=== PATIENT | female | born 1940 | race Caucasian/White ===

== ENCOUNTER 2017-03-06 12:20 | Inpatient (IN) | payer MEDICARE, BC ==
[2017-03-06] MEDS ORDERED: Acetaminophen 325 MG Tab PO PRN (14:12)
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
[2017-03-06] MEDS ORDERED: Sodium Chloride 0.9% 1,000 ML IV SCH (14:30)
[2017-03-06] MEDS ORDERED: Acetaminophen 500 MG Tab PO PRN (14:31)
[2017-03-06] MEDS ORDERED: Allopurinol 300 MG Tab PO PRN (15:32)
[2017-03-06] MEDS ORDERED: Levofloxacin 500 MG Tab PO SCH (15:45)
[2017-03-06] MEDS: Acetaminophen/Codeine 300-30 MG Tab PO PRN ×2 (15:50→21:35)
[2017-03-06] MEDS ORDERED: Enoxaparin 30 MG/0.3 ML Syringe SUBCUT SCH (16:00)
[2017-03-06] MEDS ORDERED: cefTRIAXone 2 GM in Sodium Chloride 0.9% 100 ML IV SCH (16:00)
[2017-03-06] MEDS: Enoxaparin 40 MG/0.4 ML Syringe SUBCUT SCH (17:14)
[2017-03-06] MEDS: cefTRIAXone 2 GM Vial IV SCH (17:15)
[2017-03-06] MEDS ORDERED: Azithromycin 500 MG Tab PO ONE (18:08)
[2017-03-06] MEDS: metroNIDAZOLE 500 MG Tab PO SCH (18:57)
[2017-03-06] MEDS: Gabapentin 600 MG Tab PO SCH (21:37)
[2017-03-06] MEDS: Metoprolol Tartrate 50 MG Tab PO SCH (21:37)
[2017-03-06] MEDS: Mirtazapine 15 MG Tab PO SCH (21:38)
[2017-03-06] MEDS: tiZANidine 4 MG Tab PO SCH (23:09)
[2017-03-07] MEDS: metroNIDAZOLE 500 MG Tab PO SCH ×3 (01:57→19:35)
[2017-03-07] MEDS ORDERED: Sodium Chloride 0.9% 1,000 ML IV SCH (07:45)
[2017-03-07] MEDS: Docusate Sodium 100 MG Cap PO SCH (10:00)
[2017-03-07] MEDS: Aspirin 81 MG Tab.EC PO SCH (10:06)
--- NOTE | 2017-03-07 11:57 | PCM.PN ---
- General Info Date of Service: 03/07/17 Subjective Update: Patient is a 76-year-old female currently on hospital day #2 for possible aspiration pneumonia/febrile illness. Patient is currently on Rocephin and metronidazole. She had a difficult night with significant sweats and then rested well after that. She's feeling better this morning. No chest pain, chest does feel tight and shortness of breath with activity but comfortable at rest. Has not been hypoxic requiring supplemental oxygen. She's had no nausea, no vomiting, no diarrhea. Has not used the albuterol because she was concerned the albuterol might cause her heart to race. - Patient Data Vitals - Most Recent: Last Vital Signs Temp 36.7 C 03/07/17 08:05 Pulse 67 03/07/17 04:00 Resp 18 03/07/17 08:05 BP 131/63 03/07/17 08:05 Pulse Ox 92 L 03/07/17 08:05 Weight - Most Recent: 70.08 kg I&O - Last 24 Hours: Intake & Output 03/06/17 03/07/17 03/07/17 22:59 06:59 14:59 Intake Total 677 425 Output Total 750 0 Balance -73 425 Lab Results Last 24 Hours: Laboratory Results - last 24 hr 03/06/17 03/07/17 03/07/17 Range/Units 15:49 06:30 06:30 WBC 15.1 H (4.5-12.0) X10-3/uL RBC 3.24 (3.23-5.20) x10(6)uL Hgb 10.4 L (11.5-15.5) g/dL Hct 31.0 (30.0-51.3) % MCV 95.5 (80-96) fL MCH 32.2 (27.7-33.6) pg MCHC 33.7 (32.2-35.4) g/dL RDW 13.4 (11.5-15.5) % Plt Count 166 (125-369) X10(3)uL MPV 9.9 (7.4-10.4) fL Add Manual Diff Yes Neutrophils % (Manual) 87 H (46-82) % Lymphocytes % (Manual) 10 L (13-37) % Monocytes % (Manual) 3 L (4-12) % Sodium 141 (135-145) mmol/L Potassium 4.3 (3.5-5.3) mmol/L Chloride 105 (100-110) mmol/L Carbon Dioxide 28 (21-32) mmol/L BUN 32 H (7-18) mg/dL Creatinine 1.4 H (0.55-1.02) mg/dL Est Cr Clr Drug Dosing 31.00 mL/min Estimated GFR (MDRD) 36 L (>60) BUN/Creatinine Ratio 22.9 H (9-20) Glucose 103 (80-116) mg/dL Calcium 8.7 (8.6-10.2) mg/dL Total Bilirubin 0.6 (0.1-1.3) mg/dL AST 17 (5-25) IU/L ALT 17 (12-36) U/L Alkaline Phosphatase 84 (56-112) IU/L Total Protein 5.8 L (6.0-8.0) g/dL Albumin 2.7 L (3.2-4.6) g/dL Globulin 3.1 g/dL Albumin/Globulin Ratio 0.9 Urine Color Yellow (YELLOW) Urine Appearance Clear (CLEAR) Urine pH 6.0 (5.0-6.5) Ur Specific [place] 1.015 (1.010-1.025) Urine Protein Negative (NEGATIVE) mg/dL Urine Glucose (UA) Normal (NEGATIVE) mg/dL Urine Ketones Negative (NEGATIVE) mg/dL Urine Occult Blood Negative (NEGATIVE) Urine Nitrite Negative (NEGATIVE) Urine Bilirubin Negative (NEGATIVE) Urine Urobilinogen Normal (NEGATIVE) mg/dL Ur Leukocyte Esterase Negative (NEGATIVE) Urine RBC 0-5 (0) Urine WBC 0-5 (0) Ur Squamous Epith Cells Occasional (NS,R,O) Urine Bacteria Few H (NS) Wood Results Last 24 Hours: Microbiology 03/06/17 14:15 Influenza Type A Antigen Screen - Final Nasal, Unspecified NEGATIVE INFLUENZA A VIRUS AG Influenza Type B Antigen Screen - Final NEGATIVE INFLUENZA B VIRUS AG Med Orders - Current: Current Medications Acetaminophen (Tylenol Extra Strength) 1,000 mg PO Q6H PRN PRN Reason: Pain (Mild 1-3)/fever Acetaminophen/Codeine Phosphate (Tylenol With Codeine No.3 300mg/30mg) 1 tab PO Q4H PRN PRN Reason: Pain Last Admin: 03/06/17 21:35 Dose: 1 tab Albuterol/Ipratropium (Duoneb 3.0-0.5 Mg/3 Ml) 3 ml NEB Q4H PRN PRN Reason: Wheezing Allopurinol (Zyloprim) 150 mg PO DAILY PRN PRN Reason: Pain Aspirin (Halfprin) 81 mg PO DAILY [facility] Last Admin: 03/07/17 10:06 Dose: 81 mg Ceftriaxone Sodium (Rocephin) 2 gm IV Q24H [facility] Last Admin: 03/06/17 17:15 Dose: 2 gm Docusate Sodium (Colace) 100 mg PO DAILY [facility] Last Admin: 03/07/17 10:00 Dose: 100 mg Enoxaparin Sodium (Lovenox) 40 mg SUBCUT Q24H [facility] Last Admin: 03/06/17 17:14 Dose: 40 mg Gabapentin (Neurontin) 600 mg PO BEDTIME [facility] Last Admin: 03/06/17 21:37 Dose: 600 mg Sodium Chloride (Normal Saline) 1,000 mls @ 100 mls/hr IV ASDIRECTED [facility] Stop: 03/07/17 17:44 Last Admin: 03/07/17 10:05 Dose: 100 mls/hr Lactobacillus Rhamnosus (Culturelle) 1 cap PO DAILY@1200 [facility] Levalbuterol HCl (Xopenex) 1.25 mg NEB Q2H PRN PRN Reason: Wheezing Metoprolol Tartrate (Lopressor) 50 mg PO BEDTIME [facility] Last Admin: 03/06/17 21:37 Dose: 50 mg Metronidazole (Flagyl) 500 mg PO Q8H [facility] Last Admin: 03/07/17 10:06 Dose: 500 mg Mirtazapine (Remeron) 7.5 mg PO BEDTIME [facility] Last Admin: 03/06/17 21:38 Dose: 7.5 mg Tizanidine HCl (Zanaflex) 4 mg PO BEDTIME [facility] Last Admin: 03/06/17 23:09 Dose: 4 mg Discontinued Medications Acetaminophen (Tylenol) 1,000 mg PO Q6H PRN PRN Reason: Pain (Mild 1-3)/fever Azithromycin (Zithromax) 500 mg PO ONETIME ONE Stop: 03/06/17 18:09 Azithromycin (Zithromax) 250 mg PO DAILY [facility] Enoxaparin Sodium (Lovenox) 30 mg SUBCUT Q24H [facility] Sodium Chloride (Normal Saline) 1,000 mls @ 100 mls/hr IV ASDIRECTED [facility]OR[facility] Stop: 03/07/17 00:29 Last Admin: 03/06/17 14:45 Dose: 100 mls/hr - Exam General: Alert, Oriented, Cooperative, No Acute Distress HEENT: Pupils Equal, Pupils Reactive Neck: Supple Lungs: Crackles (diffuse crackles and popping in bilateral lower lobes) Cardiovascular: Regular Rate, Regular Rhythm, No Murmurs GI/Abdominal Exam: Normal Bowel Sounds, Soft, Non-Tender, No Organomegaly, No Distention Back Exam: Normal Inspection, Full Range of Motion Extremities: Normal Inspection, No Pedal Edema Skin: Warm, Dry, Intact Psy/Mental Status: Alert - Problem List & Annotations (1) Aspiration pneumonia SNOMED Code(s): 483072591 Code(s): J69.0 - PNEUMONITIS DUE TO INHALATION OF FOOD AND VOMIT Status: Acute Current Visit: Yes Annotation/Comment:: Improving. I decided against the Levaquin due to the patient's renal function and put her instead on IV Rocephin and by mouth metronidazole which she is tolerating well. Changed the albuterol to Xopenex for wheezing. Repeat chest x-ray today. (2) MERRITT (acute kidney injury) SNOMED Code(s): 60140342 Code(s): N17.9 - ACUTE KIDNEY FAILURE, UNSPECIFIED Status: Acute Current Visit: Yes Annotation/Comment:: Creatinine is up to 1.4 today. White count is down to 15.1. I am going to give her another liter of fluid. (3) HTN (hypertension) SNOMED Code(s): 76155966 Code(s): I10 - ESSENTIAL (PRIMARY) HYPERTENSION Status: Acute Current Visit: Yes Annotation/Comment:: Monitor. Continue home meds. (4) Gout SNOMED Code(s): 66984261 Code(s): M10.9 - GOUT, UNSPECIFIED Status: Acute Current Visit: Yes Annotation/Comment:: Continue home med. (5) Insomnia SNOMED Code(s): 079502585 Code(s): G47.00 - INSOMNIA, UNSPECIFIED Status: Acute Current Visit: Yes Annotation/Comment:: Continue home med. (6) Chronic pain syndrome SNOMED Code(s): 684228750 Code(s): G89.4 - CHRONIC PAIN SYNDROME Status: Acute Current Visit: Yes Annotation/Comment:: Continue home Tylenol 3. We'll need to monitor Tylenol dose overall closely. (7) DVT prophylaxis SNOMED Code(s): 587653690 Code(s): FXG7447 - Status: Acute Current Visit: Yes Annotation/Comment :: Lovenox. SCDs. - Problem List Review Problem List Initiated/Reviewed/Updated: Yes - My Orders Last 24 Hours: My Active Orders 03/06/17 14:12 Patient Status [ADT] Routine Oxygen Therapy [RC] PRN Up ad Tawanna [RC] ASDIRECTED Vital Signs [RC] 08,16,20,00,04,00 Resuscitation Status Routine 03/06/17 14:14 Intake and Output [RC] 06,14,22 Sequential Compression Device [OM.PC] Per Unit Routine 03/06/17 14:31 Acetaminophen [Tylenol Extra Strength] 1,000 mg PO Q6H PRN 03/06/17 14:50 CULTURE BLOOD [BC] Stat 03/06/17 14:54 IS (RT) [RT Incentive Spirometry] [RC] Q1HWA 03/06/17 15:32 Acetaminophen/Codeine [Tylenol with Codeine No.3 300MG/30MG] 1 tab PO Q4H PRN Allopurinol [Zyloprim] 150 mg PO DAILY PRN 03/06/17 15:47 RT Aerosol Therapy [RC] ASDIRECTED Albuterol/Ipratropium [DuoNeb 3.0-0.5 MG/3 ML] 3 ml NEB Q4H PRN 03/06/17 16:00 Enoxaparin [Lovenox] 40 mg SUBCUT Q24H cefTRIAXone [Rocephin] 2 gm IV Q24H 03/06/17 18:00 metroNIDAZOLE [Flagyl] 500 mg PO Q8H 03/06/17 21:00 Gabapentin [Neurontin] 600 mg PO BEDTIME Metoprolol Tartrate [Lopressor] 50 mg PO BEDTIME Mirtazapine [Remeron] 7.5 mg PO BEDTIME 03/07/17 07:45 Sodium Chloride 0.9% [Normal Saline] 1,000 ml IV ASDIRECTED 03/07/17 09:00 Aspirin [Halfprin] 81 mg PO DAILY Docusate Sodium [Colace] 100 mg PO DAILY 03/07/17 11:35 CXR [Chest 2V] [CR] Routine 03/07/17 11:39 RT Aerosol Therapy [RC] ASDIRECTED Levalbuterol HCl [Xopenex] 1.25 mg NEB Q2H PRN 03/07/17 12:00 Lactobacillus Rhamnosus GG [Culturelle] 1 cap PO DAILY@1200 - Assessment Assessment:: Overall patient improved from yesterday. - Plan Plan:: Discussed CODE STATUS with the patient. She is a DNR/DNI. She would not want CPR if she were to unexpectedly. She would not want intubation even if it would be life saving if her respiratory status deteriorated. She would not want tube feeds to keep her alive for anything but a short period of time.
[2017-03-07] MEDS: Acetaminophen/Codeine 300-30 MG Tab PO PRN ×2 (12:26→21:06)
[2017-03-07] MEDS: Lactobacillus Rhamnosus GG (Probiotic) Cap PO SCH (12:26)
[2017-03-07] MEDS ORDERED: Acetaminophen 500 MG Tab PO PRN (12:56)
--- NOTE | 2017-03-07 13:05 | CR ---
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 CHEST: PA and lateral views of the chest 03/07/2017 were compared with 2016, again revealing the elevated right hemidiaphragm leaf. Heavy markings are noted at both lung bases and in the right upper lung field, making it difficult to exclude areas of patchy bronchopneumonia. No gross consolidating pneumonia or definite effusion was identified. The heart is normal in size and shape. The aorta is tortuous and calcified in the arch and descending portion. Moderate degenerative changes are noted in the mid to lower thoracic spine with some disk disease suggested in the mid thoracic spine. IMPRESSION: 1. No definite acute process but difficult to exclude patchy bronchopneumonia in upper lung field on the right and both lower lung albert - lung bases, due to heavy markings present, most likely on the basis of pulmonary fibrosis. 2. ASD aorta. 3. Mild dextroconvex scoliosis thoracic spine with degenerative disk disease mid thoracic spine and hypertrophic degenerative changes mid thoracic spine. 4. Elevated right hemidiaphragm again noted with the hepatic flexure colon in that area, as previously. MTDD
[2017-03-07] MEDS: Enoxaparin 40 MG/0.4 ML Syringe SUBCUT SCH (16:21)
[2017-03-07] MEDS: Allopurinol 300 MG Tab PO SCH (16:26)
[2017-03-07] MEDS: cefTRIAXone 2 GM Vial IV SCH (16:26)
[2017-03-07] MEDS ORDERED: Azithromycin 250 MG Tab PO SCH (21:00)
[2017-03-07] MEDS: Sodium Chloride 0.9% 10 ML Syringe FLUSH PRN (21:00)
[2017-03-07] MEDS: Gabapentin 600 MG Tab PO SCH (21:06)
[2017-03-07] MEDS: Mirtazapine 15 MG Tab PO SCH (21:06)
[2017-03-07] MEDS: tiZANidine 4 MG Tab PO SCH (21:06)
[2017-03-07] MEDS: Metoprolol Tartrate 50 MG Tab PO SCH (21:09)
[2017-03-08] MEDS: metroNIDAZOLE 500 MG Tab PO SCH ×3 (02:11→18:28)
[2017-03-08] MEDS: Docusate Sodium 100 MG Cap PO SCH (08:20)
[2017-03-08] MEDS: Aspirin 81 MG Tab.EC PO SCH (08:20)
[2017-03-08] MEDS: Allopurinol 300 MG Tab PO SCH (08:21)
[2017-03-08] MEDS: Lactobacillus Rhamnosus GG (Probiotic) Cap PO SCH (11:38)
[2017-03-08] MEDS: Acetaminophen/Codeine 300-30 MG Tab PO PRN ×2 (13:01→21:05)
[2017-03-08] MEDS: Levalbuterol HCl 1.25 MG/3 ML Neb NEB PRN (13:25)
[2017-03-08] MEDS: predniSONE 20 MG Tab PO SCH (14:30)
--- NOTE | 2017-03-08 15:43 | CT ---
INDICATION: Short of breath, pulmonary fibrosis. CT CHEST WITHOUT CONTRAST: Spiral 2.5 mm axial sections were obtained through the chest without contrast with sagittal and coronal reconstructions 2017. No comparison CTs were available. There is a chest x-ray from 2017. Total exam DLP = 328.43 mGy-cm. Scattered areas of patchy infiltration are noted with one area of consolidating pneumonia at the left lower lobe with air bronchograms extensively in that area. Additional areas of infiltrate are seen in the lingula of both upper lobes and middle lobe. The appearance raises question of a process such as aspiration pneumonia. At least a portion of these changes could be on the basis of chronic inflammatory disease, such as bronchitis, as there appear to be abnormal air spaces, possibly bronchiectasis present. Pneumonia superimposed on chronic inflammatory disease, such as chronic bronchitis, would also be a consideration, especially in the area of the left lower lobe, where consolidation is present. In some of the areas of apparent infiltration, there is some pleural thickening , suggesting some pleural reaction; however, no significant pleural effusion could be identified. There appear to be coronary artery and mitral annular calcifications. The heart did not appear grossly enlarged, however. Calcifications are noted in the aorta and splenic artery. Bridging hyperostotic changes are noted in the mid to lower thoracic spine. Mediastinal lymphadenopathy is mild to moderate and fairly nonspecific and certainly could be on the basis of inflammatory disease. At the upper pole of the right lobe of the thyroid, there is an appearance of a nodular mass posteriorly, measuring approximately 2 cm in maximum diameter transversely. Ultrasound would be confirmatory, as felt to be clinically necessary. IMPRESSION: Scattered areas of chronic inflammatory change and/or fibrosis with bronchiectasis suggested. These areas are seen scattered about the lungs. An area of consolidating pneumonia is also apparently superimposed on these changes in the left lower lobe. MTDD
[2017-03-08] MEDS: cefTRIAXone 2 GM Vial IV SCH (15:56)
[2017-03-08] MEDS: Enoxaparin 40 MG/0.4 ML Syringe SUBCUT SCH (15:56)
[2017-03-08] MEDS: Sodium Chloride 0.9% 10 ML Syringe FLUSH PRN (16:00)
--- NOTE | 2017-03-08 17:24 | PCM.PN ---
- General Info Date of Service: 03/08/17 Subjective Update: Patient is a 76-year-old female currently on hospital day #3 for presumed pneumonia, probable aspiration. Patient is on Rocephin and Flagyl. She complains today that she feels worse than she has since she came in. Her chest is tight. She is achy all over. She feels like this at home sometimes but only when the weather is changing. She is weak, she feels her breathing is worse, she was up in the chair but hardly had the strength to walk in the coates. It hurts when she takes a deep breath. She recalls that in previous hospitalizations she's required prednisone in order to really turn the corner with her respiratory status and isn't getting prednisone here so is wondering if perhaps that should be added to her regimen. Clinically, the patient's vital signs are stable and improved. White count has come down to 12.5. We repeated a flu because she was so achy today and this was again negative. She tells me her cough has been more productive and it's been blood tinged and yellow. No nausea , no vomiting. No diarrhea. - Patient Data Vitals - Most Recent: Last Vital Signs Temp 37.0 C 03/08/17 08:00 Pulse 76 03/08/17 08:00 Resp 18 03/08/17 08:00 BP 128/62 03/08/17 08:00 Pulse Ox 97 03/08/17 08:00 Weight - Most Recent: 73.198 kg I&O - Last 24 Hours: Intake & Output 03/08/17 03/08/17 03/08/17 06:59 14:59 22:59 Intake Total 150 Output Total 200 900 200 Balance -50 -900 -200 Lab Results Last 24 Hours: Laboratory Results - last 24 hr 03/08/17 03/08/17 03/08/17 Range/Units 09:45 09:45 09:45 WBC 12.5 H (4.5-12.0) X10-3/uL RBC 3.51 (3.23-5.20) x10(6)uL Hgb 11.0 L (11.5-15.5) g/dL Hct 33.4 (30.0-51.3) % MCV 94.9 (80-96) fL MCH 31.3 (27.7-33.6) pg MCHC 32.9 (32.2-35.4) g/dL RDW 12.9 (11.5-15.5) % Plt Count 168 (125-369) X10(3)uL MPV 9.0 (7.4-10.4) fL Add Manual Diff Yes Neutrophils % (Manual) 90 H (46-82) % Lymphocytes % (Manual) 5 L (13-37) % Monocytes % (Manual) 4 (4-12) % Eosinophils % (Manual) 1 (0-5) % Sodium 140 (135-145) mmol/L Potassium 4.0 (3.5-5.3) mmol/L Chloride 104 (100-110) mmol/L Carbon Dioxide 27 (21-32) mmol/L BUN 32 H (7-18) mg/dL Creatinine 1.4 H (0.55-1.02) mg/dL Est Cr Clr Drug Dosing 31.00 mL/min Estimated GFR (MDRD) 36 L (>60) BUN/Creatinine Ratio 22.9 H (9-20) Glucose 179 H (80-116) mg/dL Calcium 8.9 (8.6-10.2) mg/dL Creatine Kinase 29 L (60-160) IU/L Wood Results Last 24 Hours: Microbiology 03/06/17 14:50 Aerobic Blood Culture - Preliminary Blood NO GROWTH AFTER 2 DAYS Anaerobic Blood Culture - Preliminary NO GROWTH AFTER 2 DAYS 03/08/17 11:14 Influenza Type A Antigen Screen - Final Nasopharyngeal Swab - Nare, Left NEGATIVE INFLUENZA A VIRUS AG Influenza Type B Antigen Screen - Final NEGATIVE INFLUENZA B VIRUS AG Med Orders - Current: Current Medications Acetaminophen (Tylenol Extra Strength) 500 mg PO Q6H PRN PRN Reason: Pain (Mild 1-3)/fever Last Admin: 03/08/17 10:46 Dose: 500 mg Acetaminophen/Codeine Phosphate (Tylenol With Codeine No.3 300mg/30mg) 1 tab PO Q4H PRN PRN Reason: Pain Last Admin: 03/08/17 13:01 Dose: 1 tab Albuterol/Ipratropium (Duoneb 3.0-0.5 Mg/3 Ml) 3 ml NEB Q4H PRN PRN Reason: Wheezing Allopurinol (Zyloprim) 150 mg PO DAILY [facility] Last Admin: 03/08/17 08:21 Dose: 150 mg Aspirin (Halfprin) 81 mg PO DAILY [facility] Last Admin: 03/08/17 08:20 Dose: 81 mg Ceftriaxone Sodium (Rocephin) 2 gm IV Q24H [facility] Last Admin: 03/08/17 15:56 Dose: 2 gm Docusate Sodium (Colace) 100 mg PO DAILY [facility] Last Admin: 03/08/17 08:20 Dose: 100 mg Enoxaparin Sodium (Lovenox) 40 mg SUBCUT Q24H [facility] Last Admin: 03/08/17 15:56 Dose: 40 mg Gabapentin (Neurontin) 600 mg PO BEDTIME [facility] Last Admin: 03/07/17 21:06 Dose: 600 mg Lactobacillus Rhamnosus (Culturelle) 1 cap PO DAILY@1200 [facility] Last Admin: 03/08/17 11:38 Dose: 1 cap Levalbuterol HCl (Xopenex) 1.25 mg NEB Q2H PRN PRN Reason: Wheezing Last Admin: 03/08/17 13:25 Dose: 1.25 mg Metoprolol Tartrate (Lopressor) 50 mg PO BEDTIME [facility] Last Admin: 03/07/17 21:09 Dose: 50 mg Metronidazole (Flagyl) 500 mg PO Q8H [facility] Last Admin: 03/08/17 10:43 Dose: 500 mg Mirtazapine (Remeron) 7.5 mg PO BEDTIME [facility] Last Admin: 03/07/17 21:06 Dose: 7.5 mg Prednisone (Prednisone) 60 mg PO WITHBREAKFAST [facility] Last Admin: 03/08/17 14:30 Dose: 60 mg Sodium Chloride (Saline Flush) 10 ml FLUSH ASDIRECTED PRN PRN Reason: flush to saline lock as needed Last Admin: 03/08/17 16:00 Dose: 10 ml Tizanidine HCl (Zanaflex) 4 mg PO BEDTIME [facility] Last Admin: 03/07/17 21:06 Dose: 4 mg Discontinued Medications Acetaminophen (Tylenol) 1,000 mg PO Q6H PRN PRN Reason: Pain (Mild 1-3)/fever Acetaminophen (Tylenol Extra Strength) 1,000 mg PO Q6H PRN PRN Reason: Pain (Mild 1-3)/fever Last Admin: 03/07/17 12:28 Dose: 1,000 mg Allopurinol (Zyloprim) 150 mg PO DAILY PRN PRN Reason: Pain Azithromycin (Zithromax) 500 mg PO ONETIME ONE Stop: 03/06/17 18:09 Azithromycin (Zithromax) 250 mg PO DAILY [facility] Enoxaparin Sodium (Lovenox) 30 mg SUBCUT Q24H [facility] Sodium Chloride (Normal Saline) 1,000 mls @ 100 mls/hr IV ASDIRECTED [facility] Stop: 03/07/17 00:29 Last Admin: 03/06/17 14:45 Dose: 100 mls/hr Sodium Chloride (Normal Saline) 1,000 mls @ 100 mls/hr IV ASDIRECTED [facility] Stop: 03/07/17 17:44 Last Admin: 03/07/17 10:05 Dose: 100 mls/hr - Exam General: Alert, Oriented, Cooperative, No Acute Distress HEENT: Pupils Equal, Pupils Reactive Neck: Supple, Trachea Midline Lungs: Normal Respiratory Effort (No wheezing and crackles are much improved today. Lungs are almost completely clear.), Crackles Cardiovascular: Regular Rate, Regular Rhythm, No Murmurs GI/Abdominal Exam: Normal Bowel Sounds, Soft, Non-Tender, No Distention Back Exam: Normal Inspection Extremities: Normal Inspection, No Pedal Edema Skin: Warm, Dry, Intact Psy/Mental Status: Alert - Problem List & Annotations (1) Aspiration pneumonia SNOMED Code(s): 310602584 Code(s): J69.0 - PNEUMONITIS DUE TO INHALATION OF FOOD AND VOMIT Status: Acute Current Visit: Yes Annotation/Comment:: CT chest showed bronchiectasis with a left lower lobe pneumonia in addition to pulmonary fibrosis. Patient was finally willing to take a Xopenex neb and this improved her shortness of breath and tightness in the chest considerably. We started prednisone and will recheck labs tomorrow. I would expect patient can be discharged home on oral Augmentin and prednisone tomorrow if she continues to improve. (2) MERRITT (acute kidney injury) SNOMED Code(s): 97850655 Code(s): N17.9 - ACUTE KIDNEY FAILURE, UNSPECIFIED Status: Acute Current Visit: Yes Annotation/Comment:: Creatinine stable at 1.4. Continue to monitor. (3) HTN (hypertension) SNOMED Code(s): 58201361 Code(s): I10 - ESSENTIAL (PRIMARY) HYPERTENSION Status: Acute Current Visit: Yes Annotation/Comment:: Monitor. Continue home meds. (4) Gout SNOMED Code(s): 14128238 Code(s): M10.9 - GOUT, UNSPECIFIED Status: Acute Current Visit: Yes Annotation/Comment:: Continue home med. (5) Insomnia SNOMED Code(s): 696149871 Code(s): G47.00 - INSOMNIA, UNSPECIFIED Status: Acute Current Visit: Yes Annotation/Comment:: Continue home med. (6) Chronic pain syndrome SNOMED Code(s): 728235883 Code(s): G89.4 - CHRONIC PAIN SYNDROME Status: Acute Current Visit: Yes Annotation/Comment:: Continue home Tylenol 3. We'll need to monitor Tylenol dose overall closely. (7) DVT prophylaxis SNOMED Code(s): 926284120 Code(s): UJY8513 - Status: Acute Current Visit: Yes Annotation/Comment :: Lovenox. SCDs. - Problem List Review Problem List Initiated/Reviewed/Updated: Yes - My Orders Last 24 Hours: My Active Orders 03/07/17 20:47 Sodium Chloride 0.9% [Saline Flush] 10 ml FLUSH ASDIRECTED PRN 03/08/17 13:30 predniSONE 60 mg PO WITHBREAKFAST 03/09/17 05:11 BASIC METABOLIC PANEL,BMP [CHEM] AM CBC WITH AUTO DIFF [HEME] AM - Assessment Assessment:: Overall patient appears improved from yesterday although she doesn't feel better. We'll continue to monitor. - Plan Plan:: Discussed CODE STATUS with the patient. She is a DNR/DNI. She would not want CPR if she were to unexpectedly. She would not want intubation even if it would be life saving if her respiratory status deteriorated. She would not want tube feeds to keep her alive for anything but a short period of time.
[2017-03-08] MEDS: Albuterol/Ipratropium 3.0-0.5 MG/3 ML Neb Soln NEB PRN (18:41)
[2017-03-08] MEDS: Metoprolol Tartrate 50 MG Tab PO SCH (21:01)
[2017-03-08] MEDS: Mirtazapine 15 MG Tab PO SCH (21:02)
[2017-03-08] MEDS: Gabapentin 600 MG Tab PO SCH (21:02)
[2017-03-08] MEDS: tiZANidine 4 MG Tab PO SCH (21:03)
[2017-03-09] MEDS: metroNIDAZOLE 500 MG Tab PO SCH ×3 (02:44→18:06)
[2017-03-09] MEDS: predniSONE 20 MG Tab PO SCH (08:37)
[2017-03-09] MEDS: Allopurinol 300 MG Tab PO SCH (08:38)
[2017-03-09] MEDS: Aspirin 81 MG Tab.EC PO SCH (08:38)
[2017-03-09] MEDS: Docusate Sodium 100 MG Cap PO SCH (08:38)
[2017-03-09] MEDS: Albuterol/Ipratropium 3.0-0.5 MG/3 ML Neb Soln NEB PRN (11:19)
[2017-03-09] MEDS: Lactobacillus Rhamnosus GG (Probiotic) Cap PO SCH (11:49)
--- NOTE | 2017-03-09 12:37 | PN ---
DATE SEEN: 03/09/2017 CHIEF COMPLAINT: Weakness. HISTORY OF PRESENT ILLNESS: This is a 76-year-old female admitted for pneumonia. She also has a history of pulmonary fibrosis, hypertension, and fibromyalgia. Overnight, she complains she still feels weak. Her respiratory system is better. Her appetite is still low. No fever has been reported for the last 24 hours. REVIEW OF SYSTEMS: No urinary symptoms, nausea or vomiting. SOCIAL HISTORY: Does not smoke. Lives alone. PHYSICAL EXAMINATION: GENERAL: Upon exam, she is pleasant, alert. VITAL SIGNS: Blood pressure is normal, pulse 84, oxygenation 93% on room air. ENT: Negative. NECK: No JVD or carotid bruits. Trachea is midline. CHEST: Occasional rhonchi. EXTREMITIES: No edema. MENTAL STATUS: Alert. LABORATORY DATA: White cell count today is 9.4, hemoglobin 10.5. Electrolytes are normal. Creatinine is 1.3. FINAL IMPRESSION: 1. Community-acquired pneumonia, possibly aspiration, related to generalized weakness. 2. Fibromyalgia syndrome. 3. Pulmonary fibrosis. 4. History of hypertension. 5. Mild acute renal insufficiency. PLAN: I will continue with clindamycin and Rocephin. I have asked Physical and Occupational Therapy to see her today and continue to work with her in terms of rehabilitation with possible discharge in the next 24-48 hours to home. I will repeat the CBC and basic profile in the morning. /[id number] ZACHARIAH/KILO
[2017-03-09] MEDS: Acetaminophen/Codeine 300-30 MG Tab PO PRN ×2 (14:49→20:58)
[2017-03-09] MEDS: Enoxaparin 40 MG/0.4 ML Syringe SUBCUT SCH (17:03)
[2017-03-09] MEDS: cefTRIAXone 2 GM Vial IV SCH (17:15)
[2017-03-09] MEDS: Sodium Chloride 0.9% 10 ML Syringe FLUSH PRN (17:16)
[2017-03-09] MEDS: Metoprolol Tartrate 50 MG Tab PO SCH (20:57)
[2017-03-09] MEDS: Mirtazapine 15 MG Tab PO SCH (20:58)
[2017-03-09] MEDS: Gabapentin 600 MG Tab PO SCH (20:58)
[2017-03-09] MEDS: tiZANidine 4 MG Tab PO SCH (20:58)
[2017-03-10] MEDS: metroNIDAZOLE 500 MG Tab PO SCH ×3 (02:38→17:27)
[2017-03-10] MEDS: Levalbuterol HCl 1.25 MG/3 ML Neb NEB PRN (07:35)
[2017-03-10] MEDS: predniSONE 20 MG Tab PO SCH (08:05)
[2017-03-10] MEDS: Allopurinol 300 MG Tab PO SCH (08:06)
[2017-03-10] MEDS: Aspirin 81 MG Tab.EC PO SCH (08:06)
[2017-03-10] MEDS: Docusate Sodium 100 MG Cap PO SCH (08:06)
--- NOTE | 2017-03-10 09:06 | PCM.PN ---
- General Info Date of Service: 03/10/17 Subjective Update: Since that well. Xopenex instability healthy breathing. She has normal fever or chills. Still feels somewhat weak and like to stay 1 more day. Functional Status: Reports: Pain Controlled, Tolerating Diet, Ambulating - Review of Systems General: Reports: Weakness HEENT: Reports: No Symptoms Pulmonary: Reports: Cough Cardiovascular: Reports: No Symptoms Gastrointestinal: Reports: No Symptoms - Patient Data Vitals - Most Recent: Last Vital Signs Temp 97.5 F 03/10/17 05:45 Pulse 66 03/10/17 07:50 Resp 20 03/10/17 05:45 BP 134/81 03/10/17 05:45 Pulse Ox 93 L 03/10/17 07:50 Weight - Most Recent: 73.198 kg I&O - Last 24 Hours: Intake & Output 03/09/17 03/10/17 03/10/17 22:59 06:59 14:59 Intake Total 200 Output Total 800 500 Balance -800 -300 Wood Results Last 24 Hours: Microbiology 03/06/17 14:50 Aerobic Blood Culture - Preliminary Blood NO GROWTH AFTER 3 DAYS Anaerobic Blood Culture - Preliminary NO GROWTH AFTER 3 DAYS Med Orders - Current: Current Medications Acetaminophen (Tylenol Extra Strength) 500 mg PO Q6H PRN PRN Reason: Pain (Mild 1-3)/fever Last Admin: 03/08/17 10:46 Dose: 500 mg Acetaminophen/Codeine Phosphate (Tylenol With Codeine No.3 300mg/30mg) 1 tab PO Q4H PRN PRN Reason: Pain Last Admin: 03/09/17 20:58 Dose: 1 tab Albuterol/Ipratropium (Duoneb 3.0-0.5 Mg/3 Ml) 3 ml NEB Q4H PRN PRN Reason: Wheezing Last Admin: 03/09/17 11:19 Dose: 3 ml Allopurinol (Zyloprim) 150 mg PO DAILY [facility] Last Admin: 03/10/17 08:06 Dose: 150 mg Aspirin (Halfprin) 81 mg PO DAILY [facility] Last Admin: 03/10/17 08:06 Dose: 81 mg Ceftriaxone Sodium (Rocephin) 2 gm IV Q24H [facility] Last Admin: 03/09/17 17:15 Dose: 2 gm Docusate Sodium (Colace) 100 mg PO DAILY [facility] Last Admin: 03/10/17 08:06 Dose: 100 mg Enoxaparin Sodium (Lovenox) 40 mg SUBCUT Q24H [facility] Last Admin: 03/09/17 17:03 Dose: 40 mg Gabapentin (Neurontin) 600 mg PO BEDTIME [facility] Last Admin: 03/09/17 20:58 Dose: 600 mg Lactobacillus Rhamnosus (Culturelle) 1 cap PO DAILY@1200 [facility] Last Admin: 03/09/17 11:49 Dose: 1 cap Levalbuterol HCl (Xopenex) 1.25 mg NEB Q2H PRN PRN Reason: Wheezing Last Admin: 03/10/17 07:35 Dose: 1.25 mg Metoprolol Tartrate (Lopressor) 50 mg PO BEDTIME [facility] Last Admin: 03/09/17 20:57 Dose: 50 mg Metronidazole (Flagyl) 500 mg PO Q8H [facility] Last Admin: 03/10/17 02:38 Dose: 500 mg Mirtazapine (Remeron) 7.5 mg PO BEDTIME [facility] Last Admin: 03/09/17 20:58 Dose: 7.5 mg Prednisone (Prednisone) 60 mg PO WITHBREAKFAST [facility] Last Admin: 03/10/17 08:05 Dose: 60 mg Sodium Chloride (Saline Flush) 10 ml FLUSH ASDIRECTED PRN PRN Reason: flush to saline lock as needed Last Admin: 03/09/17 17:16 Dose: 10 ml Tizanidine HCl (Zanaflex) 4 mg PO BEDTIME [facility] Last Admin: 03/09/17 20:58 Dose: 4 mg Discontinued Medications Acetaminophen (Tylenol) 1,000 mg PO Q6H PRN PRN Reason: Pain (Mild 1-3)/fever Acetaminophen (Tylenol Extra Strength) 1,000 mg PO Q6H PRN PRN Reason: Pain (Mild 1-3)/fever Last Admin: 03/07/17 12:28 Dose: 1,000 mg Allopurinol (Zyloprim) 150 mg PO DAILY PRN PRN Reason: Pain Azithromycin (Zithromax) 500 mg PO ONETIME ONE Stop: 03/06/17 18:09 Azithromycin (Zithromax) 250 mg PO DAILY [facility] Enoxaparin Sodium (Lovenox) 30 mg SUBCUT Q24H [facility] Sodium Chloride (Normal Saline) 1,000 mls @ 100 mls/hr IV ASDIRECTED [facility] Stop: 03/07/17 00:29 Last Admin: 03/06/17 14:45 Dose: 100 mls/hr Sodium Chloride (Normal Saline) 1,000 mls @ 100 mls/hr IV ASDIRECTED [facility] Stop: 03/07/17 17:44 Last Admin: 03/07/17 10:05 Dose: 100 mls/hr - Exam Quality Assessment: No: Supplemental Oxygen General: Alert, Oriented HEENT: Pupils Equal Lungs: Clear to Auscultation - Problem List & Annotations (1) Pulmonary fibrosis SNOMED Code(s): 31802162 Code(s): J84.10 - PULMONARY FIBROSIS, UNSPECIFIED Status: Acute Current Visit: Yes (2) Aspiration pneumonia SNOMED Code(s): 431472132 Code(s): J69.0 - PNEUMONITIS DUE TO INHALATION OF FOOD AND VOMIT Status: Acute Current Visit: Yes Annotation/Comment:: CT chest showed bronchiectasis with a left lower lobe pneumonia in addition to pulmonary fibrosis. Patient was finally willing to take a Xopenex neb and this improved her shortness of breath and tightness in the chest considerably. We started prednisone and will recheck labs tomorrow. I would expect patient can be discharged home on oral Augmentin and prednisone tomorrow if she continues to improve. (3) Chronic pain syndrome SNOMED Code(s): 484370331 Code(s): G89.4 - CHRONIC PAIN SYNDROME Status: Acute Current Visit: Yes Annotation/Comment:: Continue home Tylenol 3. We'll need to monitor Tylenol dose overall closely. (4) Weakness SNOMED Code(s): 52025119 Code(s): R53.1 - WEAKNESS Status: Acute Current Visit: No (5) GERD (gastroesophageal reflux disease) SNOMED Code(s): 985692952 Code(s): K21.9 - GASTRO-ESOPHAGEAL REFLUX DISEASE WITHOUT ESOPHAGITIS Status: Chronic Current Visit: No Qualifiers: Esophagitis presence: without esophagitis Qualified Code(s): K21.9 - Gastro -esophageal reflux disease without esophagitis - Problem List Review Problem List Initiated/Reviewed/Updated: Yes - My Orders Last 24 Hours: My Active Orders 03/09/17 09:23 OT Evaluation and Treatment [CONS] Routine PT Evaluation and Treatment [CONS] Routine - Assessment Assessment:: Overall patient appears improved from yesterday although she doesn't feel better. We'll continue to monitor. - Plan Plan:: Dr. Dr. Masters thought that she may have aspiration pneumonia, but it's also possible she could've community-acquired. She has improved on treatment of Flagyl and Rocephin we'll continue that for today and prednisone for pulmonary fibrosis with the hope of discharge tomorrow. I appreciate the input by physical and occupational therapy.
[2017-03-10] MEDS: Lactobacillus Rhamnosus GG (Probiotic) Cap PO SCH (11:37)
[2017-03-10] MEDS: Sodium Chloride 0.9% 10 ML Syringe FLUSH PRN (15:41)
[2017-03-10] MEDS: cefTRIAXone 2 GM Vial IV SCH (15:41)
[2017-03-10] MEDS: Enoxaparin 40 MG/0.4 ML Syringe SUBCUT SCH (15:41)
[2017-03-10] MEDS: Albuterol/Ipratropium 3.0-0.5 MG/3 ML Neb Soln NEB PRN (18:32)
[2017-03-10] MEDS: Metoprolol Tartrate 50 MG Tab PO SCH (21:24)
[2017-03-10] MEDS: Mirtazapine 15 MG Tab PO SCH (21:26)
[2017-03-10] MEDS: Gabapentin 600 MG Tab PO SCH (21:26)
[2017-03-10] MEDS: tiZANidine 4 MG Tab PO SCH (21:27)
[2017-03-11] MEDS: metroNIDAZOLE 500 MG Tab PO SCH ×2 (01:55→09:31)
[2017-03-11] MEDS: Acetaminophen/Codeine 300-30 MG Tab PO PRN (01:58)
--- NOTE | 2017-03-11 08:57 | PCM.PN ---
- General Info Date of Service: 03/11/17 Admission Dx/Problem (Free Text): Admission Diagnosis/Problem Admission Diagnosis/Problem Fever with chills Subjective Update: Since that well. Xopenex instability healthy breathing. She has normal fever or chills. Still feels somewhat weak and like to stay 1 more day. - Review of Systems General: Reports: No Symptoms HEENT: Reports: No Symptoms Pulmonary: Reports: Shortness of Breath - Patient Data Vitals - Most Recent: Last Vital Signs Temp 97.5 F 03/11/17 01:50 Pulse 54 L 03/11/17 01:50 Resp 18 03/11/17 04:00 BP 143/72 H 03/11/17 01:50 Pulse Ox 99 03/11/17 01:50 Weight - Most Recent: 73.198 kg I&O - Last 24 Hours: Intake & Output 03/10/17 03/11/17 03/11/17 22:59 06:59 14:59 Output Total 600 800 200 Balance -600 -800 -200 Wood Results Last 24 Hours: Microbiology 03/06/17 14:50 Aerobic Blood Culture - Preliminary Blood NO GROWTH AFTER 4 DAYS Anaerobic Blood Culture - Preliminary NO GROWTH AFTER 4 DAYS Med Orders - Current: Current Medications Acetaminophen (Tylenol Extra Strength) 500 mg PO Q6H PRN PRN Reason: Pain (Mild 1-3)/fever Last Admin: 03/08/17 10:46 Dose: 500 mg Acetaminophen/Codeine Phosphate (Tylenol With Codeine No.3 300mg/30mg) 1 tab PO Q4H PRN PRN Reason: Pain Last Admin: 03/11/17 01:58 Dose: 1 tab Albuterol/Ipratropium (Duoneb 3.0-0.5 Mg/3 Ml) 3 ml NEB Q4H PRN PRN Reason: Wheezing Last Admin: 03/10/17 18:32 Dose: 3 ml Allopurinol (Zyloprim) 150 mg PO DAILY [facility] Last Admin: 03/10/17 08:06 Dose: 150 mg Aspirin (Halfprin) 81 mg PO DAILY [facility] Last Admin: 03/10/17 08:06 Dose: 81 mg Ceftriaxone Sodium (Rocephin) 2 gm IV Q24H [facility] Last Admin: 03/10/17 15:41 Dose: 2 gm Docusate Sodium (Colace) 100 mg PO DAILY [facility] Last Admin: 03/10/17 08:06 Dose: 100 mg Enoxaparin Sodium (Lovenox) 40 mg SUBCUT Q24H [facility] Last Admin: 03/10/17 15:41 Dose: 40 mg Gabapentin (Neurontin) 600 mg PO BEDTIME [facility] Last Admin: 03/10/17 21:26 Dose: 600 mg Lactobacillus Rhamnosus (Culturelle) 1 cap PO DAILY@1200 [facility] Last Admin: 03/10/17 11:37 Dose: 1 cap Levalbuterol HCl (Xopenex) 1.25 mg NEB Q2H PRN PRN Reason: Wheezing Last Admin: 03/10/17 07:35 Dose: 1.25 mg Metoprolol Tartrate (Lopressor) 50 mg PO BEDTIME [facility] Last Admin: 03/10/17 21:24 Dose: 50 mg Metronidazole (Flagyl) 500 mg PO Q8H [facility] Last Admin: 03/11/17 01:55 Dose: 500 mg Mirtazapine (Remeron) 7.5 mg PO BEDTIME [facility] Last Admin: 03/10/17 21:26 Dose: 7.5 mg Prednisone (Prednisone) 60 mg PO WITHBREAKFAST [facility] Last Admin: 03/10/17 08:05 Dose: 60 mg Sodium Chloride (Saline Flush) 10 ml FLUSH ASDIRECTED PRN PRN Reason: flush to saline lock as needed Last Admin: 03/10/17 15:41 Dose: 10 ml Tizanidine HCl (Zanaflex) 4 mg PO BEDTIME [facility] Last Admin: 03/10/17 21:27 Dose: 4 mg Discontinued Medications Acetaminophen (Tylenol) 1,000 mg PO Q6H PRN PRN Reason: Pain (Mild 1-3)/fever Acetaminophen (Tylenol Extra Strength) 1,000 mg PO Q6H PRN PRN Reason: Pain (Mild 1-3)/fever Last Admin: 03/07/17 12:28 Dose: 1,000 mg Allopurinol (Zyloprim) 150 mg PO DAILY PRN PRN Reason: Pain Azithromycin (Zithromax) 500 mg PO ONETIME ONE Stop: 03/06/17 18:09 Azithromycin (Zithromax) 250 mg PO DAILY [facility] Enoxaparin Sodium (Lovenox) 30 mg SUBCUT Q24H [facility] Sodium Chloride (Normal Saline) 1,000 mls @ 100 mls/hr IV ASDIRECTED [facility] Stop: 03/07/17 00:29 Last Admin: 03/06/17 14:45 Dose: 100 mls/hr Sodium Chloride (Normal Saline) 1,000 mls @ 100 mls/hr IV ASDIRECTED [facility] Stop: 03/07/17 17:44 Last Admin: 03/07/17 10:05 Dose: 100 mls/hr - Exam Quality Assessment: No: Supplemental Oxygen General: Alert, Oriented HEENT: Pupils Equal, Pupils Reactive, EOMI, Mucous Membr. Moist/[place] Lungs: Decreased Breath Sounds, Crackles Cardiovascular: Regular Rate, Regular Rhythm - Problem List & Annotations (1) Pulmonary fibrosis SNOMED Code(s): 61695463 Code(s): J84.10 - PULMONARY FIBROSIS, UNSPECIFIED Status: Acute Current Visit: Yes (2) Aspiration pneumonia SNOMED Code(s): 480324073 Code(s): J69.0 - PNEUMONITIS DUE TO INHALATION OF FOOD AND VOMIT Status: Acute Current Visit: Yes Annotation/Comment:: CT chest showed bronchiectasis with a left lower lobe pneumonia in addition to pulmonary fibrosis. Patient was finally willing to take a Xopenex neb and this improved her shortness of breath and tightness in the chest considerably. We started prednisone and will recheck labs tomorrow. I would expect patient can be discharged home on oral Augmentin and prednisone tomorrow if she continues to improve. (3) Chronic pain syndrome SNOMED Code(s): 006384036 Code(s): G89.4 - CHRONIC PAIN SYNDROME Status: Acute Current Visit: Yes Annotation/Comment:: Continue home Tylenol 3. We'll need to monitor Tylenol dose overall closely. (4) Weakness SNOMED Code(s): 91621669 Code(s): R53.1 - WEAKNESS Status: Acute Current Visit: No (5) GERD (gastroesophageal reflux disease) SNOMED Code(s): 967676534 Code(s): K21.9 - GASTRO-ESOPHAGEAL REFLUX DISEASE WITHOUT ESOPHAGITIS Status: Chronic Current Visit: No Qualifiers: Esophagitis presence: without esophagitis Qualified Code(s): K21.9 - Gastro -esophageal reflux disease without esophagitis - Problem List Review Problem List Initiated/Reviewed/Updated: Yes - Assessment Assessment:: Overall patient appears improved from yesterday although she doesn't feel better. We'll continue to monitor. - Plan Plan:: DC home today
--- NOTE | 2017-03-11 09:19 | DISCH ---
DISCHARGE DATE: 03/10/2017 REASON FOR ADMISSION: 1. Pneumonia. 2. Pulmonary fibrosis exacerbation. 3. Chronic pain due to fibromyalgia. 4. Weakness. 5. Gastroesophageal reflux disease. 6. Depression. DISCHARGE DIAGNOSES: 1. Pneumonia. 2. Pulmonary fibrosis exacerbation. 3. Chronic pain due to fibromyalgia. 4. Weakness. 5. Gastroesophageal reflux disease. 6. Depression. BRIEF HISTORY AND HOSPITAL COURSE: This is a 76-year-old female who came to the clinic, saw me there, and was admitted because of shortness of breath, fever, and a positive chest x-ray. On suspicion of aspiration pneumonia, Dr. Kriss Guerin, started her on Rocephin and clindamycin and her symptoms improved significantly. She has also been taking prednisone. Her pain was stable. Xopenex worked better than albuterol. She was discharged today to home health because she needs medication review, physical and occupational therapy at home. DISCHARGE MEDICATIONS: 1. Xopenex inhaled every 4 hours. 2. Prednisone tapered dose over 10 days. 3. Gabapentin 600 mg at bedtime. 4. Metoprolol 50 mg at bedtime. 5. Mirtazapine 7.5 mg at bedtime. 6. Tizanidine 4 mg at bedtime. 7. I chose to discharge her home on Augmentin 875 mg b.i.d. for 1 week. FOLLOWUP: She will see me in the office within a week of discharge and return to the ED with worsening symptoms. Please see epic for details. I spent more than 35 minutes in this discharge. /[id number] ZACHARIAH/KILO
[2017-03-11] MEDS: predniSONE 20 MG Tab PO SCH (09:30)
[2017-03-11] MEDS: Docusate Sodium 100 MG Cap PO SCH ×2 (09:31→09:36)
[2017-03-11] MEDS: Aspirin 81 MG Tab.EC PO SCH (09:31)
[2017-03-11] MEDS: Allopurinol 300 MG Tab PO SCH (09:31)
[2017-03-11] MEDS: Levalbuterol HCl 1.25 MG/3 ML Neb NEB PRN (09:34)
[2017-03-11 10:12] VITALS: BP 153/90
[2017-03-11] MEDS: Lactobacillus Rhamnosus GG (Probiotic) Cap PO SCH (11:31)
== END 2017-03-11 13:15 | disposition home health service (06) | DRG 178 ==
LOC: FB.MS 12:30
PROVIDERS: ADMIT Family Medicine; ATTEND Family Medicine
DX: J69.0 Pneumonitis due to inhalation of food and vomit (principal); N17.9 Acute kidney failure, unspecified; I10 Essential (primary) hypertension; Z66 Do not resuscitate; G47.00 Insomnia, unspecified; R09.02 Hypoxemia; J84.10 Pulmonary fibrosis, unspecified; R13.10 Dysphagia, unspecified; M10.9 Gout, unspecified; Z86.12 Personal history of poliomyelitis; M19.90 Unspecified osteoarthritis, unspecified site; Z87.01 Personal history of pneumonia (recurrent); Z87.440 Personal history of urinary (tract) infections; M54.9 Dorsalgia, unspecified; G89.4 Chronic pain syndrome; Z85.828 Personal history of other malignant neoplasm of skin; M79.7 Fibromyalgia; K21.9 Gastro-esophageal reflux disease without esophagitis; Z96.649 Presence of unspecified artificial hip joint; Z96.659 Presence of unspecified artificial knee joint; Z79.82 Long term (current) use of aspirin; Z79.52 Long term (current) use of systemic steroids; Z88.8 Allergy status to other drugs, medicaments and biological substances; Z91.048 Other nonmedicinal substance allergy status
CPT/HCPCS: 36415; 71046; 71250; 80048; 80053; 81001; 82550; 85025; 87040; 87804; 94150; 94640; 97161-GP; 97165-GO; A9270-GY; J0696; J1650; J7040; J7050; J7612; J7620

== ENCOUNTER 2018-05-23 14:30 | Observation (INO) | payer MEDICARE, BC ==
[2018-05-23] MEDS ORDERED: Aspirin 81 MG Tab.Chew PO ONE (14:44)
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
[2018-05-23] MEDS: Metoprolol Tartrate 50 MG Tab **OWN MED PO SCH (21:04)
[2018-05-23] MEDS: DOCUSATE SODIUM 100 MG PO SCH (21:04)
[2018-05-23] MEDS: Mirtazapine 15 MG Tab **OWN MED PO SCH (21:05)
[2018-05-23] MEDS: [UNRECOGNIZED DRUG - OTHER] EYEBOTH SCH (21:05)
[2018-05-23] MEDS: TIZANIDINE 4 MG PO SCH (21:06)
[2018-05-23] MEDS: Acetaminophen/Codeine 300-30 MG Tab PO SCH (21:10)
[2018-05-24] MEDS ORDERED: Furosemide 40 MG/4 ML VIAL IVPUSH ONE (07:14)
[2018-05-24] MEDS ORDERED: Albuterol/Ipratropium 3.0-0.5 MG/3 ML Neb Soln NEB PRN (08:09)
[2018-05-24] MEDS ORDERED: Sodium Chloride 0.9% 10 ML Syringe FLUSH PRN (08:12)
[2018-05-24] MEDS ORDERED: cefTRIAXone 1 GM in Sodium Chloride 0.9% 50 ML IV SCH (08:15)
[2018-05-24] MEDS: Sodium Chloride 0.9% 10 ML Syringe FLUSH PRN ×3 (08:42→17:13)
[2018-05-24] MEDS: methylPREDNISolone Sodium Succinate 40 MG/1 ML SDV IVPUSH SCH ×2 (08:48→17:13)
[2018-05-24] MEDS: cefTRIAXone 1 GM Vial IV SCH (08:50)
[2018-05-24] MEDS: Enoxaparin 30 MG/0.3 ML Syringe SUBCUT SCH (08:51)
[2018-05-24] MEDS: ALLOPURINOL 300 MG PO SCH (08:53)
[2018-05-24] MEDS: Metoprolol Tartrate 50 MG Tab **OWN MED PO SCH ×2 (08:53→20:13)
[2018-05-24] MEDS: [UNRECOGNIZED DRUG - OTHER] EYEBOTH SCH ×3 (09:07→20:17)
[2018-05-24] MEDS: Azithromycin 500 MG in Sodium Chloride 0.9% 250 ML IV SCH (09:11)
--- NOTE | 2018-05-24 09:48 | CR ---
INDICATION: Short of breath. CHEST: PA and lateral views of the chest were obtained 05/23/18 and compared with 03/07/17 and 03/22/16. There is again noted elevated right hemidiaphragm leaf, which may be anatomic, with colonic interposition bilaterally. The colon is moderately dilated, as previously, of questionable significance. Somewhat heavy markings are again noted bilaterally, likely fibrotic in nature, but make it difficult to exclude areas of minimal patchy bronchopneumonia at the lower middle lung field on the left, left lung base, upper middle lung field to upper lung field on the right, and minimally at the right lung base. No gross consolidating pneumonia or effusion was seen. However, a perihilar infiltrate certainly cannot be excluded bilaterally with the relatively poor inspiration present. No gross consolidating pneumonia or effusion was seen. The heart did not appear grossly enlarged but is prominent and likely at the upper limits of normal in size. The aorta is calcified in the arch and descending portion. Moderate hypertrophic degenerative changes are noted anteriorly, bridging vertebral bodies at the mid to lower thoracic spine and upper lumbar spine. IMPRESSION: 1. No definite acute process but difficult to exclude areas of patchy bronchopneumonia or recurrent pneumonia bilaterally. 2. ASHD. 3. Colonic interposition bilaterally with somewhat dilated colon, as previously noted, of questionable significance. 4. Degenerative changes thoracic spine. MTDD
[2018-05-24] MEDS: Acetaminophen/Codeine 300-30 MG Tab PO SCH ×2 (11:18→20:23)
[2018-05-24] MEDS ORDERED: Multivitamin Tab PO SCH (12:00)
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
[2018-05-24] MEDS: DOCUSATE SODIUM 100 MG PO SCH (20:14)
[2018-05-24] MEDS: Mirtazapine 15 MG Tab **OWN MED PO SCH (20:16)
[2018-05-24] MEDS: TIZANIDINE 4 MG PO SCH (20:16)
[2018-05-25] MEDS: methylPREDNISolone Sodium Succinate 40 MG/1 ML SDV IVPUSH SCH ×2 (00:11→08:12)
[2018-05-25] MEDS: Sodium Chloride 0.9% 10 ML Syringe FLUSH PRN (08:13)
[2018-05-25] MEDS: Enoxaparin 30 MG/0.3 ML Syringe SUBCUT SCH (08:13)
[2018-05-25] MEDS: cefTRIAXone 1 GM Vial IV SCH (08:17)
[2018-05-25] MEDS: Metoprolol Tartrate 50 MG Tab **OWN MED PO SCH (08:23)
[2018-05-25] MEDS: ALLOPURINOL 300 MG PO SCH (08:23)
[2018-05-25 08:24] VITALS: BP 167/73
[2018-05-25] MEDS: Azithromycin 500 MG in Sodium Chloride 0.9% 250 ML IV SCH (09:08)
--- NOTE | 2018-05-25 09:29 | PCM.PN ---
- General Info Date of Service: 05/25/18 Subjective Update: Feels she is back to baseline. Ambulating independently Functional Status: Reports: Pain Controlled, Tolerating Diet, Ambulating - Review of Systems General: Reports: No Symptoms HEENT: Reports: No Symptoms Pulmonary: Reports: Cough Cardiovascular: Reports: No Symptoms Gastrointestinal: Reports: No Symptoms - Patient Data Vitals - Most Recent: Last Vital Signs Temp 97.1 F 05/25/18 08:05 Pulse 60 05/25/18 08:23 Resp 17 05/25/18 08:05 BP 167/73 H 05/25/18 08:23 Pulse Ox 90 L 05/25/18 08:08 Weight - Most Recent: 77.337 kg I&O - Last 24 Hours: Intake & Output 05/24/18 05/25/18 05/25/18 22:59 06:59 14:59 Intake Total 200 Balance 200 Med Orders - Current: Current Medications Acetaminophen/Codeine Phosphate (Tylenol With Codeine No.3 300mg/30mg) 1 tab PO 12,21 [facility] Last Admin: 05/24/18 20:23 Dose: 1 tab Albuterol/Ipratropium (Duoneb 3.0-0.5 Mg/3 Ml) 3 ml NEB Q4H PRN PRN Reason: Shortness of Breath Allopurinol (Zyloprim) 150 mg PO DAILY [facility] Last Admin: 05/25/18 08:23 Dose: 150 mg Ceftriaxone Sodium (Rocephin) 1 gm IV Q24H [facility] Last Admin: 05/25/18 08:17 Dose: 1 gm Docusate Sodium (Colace) 100 mg PO BEDTIME [facility] Last Admin: 05/24/18 20:14 Dose: 100 mg Enoxaparin Sodium (Lovenox) 30 mg SUBCUT Q24H [facility] Last Admin: 05/25/18 08:13 Dose: 30 mg Gabapentin (Neurontin) 600 mg PO BID [facility] Last Admin: 05/25/18 08:23 Dose: 600 mg Azithromycin 500 mg/ Sodium (Chloride) 250 mls @ 250 mls/hr IV Q24H [facility] Last Admin: 05/25/18 09:08 Dose: 250 mls/hr Methylprednisolone Sodium Succinate (Solu-Medrol) 40 mg IVPUSH Q8H [facility] Last Admin: 05/25/18 08:12 Dose: 40 mg Metoprolol Tartrate (Lopressor) 50 mg PO BID [facility] Last Admin: 05/25/18 08:23 Dose: 50 mg Mirtazapine (Remeron) 7.5 mg PO BEDTIME [facility] Last Admin: 05/24/18 20:16 Dose: 7.5 mg Non-Formulary Medication (Deanna Forte) 1 drop EYEBOTH 1200,2100 [facility] Last Admin: 05/24/18 20:17 Dose: 1 drop Sodium Chloride (Saline Flush) 10 ml FLUSH ASDIRECTED PRN PRN Reason: Keep Vein Open Last Admin: 05/25/18 08:13 Dose: 10 ml Sodium Chloride (Saline Flush) 10 ml FLUSH ASDIRECTED PRN PRN Reason: Keep Vein Open Tizanidine HCl (Zanaflex) 4 mg PO BEDTIME [facility] Last Admin: 05/24/18 20:16 Dose: 4 mg Discontinued Medications Aspirin (Aspirin) 324 mg PO ONETIME ONE Stop: 05/23/18 14:45 Last Admin: 05/23/18 15:18 Dose: 324 mg Furosemide (Lasix) 20 mg IVPUSH NOW ONE Stop: 05/24/18 07:15 Last Admin: 05/24/18 08:22 Dose: Not Given Ceftriaxone Sodium 1 gm/ (Sodium Chloride) 50 mls @ 200 mls/hr IV Q24H [facility] Last Admin: 05/24/18 09:00 Dose: Not Given Multivitamins/Minerals/Vitamin C (Tab-A-Abilio) 1 tab PO DAILY@1200 [facility] Non-Formulary Medication (Deanna Forte) 1 drop EYEBOTH BID [facility] Last Admin: 05/24/18 09:07 Dose: Not Given - Exam Quality Assessment: Supplemental Oxygen General: Alert, Oriented HEENT: Pupils Equal Neck: Supple Lungs: Clear to Auscultation - Problem List & Annotations (1) LRTI (lower respiratory tract infection) SNOMED Code(s): 17216081 Code(s): J22 - UNSPECIFIED ACUTE LOWER RESPIRATORY INFECTION Status: Acute Current Visit: Yes (2) Pulmonary fibrosis SNOMED Code(s): 25602812 Code(s): J84.10 - PULMONARY FIBROSIS, UNSPECIFIED Status: Acute Current Visit: Yes (3) Chronic pain syndrome SNOMED Code(s): 813209886 Code(s): G89.4 - CHRONIC PAIN SYNDROME Status: Acute Current Visit: No Annotation/Comment:: Continue home Tylenol 3. We'll need to monitor Tylenol dose overall closely. (4) Hypertension SNOMED Code(s): 34075869 Code(s): I10 - ESSENTIAL (PRIMARY) HYPERTENSION Status: Acute Current Visit: No Qualifiers: Hypertension type: essential hypertension Qualified Code(s): I10 - Essential (primary) hypertension (5) Weakness SNOMED Code(s): 69948278 Code(s): R53.1 - WEAKNESS Status: Acute Current Visit: No - Problem List Review Problem List Initiated/Reviewed/Updated: Yes - Plan Plan:: Echo today, but may discharge home on prednisone and Augmentin. Follow-up next week
[2018-05-25] MEDS: [UNRECOGNIZED DRUG - OTHER] EYEBOTH SCH (12:56)
[2018-05-25] MEDS: Acetaminophen/Codeine 300-30 MG Tab PO SCH (12:56)
== END 2018-05-25 13:15 | disposition home or self-care (01) ==
LOC: FB.ED 14:30 → FB.MS 17:42
PROVIDERS: ADMIT Emergency Medicine; ATTEND Family Medicine
DX: J18.9 Pneumonia, unspecified organism (principal); J84.10 Pulmonary fibrosis, unspecified; J22 Unspecified acute lower respiratory infection; R53.1 Weakness; I10 Essential (primary) hypertension; G89.4 Chronic pain syndrome; I25.10 Atherosclerotic heart disease of native coronary artery without angina pectoris; Z87.891 Personal history of nicotine dependence; Z79.899 Other long term (current) drug therapy; Z88.8 Allergy status to other drugs, medicaments and biological substances; Z91.048 Other nonmedicinal substance allergy status
CPT/HCPCS: 36415; 36600; 71046; 80048; 82803; 83880; 84484; 85025; 93005; 93306; 96365; 96366; 96372; 96375; 96376; 99285; A9270; G0378; J0456; J0696; J1650; J2920; J7050

== ENCOUNTER 2019-10-16 09:41 | Emergency (ER) | payer MEDICARE, BC ==
[2019-10-16] MEDS ORDERED: Acetaminophen/Codeine 300-30 MG Tab PO STA (09:48)
--- NOTE | 2019-10-16 11:08 | CR ---
INDICATION: Fall, low back pain. LUMBOSACRAL SPINE: Three views of the lumbosacral spine were obtained 10/16/19 revealing a moderate dextroconcave rotoscoliosis of the thoracolumbar spine. Evidence of degenerative disc disease and hypertrophic degenerative changes is noted at all levels. Disc disease appears especially severe at L4-5 and L5-S1. A definite acute fracture or dislocation was not identified. Sacroiliac joints appear to be intact. Bone density appears normal to slightly low. Incidental note of calcifications in the abdominal aorta. IMPRESSION: 1. Scoliosis with rotatory component thoracolumbar spine. 2. Degenerative hypertrophic changes with disc disease thoracolumbosacral spine. 3. No definite acute fracture or dislocation. [facility]
--- NOTE | 2019-10-16 11:12 | CR ---
INDICATION: Fall, right hip pain. RIGHT HIP WITH PELVIS: Frontal view of the pelvis with a frontal view of the right hip and a lateral view of the right hip obtained 10/16/19 - no comparison. Complete left hip prosthesis is noted in place which appears to be intact. Mild degenerative changes are noted at the sacroiliac joints which were otherwise unremarkable. Degenerative changes and disc disease are noted in the visualized lumbosacral spine. Mild degenerative changes are noted at the right hip joint with the joint space slightly narrowed medially and cranially. An acute fracture or dislocation was not identified. IMPRESSION: No acute fracture or dislocation. ER was called with report at 1033 hours. MTDD
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
[2019-10-16 12:13] VITALS: BP 141/89; PULSE 79
== END 2019-10-16 12:00 | disposition home or self-care (01) ==
LOC: FB.ED 09:41
DX: S70.01XA Contusion of right hip, initial encounter (principal); S30.0XXA Contusion of lower back and pelvis, initial encounter; I10 Essential (primary) hypertension; G62.9 Polyneuropathy, unspecified; M10.9 Gout, unspecified; Z90.49 Acquired absence of other specified parts of digestive tract; Z88.8 Allergy status to other drugs, medicaments and biological substances; Z79.899 Other long term (current) drug therapy; W01.0XXA Fall on same level from slipping, tripping and stumbling without subsequent striking against object, initial encounter
CPT/HCPCS: 72100; 73502-RT; 94760; 99284-25; A9270-GY

== ENCOUNTER 2019-12-12 06:02 | Emergency (ER) | payer MEDICARE, BC ==
[2019-12-12] MEDS ORDERED: Acetaminophen/Codeine 300-30 MG Tab PO ONE ×2 (06:20→09:49)
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
[2019-12-12] MEDS ORDERED: Sodium Chloride 0.9% 1,000 ML IV SCH (08:00)
[2019-12-12] MEDS ORDERED: Ketorolac 15 MG/ML SDV IVPUSH ONE (08:10)
[2019-12-12] MEDS ORDERED: cefTRIAXone 1 GM in Sodium Chloride 0.9% 50 ML IV ONE (08:27)
[2019-12-12] MEDS ORDERED: cefTRIAXone 1 GM Vial IVPUSH ONE (08:35)
[2019-12-12] MEDS ORDERED: Ketorolac 30 MG/ML SDV IVPUSH ONE (14:40)
[2019-12-12] MEDS ORDERED: Sodium Chloride 0.9% 10 ML Syringe FLUSH PRN (14:48)
[2019-12-12 15:17] VITALS: BP 132/55; PULSE 79
== END 2019-12-12 15:04 ==
LOC: FB.ED 06:02
DX: S32.019A Unspecified fracture of first lumbar vertebra, initial encounter for closed fracture (principal); M97.02XA Periprosthetic fracture around internal prosthetic left hip joint, initial encounter; J44.9 Chronic obstructive pulmonary disease, unspecified; N30.01 Acute cystitis with hematuria; G62.9 Polyneuropathy, unspecified; M19.90 Unspecified osteoarthritis, unspecified site; I10 Essential (primary) hypertension; Z91.048 Other nonmedicinal substance allergy status; Z88.8 Allergy status to other drugs, medicaments and biological substances; Z88.6 Allergy status to analgesic agent; Z88.5 Allergy status to narcotic agent; Z79.899 Other long term (current) drug therapy; W06.XXXA Fall from bed, initial encounter
CPT/HCPCS: 36415; 51702; 72072; 72192; 80048; 81001; 83880; 85027; 85610; 87086; 87088; 87186; 96374; 96375; 96376; 99285; A9270; J0696; J1885; J7030

== ENCOUNTER 2020-06-28 11:44 | Inpatient (IN) | payer MEDICARE, BC ==
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
[2020-06-28 12:31] LABS: BASE EXCESS VENOUS,POC 10 mmol/L (-2-3); HCO3 VENOUS,POC 34 mmol/L (21-29); PCO2 VENOUS,POC 49 mmHg (41-51); PH VENOUS,POC 7.45 pH Units (7.32-7.43)
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
[2020-06-28] MEDS: BUSPIRONE 15 MG PO SCH (17:59)
[2020-06-28] MEDS ORDERED: Docusate Sodium 100 MG Cap PO PRN (18:33)
[2020-06-28] MEDS ORDERED: ClonazePAM 0.5 MG Tab ONE (18:49)
[2020-06-28] MEDS: ClonazePAM 0.5 MG Tab PO SCH ×2 (18:50→21:41)
[2020-06-28] MEDS: Acetaminophen 500 MG Tab PO PRN (19:46)
[2020-06-28] MEDS ORDERED: Docusate Sodium 100 MG Cap PO SCH (21:00)
[2020-06-28] MEDS ORDERED: traZODone 100 MG Tab PO SCH (21:00)
[2020-06-28] MEDS: Gabapentin 600 MG Tab PO SCH (21:39)
[2020-06-28] MEDS: Melatonin 3 MG Tab PO SCH (21:40)
[2020-06-29] MEDS: Furosemide 20 MG Tab PO SCH (08:10)
[2020-06-29] MEDS: BUSPIRONE 15 MG PO SCH (08:10)
[2020-06-29] MEDS: Gabapentin 600 MG Tab PO SCH ×2 (08:11→21:10)
[2020-06-29] MEDS: Allopurinol 300 MG Tab PO SCH (08:13)
[2020-06-29] MEDS ORDERED: PREDNISONE 10 MG PO SCH (09:00)
[2020-06-29] MEDS: ClonazePAM 0.5 MG Tab PO SCH ×3 (09:01→21:00)
[2020-06-29] MEDS: Acetaminophen 500 MG Tab PO PRN ×3 (10:49→21:07)
--- NOTE | 2020-06-29 11:59 | PCM.PN ---
- General Info Date of Service: 06/29/20 Admission Dx/Problem (Free Text): Admission Diagnosis/Problem Admission Diagnosis/Problem Head injury without concussion or intracranial hemorrhage Subjective Update: Patient was sitting in a chair next to the window. She states that she feels much worse today. She has some head pain, neck pain, back pain and just feels more weak today. She continues to have reduced appetite but feels like she is drinking more fluids. Functional Status: Reports: Pain Controlled, Tolerating Diet, Ambulating, Urinating - Review of Systems General: Reports: Weakness, Fatigue, Malaise HEENT: Reports: Eye Pain, Headaches. Denies: Visual Changes Pulmonary: Reports: No Symptoms Cardiovascular: Reports: No Symptoms Gastrointestinal: Reports: No Symptoms Genitourinary: Reports: No Symptoms Musculoskeletal: Reports: Neck Pain, Shoulder Pain, Arm Pain, Back Pain Skin: Reports: No Symptoms Neurological: Reports: Headache, Difficulty Walking, Weakness Psychiatric: Reports: No Symptoms - Patient Data Vitals - Most Recent: Last Vital Signs Temp 36.4 C 06/28/20 19:30 Pulse 92 06/29/20 04:20 Resp 20 06/29/20 04:20 BP 140/87 06/29/20 04:20 Pulse Ox 96 06/29/20 04:20 Weight - Most Recent: 64.41 kg I&O - Last 24 Hours: Intake & Output 06/28/20 06/29/20 06/29/20 22:59 06:59 14:59 Intake Total 290 50 Output Total 0 0 Balance 290 50 Lab Results Last 24 Hours: Laboratory Results - last 24 hr 06/28/20 06/28/20 06/28/20 Range/Units 12:17 12:17 12:17 WBC 8.2 (3.0-10.3) x10-3/uL RBC 4.10 (3.60-5.20) x10(6)uL Hgb 13.5 (11.4-15.5) g/dL Hct 41.3 (34.2-48.2) % MCV 100.9 H (76.7-100.5) fL MCH 32.9 (23.9-33.9) pg MCHC 32.6 (31.9-34.8) g/dL RDW 14.7 (12.3-16.5) % Plt Count 170 (151-488) x10(3)uL MPV 9.4 (7.1-12.4) fL Neut % (Auto) 79.1 H (30.8-76.2) % Lymph % (Auto) 12.1 L (18.4-52.1) % [place] % (Auto) 6.5 (4.4-15.7) % Eos % (Auto) 2.0 (0.6-8.1) % Baso % (Auto) 0.3 (0.2-1.5) % Neut # (Auto) 6.5 H (1.5-6.3) x10-3/uL Lymph # (Auto) 1.0 (1.0-4.4) x10-3/uL [place] # (Auto) 0.5 (0.3-1.0) x10-3/uL Eos # (Auto) 0.2 (0.0-0.8) x10-3/uL Baso # (Auto) 0.0 (0.0-0.1) x10-3/uL POC VBG pH (7.32-7.43) pH Units POC VBG pCO2 (41-51) mmHg POC VBG HCO3 (21-29) mmol/L VBG Base Excess (-2-3) mmol/L O2 Delivery Device Sodium 134 L (135-145) mmol/L Potassium 3.8 (3.5-5.3) mmol/L Chloride 92 L D (100-110) mmol/L Carbon Dioxide 38 H (21-32) mmol/L BUN 26 H D (7-18) mg/dL Creatinine 1.2 H (0.55-1.02) mg/dL Est Cr Clr Drug Dosing TNP Estimated GFR (MDRD) 43 L (>60) BUN/Creatinine Ratio 21.7 H (9-20) Glucose 153 H (80-116) mg/dL Calcium 9.0 (8.6-10.2) mg/dL Total Bilirubin 0.6 (0.1-1.3) mg/dL AST 22 D (5-25) IU/L ALT 24 D (12-36) U/L Alkaline Phosphatase 51 L (56-112) IU/L Troponin I (4.0-60.3) pg/mL C-Reactive Protein 0.4 L (0.5-0.9) mg/dL NT-Pro-B Natriuret Pep (<=450) pg/mL Total Protein 6.2 (6.0-8.0) g/dL Albumin 3.4 (3.2-4.6) g/dL Globulin 2.8 g/dL Albumin/Globulin Ratio 1.2 Urine Color (YELLOW) Urine Appearance (CLEAR) Urine pH (5.0-6.5) Ur Specific [place] (1.010-1.025) Urine Protein (NEGATIVE) mg/dL Urine Glucose (UA) (NORMAL) mg/dL Urine Ketones (NEGATIVE) mg/dL Urine Occult Blood (NEGATIVE) Urine Nitrite (NEGATIVE) Urine Bilirubin (NEGATIVE) Urine Urobilinogen (NEGATIVE) mg/dL Ur Leukocyte Esterase (NEGATIVE) Urine RBC (0-5) Urine WBC (0-5) Ur Epithelial Cells Ur Renal Epithelial Cell (NS) Urine Bacteria (NS) SARS-CoV-2 RNA (JOSE R) (NEGATIVE) 06/28/20 06/28/20 06/28/20 Range/Units 12:17 12:17 12:40 WBC (3.0-10.3) x10-3/uL RBC (3.60-5.20) x10(6)uL Hgb (11.4-15.5) g/dL Hct (34.2-48.2) % MCV (76.7-100.5) fL MCH (23.9-33.9) pg MCHC (31.9-34.8) g/dL RDW (12.3-16.5) % Plt Count (151-488) x10(3)uL MPV (7.1-12.4) fL Neut % (Auto) (30.8-76.2) % Lymph % (Auto) (18.4-52.1) % Kane % (Auto) (4.4-15.7) % Eos % (Auto) (0.6-8.1) % Baso % (Auto) (0.2-1.5) % Neut # (Auto) (1.5-6.3) x10-3/uL Lymph # (Auto) (1.0-4.4) x10-3/uL [place] # (Auto) (0.3-1.0) x10-3/uL Eos # (Auto) (0.0-0.8) x10-3/uL Baso # (Auto) (0.0-0.1) x10-3/uL POC VBG pH 7.45 H (7.32-7.43) pH Units POC VBG pCO2 49 (41-51) mmHg POC VBG HCO3 34 H (21-29) mmol/L VBG Base Excess 10 H (-2-3) mmol/L O2 Delivery Device Nasal cannula Sodium (135-145) mmol/L Potassium (3.5-5.3) mmol/L Chloride (100-110) mmol/L Carbon Dioxide (21-32) mmol/L BUN (7-18) mg/dL Creatinine (0.55-1.02) mg/dL Est Cr Clr Drug Dosing Estimated GFR (MDRD) (>60) BUN/Creatinine Ratio (9-20) Glucose (80-116) mg/dL Calcium (8.6-10.2) mg/dL Total Bilirubin (0.1-1.3) mg/dL AST (5-25) IU/L ALT (12-36) U/L Alkaline Phosphatase (56-112) IU/L Troponin I 27.4 (4.0-60.3) pg/mL C-Reactive Protein (0.5-0.9) mg/dL NT-Pro-B Natriuret Pep 73335 H* (<=450) pg/mL Total Protein (6.0-8.0) g/dL Albumin (3.2-4.6) g/dL Globulin g/dL Albumin/Globulin Ratio Urine Color Yellow (YELLOW) Urine Appearance Clear (CLEAR) Urine pH 7.0 H (5.0-6.5) Ur Specific [place] 1.005 L (1.010-1.025) Urine Protein 500 H (NEGATIVE) mg/dL Urine Glucose (UA) Normal (NORMAL) mg/dL Urine Ketones Negative (NEGATIVE) mg/dL Urine Occult Blood Negative (NEGATIVE) Urine Nitrite Negative (NEGATIVE) Urine Bilirubin Negative (NEGATIVE) Urine Urobilinogen Normal (NEGATIVE) mg/dL Ur Leukocyte Esterase Negative (NEGATIVE) Urine RBC 0-5 (0-5) Urine WBC 10-20 H (0-5) Ur Epithelial Cells Occasional Ur Renal Epithelial Cell Few H (NS) Urine Bacteria Occasional H (NS) SARS-CoV-2 RNA (JOSE R) (NEGATIVE) 06/29/20 Range/Units 04:15 WBC (3.0-10.3) x10-3/uL RBC (3.60-5.20) x10(6)uL Hgb (11.4-15.5) g/dL Hct (34.2-48.2) % MCV (76.7-100.5) fL MCH (23.9-33.9) pg MCHC (31.9-34.8) g/dL RDW (12.3-16.5) % Plt Count (151-488) x10(3)uL MPV (7.1-12.4) fL Neut % (Auto) (30.8-76.2) % Lymph % (Auto) (18.4-52.1) % Kane % (Auto) (4.4-15.7) % Eos % (Auto) (0.6-8.1) % Baso % (Auto) (0.2-1.5) % Neut # (Auto) (1.5-6.3) x10-3/uL Lymph # (Auto) (1.0-4.4) x10-3/uL [place] # (Auto) (0.3-1.0) x10-3/uL Eos # (Auto) (0.0-0.8) x10-3/uL Baso # (Auto) (0.0-0.1) x10-3/uL POC VBG pH (7.32-7.43) pH Units POC VBG pCO2 (41-51) mmHg POC VBG HCO3 (21-29) mmol/L VBG Base Excess (-2-3) mmol/L O2 Delivery Device Sodium (135-145) mmol/L Potassium (3.5-5.3) mmol/L Chloride (100-110) mmol/L Carbon Dioxide (21-32) mmol/L BUN (7-18) mg/dL Creatinine (0.55-1.02) mg/dL Est Cr Clr Drug Dosing Estimated GFR (MDRD) (>60) BUN/Creatinine Ratio (9-20) Glucose (80-116) mg/dL Calcium (8.6-10.2) mg/dL Total Bilirubin (0.1-1.3) mg/dL AST (5-25) IU/L ALT (12-36) U/L Alkaline Phosphatase (56-112) IU/L Troponin I (4.0-60.3) pg/mL C-Reactive Protein (0.5-0.9) mg/dL NT-Pro-B Natriuret Pep (<=450) pg/mL Total Protein (6.0-8.0) g/dL Albumin (3.2-4.6) g/dL Globulin g/dL Albumin/Globulin Ratio Urine Color (YELLOW) Urine Appearance (CLEAR) Urine pH (5.0-6.5) Ur Specific [place] (1.010-1.025) Urine Protein (NEGATIVE) mg/dL Urine Glucose (UA) (NORMAL) mg/dL Urine Ketones (NEGATIVE) mg/dL Urine Occult Blood (NEGATIVE) Urine Nitrite (NEGATIVE) Urine Bilirubin (NEGATIVE) Urine Urobilinogen (NEGATIVE) mg/dL Ur Leukocyte Esterase (NEGATIVE) Urine RBC (0-5) Urine WBC (0-5) Ur Epithelial Cells Ur Renal Epithelial Cell (NS) Urine Bacteria (NS) SARS-CoV-2 RNA (JOSE R) Negative (NEGATIVE) Med Orders - Current: Current Medications Acetaminophen (Acetaminophen 500 Mg Tab) 500 mg PO Q4H PRN PRN Reason: Pain Last Admin: 06/29/20 10:49 Dose: 500 mg Documented by: Allopurinol (Allopurinol 300 Mg Tab *Ptom*) 150 mg PO DAILY [facility] Last Admin: 06/29/20 08:13 Dose: 150 mg Documented by: Clonazepam (Clonazepam 0.5 Mg Tab) 0.5 mg PO TID [facility] Last Admin: 06/29/20 09:01 Dose: 0.5 mg Documented by: Docusate Sodium (Docusate Sodium 100 Mg Cap *Ptom*) 100 mg PO BEDTIME PRN PRN Reason: Constipation Furosemide (Furosemide 20 Mg Tab *Ptom*) 20 mg PO DAILY [facility] Last Admin: 06/29/20 08:10 Dose: 20 mg Documented by: Gabapentin (Gabapentin 600 Mg Tab Own Med) 600 mg PO BID [facility] Last Admin: 06/29/20 08:11 Dose: 600 mg Documented by: Melatonin (Melatonin 3 Mg Tab) 9 mg PO BEDTIME [facility] Last Admin: 06/28/20 21:40 Dose: 9 mg Documented by: [Symbicort 160-4.5 Mcg Inh Own Med* 2 puff INH 08,16 [facility] Last Admin: 06/29/20 08:08 Dose: 2 puff Documented by: Buspirone 15 Mg Tab (*Pt Own Med*) 0 each PO BIDMEALS [facility] Last Admin: 06/29/20 08:10 Dose: 1 each Documented by: Prednisone (Prednisone 10 Mg Tab *Ptom*) 5 mg PO DAILY [facility] Last Admin: 06/29/20 08:12 Dose: 5 mg Documented by: Tiotropium [place] (Tiotropium Inhaler 18 Mcg *Ptom*) 18 mcg INH 12 [facility] Discontinued Medications Clonazepam (Clonazepam 0.5 Mg Tab) Confirm Administered Dose 0.5 mg .ROUTE .STK- MED ONE Stop: 06/28/20 18:50 Last Admin: 06/28/20 18:53 Dose: Not Given Documented by: Docusate Sodium (Docusate Sodium 100 Mg Cap) 100 mg PO BEDTIME TORRI Trazodone HCl (Trazodone 100 Mg Tab) 100 mg PO BEDTIME [facility] Comments:: Patient was sitting in a chair next to the window. She has a large contusion with swelling, edema, ecchymosis around the left eye particularly the lateral and inferior aspects. She is alert, active, pleasant but appears to be very weak - Exam Quality Assessment: Supplemental Oxygen, Skin Breakdown. No: DVT Prophylaxis General: Alert, Oriented, Cooperative, Mild Distress HEENT: EOMI Neck: Supple, Other (Restricted range of motion secondary to pain secondary to fall with head contusion) Lungs: Crackles Cardiovascular: Regular Rhythm, No Murmurs, Tachycardia, Gallops Extremities: Arm Pain, Other (Trace edema left lower extremity, note that patient states this is chronic) Peripheral Pulses: 2+: Radial (L), Radial (R) Skin: Warm, Dry, Intact Neurological: No New Focal Deficit Psy/Mental Status: Alert, Normal Affect, Normal Mood, Anxious - Patient Data Lab Results Last 24 hrs: Laboratory Results - last 24 hr 06/28/20 06/28/20 06/28/20 Range/Units 12:17 12:17 12:17 WBC 8.2 (3.0-10.3) x10-3/uL RBC 4.10 (3.60-5.20) x10(6)uL Hgb 13.5 (11.4-15.5) g/dL Hct 41.3 (34.2-48.2) % MCV 100.9 H (76.7-100.5) fL MCH 32.9 (23.9-33.9) pg MCHC 32.6 (31.9-34.8) g/dL RDW 14.7 (12.3-16.5) % Plt Count 170 (151-488) x10(3)uL MPV 9.4 (7.1-12.4) fL Neut % (Auto) 79.1 H (30.8-76.2) % Lymph % (Auto) 12.1 L (18.4-52.1) % [place] % (Auto) 6.5 (4.4-15.7) % Eos % (Auto) 2.0 (0.6-8.1) % Baso % (Auto) 0.3 (0.2-1.5) % Neut # (Auto) 6.5 H (1.5-6.3) x10-3/uL Lymph # (Auto) 1.0 (1.0-4.4) x10-3/uL [place] # (Auto) 0.5 (0.3-1.0) x10-3/uL Eos # (Auto) 0.2 (0.0-0.8) x10-3/uL Baso # (Auto) 0.0 (0.0-0.1) x10-3/uL POC VBG pH (7.32-7.43) pH Units POC VBG pCO2 (41-51) mmHg POC VBG HCO3 (21-29) mmol/L VBG Base Excess (-2-3) mmol/L O2 Delivery Device Sodium 134 L (135-145) mmol/L Potassium 3.8 (3.5-5.3) mmol/L Chloride 92 L D (100-110) mmol/L Carbon Dioxide 38 H (21-32) mmol/L BUN 26 H D (7-18) mg/dL Creatinine 1.2 H (0.55-1.02) mg/dL Est Cr Clr Drug Dosing TNP Estimated GFR (MDRD) 43 L (>60) BUN/Creatinine Ratio 21.7 H (9-20) Glucose 153 H (80-116) mg/dL Calcium 9.0 (8.6-10.2) mg/dL Total Bilirubin 0.6 (0.1-1.3) mg/dL AST 22 D (5-25) IU/L ALT 24 D (12-36) U/L Alkaline Phosphatase 51 L (56-112) IU/L Troponin I (4.0-60.3) pg/mL C-Reactive Protein 0.4 L (0.5-0.9) mg/dL NT-Pro-B Natriuret Pep (<=450) pg/mL Total Protein 6.2 (6.0-8.0) g/dL Albumin 3.4 (3.2-4.6) g/dL Globulin 2.8 g/dL Albumin/Globulin Ratio 1.2 Urine Color (YELLOW) Urine Appearance (CLEAR) Urine pH (5.0-6.5) Ur Specific [place] (1.010-1.025) Urine Protein (NEGATIVE) mg/dL Urine Glucose (UA) (NORMAL) mg/dL Urine Ketones (NEGATIVE) mg/dL Urine Occult Blood (NEGATIVE) Urine Nitrite (NEGATIVE) Urine Bilirubin (NEGATIVE) Urine Urobilinogen (NEGATIVE) mg/dL Ur Leukocyte Esterase (NEGATIVE) Urine RBC (0-5) Urine WBC (0-5) Ur Epithelial Cells Ur Renal Epithelial Cell (NS) Urine Bacteria (NS) SARS-CoV-2 RNA (JOSE R) (NEGATIVE) 06/28/20 06/28/20 06/28/20 Range/Units 12:17 12:17 12:40 WBC (3.0-10.3) x10-3/uL RBC (3.60-5.20) x10(6)uL Hgb (11.4-15.5) g/dL Hct (34.2-48.2) % MCV (76.7-100.5) fL MCH (23.9-33.9) pg MCHC (31.9-34.8) g/dL RDW (12.3-16.5) % Plt Count (151-488) x10(3)uL MPV (7.1-12.4) fL Neut % (Auto) (30.8-76.2) % Lymph % (Auto) (18.4-52.1) % [place] % (Auto) (4.4-15.7) % Eos % (Auto) (0.6-8.1) % Baso % (Auto) (0.2-1.5) % Neut # (Auto) (1.5-6.3) x10-3/uL Lymph # (Auto) (1.0-4.4) x10-3/uL [place] # (Auto) (0.3-1.0) x10-3/uL Eos # (Auto) (0.0-0.8) x10-3/uL Baso # (Auto) (0.0-0.1) x10-3/uL POC VBG pH 7.45 H (7.32-7.43) pH Units POC VBG pCO2 49 (41-51) mmHg POC VBG HCO3 34 H (21-29) mmol/L VBG Base Excess 10 H (-2-3) mmol/L O2 Delivery Device Nasal cannula Sodium (135-145) mmol/L Potassium (3.5-5.3) mmol/L Chloride (100-110) mmol/L Carbon Dioxide (21-32) mmol/L BUN (7-18) mg/dL Creatinine (0.55-1.02) mg/dL Est Cr Clr Drug Dosing Estimated GFR (MDRD) (>60) BUN/Creatinine Ratio (9-20) Glucose (80-116) mg/dL Calcium (8.6-10.2) mg/dL Total Bilirubin (0.1-1.3) mg/dL AST (5-25) IU/L ALT (12-36) U/L Alkaline Phosphatase (56-112) IU/L Troponin I 27.4 (4.0-60.3) pg/mL C-Reactive Protein (0.5-0.9) mg/dL NT-Pro-B Natriuret Pep 64211 H* (<=450) pg/mL Total Protein (6.0-8.0) g/dL Albumin (3.2-4.6) g/dL Globulin g/dL Albumin/Globulin Ratio Urine Color Yellow (YELLOW) Urine Appearance Clear (CLEAR) Urine pH 7.0 H (5.0-6.5) Ur Specific [place] 1.005 L (1.010-1.025) Urine Protein 500 H (NEGATIVE) mg/dL Urine Glucose (UA) Normal (NORMAL) mg/dL Urine Ketones Negative (NEGATIVE) mg/dL Urine Occult Blood Negative (NEGATIVE) Urine Nitrite Negative (NEGATIVE) Urine Bilirubin Negative (NEGATIVE) Urine Urobilinogen Normal (NEGATIVE) mg/dL Ur Leukocyte Esterase Negative (NEGATIVE) Urine RBC 0-5 (0-5) Urine WBC 10-20 H (0-5) Ur Epithelial Cells Occasional Ur Renal Epithelial Cell Few H (NS) Urine Bacteria Occasional H (NS) SARS-CoV-2 RNA (JOSE R) (NEGATIVE) 06/29/20 Range/Units 04:15 WBC (3.0-10.3) x10-3/uL RBC (3.60-5.20) x10(6)uL Hgb (11.4-15.5) g/dL Hct (34.2-48.2) % MCV (76.7-100.5) fL MCH (23.9-33.9) pg MCHC (31.9-34.8) g/dL RDW (12.3-16.5) % Plt Count (151-488) x10(3)uL MPV (7.1-12.4) fL Neut % (Auto) (30.8-76.2) % Lymph % (Auto) (18.4-52.1) % [place] % (Auto) (4.4-15.7) % Eos % (Auto) (0.6-8.1) % Baso % (Auto) (0.2-1.5) % Neut # (Auto) (1.5-6.3) x10-3/uL Lymph # (Auto) (1.0-4.4) x10-3/uL [place] # (Auto) (0.3-1.0) x10-3/uL Eos # (Auto) (0.0-0.8) x10-3/uL Baso # (Auto) (0.0-0.1) x10-3/uL POC VBG pH (7.32-7.43) pH Units POC VBG pCO2 (41-51) mmHg POC VBG HCO3 (21-29) mmol/L VBG Base Excess (-2-3) mmol/L O2 Delivery Device Sodium (135-145) mmol/L Potassium (3.5-5.3) mmol/L Chloride (100-110) mmol/L Carbon Dioxide (21-32) mmol/L BUN (7-18) mg/dL Creatinine (0.55-1.02) mg/dL Est Cr Clr Drug Dosing Estimated GFR (MDRD) (>60) BUN/Creatinine Ratio (9-20) Glucose (80-116) mg/dL Calcium (8.6-10.2) mg/dL Total Bilirubin (0.1-1.3) mg/dL AST (5-25) IU/L ALT (12-36) U/L Alkaline Phosphatase (56-112) IU/L Troponin I (4.0-60.3) pg/mL C-Reactive Protein (0.5-0.9) mg/dL NT-Pro-B Natriuret Pep (<=450) pg/mL Total Protein (6.0-8.0) g/dL Albumin (3.2-4.6) g/dL Globulin g/dL Albumin/Globulin Ratio Urine Color (YELLOW) Urine Appearance (CLEAR) Urine pH (5.0-6.5) Ur Specific [place] (1.010-1.025) Urine Protein (NEGATIVE) mg/dL Urine Glucose (UA) (NORMAL) mg/dL Urine Ketones (NEGATIVE) mg/dL Urine Occult Blood (NEGATIVE) Urine Nitrite (NEGATIVE) Urine Bilirubin (NEGATIVE) Urine Urobilinogen (NEGATIVE) mg/dL Ur Leukocyte Esterase (NEGATIVE) Urine RBC (0-5) Urine WBC (0-5) Ur Epithelial Cells Ur Renal Epithelial Cell (NS) Urine Bacteria (NS) SARS-CoV-2 RNA (JOSE R) Negative (NEGATIVE) Result Diagrams: 06/28/20 12:17 06/28/20 12:17 Sepsis Event Note - Evaluation Sepsis Screening Result: No Definite Risk - Focused Exam Vital Signs: Vital Signs Pulse Resp BP Pulse Ox 06/29/20 04:20 92 20 140/87 96 - Problem List & Annotations (1) Head, face & neck injury SNOMED Code(s): 307929444 Code(s): S19.9XXA - UNSPECIFIED INJURY OF NECK, INITIAL ENCOUNTER; S09.90XA - UNSPECIFIED INJURY OF HEAD, INITIAL ENCOUNTER; S09.93XA - UNSPECIFIED INJURY OF FACE, INITIAL ENCOUNTER Status: Acute Current Visit: Yes (2) Fall from chair, initial encounter SNOMED Code(s): 65784198 Code(s): W07.XXXA - FALL FROM CHAIR, INITIAL ENCOUNTER Status: Acute Current Visit: Yes (3) COPD with hypoxia SNOMED Code(s): 97930725 Code(s): J44.9 - CHRONIC OBSTRUCTIVE PULMONARY DISEASE, UNSPECIFIED; R09.02 - HYPOXEMIA Status: Chronic Current Visit: No (4) Gout SNOMED Code(s): 02162311 Code(s): M10.9 - GOUT, UNSPECIFIED Status: Chronic Current Visit: No Annotation/Comment:: Continue home med. (5) Hematoma SNOMED Code(s): 270925485 Code(s): T14.8XXA - OTHER INJURY OF UNSPECIFIED BODY REGION, INITIAL ENCOUNTER Status: Acute Current Visit: No (6) Insomnia SNOMED Code(s): 694399904 Code(s): G47.00 - INSOMNIA, UNSPECIFIED Status: Chronic Current Visit: No Annotation/Comment:: Continue home med. (7) Weakness SNOMED Code(s): 67604216 Code(s): R53.1 - WEAKNESS Status: Acute Current Visit: Yes (8) Chronic fibrosis of lung SNOMED Code(s): 24452318 Code(s): J84.10 - PULMONARY FIBROSIS, UNSPECIFIED Status: Chronic Current Visit: No (9) Palliative care encounter SNOMED Code(s): 595876360, 042603173 Code(s): Z51.5 - ENCOUNTER FOR PALLIATIVE CARE Status: Acute Current Visit: Yes (10) Chronic kidney disease SNOMED Code(s): 329239388 Code(s): N18.9 - CHRONIC KIDNEY DISEASE, UNSPECIFIED Status: Acute Current Visit: Yes (11) Hypoxemia SNOMED Code(s): 871805925 Code(s): R09.02 - HYPOXEMIA Status: Chronic Current Visit: No (12) Traumatic hematoma of parietal region SNOMED Code(s): 817175222 Code(s): S00.83XA - CONTUSION OF OTHER PART OF HEAD, INITIAL ENCOUNTER Status: Acute Current Visit: Yes - Problem List Review Problem List Initiated/Reviewed/Updated: Yes - My Orders Last 24 Hours: My Active Orders 06/28/20 14:14 Code Status [Resuscitation Status] Routine 06/28/20 14:19 RT Post Treatment Assessment [RC] .PRN 06/28/20 14:23 OT Evaluation and Treatment [CONS] Routine 06/28/20 14:24 PT Evaluation and Treatment [CONS] Routine Precautions [COMM] Routine 06/28/20 14:25 Supplement (Dietary) [Dietary Supplements] [RC] BIDMEALS Oral Nutrition Supplement [COMM] Routine 06/28/20 14:28 Vital Signs [RC] 00,08,16 SCD [Sequential Compression Device] [OM.PC] Routine 06/28/20 14:48 Supplemental Oxygen Nasal Cannula 3 lpm 06/28/20 15:27 Acetaminophen [Tylenol Extra Strength] 500 mg PO Q4H PRN 06/28/20 16:00 Budesonide/Formoterol Fumarate [Symbicort 160-4.5 Mcg Inhaler] 2 puff INH 08,16 06/28/20 Dinner Regular Diet [DIET] 06/28/20 18:00 Patient's Own Medication [Ptom] 0 each PO BIDMEALS 06/28/20 21:00 ClonazePAM [KlonoPIN] 0.5 mg PO TID Gabapentin [Neurontin] 600 mg PO BID Melatonin 9 mg PO BEDTIME 06/29/20 09:00 Furosemide [Lasix] 20 mg PO DAILY allopurinoL [Zyloprim] 150 mg PO DAILY predniSONE 5 mg PO DAILY 06/29/20 11:50 Neurovascular Check [RC] BID 06/29/20 12:00 Tiotropium [Spiriva HandiHaler] 18 mcg INH 12 - Plan Plan:: Patient is receptive to extended physical therapy/rehabilitation. Patient will be admitted to inpatient for continued evaluation. Note that radiology has concern for a countercoup hematoma of the right parietal region. Start neuro checks twice a day, continue fall precautions, no antiplatelet or anticoagulation at this time secondary to possible parietal region hematoma Physical therapy reports that the patient is 1 or 2 person assist and is unstable on her feet at this time and recommend continue OT/PT Continue home medications including anxiety medications and inhalers. Hold aspirin at this time due to recent fall Titrate supplementary oxygen, note that the patient uses 3 L at home Patient will be given melatonin tonight as well as her home medications to include BuSpar, gabapentin, and Klonopin to help with her sleep difficulty -note that the patient states that she slept well last night we will continue current therapy Regular diet with supplementary nutrition No enoxaparin at this time due to recent fall with head injury, SCDs for DVT prophylaxis Disposition: Patient will likely need prolonged rehabilitation
[2020-06-29] MEDS: TIOTROPIUM 18 MCG INH SCH (13:04)
[2020-06-29] MEDS ORDERED: [UNRECOGNIZED DRUG - OTHER] EYEBOTH PRN (14:34)
[2020-06-29] MEDS: Formoterol/Mometasone 200-5 MCG 8.8 GM Inhaler IH SCH (16:56)
[2020-06-29] MEDS: busPIRone 15 MG Tab PO SCH (18:56)
[2020-06-29] MEDS: Melatonin 3 MG Tab PO SCH (21:00)
[2020-06-29] MEDS ORDERED: Gabapentin 600 MG Tab ONE (21:09)
[2020-06-30] MEDS: Acetaminophen 500 MG Tab PO PRN (01:57)
--- NOTE | 2020-06-30 07:59 | PCM.PN ---
- General Info Date of Service: 06/30/20 Admission Dx/Problem (Free Text): Admission Diagnosis/Problem Admission Diagnosis/Problem Head injury without concussion or intracranial hemorrhage Subjective Update: Patient states that she is having significantly more pain specifically in her left eye and in her neck after her fall. This is approximately day 3 after the fall. She was able to get up and walk around a little bit but still feels very unsteady and very weak. She has no other specific concerns or complaints at this time other than difficulty sleeping which is chronic Functional Status: Reports: Pain Controlled, Tolerating Diet, Ambulating, Urinating - Review of Systems General: Reports: Weakness, Fatigue, Malaise HEENT: Reports: Eye Pain Pulmonary: Reports: No Symptoms Cardiovascular: Reports: No Symptoms Gastrointestinal: Reports: No Symptoms Genitourinary: Reports: No Symptoms Musculoskeletal: Reports: Arm Pain, Back Pain, Leg Pain Skin: Reports: Bruising Neurological: Reports: Difficulty Walking, Weakness Psychiatric: Reports: No Symptoms - Patient Data Vitals - Most Recent: Last Vital Signs Temp 35.9 C L 06/30/20 05:30 Pulse 66 06/30/20 05:30 Resp 22 H 06/30/20 05:30 BP 139/72 06/30/20 05:30 Pulse Ox 100 06/30/20 05:30 Weight - Most Recent: 65 kg I&O - Last 24 Hours: Intake & Output 06/29/20 06/30/20 06/30/20 22:59 06:59 14:59 Output Total 0 Balance 0 Wood Results Last 24 Hours: Microbiology 06/28/20 12:40 Urine Culture - Preliminary Urine, Clean Catch MIXED POSITIVE DELIA DAY 1 Med Orders - Current: Current Medications Acetaminophen (Acetaminophen 500 Mg Tab) 500 mg PO Q4H [facility] Allopurinol (Allopurinol 300 Mg Tab) 150 mg PO DAILY [facility] Last Admin: 06/29/20 08:13 Dose: 150 mg Documented by: Buspirone HCl (Buspirone 15 Mg Tab) 15 mg PO BIDMEALS [facility] Last Admin: 06/29/20 18:56 Dose: 15 mg Documented by: Clonazepam (Clonazepam 0.5 Mg Tab) 0.5 mg PO TID [facility] Last Admin: 06/29/20 21:00 Dose: 0.5 mg Documented by: Docusate Sodium (Docusate Sodium 100 Mg Cap) 100 mg PO BEDTIME PRN PRN Reason: Constipation Furosemide (Furosemide 20 Mg Tab) 20 mg PO DAILY [facility] Last Admin: 06/29/20 08:10 Dose: 20 mg Documented by: Gabapentin (Gabapentin 600 Mg Tab) 600 mg PO BID [facility] Last Admin: 06/29/20 21:10 Dose: 600 mg Documented by: Gabapentin (Gabapentin 100 Mg Cap) 100 mg PO BEDTIME PRN PRN Reason: SLEEP Melatonin (Melatonin 3 Mg Tab) 9 mg PO BEDTIME [facility] Last Admin: 06/29/20 21:00 Dose: 9 mg Documented by: Mometasone Furoate/Formoterol Fumar (Formoterol/Mometasone 200-5 Mcg 8.8 Gm Inhaler) 2 puff IH BID@0800,1600 [facility] Last Admin: 06/29/20 16:56 Dose: 2 inhaler Documented by: Claudia Optive Ravinder- (3 Eye Drops *Ptom) 0 each EYEBOTH ASDIRECTED PRN PRN Reason: DRY EYES Prednisone (Prednisone 5 Mg Tab) 5 mg PO DAILY [facility] Tiotropium [place] (Tiotropium Inhaler 18 Mcg) 18 mcg INH 12 [facility] Last Admin: 06/29/20 13:04 Dose: 1 puff Documented by: Discontinued Medications Acetaminophen (Acetaminophen 500 Mg Tab) 500 mg PO Q4H PRN PRN Reason: Pain Last Admin: 06/30/20 01:57 Dose: 500 mg Documented by: Clonazepam (Clonazepam 0.5 Mg Tab) Confirm Administered Dose 0.5 mg .ROUTE .STK- MED ONE Stop: 06/28/20 18:50 Last Admin: 06/28/20 18:53 Dose: Not Given Documented by: Docusate Sodium (Docusate Sodium 100 Mg Cap) 100 mg PO BEDTIME [facility] Gabapentin (Gabapentin 600 Mg Tab) Confirm Administered Dose 600 mg .ROUTE .STK- MED ONE Stop: 06/29/20 21:10 Last Admin: 06/29/20 21:12 Dose: Not Given Documented by: [Symbicort 160-4.5 Mcg Inh Own Med* 2 puff INH 08,16 [facility] Last Admin: 06/29/20 08:08 Dose: 2 puff Documented by: Buspirone 15 Mg Tab (*Pt Own Med*) 0 each PO BIDMEALS [facility] Last Admin: 06/29/20 08:10 Dose: 1 each Documented by: Prednisone (Prednisone 10 Mg Tab *Ptom*) 5 mg PO DAILY [facility] Last Admin: 06/29/20 08:12 Dose: 5 mg Documented by: Trazodone HCl (Trazodone 100 Mg Tab) 100 mg PO BEDTIME [facility] Comments:: Patient was lying in bed, awake, alert, pleasant - Exam Quality Assessment: Supplemental Oxygen, DVT Prophylaxis, Skin Breakdown General: Alert, Oriented, Cooperative, No Acute Distress HEENT: Pupils Equal, Pupils Reactive, EOMI Lungs: Crackles Cardiovascular: Regular Rate, Regular Rhythm GI/Abdominal Exam: Normal Bowel Sounds, Non-Tender Extremities: Pedal Edema, Leg Pain Peripheral Pulses: 2+: Radial (L), Radial (R), Dorsalis Pedis (L), Dorsalis Pedis (R) Skin: Warm, Dry, Intact Wound/Incisions: Healing Well Neurological: No New Focal Deficit Psy/Mental Status: Alert, Normal Affect, Normal Mood - Patient Data Result Diagrams: 06/28/20 12:17 06/28/20 12:17 Wood Results Last 24 hrs: Microbiology 06/28/20 12:40 Urine Culture - Preliminary Urine, Clean Catch MIXED POSITIVE DELIA DAY 1 Sepsis Event Note - Evaluation Sepsis Screening Result: No Definite Risk - Focused Exam Vital Signs: Vital Signs Temp Pulse Pulse Resp BP Pulse Ox 06/30/20 05:30 35.9 C L 66 22 H 139/72 100 06/30/20 00:00 36.4 C 93 20 146/90 H 99 06/29/20 21:00 36.4 C 84 20 103/64 100 - Problem List & Annotations (1) Head, face & neck injury SNOMED Code(s): 138249253 Code(s): S19.9XXA - UNSPECIFIED INJURY OF NECK, INITIAL ENCOUNTER; S09.90XA - UNSPECIFIED INJURY OF HEAD, INITIAL ENCOUNTER; S09.93XA - UNSPECIFIED INJURY OF FACE, INITIAL ENCOUNTER Status: Acute Current Visit: Yes (2) Fall from chair, initial encounter SNOMED Code(s): 23198221 Code(s): W07.XXXA - FALL FROM CHAIR, INITIAL ENCOUNTER Status: Acute Cu rrent Visit: Yes (3) COPD with hypoxia SNOMED Code(s): 78873299 Code(s): J44.9 - CHRONIC OBSTRUCTIVE PULMONARY DISEASE, UNSPECIFIED; R09.02 - HYPOXEMIA Status: Chronic Current Visit: No (4) Gout SNOMED Code(s): 56778980 Code(s): M10.9 - GOUT, UNSPECIFIED Status: Chronic Current Visit: No Annotation/Comment:: Continue home med. (5) Hematoma SNOMED Code(s): 359941701 Code(s): T14.8XXA - OTHER INJURY OF UNSPECIFIED BODY REGION, INITIAL ENCOUN TER Status: Acute Current Visit: No (6) Insomnia SNOMED Code(s): 206470306 Code(s): G47.00 - INSOMNIA, UNSPECIFIED Status: Chronic Current Visit: No Annotation/Comment:: Continue home med. (7) Weakness SNOMED Code(s): 28329637 Code(s): R53.1 - WEAKNESS Status: Acute Current Visit: Yes (8) Chronic fibrosis of lung SNOMED Code(s): 23328501 Code(s): J84.10 - PULMONARY FIBROSIS, UNSPECIFIED Status: Chronic Current Visit: No (9) Palliative care encounter SNOMED Code(s): 581712502, 176753255 Code(s): Z51.5 - ENCOUNTER FOR PALLIATIVE CARE Status: Acute Current Visit: Yes (10) Chronic kidney disease SNOMED Code(s): 009527984 Code(s): N18.9 - CHRONIC KIDNEY DISEASE, UNSPECIFIED Status: Acute Current Visit: Yes (11) Hypoxemia SNOMED Code(s): 576802461 Code(s): R09.02 - HYPOXEMIA Status: Chronic Current Visit: No (12) Traumatic hematoma of parietal region SNOMED Code(s): 714858451 Code(s): S00.83XA - CONTUSION OF OTHER PART OF HEAD, INITIAL ENCOUNTER Status: Acute Current Visit: Yes - Problem List Review Problem List Initiated/Reviewed/Updated: Yes - My Orders Last 24 Hours: My Active Orders 06/29/20 09:00 Furosemide [Lasix] 20 mg PO DAILY allopurinoL [Zyloprim] 150 mg PO DAILY 06/29/20 12:00 Tiotropium [Spiriva HandiHaler] 18 mcg INH 12 06/29/20 12:15 Admission Status [Patient Status] [ADT] Routine 06/29/20 14:34 Non-Formulary Medication [NF Drug] 0 each EYEBOTH ASDIRECTED PRN 06/29/20 16:00 Mometasone/Formoterol [Dulera 200-5 MCG] 2 puff IH BID@0800,1600 06/29/20 18:00 busPIRone [Buspar] 15 mg PO BIDMEALS 06/30/20 07:29 Neuro Check [RC] BID 06/30/20 08:00 Acetaminophen [Tylenol Extra Strength] 500 mg PO Q4H 06/30/20 09:00 predniSONE 5 mg PO DAILY 06/30/20 21:00 Gabapentin [Neurontin] 100 mg PO BEDTIME - Plan Plan:: Patient is receptive to extended physical therapy/rehabilitation. Note that radiology has concern for a countercoup hematoma of the right parietal region. Neuro checks twice a day, continue fall precautions, no antiplatelet or anticoagulation at this time secondary to possible parietal region hematoma Physical therapy reports that the patient is 1 or 2 person assist and is unstable on her feet at this time and recommend continue OT/PT Continue home medications including anxiety medications and inhalers. Hold aspirin at this time due to recent fall Add additional dose of gabapentin, 100 mg, if the patient wakes up after 2 or 3 hours of sleep to help her go back to sleep. I explained to her that her goal should be 4 to 6 hours of sleep nightly. Titrate supplementary oxygen, note that the patient uses 3 L at home Patient will be given melatonin tonight as well as her home medications to include BuSpar, gabapentin, and Klonopin to help with her sleep difficulty Regular diet with supplementary nutrition No enoxaparin at this time due to recent fall with head injury, SCDs for DVT prophylaxis Disposition: Patient will likely need prolonged rehabilitation
[2020-06-30] MEDS: busPIRone 15 MG Tab PO SCH ×2 (08:04→18:22)
[2020-06-30] MEDS: Formoterol/Mometasone 200-5 MCG 8.8 GM Inhaler IH SCH ×2 (08:55→16:22)
[2020-06-30] MEDS: Gabapentin 600 MG Tab PO SCH ×2 (08:56→20:10)
[2020-06-30] MEDS: ClonazePAM 0.5 MG Tab PO SCH ×3 (08:56→20:10)
[2020-06-30] MEDS: Allopurinol 300 MG Tab PO SCH (08:56)
[2020-06-30] MEDS: Furosemide 20 MG Tab PO SCH (08:56)
[2020-06-30] MEDS: Acetaminophen 500 MG Tab PO SCH ×4 (08:56→20:07)
[2020-06-30] MEDS: predniSONE 5 MG Tab PO SCH (08:56)
[2020-06-30] MEDS: TIOTROPIUM 18 MCG INH SCH (12:30)
[2020-06-30] MEDS: Melatonin 3 MG Tab PO SCH (20:07)
[2020-07-01] MEDS: Acetaminophen 500 MG Tab PO SCH ×6 (01:00→20:18)
[2020-07-01] MEDS: Gabapentin 100 MG Cap PO PRN (01:16)
[2020-07-01] MEDS: busPIRone 15 MG Tab PO SCH ×2 (07:57→17:04)
[2020-07-01] MEDS: Formoterol/Mometasone 200-5 MCG 8.8 GM Inhaler IH SCH ×2 (07:57→15:52)
[2020-07-01] MEDS: Allopurinol 300 MG Tab PO SCH (08:08)
[2020-07-01] MEDS: Furosemide 20 MG Tab PO SCH (08:08)
[2020-07-01] MEDS: predniSONE 5 MG Tab PO SCH (08:08)
--- NOTE | 2020-07-01 08:39 | PCM.PN ---
- General Info Date of Service: 07/01/20 Admission Dx/Problem (Free Text): Admission Diagnosis/Problem Admission Diagnosis/Problem Head injury without concussion or intracranial hemorrhage Subjective Update: Patient states that she feels better overall but after physical therapy she feels very fatigued. She slept better last night but had a cough. Overall she feels like she has difficulty breathing with exertion Functional Status: Reports: Pain Controlled, Tolerating Diet, Ambulating, Urinating - Review of Systems General: Reports: Weakness, Fatigue HEENT: Reports: Eye Pain Pulmonary: Reports: Shortness of Breath, Cough Cardiovascular: Reports: No Symptoms Gastrointestinal: Reports: No Symptoms Genitourinary: Reports: No Symptoms Musculoskeletal: Reports: Neck Pain Skin: Reports: No Symptoms Neurological: Reports: No Symptoms Psychiatric: Reports: No Symptoms - Patient Data Vitals - Most Recent: Last Vital Signs Temp 36.6 C 07/01/20 00:00 Pulse 94 07/01/20 00:00 Resp 18 07/01/20 00:00 BP 102/64 07/01/20 00:00 Pulse Ox 100 07/01/20 00:00 Weight - Most Recent: 65.499 kg Wood Results Last 24 Hours: Microbiology 06/28/20 12:40 Urine Culture - Final Urine, Clean Catch MIXED POSITIVE DELIA DAY 2 Med Orders - Current: Current Medications Acetaminophen (Acetaminophen 500 Mg Tab) 500 mg PO Q4H [facility] Last Admin: 07/01/20 07:58 Dose: 500 mg Documented by: Allopurinol (Allopurinol 300 Mg Tab) 150 mg PO DAILY [facility] Last Admin: 07/01/20 08:08 Dose: 150 mg Documented by: Buspirone HCl (Buspirone 15 Mg Tab) 15 mg PO BIDMEALS [facility] Last Admin: 07/01/20 07:57 Dose: 15 mg Documented by: Clonazepam (Clonazepam 0.5 Mg Tab) 0.5 mg PO TID [facility] Last Admin: 06/30/20 20:10 Dose: 0.5 mg Documented by: Docusate Sodium (Docusate Sodium 100 Mg Cap) 100 mg PO BEDTIME PRN PRN Reason: Constipation Furosemide (Furosemide 20 Mg Tab) 20 mg PO DAILY [facility] Last Admin: 07/01/20 08:08 Dose: 20 mg Documented by: Gabapentin (Gabapentin 100 Mg Cap) 100 mg PO BEDTIME PRN PRN Reason: SLEEP Last Admin: 07/01/20 01:16 Dose: 100 mg Documented by: Gabapentin (Gabapentin 600 Mg Tab) 600 mg PO BID [facility] Last Admin: 06/30/20 20:10 Dose: 600 mg Documented by: Melatonin (Melatonin 3 Mg Tab) 9 mg PO BEDTIME [facility] Last Admin: 06/30/20 20:07 Dose: 9 mg Documented by: Mometasone Furoate/Formoterol Fumar (Formoterol/Mometasone 200-5 Mcg 8.8 Gm Inhaler) 2 puff IH BID@0800,1600 [facility] Last Admin: 07/01/20 07:57 Dose: 2 puff Documented by: Refresh Optive Ravinder- (3 Eye Drops *Ptom) 0 each EYEBOTH ASDIRECTED PRN PRN Reason: DRY EYES Prednisone (Prednisone 5 Mg Tab) 5 mg PO DAILY [facility] Last Admin: 07/01/20 08:08 Dose: 5 mg Documented by: Tiotropium [place] (Tiotropium Inhaler 18 Mcg) 18 mcg INH 12 [facility] Last Admin: 06/30/20 12:30 Dose: 1 puff Documented by: Discontinued Medications Acetaminophen (Acetaminophen 500 Mg Tab) 500 mg PO Q4H PRN PRN Reason: Pain Last Admin: 06/30/20 01:57 Dose: 500 mg Documented by: Clonazepam (Clonazepam 0.5 Mg Tab) Confirm Administered Dose 0.5 mg .ROUTE .STK- MED ONE Stop: 06/28/20 18:50 Last Admin: 06/28/20 18:53 Dose: Not Given Documented by: Docusate Sodium (Docusate Sodium 100 Mg Cap) 100 mg PO BEDTIME [facility] Gabapentin (Gabapentin 600 Mg Tab) 600 mg PO BID [facility] Last Admin: 06/29/20 21:10 Dose: 600 mg Documented by: Gabapentin (Gabapentin 600 Mg Tab) Confirm Administered Dose 600 mg .ROUTE .STK- MED ONE Stop: 06/29/20 21:10 Last Admin: 06/29/20 21:12 Dose: Not Given Documented by: [Symbicort 160-4.5 Mcg Inh Own Med* 2 puff INH 08,16 [facility] Last Admin: 06/29/20 08:08 Dose: 2 puff Documented by: Buspirone 15 Mg Tab (*Pt Own Med*) 0 each PO BIDMEALS [facility] Last Admin: 06/29/20 08:10 Dose: 1 each Documented by: Prednisone (Prednisone 10 Mg Tab *Ptom*) 5 mg PO DAILY [facility] Last Admin: 06/29/20 08:12 Dose: 5 mg Documented by: Trazodone HCl (Trazodone 100 Mg Tab) 100 mg PO BEDTIME [facility] Comments:: Patient looks better today, the swelling and ecchymosis around her left eye has improved, her left eye is totally open today - Exam Quality Assessment: Supplemental Oxygen, DVT Prophylaxis, Skin Breakdown General: Alert, Oriented, Cooperative HEENT: EOMI Lungs: Decreased Breath Sounds, Crackles Cardiovascular: Regular Rhythm, Tachycardia GI/Abdominal Exam: Normal Bowel Sounds, Soft, Non-Tender Extremities: Pedal Edema Peripheral Pulses: 2+: Radial (L), Radial (R) Skin: Warm, Dry, Intact Wound/Incisions: Healing Well Neurological: No New Focal Deficit Psy/Mental Status: Alert, Normal Affect, Normal Mood - Patient Data Result Diagrams: 06/28/20 12:17 06/28/20 12:17 Wood Results Last 24 hrs: Microbiology 06/28/20 12:40 Urine Culture - Final Urine, Clean Catch MIXED POSITIVE DELIA DAY 2 Sepsis Event Note - Evaluation Sepsis Screening Result: No Definite Risk - Focused Exam Vital Signs: Vital Signs Temp Pulse Resp BP Pulse Ox Pulse Ox 07/01/20 00:00 36.6 C 94 18 102/64 100 06/30/20 23:53 100 - Problem List & Annotations (1) Head, face & neck injury SNOMED Code(s): 877575266 Code(s): S19.9XXA - UNSPECIFIED INJURY OF NECK, INITIAL ENCOUNTER; S09.90XA - UNSPECIFIED INJURY OF HEAD, INITIAL ENCOUNTER; S09.93XA - UNSPECIFIED INJURY OF FACE, INITIAL ENCOUNTER Status: Acute Current Visit: Yes (2) Fall from chair, initial encounter SNOMED Code(s): 56406925 Code(s): W07.XXXA - FALL FROM CHAIR, INITIAL ENCOUNTER Status: Acute Current Visit: Yes (3) COPD with hypoxia SNOMED Code(s): 23831501 Code(s): J44.9 - CHRONIC OBSTRUCTIVE PULMONARY DISEASE, UNSPECIFIED; R09.02 - HYPOXEMIA Status: Chronic Current Visit: No (4) Gout SNOMED Code(s): 79545926 Code(s): M10.9 - GOUT, UNSPECIFIED Status: Chronic Current Visit: No Annotation/Comment:: Continue home med. (5) Hematoma SNOMED Code(s): 251229739 Code(s): T14.8XXA - OTHER INJURY OF UNSPECIFIED BODY REGION, INITIAL ENCOUNTER Status: Acute Current Visit: No (6) Insomnia SNOMED Code(s): 630627939 Code(s): G47.00 - INSOMNIA, UNSPECIFIED Status: Chronic Current Visit: No Annotation/Comment:: Continue home med. (7) Weakness SNOMED Code(s): 13752849 Code(s): R53.1 - WEAKNESS Status: Acute Current Visit: Yes (8) Chronic fibrosis of lung SNOMED Code(s): 57739878 Code(s): J84.10 - PULMONARY FIBROSIS, UNSPECIFIED Status: Chronic Current Visit: No (9) Palliative care encounter SNOMED Code(s): 311758131, 306476827 Code(s): Z51.5 - ENCOUNTER FOR PALLIATIVE CARE Status: Acute Current Visit: Yes (10) Chronic kidney disease SNOMED Code(s): 696173318 Code(s): N18.9 - CHRONIC KIDNEY DISEASE, UNSPECIFIED Status: Acute Current Visit: Yes (11) Hypoxemia SNOMED Code(s): 649873290 Code(s): R09.02 - HYPOXEMIA Status: Chronic Current Visit: No (12) Traumatic hematoma of parietal region SNOMED Code(s): 758361010 Code(s): S00.83XA - CONTUSION OF OTHER PART OF HEAD, INITIAL ENCOUNTER Status: Acute Current Visit: Yes (13) MORENO (dyspnea on exertion) SNOMED Code(s): 96930021 Code(s): R06.00 - DYSPNEA, UNSPECIFIED Status: Acute Current Visit: Yes (14) Cough SNOMED Code(s): 78863797 Code(s): R05 - COUGH Status: Acute Current Visit: Yes - Problem List Review Problem List Initiated/Reviewed/Updated: Yes - My Orders Last 24 Hours: My Active Orders 06/30/20 08:00 Acetaminophen [Tylenol Extra Strength] 500 mg PO Q4H 06/30/20 09:00 Gabapentin [Neurontin] 600 mg PO BID predniSONE 5 mg PO DAILY 06/30/20 21:00 Gabapentin [Neurontin] 100 mg PO BEDTIME PRN - Plan Plan:: Patient is receptive to extended physical therapy/rehabilitation. Note that radiology has concern for a countercoup hematoma of the right parietal region. Neuro checks twice a day, continue fall precautions, no antiplatelet or anticoagulation at this time secondary to possible parietal region hematoma Continue home medications including anxiety medications and inhalers. Hold aspirin at this time due to recent fall Add additional dose of gabapentin, 100 mg, if the patient wakes up after 2 or 3 hours of sleep to help her go back to sleep. I explained to her that her goal should be 4 to 6 hours of sleep nightly. Note that the patient stated that with the extra 100 mg of gabapentin after waking up she slept better Titrate supplementary oxygen, note that the patient uses 3 L at home Patient will be given melatonin tonight as well as her home medications to include BuSpar, gabapentin, and Klonopin to help with her sleep difficulty Regular diet with supplementary nutrition No enoxaparin at this time due to recent fall with head injury, SCDs for DVT prophylaxis Disposition: Patient will likely need prolonged rehabilitation Follow-up results of chest x-ray to evaluate for dyspnea on exertion and cough
[2020-07-01] MEDS: ClonazePAM 0.5 MG Tab PO SCH ×3 (09:59→21:10)
[2020-07-01] MEDS: Gabapentin 600 MG Tab PO SCH ×2 (09:59→21:10)
--- NOTE | 2020-07-01 11:59 | CR ---
INDICATION: MORENO. CHEST, TWO VIEWS: Two PA views and a lateral view of the chest were obtained 07/01/20 and compared with 06/28/20 and 05/23/18. Colonic interposition is again noted on the right with elevation of the right hemidiaphragm also noted. The heart size is difficult to evaluate due to rotation, but appears to be somewhat enlarged with tortuous aorta calcified in the arch and descending portion. Degenerative changes are noted in the mid to lower thoracic spine. Pulmonary markings are similar to the previous examinations, likely fibrotic in nature, but making it difficult to exclude patchy bronchopneumonia, especially in the lower lung field on the left. MTDD
[2020-07-01] MEDS: TIOTROPIUM 18 MCG INH SCH (12:46)
[2020-07-01] MEDS: Melatonin 3 MG Tab PO SCH (20:19)
[2020-07-02] MEDS: Gabapentin 100 MG Cap PO PRN (00:33)
[2020-07-02] MEDS: Acetaminophen 500 MG Tab PO SCH ×2 (00:33→04:58)
[2020-07-02 01:21] VITALS: BP 117/71; PULSE 90
--- NOTE | 2020-07-02 11:42 | PCM.DCSUM1 ---
Discharge Summary - Hospital Course Free Text/Narrative:: Patient was admitted and treated with occupational and physical therapy evaluation and treatment. Patient's functional status is improved slightly. The ecchymosis, bruising, pain to the patient's left orbit and neck have improved significantly but she remains weak and will be discharged to swing bed status for continued physical rehabilitation. Note that aspirin and other anticoagulants/antiplatelet medications are being held secondary to recent head trauma. HPI Initial Comments: 79-year-old lady with past medical history significant for difficulty sleeping, anxiety, lung disease came to the emergency department for evaluation of a head injury after falling. She states that she started a new sleeping aid prescription medication but that she was having residual lethargy. She tried to stand and was just weak and fell and hit her head and her back. Diagnosis: Stroke: No - Discharge Data Discharge Date: 07/02/20 Discharge Disposition: DC/Tfer W/I Hosp To Swing Condition: Good - Referral to Home Health Primary Care Physician: Swapnil Gaspar MD - Discharge Diagnosis/Problem(s) (1) Head, face & neck injury SNOMED Code(s): 034948726 ICD Code: S19.9XXA - UNSPECIFIED INJURY OF NECK, INITIAL ENCOUNTER; S09.90XA - UNSPECIFIED INJURY OF HEAD, INITIAL ENCOUNTER; S09.93XA - UNSPECIFIED INJURY OF FACE, INITIAL ENCOUNTER Status: Acute (2) Fall from chair, initial encounter SNOMED Code(s): 06998228 ICD Code: W07.XXXA - FALL FROM CHAIR, INITIAL ENCOUNTER Status: Acute (3) COPD with hypoxia SNOMED Code(s): 44073805 ICD Code: J44.9 - CHRONIC OBSTRUCTIVE PULMONARY DISEASE, UNSPECIFIED; R09.02 - HYPOXEMIA Status: Chronic (4) Gout SNOMED Code(s): 31876599 ICD Code: M10.9 - GOUT, UNSPECIFIED Status: Chronic Problem Details: Continue home med. (5) Hematoma SNOMED Code(s): 089116416 ICD Code: T14.8XXA - OTHER INJURY OF UNSPECIFIED BODY REGION, INITIAL ENCOUNTER Status: Acute (6) Insomnia SNOMED Code(s): 629856006 ICD Code: G47.00 - INSOMNIA, UNSPECIFIED Status: Chronic Problem Details: Continue home med. (7) Weakness SNOMED Code(s): 70176135 ICD Code: R53.1 - WEAKNESS Status: Acute (8) Chronic fibrosis of lung SNOMED Code(s): 33154767 ICD Code: J84.10 - PULMONARY FIBROSIS, UNSPECIFIED Status: Chronic (9) Palliative care encounter SNOMED Code(s): 851584853, 708063234 ICD Code: Z51.5 - ENCOUNTER FOR PALLIATIVE CARE Status: Acute (10) Chronic kidney disease SNOMED Code(s): 865021429 ICD Code: N18.9 - CHRONIC KIDNEY DISEASE, UNSPECIFIED Status: Chronic (11) Hypoxemia SNOMED Code(s): 939609828 ICD Code: R09.02 - HYPOXEMIA Status: Chronic (12) Traumatic hematoma of parietal region SNOMED Code(s): 583199502 ICD Code: S00.83XA - CONTUSION OF OTHER PART OF HEAD, INITIAL ENCOUNTER Status: Acute (13) MORENO (dyspnea on exertion) SNOMED Code(s): 88202862 ICD Code: R06.00 - DYSPNEA, UNSPECIFIED Status: Acute (14) Cough SNOMED Code(s): 29468891 ICD Code: R05 - COUGH Status: Acute - Patient Summary/Data Consults: Consultations 06/28/20 14:23 OT Evaluation and Treatment [CONS] Routine Please Evaluate and Treat. OT Reason for Consult: Weakness, mechanical fall This query below is only for informational purposes and is not editable. Admission Diagnosis/Problem: Head injury without concussion or intracranial hemorrhage 06/28/20 14:24 PT Evaluation and Treatment [CONS] Routine Please Evaluate and Treat. PT Reason for Consult: Weakness, mechanical fall This query below is only for informational purposes and is not editable. Admission Diagnosis/Problem: Head injury without concussion or intracranial hemorrhage - Discharge Plan *PRESCRIPTION DRUG MONITORING PROGRAM REVIEWED*: Not Applicable *COPY OF PRESCRIPTION DRUG MONITORING REPORT IN PATIENT JAYNA: Not Applicable Prescriptions/Med Rec: Acetaminophen [Non-Aspirin Extra Strength] 500 mg PO Q4H 30 Days #120 tablet Home Medications: Home Meds Gabapentin [Neurontin] 600 mg PO BID 03/02/16 [History] Multivitamin [Multi-Vitamin Daily] 1 tab PO DAILY@1200 03/02/16 [History] allopurinoL [Zyloprim] 150 mg PO DAILY 03/02/16 [History] Docusate Sodium [Colace] 100 mg PO BEDTIME PRN 03/06/17 [History] Budesonide/Formoterol Fumarate [Symbicort 160-4.5 Mcg Inhaler] 2 puff INH 08,16 06/28/20 [History] ClonazePAM [KlonoPIN] 0.5 mg PO TID PRN 06/28/20 [History] Furosemide 20 mg PO DAILY 06/28/20 [History] L Gasseri/B Bifidum/B Longum [[employer] Capsule] 1 cap PO DAILY 06/28/20 [History] Tiotropium [Spiriva HandiHaler] 2 puff INH 12 06/28/20 [History] busPIRone [Buspar] 15 mg PO BID 06/28/20 [History] predniSONE [Prednisone] 5 mg PO DAILY 06/28/20 [History] Calcium Citrate/Vitamin D3 [Calcium Citrate - Vit D3 Tab] 1 tab PO BID 06/29/20 [History] Dextran 70/Hypromellose [Artificial Tears] 1 drop EYEBOTH BID PRN 06/29/20 [History] Acetaminophen [Non-Aspirin Extra Strength] 500 mg PO Q4H 30 Days #120 tablet 07/02/20 [Rx] Gabapentin [Neurontin] 100 mg PO BEDTIME PRN cap 07/02/20 [Rx] Melatonin 9 mg PO BEDTIME tablet 07/02/20 [Rx] Non-Formulary Medication [NF Drug] 0 each EYEBOTH ASDIRECTED PRN each 07/02/20 [Rx] Other Amb Orders: OT Evaluation and Treatment [CONS] Location: None Selected Forms: ED Department Discharge Referrals: Swapnil Gaspar MD [Primary Care Provider] - - Discharge Summary/Plan Comment DC Time >30 min.: No - General Info Date of Service: 07/02/20 Admission Dx/Problem (Free Text: Admission Diagnosis/Problem Admission Diagnosis/Problem Head injury without concussion or intracranial hemorrhage Subjective Update: Patient states that she continues to have weakness but feels that she has had some improvement Functional Status: Reports: Pain Controlled, Tolerating Diet, Ambulating, Urinating - Review of Systems General: Reports: Weakness, Fatigue HEENT: Reports: No Symptoms Pulmonary: Reports: No Symptoms Cardiovascular: Reports: No Symptoms Gastrointestinal: Reports: No Symptoms Genitourinary: Reports: No Symptoms Musculoskeletal: Reports: No Symptoms Skin: Reports: Bruising Neurological: Reports: Difficulty Walking, Weakness Psychiatric: Reports: Anxiety, Other (Difficulty sleeping) - Patient Data Vitals - Most Recent: Last Vital Signs Temp 36.7 C 07/02/20 00:00 Pulse 90 07/02/20 00:00 Resp 14 07/02/20 00:00 BP 117/71 07/02/20 00:00 Pulse Ox 94 L 07/02/20 00:00 Weight - Most Recent: 65.091 kg Lab Results - Last 24 hrs: Laboratory Results - last 24 hr 07/02/20 Range/Units 06:20 POC Glucose 101 (80-116) mg/dL Med Orders - Current: Current Medications Discontinued Medications Acetaminophen (Acetaminophen 500 Mg Tab) 500 mg PO Q4H PRN PRN Reason: Pain Last Admin: 06/30/20 01:57 Dose: 500 mg Documented by: Acetaminophen (Acetaminophen 500 Mg Tab) 500 mg PO Q4H [facility] Last Admin: 07/02/20 04:58 Dose: 500 mg Documented by: Allopurinol (Allopurinol 300 Mg Tab) 150 mg PO DAILY [facility] Last Admin: 07/01/20 08:08 Dose: 150 mg Documented by: Buspirone HCl (Buspirone 15 Mg Tab) 15 mg PO BIDMEALS [facility] Last Admin: 07/01/20 17:04 Dose: 15 mg Documented by: Clonazepam (Clonazepam 0.5 Mg Tab) 0.5 mg PO TID [facility] Last Admin: 07/01/20 21:10 Dose: 0.5 mg Documented by: Clonazepam (Clonazepam 0.5 Mg Tab) Confirm Administered Dose 0.5 mg .ROUTE .STK- MED ONE Stop: 06/28/20 18:50 Last Admin: 06/28/20 18:53 Dose: Not Given Documented by: Docusate Sodium (Docusate Sodium 100 Mg Cap) 100 mg PO BEDTIME [facility] Docusate Sodium (Docusate Sodium 100 Mg Cap) 100 mg PO BEDTIME PRN PRN Reason: Constipation Furosemide (Furosemide 20 Mg Tab) 20 mg PO DAILY [facility] Last Admin: 07/01/20 08:08 Dose: 20 mg Documented by: Gabapentin (Gabapentin 600 Mg Tab) 600 mg PO BID [facility] Last Admin: 06/29/20 21:10 Dose: 600 mg Documented by: Gabapentin (Gabapentin 600 Mg Tab) Confirm Administered Dose 600 mg .ROUTE .STK- MED ONE Stop: 06/29/20 21:10 Last Admin: 06/29/20 21:12 Dose: Not Given Documented by: Gabapentin (Gabapentin 100 Mg Cap) 100 mg PO BEDTIME PRN PRN Reason: SLEEP Last Admin: 07/02/20 00:33 Dose: 100 mg Documented by: Gabapentin (Gabapentin 600 Mg Tab) 600 mg PO BID [facility] Last Admin: 07/01/20 21:10 Dose: 600 mg Documented by: Melatonin (Melatonin 3 Mg Tab) 9 mg PO BEDTIME [facility] Last Admin: 07/01/20 20:19 Dose: 9 mg Documented by: Mometasone Furoate/Formoterol Fumar (Formoterol/Mometasone 200-5 Mcg 8.8 Gm Inhaler) 2 puff IH BID@0800,1600 [facility] Last Admin: 07/01/20 15:52 Dose: 2 puff Documented by: [Symbicort 160-4.5 Mcg Inh Own Med* 2 puff INH 08,16 [facility] Last Admin: 06/29/20 08:08 Dose: 2 puff Documented by: Refresh Optive Ravinder- (3 Eye Drops *Ptom) 0 each EYEBOTH ASDIRECTED PRN PRN Reason: DRY EYES Last Admin: 07/01/20 15:55 Dose: 1 each Documented by: Buspirone 15 Mg Tab (*Pt Own Med*) 0 each PO BIDMEALS [facility] Last Admin: 06/29/20 08:10 Dose: 1 each Documented by: Prednisone (Prednisone 10 Mg Tab *Ptom*) 5 mg PO DAILY [facility] Last Admin: 06/29/20 08:12 Dose: 5 mg Documented by: Prednisone (Prednisone 5 Mg Tab) 5 mg PO DAILY [facility] Last Admin: 07/01/20 08:08 Dose: 5 mg Documented by: Tiotropium [place] (Tiotropium Inhaler 18 Mcg) 18 mcg INH 12 [facility] Last Admin: 07/01/20 12:46 Dose: 1 puff Documented by: Trazodone HCl (Trazodone 100 Mg Tab) 100 mg PO BEDTIME [facility] Comments:: Patient looks as if she feels better today he is awake, alert, interactive, pleasant - Exam Quality Assessment: Reports: Supplemental Oxygen, Skin Breakdown General: Reports: Alert, Oriented, Cooperative, No Acute Distress HEENT: Reports: EOMI Lungs: Reports: Decreased Breath Sounds, Crackles Cardiovascular: Reports: Regular Rate, Regular Rhythm GI/Abdominal Exam: Normal Bowel Sounds, Soft, Non-Tender Extremities: Pedal Edema Skin: Reports: Warm, Dry, Intact, Ecchymosis Neurological: Reports: No New Focal Deficit Psy/Mental Status: Reports: Alert, Normal Affect, Normal Mood
== END 2020-07-02 07:59 | disposition swing bed (61) | DRG 914 ==
LOC: FB.ED 11:44 → FB.MS 13:57 → OBSVTOIN 06-29 12:15
PROVIDERS: ADMIT Student in an Organized Health Care Education/Training Program; ATTEND Student in an Organized Health Care Education/Training Program
DX: S09.90XA Unspecified injury of head, initial encounter (principal); R53.1 Weakness; S19.9XXA Unspecified injury of neck, initial encounter; S09.93XA Unspecified injury of face, initial encounter; J44.9 Chronic obstructive pulmonary disease, unspecified; R09.02 Hypoxemia; M10.9 Gout, unspecified; G47.00 Insomnia, unspecified; T14.8XXA Other injury of unspecified body region, initial encounter; J84.10 Pulmonary fibrosis, unspecified; Z51.5 Encounter for palliative care; Z20.822 Contact with and (suspected) exposure to COVID-19; N18.9 Chronic kidney disease, unspecified; S00.83XA Contusion of other part of head, initial encounter; R05 Cough; R06.00 Dyspnea, unspecified; F41.9 Anxiety disorder, unspecified; H54.7 Unspecified visual loss; K21.9 Gastro-esophageal reflux disease without esophagitis; M19.90 Unspecified osteoarthritis, unspecified site; M54.9 Dorsalgia, unspecified; G89.29 Other chronic pain; M54.2 Cervicalgia; G62.9 Polyneuropathy, unspecified; R73.03 Prediabetes; Z96.649 Presence of unspecified artificial hip joint; Z96.659 Presence of unspecified artificial knee joint; E53.1 Pyridoxine deficiency; Z91.09 Other allergy status, other than to drugs and biological substances; Z88.5 Allergy status to narcotic agent; Z79.82 Long term (current) use of aspirin; Z79.52 Long term (current) use of systemic steroids; Z79.899 Other long term (current) drug therapy; Z87.01 Personal history of pneumonia (recurrent); Z85.828 Personal history of other malignant neoplasm of skin; Z99.81 Dependence on supplemental oxygen; Z98.49 Cataract extraction status, unspecified eye; W07.XXXA Fall from chair, initial encounter
CPT/HCPCS: 36415; 70450; 71045; 72125; 80053; 81001; 83880; 84484; 85025; 86140; 87086; 93005; 99285; A9270 ×12; J7512; U0002; 71046; 82947; 97161-GP; 97166-GO; 97530-GO; 97530-GP; 97535-GO; G0378

== ENCOUNTER 2020-07-02 08:00 | Inpatient (IN) | payer MEDICARE, BC ==
[~2020-07-02 08:00] MED LIST: Non-Formulary Medication 1 Each (Tiotropium [Spiriva Handihaler] 2 PUFF) INH SCH
[2020-07-02] MEDS: Acetaminophen 500 MG Tab PO SCH ×5 (08:30→23:22)
[2020-07-02] MEDS: Allopurinol 300 MG Tab PO SCH (08:30)
[2020-07-02] MEDS: busPIRone 15 MG Tab PO SCH ×2 (08:30→18:00)
[2020-07-02] MEDS: predniSONE 5 MG Tab PO SCH (08:30)
[2020-07-02] MEDS: Formoterol/Mometasone 200-5 MCG 8.8 GM Inhaler IH SCH ×2 (08:30→16:31)
[2020-07-02] MEDS: Furosemide 20 MG Tab PO SCH (08:30)
[2020-07-02] MEDS: Gabapentin 600 MG Tab PO SCH ×2 (10:00→20:26)
[2020-07-02] MEDS: ClonazePAM 0.5 MG Tab PO SCH ×3 (10:00→20:26)
[2020-07-02] MEDS ORDERED: Formoterol/Mometasone 200-5 MCG 8.8 GM Inhaler IH SCH (11:00)
[2020-07-02] MEDS ORDERED: Docusate Sodium 100 MG Cap PO PRN (11:10)
[2020-07-02] MEDS ORDERED: ClonazePAM 0.5 MG Tab PO PRN (11:10)
[2020-07-02] MEDS ORDERED: Non-Formulary Medication 1 Each EYEBOTH PRN (11:10)
[2020-07-02] MEDS ORDERED: Non-Formulary Medication 1 Each (Dextran 70/Hypromellose [Artificial Tears] 1 EACH Dropere EYEBOTH PRN (11:10)
[2020-07-02] MEDS ORDERED: Acetaminophen 500 MG Tab PO SCH (11:15)
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
[2020-07-02] MEDS ORDERED: Non-Formulary Medication 1 Each (Tiotropium [Spiriva Handihaler] 18 MCG Cap) INH SCH (12:00)
[2020-07-02] MEDS: Multivitamin Tab PO SCH (13:19)
[2020-07-02] MEDS: [UNRECOGNIZED DRUG - OTHER] EYEBOTH PRN (20:26)
[2020-07-02] MEDS: Melatonin 3 MG Tab PO SCH (20:26)
[2020-07-02] MEDS: Calcium Carbonate 500 MG Tablet PO SCH (20:27)
[2020-07-02] MEDS ORDERED: Gabapentin 600 MG Tab PO SCH (21:00)
[2020-07-03] MEDS: Gabapentin 100 MG Cap PO PRN ×2 (00:35→23:05)
[2020-07-03] MEDS: Acetaminophen 500 MG Tab PO SCH ×6 (03:10→23:05)
[2020-07-03] MEDS: Formoterol/Mometasone 200-5 MCG 8.8 GM Inhaler IH SCH ×2 (08:42→15:58)
[2020-07-03] MEDS: busPIRone 15 MG Tab PO SCH ×2 (08:42→18:19)
[2020-07-03] MEDS: Furosemide 20 MG Tab PO SCH (08:42)
[2020-07-03] MEDS: predniSONE 5 MG Tab PO SCH (08:43)
[2020-07-03] MEDS: Calcium Carbonate 500 MG Tablet PO SCH ×2 (09:13→20:13)
[2020-07-03] MEDS: ClonazePAM 0.5 MG Tab PO SCH ×3 (09:13→20:12)
[2020-07-03] MEDS: Lactobacillus Rhamnosus GG (Probiotic) Cap PO SCH (09:13)
[2020-07-03] MEDS: Gabapentin 600 MG Tab PO SCH ×2 (09:13→20:12)
[2020-07-03] MEDS: Allopurinol 300 MG Tab PO SCH (09:13)
[2020-07-03] MEDS: Tiotropium Bromide 4 GM Inhalation Spray (2.5mcg/1 dose; 10 doses) INH SCH (12:47)
[2020-07-03] MEDS: Multivitamin Tab PO SCH (12:49)
[2020-07-03] MEDS: Melatonin 3 MG Tab PO SCH (20:12)
[2020-07-04] MEDS: Acetaminophen 500 MG Tab PO SCH ×6 (03:57→23:06)
[2020-07-04] MEDS: busPIRone 15 MG Tab PO SCH ×2 (07:56→18:34)
[2020-07-04] MEDS: predniSONE 5 MG Tab PO SCH ×2 (07:56→09:01)
[2020-07-04] MEDS: Furosemide 20 MG Tab PO SCH ×2 (07:56→09:00)
[2020-07-04] MEDS: Formoterol/Mometasone 200-5 MCG 8.8 GM Inhaler IH SCH ×2 (09:00→16:08)
[2020-07-04] MEDS: Gabapentin 600 MG Tab PO SCH ×2 (09:00→20:09)
[2020-07-04] MEDS: ClonazePAM 0.5 MG Tab PO SCH ×3 (09:00→20:08)
[2020-07-04] MEDS: Lactobacillus Rhamnosus GG (Probiotic) Cap PO SCH (09:00)
[2020-07-04] MEDS: Calcium Carbonate 500 MG Tablet PO SCH ×2 (09:01→20:09)
[2020-07-04] MEDS: Allopurinol 300 MG Tab PO SCH (09:01)
[2020-07-04] MEDS: Multivitamin Tab PO SCH (12:45)
[2020-07-04] MEDS: Tiotropium Bromide 4 GM Inhalation Spray (2.5mcg/1 dose; 10 doses) INH SCH (12:45)
[2020-07-04] MEDS: Melatonin 3 MG Tab PO SCH (20:09)
[2020-07-04] MEDS: Gabapentin 100 MG Cap PO PRN (23:46)
[2020-07-05] MEDS: Acetaminophen 500 MG Tab PO SCH ×5 (03:13→20:06)
[2020-07-05] MEDS: predniSONE 5 MG Tab PO SCH (08:02)
[2020-07-05] MEDS: busPIRone 15 MG Tab PO SCH ×2 (08:02→18:13)
[2020-07-05] MEDS: Furosemide 20 MG Tab PO SCH (08:02)
[2020-07-05] MEDS: Formoterol/Mometasone 200-5 MCG 8.8 GM Inhaler IH SCH ×2 (08:03→16:34)
--- NOTE | 2020-07-05 08:19 | PCM.PN ---
- General Info Date of Service: 07/05/20 Admission Dx/Problem (Free Text): Patient states she's worried about her insomnia. Dr. Archibald started 100 mg of Neurontin before bedtime. She says that is working. She denies fevers, chills, cough. Has occasional headache. - Patient Data Vitals - Most Recent: Last Vital Signs Temp 97.7 F 07/04/20 04:13 Pulse 79 07/04/20 04:13 Resp 18 07/04/20 04:13 BP 130/78 07/04/20 04:13 Pulse Ox 99 07/04/20 04:13 Weight - Most Recent: 143 lb 8 oz Med Orders - Current: Current Medications Acetaminophen (Acetaminophen 500 Mg Tab) 500 mg PO Q4H [facility] Last Admin: 07/05/20 08:02 Dose: 500 mg Documented by: Allopurinol (Allopurinol 300 Mg Tab) 150 mg PO DAILY [facility] Last Admin: 07/04/20 09:01 Dose: 150 mg Documented by: Buspirone HCl (Buspirone 15 Mg Tab) 15 mg PO BIDMEALS [facility] Last Admin: 07/05/20 08:02 Dose: 15 mg Documented by: Calcium Carbonate/Glycine (Calcium Carbonate 500 Mg Tablet) 500 mg PO BID [facility] Last Admin: 07/04/20 20:09 Dose: 500 mg Documented by: Clonazepam (Clonazepam 0.5 Mg Tab) 0.5 mg PO TID [facility] Last Admin: 07/04/20 20:08 Dose: 0.5 mg Documented by: Docusate Sodium (Docusate Sodium 100 Mg Cap) 100 mg PO BEDTIME PRN PRN Reason: Constipation Furosemide (Furosemide 20 Mg Tab) 20 mg PO DAILY [facility] Last Admin: 07/05/20 08:02 Dose: 20 mg Documented by: Gabapentin (Gabapentin 600 Mg Tab) 600 mg PO BID [facility] Last Admin: 07/04/20 20:09 Dose: 600 mg Documented by: Gabapentin (Gabapentin 100 Mg Cap) 100 mg PO BEDTIME PRN PRN Reason: SLEEP Last Admin: 07/04/20 23:46 Dose: 100 mg Documented by: Lactobacillus Rhamnosus (Lactobacillus Rhamnosus Gg (Probiotic) Cap) 1 cap PO DAILY [facility] Last Admin: 07/04/20 09:00 Dose: 1 cap Documented by: Melatonin (Melatonin 3 Mg Tab) 9 mg PO BEDTIME [facility] Last Admin: 07/04/20 20:09 Dose: 9 mg Documented by: Mometasone Furoate/Formoterol Fumar (Formoterol/Mometasone 200-5 Mcg 8.8 Gm Inhaler) 2 puff IH BID@0800,1600 [facility] Last Admin: 07/05/20 08:03 Dose: 2 each Documented by: Multivitamins/Minerals/Vitamin C (Multivitamin Tab) 1 tab PO DAILY@1200 [facility] Last Admin: 07/04/20 12:45 Dose: 1 tab Documented by: Claudia Strong Ravinder- (3 Eye Drops *Ptom) 0 each EYEBOTH ASDIRECTED PRN PRN Reason: DRY EYES Last Admin: 07/02/20 20:26 Dose: 1 each Documented by: Prednisone (Prednisone 5 Mg Tab) 5 mg PO DAILY [facility] Last Admin: 07/05/20 08:02 Dose: 5 mg Documented by: Tiotropium [place] (Tiotropium [place] 4 Gm Inhalation [place] (2.5mcg/1 Dose; 10 Doses)) 0 gm INH DAILY@1200 [facility] Last Admin: 07/04/20 12:45 Dose: 4 gm Documented by: Discontinued Medications Acetaminophen (Acetaminophen 500 Mg Tab) 500 mg PO Q4H [facility] Last Admin: 07/02/20 20:39 Dose: Not Given Documented by: Mometasone Furoate/Formoterol Fumar (Formoterol/Mometasone 200-5 Mcg 8.8 Gm Inhaler) 2 puff IH BID@0800,1600 [facility] Last Admin: 07/02/20 20:39 Dose: Not Given Documented by: Non-Formulary Medication (Tiotropium [Spiriva Handihaler]) 2 puff INH DAILY@1200 [facility] Last Admin: 07/02/20 12:25 Dose: 2 puff Documented by: - Exam General: Alert, Oriented, Cooperative Lungs: Clear to Auscultation, Normal Respiratory Effort Cardiovascular: Regular Rate, Regular Rhythm, No Murmurs Skin: Ecchymosis (Left face) Sepsis Event Note - Evaluation Sepsis Screening Result: No Definite Risk - Problem List & Annotations (1) Frail elderly SNOMED Code(s): 221308593 Code(s): R54 - AGE-RELATED PHYSICAL DEBILITY Status: Acute Current Visit: No (2) HTN (hypertension) SNOMED Code(s): 38685149 Code(s): I10 - ESSENTIAL (PRIMARY) HYPERTENSION Status: Acute Current Visit: No Annotation/Comment:: Monitor. Continue home meds. (3) Head contusion SNOMED Code(s): 795981176 Code(s): S00.93XA - CONTUSION OF UNSPECIFIED PART OF HEAD, INITIAL ENCOUNTER Status: Acute Current Visit: No (4) Traumatic hematoma of parietal region SNOMED Code(s): 341990516 Code(s): S00.83XA - CONTUSION OF OTHER PART OF HEAD, INITIAL ENCOUNTER Status: Acute Current Visit: No (5) Type 2 diabetes mellitus SNOMED Code(s): 77227719 Code(s): E11.9 - TYPE 2 DIABETES MELLITUS WITHOUT COMPLICATIONS Status: Acute Priority: High Current Visit: No Qualifiers: Diabetes mellitus care home insulin use: without care home use Diabetes mellitus complication status: with neurologic complications Diabetes mellitus complication detail: with autonomic neuropathy Qualified Code(s): E11.43 - Type 2 diabetes mellitus with diabetic autonomic (poly)neuropathy (6) Weakness SNOMED Code(s): 19658318 Code(s): R53.1 - WEAKNESS Status: Acute Current Visit: No (7) COPD with hypoxia SNOMED Code(s): 72041650 Code(s): J44.9 - CHRONIC OBSTRUCTIVE PULMONARY DISEASE, UNSPECIFIED; R09.02 - HYPOXEMIA Status: Chronic Current Visit: No (8) Gout SNOMED Code(s): 26409805 Code(s): M10.9 - GOUT, UNSPECIFIED Status: Chronic Current Visit: No Annotation/Comment:: Continue home med. (9) Insomnia SNOMED Code(s): 256226539 Code(s): G47.00 - INSOMNIA, UNSPECIFIED Status: Chronic Current Visit: No Annotation/Comment:: Continue home med. - Problem List Review Problem List Initiated/Reviewed/Updated: Yes - Plan Plan:: 1. Continue Neurontin 100 mg at bedtime. 2. Continue current care with PT/OT and swing bed orders.
[2020-07-05] MEDS: Lactobacillus Rhamnosus GG (Probiotic) Cap PO SCH (09:17)
[2020-07-05] MEDS: ClonazePAM 0.5 MG Tab PO SCH ×3 (09:17→20:06)
[2020-07-05] MEDS: Calcium Carbonate 500 MG Tablet PO SCH ×2 (09:17→20:07)
[2020-07-05] MEDS: Gabapentin 600 MG Tab PO SCH ×2 (09:17→20:07)
[2020-07-05] MEDS: Allopurinol 300 MG Tab PO SCH (09:17)
[2020-07-05] MEDS: Tiotropium Bromide 4 GM Inhalation Spray (2.5mcg/1 dose; 10 doses) INH SCH (12:15)
[2020-07-05] MEDS: Multivitamin Tab PO SCH (12:15)
[2020-07-05] MEDS: Melatonin 3 MG Tab PO SCH (20:07)
[2020-07-05] MEDS ORDERED: Mirtazapine 15 MG Tab PO SCH (21:00)
[2020-07-06] MEDS: Acetaminophen 500 MG Tab PO SCH ×7 (03:46→23:38)
[2020-07-06] MEDS: busPIRone 15 MG Tab PO SCH ×2 (08:16→19:08)
[2020-07-06] MEDS: Calcium Carbonate 500 MG Tablet PO SCH ×2 (08:17→21:11)
[2020-07-06] MEDS: Lactobacillus Rhamnosus GG (Probiotic) Cap PO SCH (08:18)
[2020-07-06] MEDS: Allopurinol 300 MG Tab PO SCH (08:18)
[2020-07-06] MEDS: Formoterol/Mometasone 200-5 MCG 8.8 GM Inhaler IH SCH ×2 (08:22→16:51)
[2020-07-06] MEDS: Gabapentin 600 MG Tab PO SCH ×2 (08:23→21:06)
[2020-07-06] MEDS: ClonazePAM 0.5 MG Tab PO SCH ×3 (08:23→21:10)
[2020-07-06] MEDS: predniSONE 5 MG Tab PO SCH (08:23)
[2020-07-06] MEDS: Furosemide 20 MG Tab PO SCH (08:24)
--- NOTE | 2020-07-06 08:39 | PCM.PN ---
- General Info Date of Service: 07/06/20 Admission Dx/Problem (Free Text): Patient states that Remeron made her feel drunk last night. She states she cannot take if she might fall at home. She said she didn't sleep well. She says she has lots of anxiety and obsesses about worried about not sleeping. She denies depression, sadness, suicidal ideation, concentration or memory problems. - Patient Data Vitals - Most Recent: Last Vital Signs Temp 98.2 F 07/06/20 00:00 Pulse 99 07/06/20 00:00 Resp 18 07/06/20 00:00 BP 168/92 H 07/06/20 00:00 Pulse Ox 97 07/06/20 00:00 Weight - Most Recent: 144 lb 2 oz Med Orders - Current: Current Medications Acetaminophen (Acetaminophen 500 Mg Tab) 500 mg PO Q4H [facility] Last Admin: 07/06/20 08:17 Dose: 500 mg Documented by: Allopurinol (Allopurinol 300 Mg Tab) 150 mg PO DAILY [facility] Last Admin: 07/06/20 08:18 Dose: 150 mg Documented by: Buspirone HCl (Buspirone 15 Mg Tab) 15 mg PO BIDMEALS [facility] Last Admin: 07/06/20 08:16 Dose: 15 mg Documented by: Calcium Carbonate/Glycine (Calcium Carbonate 500 Mg Tablet) 500 mg PO BID [facility] Last Admin: 07/06/20 08:17 Dose: 500 mg Documented by: Clonazepam (Clonazepam 0.5 Mg Tab) 0.5 mg PO TID [facility] Last Admin: 07/06/20 08:23 Dose: 0.5 mg Documented by: Docusate Sodium (Docusate Sodium 100 Mg Cap) 100 mg PO BEDTIME PRN PRN Reason: Constipation Furosemide (Furosemide 20 Mg Tab) 20 mg PO DAILY [facility] Last Admin: 07/06/20 08:24 Dose: 20 mg Documented by: Gabapentin (Gabapentin 600 Mg Tab) 600 mg PO BID [facility] Last Admin: 07/06/20 08:23 Dose: 600 mg Documented by: Gabapentin (Gabapentin 100 Mg Cap) 100 mg PO BEDTIME PRN PRN Reason: SLEEP Last Admin: 07/04/20 23:46 Dose: 100 mg Documented by: Lactobacillus Rhamnosus (Lactobacillus Rhamnosus Gg (Probiotic) Cap) 1 cap PO DAILY [facility] Last Admin: 07/06/20 08:18 Dose: 1 cap Documented by: Melatonin (Melatonin 3 Mg Tab) 9 mg PO BEDTIME [facility] Last Admin: 07/05/20 20:07 Dose: 9 mg Documented by: Mirtazapine (Mirtazapine 15 Mg Tab) 7.5 mg PO BEDTIME [facility] Last Admin: 07/05/20 20:08 Dose: 7.5 mg Documented by: Mometasone Furoate/Formoterol Fumar (Formoterol/Mometasone 200-5 Mcg 8.8 Gm Inhaler) 2 puff IH BID@0800,1600 [facility] Last Admin: 07/06/20 08:22 Dose: 2 each Documented by: Multivitamins/Minerals/Vitamin C (Multivitamin Tab) 1 tab PO DAILY@1200 [facility] Last Admin: 07/05/20 12:15 Dose: 1 tab Documented by: Claudia Strong Ravinder- (3 Eye Drops *Ptom) 0 each EYEBOTH ASDIRECTED PRN PRN Reason: DRY EYES Last Admin: 07/02/20 20:26 Dose: 1 each Documented by: Prednisone (Prednisone 5 Mg Tab) 5 mg PO DAILY [facility] Last Admin: 07/06/20 08:23 Dose: 5 mg Documented by: Tiotropium [place] (Tiotropium [place] 4 Gm Inhalation [place] (2.5mcg/1 Dose; 10 Doses)) 0 gm INH DAILY@1200 [facility] Last Admin: 07/05/20 12:15 Dose: 4 gm Documented by: Discontinued Medications Acetaminophen (Acetaminophen 500 Mg Tab) 500 mg PO Q4H [facility] Last Admin: 07/02/20 20:39 Dose: Not Given Documented by: Mometasone Furoate/Formoterol Fumar (Formoterol/Mometasone 200-5 Mcg 8.8 Gm Inhaler) 2 puff IH BID@0800,1600 [facility] Last Admin: 07/02/20 20:39 Dose: Not Given Documented by: Non-Formulary Medication (Tiotropium [Spiriva Handihaler]) 2 puff INH DAILY@1200 [facility] Last Admin: 07/02/20 12:25 Dose: 2 puff Documented by: - Exam Psy/Mental Status: Alert, Anxious Sepsis Event Note - Evaluation Sepsis Screening Result: No Definite Risk - Focused Exam Vital Signs: Vital Signs Temp Pulse Resp BP Pulse Ox 07/06/20 00:00 98.2 F 99 18 168/92 H 97 - Problem List & Annotations (1) Frail elderly SNOMED Code(s): 663762698 Code(s): R54 - AGE-RELATED PHYSICAL DEBILITY Status: Acute Current Visit: No (2) HTN (hypertension) SNOMED Code(s): 80703162 Code(s): I10 - ESSENTIAL (PRIMARY) HYPERTENSION Status: Acute Current Visit: No Annotation/Comment:: Monitor. Continue home meds. (3) Head contusion SNOMED Code(s): 168686180 Code(s): S00.93XA - CONTUSION OF UNSPECIFIED PART OF HEAD, INITIAL ENCOUNTER Status: Acute Current Visit: No (4) Traumatic hematoma of parietal region SNOMED Code(s): 008633767 Code(s): S00.83XA - CONTUSION OF OTHER PART OF HEAD, INITIAL ENCOUNTER Status: Acute Current Visit: No (5) Type 2 diabetes mellitus SNOMED Code(s): 34381314 Code(s): E11.9 - TYPE 2 DIABETES MELLITUS WITHOUT COMPLICATIONS Status: Acute Priority: High Current Visit: No Qualifiers: Diabetes mellitus snf insulin use: without intermediate frame tender use Diabetes mellitus complication status: with neurologic complications Diabetes mellitus complication detail: with autonomic neuropathy Qualified Code(s): E11.43 - Type 2 diabetes mellitus with diabetic autonomic (poly)neuropathy (6) Weakness SNOMED Code(s): 78489117 Code(s): R53.1 - WEAKNESS Status: Acute Current Visit: No (7) COPD with hypoxia SNOMED Code(s): 43787378 Code(s): J44.9 - CHRONIC OBSTRUCTIVE PULMONARY DISEASE, UNSPECIFIED; R09.02 - HYPOXEMIA Status: Chronic Current Visit: No (8) Gout SNOMED Code(s): 11867720 Code(s): M10.9 - GOUT, UNSPECIFIED Status: Chronic Current Visit: No Annotation/Comment:: Continue home med. (9) Insomnia SNOMED Code(s): 423088194 Code(s): G47.00 - INSOMNIA, UNSPECIFIED Status: Chronic Current Visit: No Annotation/Comment:: Continue home med. (10) Anxiety SNOMED Code(s): 55186810 Code(s): F41.9 - ANXIETY DISORDER, UNSPECIFIED Status: Acute Current Visit: Yes - Problem List Review Problem List Initiated/Reviewed/Updated: Yes - My Orders Last 24 Hours: My Active Orders 07/06/20 21:00 PARoxetine [Paxil] 10 mg PO BEDTIME - Plan Plan:: 1. johnie Gómez 2. Reviewed her [place] chart to see if she's been on SSRI. It's been 2013 it was Celexa. I talk to the patient I will start some Paxil 10 mg at at bedtime. Side effects discussed and told her to take a while for it to work. 3. Because she obsesses over her sleeping. I went over the plan many times. The plan is that she'll take 3 melatonin and her 600 mg of gabapentin before sleep. If she's not able to sleep in an hour or wakes up she can take the other 100 mg gabapentin.
[2020-07-06] MEDS: Multivitamin Tab PO SCH (11:31)
[2020-07-06] MEDS: Tiotropium Bromide 4 GM Inhalation Spray (2.5mcg/1 dose; 10 doses) INH SCH (11:31)
[2020-07-06] MEDS: Melatonin 3 MG Tab PO SCH (21:10)
[2020-07-06] MEDS: [UNRECOGNIZED DRUG - OTHER] EYEBOTH PRN (21:11)
[2020-07-06] MEDS: Gabapentin 100 MG Cap PO PRN (23:37)
[2020-07-07] MEDS: Acetaminophen 500 MG Tab PO SCH ×6 (04:00→23:27)
[2020-07-07] MEDS: busPIRone 15 MG Tab PO SCH ×2 (08:30→18:01)
[2020-07-07] MEDS: Formoterol/Mometasone 200-5 MCG 8.8 GM Inhaler IH SCH ×2 (08:30→16:14)
[2020-07-07] MEDS: Lactobacillus Rhamnosus GG (Probiotic) Cap PO SCH (08:31)
[2020-07-07] MEDS: Furosemide 20 MG Tab PO SCH (08:31)
[2020-07-07] MEDS: Calcium Carbonate 500 MG Tablet PO SCH ×2 (08:31→21:15)
[2020-07-07] MEDS: predniSONE 5 MG Tab PO SCH (08:32)
[2020-07-07] MEDS: Allopurinol 300 MG Tab PO SCH (08:32)
[2020-07-07] MEDS: Gabapentin 600 MG Tab PO SCH ×2 (08:36→21:15)
[2020-07-07] MEDS: ClonazePAM 0.5 MG Tab PO SCH ×3 (08:36→21:15)
[2020-07-07] MEDS: Multivitamin Tab PO SCH (12:44)
[2020-07-07] MEDS: Tiotropium Bromide 4 GM Inhalation Spray (2.5mcg/1 dose; 10 doses) INH SCH (12:44)
[2020-07-07] MEDS: Melatonin 3 MG Tab PO SCH (21:15)
[2020-07-07] MEDS: Gabapentin 100 MG Cap PO PRN (23:29)
[2020-07-08] MEDS: Acetaminophen 500 MG Tab PO SCH ×5 (03:48→21:07)
[2020-07-08] MEDS: busPIRone 15 MG Tab PO SCH ×2 (08:15→17:07)
[2020-07-08] MEDS: Formoterol/Mometasone 200-5 MCG 8.8 GM Inhaler IH SCH ×2 (08:15→15:37)
[2020-07-08] MEDS: Calcium Carbonate 500 MG Tablet PO SCH ×2 (09:27→21:07)
[2020-07-08] MEDS: Allopurinol 300 MG Tab PO SCH (09:27)
[2020-07-08] MEDS: Lactobacillus Rhamnosus GG (Probiotic) Cap PO SCH (09:27)
[2020-07-08] MEDS: Furosemide 20 MG Tab PO SCH (09:27)
[2020-07-08] MEDS: predniSONE 5 MG Tab PO SCH (09:27)
[2020-07-08] MEDS: ClonazePAM 0.5 MG Tab PO SCH ×3 (09:36→21:07)
[2020-07-08] MEDS: Gabapentin 600 MG Tab PO SCH ×2 (09:37→21:07)
[2020-07-08] MEDS: Multivitamin Tab PO SCH (12:40)
[2020-07-08] MEDS: Tiotropium Bromide 4 GM Inhalation Spray (2.5mcg/1 dose; 10 doses) INH SCH (12:40)
[2020-07-08] MEDS: Melatonin 3 MG Tab PO SCH (21:07)
[2020-07-09] MEDS: Acetaminophen 500 MG Tab PO SCH ×4 (00:53→11:50)
[2020-07-09] MEDS: Gabapentin 100 MG Cap PO PRN (03:28)
[2020-07-09 07:42] VITALS: BP 139/82; PULSE 85
--- NOTE | 2020-07-09 07:50 | PCM.PN ---
- General Info Date of Service: 07/09/20 Admission Dx/Problem (Free Text): Patient still says she has trouble sleeping. She is nervous to go home but she is willing to try it. She has no other concerns. - Patient Data Vitals - Most Recent: Last Vital Signs Temp 97.3 F 07/09/20 07:41 Pulse 85 07/09/20 07:41 Resp 18 07/09/20 07:41 BP 139/82 07/09/20 07:41 Pulse Ox 99 07/09/20 07:41 Weight - Most Recent: 144 lb 3 oz Med Orders - Current: Current Medications Acetaminophen (Acetaminophen 500 Mg Tab) 500 mg PO Q4H [facility] Last Admin: 07/09/20 03:28 Dose: 500 mg Documented by: Allopurinol (Allopurinol 300 Mg Tab) 150 mg PO DAILY [facility] Last Admin: 07/08/20 09:27 Dose: 150 mg Documented by: Buspirone HCl (Buspirone 15 Mg Tab) 15 mg PO BIDMEALS [facility] Last Admin: 07/08/20 17:07 Dose: 15 mg Documented by: Calcium Carbonate/Glycine (Calcium Carbonate 500 Mg Tablet) 500 mg PO BID [facility] Last Admin: 07/08/20 21:07 Dose: 500 mg Documented by: Clonazepam (Clonazepam 0.5 Mg Tab) 0.5 mg PO TID [facility] Last Admin: 07/08/20 21:07 Dose: 0.5 mg Documented by: Docusate Sodium (Docusate Sodium 100 Mg Cap) 100 mg PO BEDTIME PRN PRN Reason: Constipation Furosemide (Furosemide 20 Mg Tab) 20 mg PO DAILY [facility] Last Admin: 07/08/20 09:27 Dose: 20 mg Documented by: Gabapentin (Gabapentin 600 Mg Tab) 600 mg PO BID [facility] Last Admin: 07/08/20 21:07 Dose: 600 mg Documented by: Gabapentin (Gabapentin 100 Mg Cap) 100 mg PO BEDTIME PRN PRN Reason: SLEEP Last Admin: 07/09/20 03:28 Dose: 100 mg Documented by: Lactobacillus Rhamnosus (Lactobacillus Rhamnosus Gg (Probiotic) Cap) 1 cap PO D AILY [facility] Last Admin: 07/08/20 09:27 Dose: 1 cap Documented by: Melatonin (Melatonin 3 Mg Tab) 9 mg PO BEDTIME [facility] Last Admin: 07/08/20 21:07 Dose: 9 mg Documented by: Mometasone Furoate/Formoterol Fumar (Formoterol/Mometasone 200-5 Mcg 8.8 Gm Inhaler) 2 puff IH BID@0800,1600 [facility] Last Admin: 07/08/20 15:37 Dose: 2 each Documented by: Multivitamins/Minerals/Vitamin C (Multivitamin Tab) 1 tab PO DAILY@1200 [facility] Last Admin: 07/08/20 12:40 Dose: 1 tab Documented by: Claudia Brittonve Ravinder- (3 Eye Drops *Ptom) 0 each EYEBOTH ASDIRECTED PRN PRN Reason: DRY EYES Last Admin: 07/06/20 21:11 Dose: 1 each Documented by: Paroxetine HCl (Paroxetine 10 Mg Tab) 10 mg PO BEDTIME [facility] Last Admin: 07/08/20 21:07 Dose: 10 mg Documented by: Prednisone (Prednisone 5 Mg Tab) 5 mg PO DAILY [facility] Last Admin: 07/08/20 09:27 Dose: 5 mg Documented by: Tiotropium [place] (Tiotropium [place] 4 Gm Inhalation [place] (2.5mcg/1 Dose; 10 Doses)) 0 gm INH DAILY@1200 [facility] Last Admin: 07/08/20 12:40 Dose: 4 gm Documented by: Discontinued Medications Acetaminophen (Acetaminophen 500 Mg Tab) 500 mg PO Q4H [facility] Last Admin: 07/02/20 20:39 Dose: Not Given Documented by: Mirtazapine (Mirtazapine 15 Mg Tab) 7.5 mg PO BEDTIME [facility] Last Admin: 07/05/20 20:08 Dose: 7.5 mg Documented by: Mometasone Furoate/Formoterol Fumar (Formoterol/Mometasone 200-5 Mcg 8.8 Gm Inhaler) 2 puff IH BID@0800,1600 [facility] Last Admin: 07/02/20 20:39 Dose: Not Given Documented by: Non-Formulary Medication (Tiotropium [Spiriva Handihaler]) 2 puff INH DAILY@1200 [facility] Last Admin: 07/02/20 12:25 Dose: 2 puff Documented by: - Exam General: Alert, Oriented Skin: Ecchymosis (Left face) Psy/Mental Status: Alert, Anxious Sepsis Event Note - Evaluation Sepsis Screening Result: No Definite Risk - Focused Exam Vital Signs: Vital Signs Temp Pulse Resp BP Pulse Ox 07/09/20 07:41 97.3 F 85 18 139/82 99 07/08/20 21:00 97.4 F 90 17 105/66 96 - Problem List & Annotations (1) Frail elderly SNOMED Code(s): 574010276 Code(s): R54 - AGE-RELATED PHYSICAL DEBILITY Status: Acute Current Visit: No (2) HTN (hypertension) SNOMED Code(s): 62174913 Code(s): I10 - ESSENTIAL (PRIMARY) HYPERTENSION Status: Acute Current Visit: No Annotation/Comment:: Monitor. Continue home meds. (3) Head contusion SNOMED Code(s): 374584268 Code(s): S00.93XA - CONTUSION OF UNSPECIFIED PART OF HEAD, INITIAL ENCOUNTER Status: Acute Current Visit: No (4) Traumatic hematoma of parietal region SNOMED Code(s): 752193722 Code(s): S00.83XA - CONTUSION OF OTHER PART OF HEAD, INITIAL ENCOUNTER Status: Acute Current Visit: No (5) Weakness SNOMED Code(s): 65988344 Code(s): R53.1 - WEAKNESS Status: Acute Current Visit: No (6) COPD with hypoxia SNOMED Code(s): 44164487 Code(s): J44.9 - CHRONIC OBSTRUCTIVE PULMONARY DISEASE, UNSPECIFIED; R09.02 - HYPOXEMIA Status: Chronic Current Visit: No (7) Gout SNOMED Code(s): 60202936 Code(s): M10.9 - GOUT, UNSPECIFIED Status: Chronic Current Visit: No Annotation/Comment:: Continue home med. (8) Insomnia SNOMED Code(s): 487805976 Code(s): G47.00 - INSOMNIA, UNSPECIFIED Status: Chronic Current Visit: No Annotation/Comment:: Continue home med. (9) Anxiety SNOMED Code(s): 88412194 Code(s): F41.9 - ANXIETY DISORDER, UNSPECIFIED Status: Acute Current Visit: Yes - Problem List Review Problem List Initiated/Reviewed/Updated: Yes - My Orders Last 24 Hours: My Active Orders 07/09/20 07:28 CORONAVIRUS COVID-19, JOSE R Routine 07/09/20 07:48 Ready for Discharge [RC] PER UNIT ROUTINE - Plan Plan:: 1. Discharge to home on home health/PT/OT.
--- NOTE | 2020-07-09 07:52 | PCM.DCSUM1 ---
Discharge Summary - Hospital Course Free Text/Narrative:: Swing bed course-patient did well with PT/OT. Her only real issue was anxiety and not sleeping at night. She takes Neurontin 600 mg twice a day. And when she went to sleep if she didn't sleep take another 100 mg and that seemed to work well. After assessing her for anxiety and reviewing her Epic chart. She had not been on SSRI since 2012 so I added Paxil 10 mg at at bedtime. Patient did well had really no issues with anxiety and progressive PT/OT. She'll be discharged to home. She was at a assisted living. She'll get PT/OT and home health. Recheck with her primary provider in one week. Brief History: Patient presented to the emergency department due to a fall caused only by weakness. Patient states that she had not been feeling well for several days and when she tried to stand she fell and hit a table in the floor hard. She was evaluated in the emergency department with CT of the head and found to have no acute injuries. Patient was admitted on 06/28/2020 for continued observation due to findings on CT suggesting countercoup hematoma in the right parietal region and occupational physical therapy. Patient improved slightly and will now be admitted to swing bed for continued occupational physical therapy. Patient's prognosis to return to her previous living environment is good at this time. Diagnosis: Stroke: No - Discharge Data Discharge Date: 07/09/20 Discharge Disposition: Home, W Home Health Agency 06 Condition: Good - Referral to Home Health Date of Face to Face Encounter: 07/09/20 Reason for Homebound Status: 1. Status post fall with brain bleed. 2. Weakness Primary Care Physician: Swapnil Gaspar MD Skilled Need: 1. PT/OT for ADLs, strengthening and ambulation. 2. Home health for home safety, medication management, patient well be - Discharge Diagnosis/Problem(s) (1) Frail elderly SNOMED Code(s): 368005962 ICD Code: R54 - AGE-RELATED PHYSICAL DEBILITY Status: Acute Current Visit: No (2) HTN (hypertension) SNOMED Code(s): 91366027 ICD Code: I10 - ESSENTIAL (PRIMARY) HYPERTENSION Status: Acute Current Visit: No Problem Details: Monitor. Continue home meds. (3) Head contusion SNOMED Code(s): 773695024 ICD Code: S00.93XA - CONTUSION OF UNSPECIFIED PART OF HEAD, INITIAL ENCOUNTER Status: Acute Current Visit: No (4) Traumatic hematoma of parietal region SNOMED Code(s): 064625479 ICD Code: S00.83XA - CONTUSION OF OTHER PART OF HEAD, INITIAL ENCOUNTER Status: Acute Current Visit: No (5) Weakness SNOMED Code(s): 96484548 ICD Code: R53.1 - WEAKNESS Status: Acute Current Visit: No (6) COPD with hypoxia SNOMED Code(s): 76994341 ICD Code: J44.9 - CHRONIC OBSTRUCTIVE PULMONARY DISEASE, UNSPECIFIED; R09.02 - HYPOXEMIA Status: Chronic Current Visit: No (7) Gout SNOMED Code(s): 66417597 ICD Code: M10.9 - GOUT, UNSPECIFIED Status: Chronic Current Visit: No Problem Details: Continue home med. (8) Insomnia SNOMED Code(s): 271553886 ICD Code: G47.00 - INSOMNIA, UNSPECIFIED Status: Chronic Current Visit: No Problem Details: Continue home med. (9) Anxiety SNOMED Code(s): 62121173 ICD Code: F41.9 - ANXIETY DISORDER, UNSPECIFIED Status: Acute Current Visit: Yes - Patient Summary/Data Consults: Consultations 07/02/20 11:15 PT Evaluation and Treatment [CONS] Routine Please Evaluate and Treat. PT Reason for Consult: Weakness This query below is only for informational purposes and is not editable. Admission Diagnosis/Problem: Weakness 07/02/20 11:16 OT Evaluation and Treatment [CONS] Routine Please Evaluate and Treat. OT Reason for Consult: Weakness This query below is only for informational purposes and is not editable. Admission Diagnosis/Problem: Weakness - Patient Instructions Diet: Regular Diet as Tolerated Activity: As Tolerated Driving: Do Not Drive Showering/Bathing: May Shower Notify Provider of: Fever, Increased Pain Other/Special Instructions: 1. Recheck with Dr. Gaspar in 1 week. 2. Home Health/PT/OT. - Discharge Plan Prescriptions/Med Rec: Gabapentin [Neurontin] 100 mg PO BEDTIME PRN #30 cap PRN Reason: SLEEP PARoxetine [Paxil] 10 mg PO BEDTIME #30 tablet Home Medications: Home Meds Gabapentin [Neurontin] 600 mg PO BID 03/02/16 [History] Multivitamin [Multi-Vitamin Daily] 1 tab PO DAILY@1200 03/02/16 [History] allopurinoL [Zyloprim] 150 mg PO DAILY 03/02/16 [History] Docusate Sodium [Colace] 100 mg PO BEDTIME PRN 03/06/17 [History] Budesonide/Formoterol Fumarate [Symbicort 160-4.5 Mcg Inhaler] 2 puff INH 08,16 06/28/20 [History] ClonazePAM [KlonoPIN] 0.5 mg PO TID PRN 06/28/20 [History] Furosemide 20 mg PO DAILY 06/28/20 [History] L Gasseri/B Bifidum/B Longum [[employer] Capsule] 1 cap PO DAILY 06/28/20 [History] Tiotropium [Spiriva HandiHaler] 2 puff INH 12 06/28/20 [History] busPIRone [Buspar] 15 mg PO BID 06/28/20 [History] predniSONE [Prednisone] 5 mg PO DAILY 06/28/20 [History] Calcium Citrate/Vitamin D3 [Calcium Citrate - Vit D3 Tab] 1 tab PO BID 06/29/20 [History] Dextran 70/Hypromellose [Artificial Tears] 1 drop EYEBOTH BID PRN 06/29/20 [History] Acetaminophen [Non-Aspirin Extra Strength] 500 mg PO Q4H 30 Days #120 tablet 07/02/20 [Rx] Melatonin 9 mg PO BEDTIME tablet 07/02/20 [Rx] Non-Formulary Medication [NF Drug] 0 each EYEBOTH ASDIRECTED PRN each 07/02/20 [Rx] Gabapentin [Neurontin] 100 mg PO BEDTIME PRN #30 cap 07/09/20 [Rx] PARoxetine [Paxil] 10 mg PO BEDTIME #30 tablet 07/09/20 [Rx] - Discharge Summary/Plan Comment DC Time >30 min.: No - Patient Data Vitals - Most Recent: Last Vital Signs Temp 97.3 F 07/09/20 07:41 Pulse 85 07/09/20 07:41 Resp 18 07/09/20 07:41 BP 139/82 07/09/20 07:41 Pulse Ox 99 07/09/20 07:41 Weight - Most Recent: 144 lb 3 oz Med Orders - Current: Current Medications Acetaminophen (Acetaminophen 500 Mg Tab) 500 mg PO Q4H TORRI Last Admin: 07/09/20 03:28 Dose: 500 mg Documented by: Allopurinol (Allopurinol 300 Mg Tab) 150 mg PO DAILY [facility] Last Admin: 07/08/20 09:27 Dose: 150 mg Documented by: Buspirone HCl (Buspirone 15 Mg Tab) 15 mg PO BIDMEALS [facility] Last Admin: 07/08/20 17:07 Dose: 15 mg Documented by: Calcium Carbonate/Glycine (Calcium Carbonate 500 Mg Tablet) 500 mg PO BID [facility] Last Admin: 07/08/20 21:07 Dose: 500 mg Documented by: Clonazepam (Clonazepam 0.5 Mg Tab) 0.5 mg PO TID [facility] Last Admin: 07/08/20 21:07 Dose: 0.5 mg Documented by: Docusate Sodium (Docusate Sodium 100 Mg Cap) 100 mg PO BEDTIME PRN PRN Reason: Constipation Furosemide (Furosemide 20 Mg Tab) 20 mg PO DAILY [facility] Last Admin: 07/08/20 09:27 Dose: 20 mg Documented by: Gabapentin (Gabapentin 600 Mg Tab) 600 mg PO BID [facility] Last Admin: 07/08/20 21:07 Dose: 600 mg Documented by: Gabapentin (Gabapentin 100 Mg Cap) 100 mg PO BEDTIME PRN PRN Reason: SLEEP Last Admin: 07/09/20 03:28 Dose: 100 mg Documented by: Lactobacillus Rhamnosus (Lactobacillus Rhamnosus Gg (Probiotic) Cap) 1 cap PO DAILY [facility] Last Admin: 07/08/20 09:27 Dose: 1 cap Documented by: Melatonin (Melatonin 3 Mg Tab) 9 mg PO BEDTIME [facility] Last Admin: 07/08/20 21:07 Dose: 9 mg Documented by: Mometasone Furoate/Formoterol Fumar (Formoterol/Mometasone 200-5 Mcg 8.8 Gm Inhaler) 2 puff IH BID@0800,1600 [facility] Last Admin: 07/08/20 15:37 Dose: 2 each Documented by: Multivitamins/Minerals/Vitamin C (Multivitamin Tab) 1 tab PO DAILY@1200 [facility] Last Admin: 07/08/20 12:40 Dose: 1 tab Documented by: Refresh Optive Ravinder- (3 Eye Drops *Ptom) 0 each EYEBOTH ASDIRECTED PRN PRN Reason: DRY EYES Last Admin: 07/06/20 21:11 Dose: 1 each Documented by: Paroxetine HCl (Paroxetine 10 Mg Tab) 10 mg PO BEDTIME [facility] Last Admin: 07/08/20 21:07 Dose: 10 mg Documented by: Prednisone (Prednisone 5 Mg Tab) 5 mg PO DAILY [facility] Last Admin: 07/08/20 09:27 Dose: 5 mg Documented by: Tiotropium Morton (Tiotropium Morton 4 Gm Inhalation Ramsey (2.5mcg/1 Dose; 10 Doses)) 0 gm INH DAILY@1200 [facility] Last Admin: 07/08/20 12:40 Dose: 4 gm Documented by: Discontinued Medications Acetaminophen (Acetaminophen 500 Mg Tab) 500 mg PO Q4H [facility] Last Admin: 07/02/20 20:39 Dose: Not Given Documented by: Mirtazapine (Mirtazapine 15 Mg Tab) 7.5 mg PO BEDTIME [facility] Last Admin: 07/05/20 20:08 Dose: 7.5 mg Documented by: Mometasone Furoate/Formoterol Fumar (Formoterol/Mometasone 200-5 Mcg 8.8 Gm Inhaler) 2 puff IH BID@0800,1600 [facility] Last Admin: 07/02/20 20:39 Dose: Not Given Documented by: Non-Formulary Medication (Tiotropium [Spiriva Handihaler]) 2 puff INH DAILY@1200 [facility] Last Admin: 07/02/20 12:25 Dose: 2 puff Documented by:
[2020-07-09] MEDS: busPIRone 15 MG Tab PO SCH (08:13)
[2020-07-09] MEDS: Formoterol/Mometasone 200-5 MCG 8.8 GM Inhaler IH SCH (08:13)
[2020-07-09] MEDS: Lactobacillus Rhamnosus GG (Probiotic) Cap PO SCH (09:16)
[2020-07-09] MEDS: Furosemide 20 MG Tab PO SCH (09:17)
[2020-07-09] MEDS: predniSONE 5 MG Tab PO SCH (09:17)
[2020-07-09] MEDS: Calcium Carbonate 500 MG Tablet PO SCH (09:17)
[2020-07-09] MEDS: Allopurinol 300 MG Tab PO SCH (09:17)
[2020-07-09] MEDS: Gabapentin 600 MG Tab PO SCH (09:20)
[2020-07-09] MEDS: ClonazePAM 0.5 MG Tab PO SCH (09:20)
[2020-07-09] MEDS: Tiotropium Bromide 4 GM Inhalation Spray (2.5mcg/1 dose; 10 doses) INH SCH (11:49)
[2020-07-09] MEDS: Multivitamin Tab PO SCH (11:51)
== END 2020-07-09 13:40 | disposition home health service (06) | DRG 948 ==
LOC: FB.MS 08:00
PROVIDERS: ADMIT Student in an Organized Health Care Education/Training Program; ATTEND Family Medicine
DX: R53.1 Weakness (principal); S00.83XD Contusion of other part of head, subsequent encounter; J44.9 Chronic obstructive pulmonary disease, unspecified; M10.9 Gout, unspecified; G47.00 Insomnia, unspecified; F41.9 Anxiety disorder, unspecified; H54.7 Unspecified visual loss; Z51.5 Encounter for palliative care; Z20.822 Contact with and (suspected) exposure to COVID-19; K21.9 Gastro-esophageal reflux disease without esophagitis; M19.90 Unspecified osteoarthritis, unspecified site; M54.9 Dorsalgia, unspecified; G89.29 Other chronic pain; M54.2 Cervicalgia; Z96.653 Presence of artificial knee joint, bilateral; Z96.652 Presence of left artificial knee joint; I12.9 Hypertensive chronic kidney disease with stage 1 through stage 4 chronic kidney disease, or unspecified chronic kidney disease; E11.22 Type 2 diabetes mellitus with diabetic chronic kidney disease; N18.9 Chronic kidney disease, unspecified; E11.43 Type 2 diabetes mellitus with diabetic autonomic (poly)neuropathy; Z91.09 Other allergy status, other than to drugs and biological substances; Z88.6 Allergy status to analgesic agent; Z88.8 Allergy status to other drugs, medicaments and biological substances; Z88.5 Allergy status to narcotic agent; Z79.899 Other long term (current) drug therapy; Z87.01 Personal history of pneumonia (recurrent); Z90.49 Acquired absence of other specified parts of digestive tract; Z85.828 Personal history of other malignant neoplasm of skin
CPT/HCPCS: 81001; 94760; 97110-GO; 97112-GP; 97116-GP; 97530-GO; 97530-GP; 97535-GO; 97542-GO; A9270-GY; J7512; U0002

== ENCOUNTER 2020-07-24 10:38 | Inpatient (IN) | payer MEDICARE, BC ==
[2020-07-24 12:32] LABS: BASE EXCESS VENOUS,POC 13 mmol/L (-2-3); HCO3 VENOUS,POC 38 mmol/L (21-29); PCO2 VENOUS,POC 64 mmHg (41-51); PH VENOUS,POC 7.38 pH Units (7.32-7.43)
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
[2020-07-24] MEDS ORDERED: Acetaminophen 325 MG Tab PO ONE (13:38)
[2020-07-24] MEDS ORDERED: Ondansetron 4 MG/2 ML SDV IV PRN (13:54)
[2020-07-24] MEDS ORDERED: Magnesium Hydroxide 400 MG/5 ML Susp 30 ML Cup PO PRN (13:54)
[2020-07-24] MEDS ORDERED: Sodium Chloride 0.9% 10 ML Syringe FLUSH PRN (13:54)
[2020-07-24] MEDS ORDERED: Ciprofloxacin in D5W 400 MG in Premix Bag 1 BAG IV SCH ×2 (14:00)
[2020-07-24] MEDS ORDERED: Potassium Chloride 20 MEQ Tab.ER PO ONE (14:05)
--- NOTE | 2020-07-24 14:22 | CR ---
CHEST ONE VIEW [id number] INDICATION: Short of breath. AP portable upright view of the chest 07/24/2020 was compared with 07/01/2020 and 06/28/2020 again revealing moderately extensive heavy markings scattered about the lungs, particularly in the lung bases and right upper lung field. There is an appearance suggesting prominence of pulmonary vasculature in the right upper lung field. Etiology indeterminate but could be on the basis of pulmonary vascular congestion. No gross consolidating pneumonia or significant effusion could be identified. The heart did not appear grossly enlarged. The aorta is tortuous with calcification in the arch. Overlying EKG leads are noted. 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 This should be correlated clinically. 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 Report was give by phone to Dr. Lazcano at approximately 1211 hours 07/24/2020. LORIE
[2020-07-24] MEDS ORDERED: Carboxymethylcellulose Sodium 0.5% Ophth Soln 0.4 ML UD Box of 30 EYEBOTH PRN (14:53)
[2020-07-24] MEDS: Formoterol/Mometasone 200-5 MCG 8.8 GM Inhaler IH SCH (15:29)
[2020-07-24] MEDS: methylPREDNISolone Sodium Succinate 125 MG/2 ML SDV IVPUSH SCH ×2 (15:37→21:44)
[2020-07-24] MEDS: ClonazePAM 0.5 MG Tab PO SCH ×2 (15:39→21:14)
[2020-07-24] MEDS: Enoxaparin 30 MG/0.3 ML Syringe SUBCUT SCH (15:41)
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
[2020-07-24] MEDS ORDERED: Sodium Chloride 0.9% 10 ML Syringe IV SCH (18:00)
[2020-07-24] MEDS ORDERED: Levofloxacin/Dextrose 5%-Water 500 MG in Premix Bag 1 BAG IV SCH (18:00)
[2020-07-24] MEDS: busPIRone 15 MG Tab PO SCH (18:30)
[2020-07-24] MEDS ORDERED: Sodium Chloride 0.9% 1,000 ML IV SCH (19:45)
[2020-07-24] MEDS ORDERED: Gabapentin 600 MG Tab PO SCH (21:00)
[2020-07-24] MEDS: Calcium Carbonate 500 MG Tablet PO SCH (21:14)
[2020-07-24] MEDS: QUEtiapine 25 MG Tab PO SCH (21:15)
[2020-07-24] MEDS: Acetaminophen 325 MG Tab PO PRN (21:16)
[2020-07-25] MEDS: methylPREDNISolone Sodium Succinate 125 MG/2 ML SDV IVPUSH SCH (05:50)
[2020-07-25] MEDS ORDERED: Furosemide 40 MG/4 ML VIAL IVPUSH ONE (07:34)
--- NOTE | 2020-07-25 08:06 | PCM.PN ---
- General Info Date of Service: 07/25/20 Admission Dx/Problem (Free Text): Patient states she slept last night and feels much better today. She denies fevers, chills, chest pain, shortness of breath, cough or leg swelling. - Patient Data Vitals - Most Recent: Last Vital Signs Temp 97 F 07/25/20 04:15 Pulse 84 07/25/20 04:15 Resp 20 07/25/20 04:15 BP 154/74 H 07/25/20 04:15 Pulse Ox 100 07/25/20 04:15 Weight - Most Recent: 142 lb 14.4 oz I&O - Last 24 Hours: Intake & Output 07/24/20 07/25/20 07/25/20 22:59 06:59 14:59 Intake Total 477 Output Total 450 Balance 27 Lab Results Last 24 Hours: Laboratory Results - last 24 hr 07/24/20 07/24/20 07/24/20 Range/Units 11:40 11:40 11:40 WBC 10.4 H (3.0-10.3) x10-3/uL RBC 3.84 (3.60-5.20) x10(6)uL Hgb 12.8 (11.4-15.5) g/dL Hct 38.7 (34.2-48.2) % MCV 100.9 H (76.7-100.5) fL MCH 33.4 (23.9-33.9) pg MCHC 33.1 (31.9-34.8) g/dL RDW 14.2 (12.3-16.5) % Plt Count 166 (151-488) x10(3)uL MPV 9.2 (7.1-12.4) fL Add Manual Diff Yes Neutrophils % (Manual) 87 H (46-82) % Band Neutrophils % (0-6) % Lymphocytes % (Manual) 6 L (13-37) % Monocytes % (Manual) 7 (4-12) % POC VBG pH (7.32-7.43) pH Units POC VBG pCO2 (41-51) mmHg POC VBG HCO3 (21-29) mmol/L VBG Base Excess (-2-3) mmol/L O2 Delivery Device Sodium 125 L (135-145) mmol/L Potassium 3.4 L (3.5-5.3) mmol/L Chloride 86 L* D (100-110) mmol/L Carbon Dioxide 36 H (21-32) mmol/L BUN 25 H (7-18) mg/dL Creatinine 1.0 (0.55-1.02) mg/dL Est Cr Clr Drug Dosing TNP Estimated GFR (MDRD) 53 L (>60) BUN/Creatinine Ratio 25.0 H (9-20) Glucose 137 H (80-116) mg/dL Lactic Acid 1.3 (0.4-2.0) mmol/L Calcium 8.5 L (8.6-10.2) mg/dL Total Bilirubin 0.8 (0.1-1.3) mg/dL AST 20 (5-25) IU/L ALT 24 (12-36) U/L Alkaline Phosphatase 48 L (56-112) IU/L Troponin I (4.0-60.3) pg/mL C-Reactive Protein (0.5-0.9) mg/dL NT-Pro-B Natriuret Pep (<=450) pg/mL Total Protein 5.9 L (6.0-8.0) g/dL Albumin 3.3 (3.2-4.6) g/dL Globulin 2.6 g/dL Albumin/Globulin Ratio 1.3 Urine Color (YELLOW) Urine Appearance (CLEAR) Urine pH (5.0-6.5) Ur Specific [place] (1.010-1.025) Urine Protein (NEGATIVE) mg/dL Urine Glucose (UA) (NORMAL) mg/dL Urine Ketones (NEGATIVE) mg/dL Urine Occult Blood (NEGATIVE) Urine Nitrite (NEGATIVE) Urine Bilirubin (NEGATIVE) Urine Urobilinogen (NEGATIVE) mg/dL Ur Leukocyte Esterase (NEGATIVE) Urine RBC (0-5) Urine WBC (0-5) Ur Squamous Epith Cells (NS,R,O) Urine Bacteria (NS) 07/24/20 07/24/20 07/24/20 Range/Units 11:40 12:08 12:20 WBC (3.0-10.3) x10-3/uL RBC (3.60-5.20) x10(6)uL Hgb (11.4-15.5) g/dL Hct (34.2-48.2) % MCV (76.7-100.5) fL MCH (23.9-33.9) pg MCHC (31.9-34.8) g/dL RDW (12.3-16.5) % Plt Count (151-488) x10(3)uL MPV (7.1-12.4) fL Add Manual Diff Neutrophils % (Manual) (46-82) % Band Neutrophils % (0-6) % Lymphocytes % (Manual) (13-37) % Monocytes % (Manual) (4-12) % POC VBG pH 7.38 (7.32-7.43) pH Units POC VBG pCO2 64 H (41-51) mmHg POC VBG HCO3 38 H (21-29) mmol/L VBG Base Excess 13 H (-2-3) mmol/L O2 Delivery Device Nasal cannula Sodium (135-145) mmol/L Potassium (3.5-5.3) mmol/L Chloride (100-110) mmol/L Carbon Dioxide (21-32) mmol/L BUN (7-18) mg/dL Creatinine (0.55-1.02) mg/dL Est Cr Clr Drug Dosing Estimated GFR (MDRD) (>60) BUN/Creatinine Ratio (9-20) Glucose (80-116) mg/dL Lactic Acid (0.4-2.0) mmol/L Calcium (8.6-10.2) mg/dL Total Bilirubin (0.1-1.3) mg/dL AST (5-25) IU/L ALT (12-36) U/L Alkaline Phosphatase (56-112) IU/L Troponin I 32.5 (4.0-60.3) pg/mL C-Reactive Protein 4.5 H* (0.5-0.9) mg/dL NT-Pro-B Natriuret Pep 37024 H* (<=450) pg/mL Total Protein (6.0-8.0) g/dL Albumin (3.2-4.6) g/dL Globulin g/dL Albumin/Globulin Ratio Urine Color Yellow (YELLOW) Urine Appearance Slightly cloudy (CLEAR) Urine pH 6.0 (5.0-6.5) Ur Specific [place] 1.010 (1.010-1.025) Urine Protein 500 H (NEGATIVE) mg/dL Urine Glucose (UA) Normal (NORMAL) mg/dL Urine Ketones Negative (NEGATIVE) mg/dL Urine Occult Blood Moderate H (NEGATIVE) Urine Nitrite Negative (NEGATIVE) Urine Bilirubin Negative (NEGATIVE) Urine Urobilinogen Normal (NEGATIVE) mg/dL Ur Leukocyte Esterase Large H (NEGATIVE) Urine RBC 0-5 (0-5) Urine WBC >100 H (0-5) Ur Squamous Epith Cells Few H (NS,R,O) Urine Bacteria Many H (NS) 07/25/20 07/25/20 Range/Units 06:05 06:05 WBC 3.5 (3.0-10.3) x10-3/uL RBC 3.83 (3.60-5.20) x10(6)uL Hgb 12.8 (11.4-15.5) g/dL Hct 38.5 (34.2-48.2) % MCV 100.7 H (76.7-100.5) fL MCH 33.5 (23.9-33.9) pg MCHC 33.3 (31.9-34.8) g/dL RDW 14.4 (12.3-16.5) % Plt Count 153 (151-488) x10(3)uL MPV 9.4 (7.1-12.4) fL Add Manual Diff Yes Neutrophils % (Manual) 76 (46-82) % Band Neutrophils % 5 (0-6) % Lymphocytes % (Manual) 14 (13-37) % Monocytes % (Manual) 5 (4-12) % POC VBG pH (7.32-7.43) pH Units POC VBG pCO2 (41-51) mmHg POC VBG HCO3 (21-29) mmol/L VBG Base Excess (-2-3) mmol/L O2 Delivery Device Sodium 128 L (135-145) mmol/L Potassium 4.5 D (3.5-5.3) mmol/L Chloride 89 L* (100-110) mmol/L Carbon Dioxide 37 H (21-32) mmol/L BUN 26 H (7-18) mg/dL Creatinine 1.2 H (0.55-1.02) mg/dL Est Cr Clr Drug Dosing 33.08 Estimated GFR (MDRD) 43 L (>60) BUN/Creatinine Ratio 21.7 H (9-20) Glucose 176 H (80-116) mg/dL Lactic Acid (0.4-2.0) mmol/L Calcium 8.2 L (8.6-10.2) mg/dL Total Bilirubin 0.5 (0.1-1.3) mg/dL AST 18 (5-25) IU/L ALT 23 (12-36) U/L Alkaline Phosphatase 46 L (56-112) IU/L Troponin I (4.0-60.3) pg/mL C-Reactive Protein (0.5-0.9) mg/dL NT-Pro-B Natriuret Pep (<=450) pg/mL Total Protein 5.6 L (6.0-8.0) g/dL Albumin 3.1 L (3.2-4.6) g/dL Globulin 2.5 g/dL Albumin/Globulin Ratio 1.2 Urine Color (YELLOW) Urine Appearance (CLEAR) Urine pH (5.0-6.5) Ur Specific [place] (1.010-1.025) Urine Protein (NEGATIVE) mg/dL Urine Glucose (UA) (NORMAL) mg/dL Urine Ketones (NEGATIVE) mg/dL Urine Occult Blood (NEGATIVE) Urine Nitrite (NEGATIVE) Urine Bilirubin (NEGATIVE) Urine Urobilinogen (NEGATIVE) mg/dL Ur Leukocyte Esterase (NEGATIVE) Urine RBC (0-5) Urine WBC (0-5) Ur Squamous Epith Cells (NS,R,O) Urine Bacteria (NS) Med Orders - Current: Current Medications Acetaminophen (Acetaminophen 325 Mg Tab) 650 mg PO Q4H PRN PRN Reason: Pain (Mild 1-3)/fever Last Admin: 07/24/20 21:16 Dose: 650 mg Documented by: Allopurinol (Allopurinol 300 Mg Tab) 150 mg PO DAILY [facility] Artificial Tears (Carboxymethylcellulose Sodium 0.5% Ophth Soln 0.4 Ml Ud Box Of 30) 0 each EYEBOTH BID PRN PRN Reason: Dry Eyes Buspirone HCl (Buspirone 15 Mg Tab) 15 mg PO BIDMEALS [facility] Last Admin: 07/24/20 18:30 Dose: 15 mg Documented by: Calcium Carbonate/Glycine (Calcium Carbonate 500 Mg Tablet) 500 mg PO BID [facility] Last Admin: 07/24/20 21:14 Dose: 500 mg Documented by: Clonazepam (Clonazepam 0.5 Mg Tab) 0.5 mg PO TID@,15, [facility] Last Admin: 07/24/20 21:14 Dose: 0.5 mg Documented by: Enoxaparin Sodium (Enoxaparin 30 Mg/0.3 Ml Syringe) 30 mg SUBCUT Q24H [facility] Last Admin: 07/24/20 15:41 Dose: 30 mg Documented by: Levofloxacin/Dextrose 500 mg/ (Premix) 100 mls @ 100 mls/hr IV ONETIME ONE Stop: 07/25/20 09:59 Levofloxacin/Dextrose 250 mg/ (Premix) 50 mls @ 50 mls/hr IV Q24H [facility] Stop: 07/31/20 09:59 Magnesium Hydroxide (Magnesium Hydroxide 400 Mg/5 Ml Susp 30 Ml Cup) 30 ml PO Q12H PRN PRN Reason: Constipation Mometasone Furoate/Formoterol Fumar (Formoterol/Mometasone 200-5 Mcg 8.8 Gm Inhaler) 0 puff IH 08,16 [facility] Last Admin: 07/24/20 15:29 Dose: 2 puff Documented by: Multivitamins/Minerals/Vitamin C (Multivitamin Tab) 1 tab PO DAILY@1200 [facility] Prednisone (Prednisone 20 Mg Tab) 40 mg PO WITHBREAKFAST [facility] Quetiapine Fumarate (Quetiapine 25 Mg Tab) 12.5 mg PO BEDTIME [facility] Last Admin: 07/24/20 21:15 Dose: 12.5 mg Documented by: Sodium Chloride (Sodium Chloride 0.9% 10 Ml Syringe) 10 ml FLUSH ASDIRECTED PRN PRN Reason: Keep Vein Open Last Admin: 07/24/20 15:08 Dose: 10 ml Documented by: Sodium Chloride (Sodium Chloride 1 Gm Tab) 1 gm PO BID [facility] Tiotropium [place] (Tiotropium [place] 4 Gm Inhalation [place] (2.5mcg/1 Dose; 10 Doses)) 0 gm INH 12 [facility] Discontinued Medications Acetaminophen (Acetaminophen 325 Mg Tab) 650 mg PO NOW ONE Stop: 07/24/20 13:39 Last Admin: 07/24/20 15:38 Dose: 650 mg Documented by: Furosemide (Furosemide 20 Mg Tab) 20 mg PO DAILY [facility] Furosemide (Furosemide 40 Mg/4 Ml Vial) 40 mg IVPUSH NOW ONE Stop: 07/25/20 07:35 Gabapentin (Gabapentin 600 Mg Tab) 600 mg PO BEDTIME [facility] Last Admin: 07/24/20 21:14 Dose: 600 mg Documented by: Ciprofloxacin/Dextrose 400 mg/ (Premix) 200 mls @ 200 mls/hr IV Q12H [facility] Last Admin: 07/24/20 15:20 Dose: 200 mls/hr Documented by: Levofloxacin/Dextrose 500 mg/ (Premix) 100 mls @ 100 mls/hr IV Q24H [facility] Stop: 07/28/20 18:59 Last Admin: 07/24/20 22:51 Dose: Not Given Documented by: Sodium Chloride (Normal Saline) 1,000 mls @ 70 mls/hr IV ASDIRECTED [facility] Last Admin: 07/24/20 20:03 Dose: 70 mls/hr Documented by: Methylprednisolone Sodium Succinate (Methylprednisolone Sodium Succinate 125 Mg/2 Ml Sdv) 80 mg IVPUSH Q8H [facility] Last Admin: 07/25/20 05:50 Dose: 80 mg Documented by: Ondansetron HCl (Ondansetron 4 Mg/2 Ml Sdv) 4 mg IV Q4H PRN PRN Reason: Nausea/Vomiting Paroxetine HCl (Paroxetine 10 Mg Tab) 10 mg PO BEDTIME [facility] Last Admin: 07/24/20 21:14 Dose: 10 mg Documented by: Potassium Chloride (Potassium Chloride 20 Meq Tab.Er) 40 meq PO ONETIME ONE Stop: 07/24/20 14:06 Last Admin: 07/24/20 15:27 Dose: 40 meq Documented by: Prednisone (Prednisone 5 Mg Tab) 5 mg PO DAILY [facility] Sodium Chloride (Sodium Chloride 0.9% 10 Ml Syringe) 70 ml IV DAILY [facility] Last Admin: 07/24/20 22:51 Dose: Not Given Documented by: - Exam General: Alert, Oriented, Severe Distress Neck: Supple Lungs: Normal Respiratory Effort, Crackles (Bases bilateral) Cardiovascular: Regular Rate, Regular Rhythm, No Murmurs GI/Abdominal Exam: No Distention Extremities: No Pedal Edema - Patient Data Lab Results Last 24 hrs: Laboratory Results - last 24 hr 07/24/20 07/24/20 07/24/20 Range/Units 11:40 11:40 11:40 WBC 10.4 H (3.0-10.3) x10-3/uL RBC 3.84 (3.60-5.20) x10(6)uL Hgb 12.8 (11.4-15.5) g/dL Hct 38.7 (34.2-48.2) % MCV 100.9 H (76.7-100.5) fL MCH 33.4 (23.9-33.9) pg MCHC 33.1 (31.9-34.8) g/dL RDW 14.2 (12.3-16.5) % Plt Count 166 (151-488) x10(3)uL MPV 9.2 (7.1-12.4) fL Add Manual Diff Yes Neutrophils % (Manual) 87 H (46-82) % Band Neutrophils % (0-6) % Lymphocytes % (Manual) 6 L (13-37) % Monocytes % (Manual) 7 (4-12) % POC VBG pH (7.32-7.43) pH Units POC VBG pCO2 (41-51) mmHg POC VBG HCO3 (21-29) mmol/L VBG Base Excess (-2-3) mmol/L O2 Delivery Device Sodium 125 L (135-145) mmol/L Potassium 3.4 L (3.5-5.3) mmol/L Chloride 86 L* D (100-110) mmol/L Carbon Dioxide 36 H (21-32) mmol/L BUN 25 H (7-18) mg/dL Creatinine 1.0 (0.55-1.02) mg/dL Est Cr Clr Drug Dosing TNP Estimated GFR (MDRD) 53 L (>60) BUN/Creatinine Ratio 25.0 H (9-20) Glucose 137 H (80-116) mg/dL Lactic Acid 1.3 (0.4-2.0) mmol/L Calcium 8.5 L (8.6-10.2) mg/dL Total Bilirubin 0.8 (0.1-1.3) mg/dL AST 20 (5-25) IU/L ALT 24 (12-36) U/L Alkaline Phosphatase 48 L (56-112) IU/L Troponin I (4.0-60.3) pg/mL C-Reactive Protein (0.5-0.9) mg/dL NT-Pro-B Natriuret Pep (<=450) pg/mL Total Protein 5.9 L (6.0-8.0) g/dL Albumin 3.3 (3.2-4.6) g/dL Globulin 2.6 g/dL Albumin/Globulin Ratio 1.3 Urine Color (YELLOW) Urine Appearance (CLEAR) Urine pH (5.0-6.5) Ur Specific [place] (1.010-1.025) Urine Protein (NEGATIVE) mg/dL Urine Glucose (UA) (NORMAL) mg/dL Urine Ketones (NEGATIVE) mg/dL Urine Occult Blood (NEGATIVE) Urine Nitrite (NEGATIVE) Urine Bilirubin (NEGATIVE) Urine Urobilinogen (NEGATIVE) mg/dL Ur Leukocyte Esterase (NEGATIVE) Urine RBC (0-5) Urine WBC (0-5) Ur Squamous Epith Cells (NS,R,O) Urine Bacteria (NS) 07/24/20 07/24/20 07/24/20 Range/Units 11:40 12:08 12:20 WBC (3.0-10.3) x10-3/uL RBC (3.60-5.20) x10(6)uL Hgb (11.4-15.5) g/dL Hct (34.2-48.2) % MCV (76.7-100.5) fL MCH (23.9-33.9) pg MCHC (31.9-34.8) g/dL RDW (12.3-16.5) % Plt Count (151-488) x10(3)uL MPV (7.1-12.4) fL Add Manual Diff Neutrophils % (Manual) (46-82) % Band Neutrophils % (0-6) % Lymphocytes % (Manual) (13-37) % Monocytes % (Manual) (4-12) % POC VBG pH 7.38 (7.32-7.43) pH Units POC VBG pCO2 64 H (41-51) mmHg POC VBG HCO3 38 H (21-29) mmol/L VBG Base Excess 13 H (-2-3) mmol/L O2 Delivery Device Nasal cannula Sodium (135-145) mmol/L Potassium (3.5-5.3) mmol/L Chloride (100-110) mmol/L Carbon Dioxide (21-32) mmol/L BUN (7-18) mg/dL Creatinine (0.55-1.02) mg/dL Est Cr Clr Drug Dosing Estimated GFR (MDRD) (>60) BUN/Creatinine Ratio (9-20) Glucose (80-116) mg/dL Lactic Acid (0.4-2.0) mmol/L Calcium (8.6-10.2) mg/dL Total Bilirubin (0.1-1.3) mg/dL AST (5-25) IU/L ALT (12-36) U/L Alkaline Phosphatase (56-112) IU/L Troponin I 32.5 (4.0-60.3) pg/mL C-Reactive Protein 4.5 H* (0.5-0.9) mg/dL NT-Pro-B Natriuret Pep 39805 H* (<=450) pg/mL Total Protein (6.0-8.0) g/dL Albumin (3.2-4.6) g/dL Globulin g/dL Albumin/Globulin Ratio Urine Color Yellow (YELLOW) Urine Appearance Slightly cloudy (CLEAR) Urine pH 6.0 (5.0-6.5) Ur Specific [place] 1.010 (1.010-1.025) Urine Protein 500 H (NEGATIVE) mg/dL Urine Glucose (UA) Normal (NORMAL) mg/dL Urine Ketones Negative (NEGATIVE) mg/dL Urine Occult Blood Moderate H (NEGATIVE) Urine Nitrite Negative (NEGATIVE) Urine Bilirubin Negative (NEGATIVE) Urine Urobilinogen Normal (NEGATIVE) mg/dL Ur Leukocyte Esterase Large H (NEGATIVE) Urine RBC 0-5 (0-5) Urine WBC >100 H (0-5) Ur Squamous Epith Cells Few H (NS,R,O) Urine Bacteria Many H (NS) 07/25/20 07/25/20 Range/Units 06:05 06:05 WBC 3.5 (3.0-10.3) x10-3/uL RBC 3.83 (3.60-5.20) x10(6)uL Hgb 12.8 (11.4-15.5) g/dL Hct 38.5 (34.2-48.2) % MCV 100.7 H (76.7-100.5) fL MCH 33.5 (23.9-33.9) pg MCHC 33.3 (31.9-34.8) g/dL RDW 14.4 (12.3-16.5) % Plt Count 153 (151-488) x10(3)uL MPV 9.4 (7.1-12.4) fL Add Manual Diff Yes Neutrophils % (Manual) 76 (46-82) % Band Neutrophils % 5 (0-6) % Lymphocytes % (Manual) 14 (13-37) % Monocytes % (Manual) 5 (4-12) % POC VBG pH (7.32-7.43) pH Units POC VBG pCO2 (41-51) mmHg POC VBG HCO3 (21-29) mmol/L VBG Base Excess (-2-3) mmol/L O2 Delivery Device Sodium 128 L (135-145) mmol/L Potassium 4.5 D (3.5-5.3) mmol/L Chloride 89 L* (100-110) mmol/L Carbon Dioxide 37 H (21-32) mmol/L BUN 26 H (7-18) mg/dL Creatinine 1.2 H (0.55-1.02) mg/dL Est Cr Clr Drug Dosing 33.08 Estimated GFR (MDRD) 43 L (>60) BUN/Creatinine Ratio 21.7 H (9-20) Glucose 176 H (80-116) mg/dL Lactic Acid (0.4-2.0) mmol/L Calcium 8.2 L (8.6-10.2) mg/dL Total Bilirubin 0.5 (0.1-1.3) mg/dL AST 18 (5-25) IU/L ALT 23 (12-36) U/L Alkaline Phosphatase 46 L (56-112) IU/L Troponin I (4.0-60.3) pg/mL C-Reactive Protein (0.5-0.9) mg/dL NT-Pro-B Natriuret Pep (<=450) pg/mL Total Protein 5.6 L (6.0-8.0) g/dL Albumin 3.1 L (3.2-4.6) g/dL Globulin 2.5 g/dL Albumin/Globulin Ratio 1.2 Urine Color (YELLOW) Urine Appearance (CLEAR) Urine pH (5.0-6.5) Ur Specific [place] (1.010-1.025) Urine Protein (NEGATIVE) mg/dL Urine Glucose (UA) (NORMAL) mg/dL Urine Ketones (NEGATIVE) mg/dL Urine Occult Blood (NEGATIVE) Urine Nitrite (NEGATIVE) Urine Bilirubin (NEGATIVE) Urine Urobilinogen (NEGATIVE) mg/dL Ur Leukocyte Esterase (NEGATIVE) Urine RBC (0-5) Urine WBC (0-5) Ur Squamous Epith Cells (NS,R,O) Urine Bacteria (NS) Result Diagrams: 07/25/20 06:05 07/25/20 06:05 Sepsis Event Note - Evaluation Sepsis Screening Result: No Definite Risk - Focused Exam Vital Signs: Vital Signs Temp Pulse Resp BP Pulse Ox 07/25/20 04:15 97 F 84 20 154/74 H 100 07/25/20 01:00 76 18 100 07/24/20 20:40 97.5 F 92 18 139/84 96 - Problem List & Annotations (1) UTI (urinary tract infection) SNOMED Code(s): 74333205 Code(s): N39.0 - URINARY TRACT INFECTION, SITE NOT SPECIFIED Status: Acute Current Visit: Yes (2) Acute exacerbation of CHF (congestive heart failure) SNOMED Code(s): 260435988, 02446783895167 Code(s): I50.9 - HEART FAILURE, UNSPECIFIED Status: Acute Current Visit: Yes (3) COPD exacerbation SNOMED Code(s): 461401593 Code(s): J44.1 - CHRONIC OBSTRUCTIVE PULMONARY DISEASE W (ACUTE) EXACERBATION Status: Acute Current Visit: Yes (4) DNI (do not intubate) SNOMED Code(s): 470526467 Code(s): Z78.9 - OTHER SPECIFIED HEALTH STATUS Status: Acute Current Visit: Yes (5) DNR (do not resuscitate) Status: Acute Current Visit: Yes (6) Elevated brain natriuretic peptide (BNP) level SNOMED Code(s): 854018911, 851461153 Code(s): R79.89 - OTHER SPECIFIED ABNORMAL FINDINGS OF BLOOD CHEMISTRY Status: Acute Current Visit: Yes (7) Hyponatremia SNOMED Code(s): 07488002 Code(s): E87.1 - HYPO-OSMOLALITY AND HYPONATREMIA Status: Acute Current Visit: Yes (8) Palliative care encounter SNOMED Code(s): 279587530, 683290896 Code(s): Z51.5 - ENCOUNTER FOR PALLIATIVE CARE Status: Acute Current Visit: No (9) Insomnia SNOMED Code(s): 878446877 Code(s): G47.00 - INSOMNIA, UNSPECIFIED Status: Chronic Current Visit: No Annotation/Comment:: Continue home med. - Problem List Review Problem List Initiated/Reviewed/Updated: Yes - My Orders Last 24 Hours: My Active Orders 07/24/20 21:00 QUEtiapine [SEROqueL] 12.5 mg PO BEDTIME 07/25/20 07:57 Convert IV to Saline Lock [OM.PC] Routine 07/25/20 07:59 Antiembolic Devices [RC] .Routine SCD [Sequential Compression Device] [OM.PC] Routine 07/25/20 08:00 predniSONE 40 mg PO WITHBREAKFAST 07/25/20 09:00 Sodium Chloride 1 gm PO BID 07/25/20 Lunch Regular Diet [DIET] 07/26/20 06:00 BASIC METABOLIC PANEL,BMP [CHEM] AM - Plan Plan:: 1. Change low-sodium diet to regular diet 2. 1 g sodium chloride twice a day 3. DC IV fluids and saline lock IV. 4. DC her by mouth prednisone and IV prednisone. Start 40 mg prednisone a day by mouth. 5. SCD. No Lovenox due to recent brain bleed. 6. DC Paxil colectomy implicated hyponatremia. 7. DC telemetry 8. Vitals every shift 9. BMP in the morning 10. I encouraged the patient to be up in the chair and ambulate frequently. 11. The patient states she was using the Neurontin to sleep. The Seroquel work last night so I'm going to stop the Neurontin today. She sleeps 12. 40 mg IV Lasix 1 this morning. 13. I stopped her by mouth Lasix for now.
[2020-07-25] MEDS: Allopurinol 300 MG Tab PO SCH (08:28)
[2020-07-25] MEDS: Calcium Carbonate 500 MG Tablet PO SCH ×2 (08:29→20:48)
[2020-07-25] MEDS: busPIRone 15 MG Tab PO SCH ×2 (08:30→17:36)
[2020-07-25] MEDS: Formoterol/Mometasone 200-5 MCG 8.8 GM Inhaler IH SCH ×2 (08:32→15:26)
[2020-07-25] MEDS: predniSONE 20 MG Tab PO SCH (08:44)
[2020-07-25] MEDS: Acetaminophen 325 MG Tab PO PRN ×3 (08:44→20:50)
[2020-07-25] MEDS: ClonazePAM 0.5 MG Tab PO SCH ×3 (09:00→20:48)
[2020-07-25] MEDS ORDERED: predniSONE 5 MG Tab PO SCH (09:00)
[2020-07-25] MEDS ORDERED: Furosemide 20 MG Tab PO SCH (09:00)
[2020-07-25] MEDS ORDERED: Levofloxacin/Dextrose 5%-Water 500 MG in Premix Bag 1 BAG IV ONE (09:00)
[2020-07-25] MEDS: Sodium Chloride 1 GM Tab PO SCH ×2 (09:36→20:48)
[2020-07-25] MEDS: Tiotropium Bromide 4 GM Inhalation Spray (2.5mcg/1 dose; 10 doses) INH SCH (12:43)
[2020-07-25] MEDS: Multivitamin Tab PO SCH (12:44)
[2020-07-25] MEDS: Enoxaparin 30 MG/0.3 ML Syringe SUBCUT SCH (15:25)
[2020-07-25] MEDS: QUEtiapine 25 MG Tab PO SCH (20:48)
[2020-07-26] MEDS: Sodium Chloride 1 GM Tab PO SCH (08:15)
[2020-07-26] MEDS: busPIRone 15 MG Tab PO SCH ×2 (08:16→17:28)
[2020-07-26] MEDS: Calcium Carbonate 500 MG Tablet PO SCH ×2 (08:16→20:06)
[2020-07-26] MEDS: Formoterol/Mometasone 200-5 MCG 8.8 GM Inhaler IH SCH ×2 (08:17→16:20)
[2020-07-26] MEDS: Allopurinol 300 MG Tab PO SCH (08:19)
[2020-07-26] MEDS: predniSONE 20 MG Tab PO SCH (08:24)
[2020-07-26] MEDS ORDERED: Levofloxacin/Dextrose 5%-Water 250 MG in Premix Bag 1 BAG IV SCH (09:00)
--- NOTE | 2020-07-26 09:22 | PCM.PN ---
- General Info Date of Service: 07/26/20 Admission Dx/Problem (Free Text): She states she went to sleep last night and then there was screaming down the coates and woke her up. And after that she says she'll urinate every hour so she didn't sleep well last night and feels very weak today. She denies dysuria, pyuria, hematuria, chest pain, shortness of breath, cough. - Patient Data Vitals - Most Recent: Last Vital Signs Temp 96.9 F 07/26/20 00:00 Pulse 79 07/26/20 00:00 Resp 18 07/26/20 00:00 BP 147/90 H 07/26/20 00:00 Pulse Ox 100 07/26/20 00:00 Weight - Most Recent: 142 lb 14.4 oz Lab Results Last 24 Hours: Laboratory Results - last 24 hr 07/26/20 Range/Units 06:05 Sodium 125 L (135-145) mmol/L Potassium 4.3 (3.5-5.3) mmol/L Chloride 86 L* (100-110) mmol/L Carbon Dioxide 35 H (21-32) mmol/L BUN 30 H (7-18) mg/dL Creatinine 1.1 H (0.55-1.02) mg/dL Est Cr Clr Drug Dosing 36.09 mL/min Estimated GFR (MDRD) 48 L (>60) BUN/Creatinine Ratio 27.3 H (9-20) Glucose 115 (80-116) mg/dL Calcium 8.4 L (8.6-10.2) mg/dL Wood Results Last 24 Hours: Microbiology 07/24/20 12:08 Urine Culture - Final Urine, Clean Catch MIXED POSITIVE DELIA DAY 2 07/24/20 11:40 Aerobic Blood Culture - Preliminary Blood - Venous NO GROWTH AFTER 1 DAY Anaerobic Blood Culture - Preliminary NO GROWTH AFTER 1 DAY 07/24/20 11:45 Aerobic Blood Culture - Preliminary Blood - Venous - Lab Draw NO GROWTH AFTER 1 DAY Anaerobic Blood Culture - Preliminary NO GROWTH AFTER 1 DAY Med Orders - Current: Current Medications Acetaminophen (Acetaminophen 325 Mg Tab) 650 mg PO Q4H PRN PRN Reason: Pain (Mild 1-3)/fever Last Admin: 07/25/20 20:50 Dose: 650 mg Documented by: Allopurinol (Allopurinol 300 Mg Tab) 150 mg PO DAILY [facility] Last Admin: 07/26/20 08:19 Dose: 150 mg Documented by: Artificial Tears (Carboxymethylcellulose Sodium 0.5% Ophth Soln 0.4 Ml Ud Box Of 30) 0 each EYEBOTH BID PRN PRN Reason: Dry Eyes Buspirone HCl (Buspirone 15 Mg Tab) 15 mg PO BIDMEALS [facility] Last Admin: 07/26/20 08:16 Dose: 15 mg Documented by: Calcium Carbonate/Glycine (Calcium Carbonate 500 Mg Tablet) 500 mg PO BID [facility] Last Admin: 07/26/20 08:16 Dose: 500 mg Documented by: Clonazepam (Clonazepam 0.5 Mg Tab) 0.5 mg PO TID@,, [facility] Last Admin: 07/25/20 20:48 Dose: 0.5 mg Documented by: Enoxaparin Sodium (Enoxaparin 30 Mg/0.3 Ml Syringe) 30 mg SUBCUT Q24H [facility] Last Admin: 07/25/20 15:25 Dose: 30 mg Documented by: Furosemide (Furosemide 20 Mg Tab) 20 mg PO DAILY [facility] Levofloxacin/Dextrose 250 mg/ (Premix) 50 mls @ 50 mls/hr IV Q24H [facility] Stop: 07/31/20 09:59 Last Admin: 07/26/20 08:27 Dose: 50 mls/hr Documented by: Magnesium Hydroxide (Magnesium Hydroxide 400 Mg/5 Ml Susp 30 Ml Cup) 30 ml PO Q12H PRN PRN Reason: Constipation Mometasone Furoate/Formoterol Fumar (Formoterol/Mometasone 200-5 Mcg 8.8 Gm Inhaler) 0 puff IH 08,16 [facility] Last Admin: 07/26/20 08:17 Dose: 2 puff Documented by: Multivitamins/Minerals/Vitamin C (Multivitamin Tab) 1 tab PO DAILY@1200 [facility] Last Admin: 07/25/20 12:44 Dose: 1 tab Documented by: Prednisone (Prednisone 20 Mg Tab) 40 mg PO WITHBREAKFAST [facility] Last Admin: 07/26/20 08:24 Dose: 40 mg Documented by: Quetiapine Fumarate (Quetiapine 25 Mg Tab) 12.5 mg PO BEDTIME [facility] Last Admin: 07/25/20 20:48 Dose: 12.5 mg Documented by: Sodium Chloride (Sodium Chloride 0.9% 10 Ml Syringe) 10 ml FLUSH ASDIRECTED PRN PRN Reason: Keep Vein Open Last Admin: 07/24/20 15:08 Dose: 10 ml Documented by: Sodium Chloride (Sodium Chloride 1 Gm Tab) 1 gm PO DAILY [facility] Tiotropium [place] (Tiotropium [place] 4 Gm Inhalation [place] (2.5mcg/1 Dose; 10 Doses)) 0 gm INH 12 [facility] Last Admin: 07/25/20 12:43 Dose: 2 puff Documented by: Discontinued Medications Acetaminophen (Acetaminophen 325 Mg Tab) 650 mg PO NOW ONE Stop: 07/24/20 13:39 Last Admin: 07/24/20 15:38 Dose: 650 mg Documented by: Furosemide (Furosemide 20 Mg Tab) 20 mg PO DAILY [facility] Furosemide (Furosemide 40 Mg/4 Ml Vial) 40 mg IVPUSH NOW ONE Stop: 07/25/20 07:35 Last Admin: 07/25/20 08:45 Dose: 40 mg Documented by: Gabapentin (Gabapentin 600 Mg Tab) 600 mg PO BEDTIME [facility] Last Admin: 07/24/20 21:14 Dose: 600 mg Documented by: Ciprofloxacin/Dextrose 400 mg/ (Premix) 200 mls @ 200 mls/hr IV Q12H [facility] Last Admin: 07/24/20 15:20 Dose: 200 mls/hr Documented by: Levofloxacin/Dextrose 500 mg/ (Premix) 100 mls @ 100 mls/hr IV Q24H [facility] Stop: 07/28/20 18:59 Last Admin: 07/24/20 22:51 Dose: Not Given Documented by: Levofloxacin/Dextrose 500 mg/ (Premix) 100 mls @ 100 mls/hr IV ONETIME ONE Stop: 07/25/20 09:59 Last Admin: 07/25/20 08:52 Dose: 100 mls/hr Documented by: Sodium Chloride (Normal Saline) 1,000 mls @ 70 mls/hr IV ASDIRECTED [facility] Last Admin: 07/24/20 20:03 Dose: 70 mls/hr Documented by: Methylprednisolone Sodium Succinate (Methylprednisolone Sodium Succinate 125 Mg/2 Ml Sdv) 80 mg IVPUSH Q8H [facility] Last Admin: 07/25/20 05:50 Dose: 80 mg Documented by: Ondansetron HCl (Ondansetron 4 Mg/2 Ml Sdv) 4 mg IV Q4H PRN PRN Reason: Nausea/Vomiting Paroxetine HCl (Paroxetine 10 Mg Tab) 10 mg PO BEDTIME [facility] Last Admin: 07/24/20 21:14 Dose: 10 mg Documented by: Potassium Chloride (Potassium Chloride 20 Meq Tab.Er) 40 meq PO ONETIME ONE Stop: 07/24/20 14:06 Last Admin: 07/24/20 15:27 Dose: 40 meq Documented by: Prednisone (Prednisone 5 Mg Tab) 5 mg PO DAILY [facility] Sodium Chloride (Sodium Chloride 0.9% 10 Ml Syringe) 70 ml IV DAILY [facility] Last Admin: 07/24/20 22:51 Dose: Not Given Documented by: Sodium Chloride (Sodium Chloride 1 Gm Tab) 1 gm PO BID [facility] Last Admin: 07/26/20 08:15 Dose: 1 gm Documented by: - Exam General: Alert, Oriented, Cooperative Lungs: Normal Respiratory Effort, Crackles Cardiovascular: Regular Rate, Regular Rhythm, No Murmurs Extremities: No Pedal Edema - Patient Data Lab Results Last 24 hrs: Laboratory Results - last 24 hr 07/26/20 Range/Units 06:05 Sodium 125 L (135-145) mmol/L Potassium 4.3 (3.5-5.3) mmol/L Chloride 86 L* (100-110) mmol/L Carbon Dioxide 35 H (21-32) mmol/L BUN 30 H (7-18) mg/dL Creatinine 1.1 H (0.55-1.02) mg/dL Est Cr Clr Drug Dosing 36.09 mL/min Estimated GFR (MDRD) 48 L (>60) BUN/Creatinine Ratio 27.3 H (9-20) Glucose 115 (80-116) mg/dL Calcium 8.4 L (8.6-10.2) mg/dL Result Diagrams: 07/25/20 06:05 07/26/20 06:05 Wood Results Last 24 hrs: Microbiology 07/24/20 12:08 Urine Culture - Final Urine, Clean Catch MIXED POSITIVE DELIA DAY 2 07/24/20 11:40 Aerobic Blood Culture - Preliminary Blood - Venous NO GROWTH AFTER 1 DAY Anaerobic Blood Culture - Preliminary NO GROWTH AFTER 1 DAY 07/24/20 11:45 Aerobic Blood Culture - Preliminary Blood - Venous - Lab Draw NO GROWTH AFTER 1 DAY Anaerobic Blood Culture - Preliminary NO GROWTH AFTER 1 DAY Sepsis Event Note - Evaluation Sepsis Screening Result: No Definite Risk - Focused Exam Vital Signs: Vital Signs Temp Pulse Resp BP Pulse Ox Pulse Ox 07/26/20 00:00 96.9 F 79 18 147/90 H 100 100 - Problem List & Annotations (1) UTI (urinary tract infection) SNOMED Code(s): 52126653 Code(s): N39.0 - URINARY TRACT INFECTION, SITE NOT SPECIFIED Status: Acute Current Visit: Yes (2) Acute exacerbation of CHF (congestive heart failure) SNOMED Code(s): 851194792, 70609815078897 Code(s): I50.9 - HEART FAILURE, UNSPECIFIED Status: Acute Current Visit: Yes (3) COPD exacerbation SNOMED Code(s): 099123322 Code(s): J44.1 - CHRONIC OBSTRUCTIVE PULMONARY DISEASE W (ACUTE) EXACERBATION Status: Acute Current Visit: Yes (4) DNI (do not intubate) SNOMED Code(s): 561806675 Code(s): Z78.9 - OTHER SPECIFIED HEALTH STATUS Status: Acute Current Visit: Yes (5) DNR (do not resuscitate) Status: Acute Current Visit: Yes (6) Elevated brain natriuretic peptide (BNP) level SNOMED Code(s): 292391950, 407993989 Code(s): R79.89 - OTHER SPECIFIED ABNORMAL FINDINGS OF BLOOD CHEMISTRY Status: Acute Current Visit: Yes (7) Hyponatremia SNOMED Code(s): 76036397 Code(s): E87.1 - HYPO-OSMOLALITY AND HYPONATREMIA Status: Acute Current Visit: Yes (8) Palliative care encounter SNOMED Code(s): 807951739, 513011121 Code(s): Z51.5 - ENCOUNTER FOR PALLIATIVE CARE Status: Acute Current Visit: No (9) Insomnia SNOMED Code(s): 004704021 Code(s): G47.00 - INSOMNIA, UNSPECIFIED Status: Chronic Current Visit: No Annotation/Comment:: Continue home med. - Problem List Review Problem List Initiated/Reviewed/Updated: Yes - My Orders Last 24 Hours: My Active Orders 07/25/20 Lunch Regular Diet [DIET] 07/26/20 09:19 Consult to Occupational Therapy [OT Evaluation and Treatment] [CONS] Routine Consult to Physical Therapy [PT Evaluation and Treatment] [CONS] Routine 07/26/20 09:30 Furosemide [Lasix] 20 mg PO DAILY 07/26/20 Lunch Fluid Restriction [DIET] 07/27/20 09:00 Sodium Chloride 1 gm PO DAILY - Plan Plan:: 1. Stop continuous pulse ox 2. Start Lasix 20 mg a day. 3. Decrease sodium chloride tablets to once a day 1 g. 4. Fluid restriction to 1500 mL a day. 5. PT/OT evaluation in the a.m. 6. Ambulate as frequently as she tolerates. 7. Continue the same medications for insomnia 8. BMP in the a.m.
[2020-07-26] MEDS: Acetaminophen 325 MG Tab PO PRN ×2 (09:41→20:06)
[2020-07-26] MEDS: Furosemide 20 MG Tab PO SCH (11:37)
[2020-07-26] MEDS: ClonazePAM 0.5 MG Tab PO SCH ×3 (11:37→20:06)
[2020-07-26] MEDS: Multivitamin Tab PO SCH (11:38)
[2020-07-26] MEDS: Tiotropium Bromide 4 GM Inhalation Spray (2.5mcg/1 dose; 10 doses) INH SCH (11:38)
[2020-07-26] MEDS: Enoxaparin 30 MG/0.3 ML Syringe SUBCUT SCH (16:20)
[2020-07-26] MEDS: QUEtiapine 25 MG Tab PO SCH (20:06)
[2020-07-26] MEDS: Melatonin 3 MG Tab PO PRN (23:05)
--- NOTE | 2020-07-27 08:07 | PCM.PN ---
- General Info Date of Service: 07/27/20 Admission Dx/Problem (Free Text): Patient states she urinated every hour last night and didn't sleep again very well. She denies fevers, chills, shortness of breath, chest pain periods patient states her cough that she's been having for long time is this way better. She feels that she is so weak that she can't go home at this time. - Patient Data Vitals - Most Recent: Last Vital Signs Temp 96.9 F 07/27/20 00:45 Pulse 89 07/27/20 00:45 Resp 18 07/27/20 00:45 BP 142/85 H 07/27/20 00:45 Pulse Ox 99 07/27/20 00:45 Weight - Most Recent: 142 lb 9 oz Lab Results Last 24 Hours: Laboratory Results - last 24 hr 07/27/20 Range/Units 06:20 Sodium 133 L (135-145) mmol/L Potassium 4.0 (3.5-5.3) mmol/L Chloride 93 L D (100-110) mmol/L Carbon Dioxide 38 H (21-32) mmol/L BUN 32 H (7-18) mg/dL Creatinine 1.2 H (0.55-1.02) mg/dL Est Cr Clr Drug Dosing 33.08 mL/min Estimated GFR (MDRD) 43 L (>60) BUN/Creatinine Ratio 26.7 H (9-20) Glucose 99 (80-116) mg/dL Calcium 8.8 (8.6-10.2) mg/dL [place] Results Last 24 Hours: Microbiology 07/24/20 11:40 Aerobic Blood Culture - Preliminary Blood - Venous NO GROWTH AFTER 2 DAYS Anaerobic Blood Culture - Preliminary NO GROWTH AFTER 2 DAYS 07/24/20 11:45 Aerobic Blood Culture - Preliminary Blood - Venous - Lab Draw NO GROWTH AFTER 2 DAYS Anaerobic Blood Culture - Preliminary NO GROWTH AFTER 2 DAYS 07/24/20 12:08 Urine Culture - Final Urine, Clean Catch MIXED POSITIVE DELIA DAY 2 Med Orders - Current: Current Medications Acetaminophen (Acetaminophen 325 Mg Tab) 650 mg PO Q4H PRN PRN Reason: Pain (Mild 1-3)/fever Last Admin: 07/26/20 20:06 Dose: 650 mg Documented by: Allopurinol (Allopurinol 300 Mg Tab) 150 mg PO DAILY [facility] Last Admin: 07/26/20 08:19 Dose: 150 mg Documented by: Artificial Tears (Carboxymethylcellulose Sodium 0.5% Ophth Soln 0.4 Ml Ud Box Of 30) 0 each EYEBOTH BID PRN PRN Reason: Dry Eyes Buspirone HCl (Buspirone 15 Mg Tab) 15 mg PO BIDMEALS [facility] Last Admin: 07/26/20 17:28 Dose: 15 mg Documented by: Calcium Carbonate/Glycine (Calcium Carbonate 500 Mg Tablet) 500 mg PO BID [facility] Last Admin: 07/26/20 20:06 Dose: 500 mg Documented by: Clonazepam (Clonazepam 0.5 Mg Tab) 0.5 mg PO TID@10,, [facility] Last Admin: 07/26/20 20:06 Dose: 0.5 mg Documented by: Furosemide (Furosemide 20 Mg Tab) 20 mg PO DAILY [facility] Last Admin: 07/26/20 11:37 Dose: 20 mg Documented by: Levofloxacin (Levofloxacin 250 Mg Tab) 250 mg PO Q24H [facility] Magnesium Hydroxide (Magnesium Hydroxide 400 Mg/5 Ml Susp 30 Ml Cup) 30 ml PO Q12H PRN PRN Reason: Constipation Melatonin (Melatonin 3 Mg Tab) 3 mg PO BEDTIME PRN PRN Reason: Insomnia Last Admin: 07/26/20 23:05 Dose: 3 mg Documented by: Mometasone Furoate/Formoterol Fumar (Formoterol/Mometasone 200-5 Mcg 8.8 Gm Inhaler) 0 puff IH 08,16 [facility] Last Admin: 07/26/20 16:20 Dose: 2 puff Documented by: Multivitamins/Minerals/Vitamin C (Multivitamin Tab) 1 tab PO DAILY@1200 [facility] Last Admin: 07/26/20 11:38 Dose: 1 tab Documented by: Prednisone (Prednisone 20 Mg Tab) 20 mg PO WITHBREAKFAST [facility] Quetiapine Fumarate (Quetiapine 25 Mg Tab) 12.5 mg PO BEDTIME [facility] Last Admin: 07/26/20 20:06 Dose: 12.5 mg Documented by: Sodium Chloride (Sodium Chloride 0.9% 10 Ml Syringe) 10 ml FLUSH ASDIRECTED PRN PRN Reason: Keep Vein Open Last Admin: 07/24/20 15:08 Dose: 10 ml Documented by: Tiotropium [place] (Tiotropium [place] 4 Gm Inhalation [place] (2.5mcg/1 Dose; 10 Doses)) 0 gm INH 12 [facility] Last Admin: 07/26/20 11:38 Dose: 2 puff Documented by: Discontinued Medications Acetaminophen (Acetaminophen 325 Mg Tab) 650 mg PO NOW ONE Stop: 07/24/20 13:39 Last Admin: 07/24/20 15:38 Dose: 650 mg Documented by: Enoxaparin Sodium (Enoxaparin 30 Mg/0.3 Ml Syringe) 30 mg SUBCUT Q24H [facility] Last Admin: 07/26/20 16:20 Dose: 30 mg Documented by: Furosemide (Furosemide 20 Mg Tab) 20 mg PO DAILY [facility] Furosemide (Furosemide 40 Mg/4 Ml Vial) 40 mg IVPUSH NOW ONE Stop: 07/25/20 07:35 Last Admin: 07/25/20 08:45 Dose: 40 mg Documented by: Gabapentin (Gabapentin 600 Mg Tab) 600 mg PO BEDTIME [facility] Last Admin: 07/24/20 21:14 Dose: 600 mg Documented by: Ciprofloxacin/Dextrose 400 mg/ (Premix) 200 mls @ 200 mls/hr IV Q12H [facility] Last Admin: 07/24/20 15:20 Dose: 200 mls/hr Documented by: Levofloxacin/Dextrose 500 mg/ (Premix) 100 mls @ 100 mls/hr IV Q24H [facility] Stop: 07/28/20 18:59 Last Admin: 07/24/20 22:51 Dose: Not Given Documented by: Levofloxacin/Dextrose 500 mg/ (Premix) 100 mls @ 100 mls/hr IV ONETIME ONE Stop: 07/25/20 09:59 Last Admin: 07/25/20 08:52 Dose: 100 mls/hr Documented by: Levofloxacin/Dextrose 250 mg/ (Premix) 50 mls @ 50 mls/hr IV Q24H [facility] Stop: 07/31/20 09:59 Last Admin: 07/26/20 08:27 Dose: 50 mls/hr Documented by: Sodium Chloride (Normal Saline) 1,000 mls @ 70 mls/hr IV ASDIRECTED [facility] Last Admin: 07/24/20 20:03 Dose: 70 mls/hr Documented by: Methylprednisolone Sodium Succinate (Methylprednisolone Sodium Succinate 125 Mg/2 Ml Sdv) 80 mg IVPUSH Q8H [facility] Last Admin: 07/25/20 05:50 Dose: 80 mg Documented by: Ondansetron HCl (Ondansetron 4 Mg/2 Ml Sdv) 4 mg IV Q4H PRN PRN Reason: Nausea/Vomiting Paroxetine HCl (Paroxetine 10 Mg Tab) 10 mg PO BEDTIME [facility] Last Admin: 07/24/20 21:14 Dose: 10 mg Documented by: Potassium Chloride (Potassium Chloride 20 Meq Tab.Er) 40 meq PO ONETIME ONE Stop: 07/24/20 14:06 Last Admin: 07/24/20 15:27 Dose: 40 meq Documented by: Prednisone (Prednisone 5 Mg Tab) 5 mg PO DAILY [facility] Prednisone (Prednisone 20 Mg Tab) 40 mg PO WITHBREAKFAST [facility] Last Admin: 07/26/20 08:24 Dose: 40 mg Documented by: Sodium Chloride (Sodium Chloride 0.9% 10 Ml Syringe) 70 ml IV DAILY [facility] Last Admin: 07/24/20 22:51 Dose: Not Given Documented by: Sodium Chloride (Sodium Chloride 1 Gm Tab) 1 gm PO BID [facility] Last Admin: 07/26/20 08:15 Dose: 1 gm Documented by: Sodium Chloride (Sodium Chloride 1 Gm Tab) 1 gm PO DAILY [facility] - Exam General: Alert, Oriented, Cooperative Lungs: Clear to Auscultation, Normal Respiratory Effort Cardiovascular: Regular Rate, Regular Rhythm, No Murmurs Extremities: No Pedal Edema Psy/Mental Status: Alert, Anxious - Patient Data Lab Results Last 24 hrs: Laboratory Results - last 24 hr 07/27/20 Range/Units 06:20 Sodium 133 L (135-145) mmol/L Potassium 4.0 (3.5-5.3) mmol/L Chloride 93 L D (100-110) mmol/L Carbon Dioxide 38 H (21-32) mmol/L BUN 32 H (7-18) mg/dL Creatinine 1.2 H (0.55-1.02) mg/dL Est Cr Clr Drug Dosing 33.08 mL/min Estimated GFR (MDRD) 43 L (>60) BUN/Creatinine Ratio 26.7 H (9-20) Glucose 99 (80-116) mg/dL Calcium 8.8 (8.6-10.2) mg/dL Result Diagrams: 07/25/20 06:05 07/27/20 06:20 Wood Results Last 24 hrs: Microbiology 07/24/20 11:40 Aerobic Blood Culture - Preliminary Blood - Venous NO GROWTH AFTER 2 DAYS Anaerobic Blood Culture - Preliminary NO GROWTH AFTER 2 DAYS 07/24/20 11:45 Aerobic Blood Culture - Preliminary Blood - Venous - Lab Draw NO GROWTH AFTER 2 DAYS Anaerobic Blood Culture - Preliminary NO GROWTH AFTER 2 DAYS 07/24/20 12:08 Urine Culture - Final Urine, Clean Catch MIXED POSITIVE DELIA DAY 2 Sepsis Event Note - Evaluation Sepsis Screening Result: No Definite Risk - Focused Exam Vital Signs: Vital Signs Temp Pulse Resp BP Pulse Ox Pulse Ox 07/27/20 00:45 96.9 F 89 18 142/85 H 99 07/27/20 00:00 99 - Problem List & Annotations (1) UTI (urinary tract infection) SNOMED Code(s): 51334181 Code(s): N39.0 - URINARY TRACT INFECTION, SITE NOT SPECIFIED Status: Acute Current Visit: Yes (2) Acute exacerbation of CHF (congestive heart failure) SNOMED Code(s): 361990049, 09538033296561 Code(s): I50.9 - HEART FAILURE, UNSPECIFIED Status: Acute Current Visit: Yes (3) COPD exacerbation SNOMED Code(s): 863704273 Code(s): J44.1 - CHRONIC OBSTRUCTIVE PULMONARY DISEASE W (ACUTE) EXACERBATION Status: Acute Current Visit: Yes (4) DNI (do not intubate) SNOMED Code(s): 307427955 Code(s): Z78.9 - OTHER SPECIFIED HEALTH STATUS Status: Acute Current Visit: Yes (5) DNR (do not resuscitate) Status: Acute Current Visit: Yes (6) Elevated brain natriuretic peptide (BNP) level SNOMED Code(s): 856334541, 347717256 Code(s): R79.89 - OTHER SPECIFIED ABNORMAL FINDINGS OF BLOOD CHEMISTRY Status: Acute Current Visit: Yes (7) Hyponatremia SNOMED Code(s): 26415991 Code(s): E87.1 - HYPO-OSMOLALITY AND HYPONATREMIA Status: Acute Current Visit: Yes (8) Palliative care encounter SNOMED Code(s): 641370726, 145708667 Code(s): Z51.5 - ENCOUNTER FOR PALLIATIVE CARE Status: Acute Current Visit: No (9) Insomnia SNOMED Code(s): 490877732 Code(s): G47.00 - INSOMNIA, UNSPECIFIED Status: Chronic Current Visit: No Annotation/Comment:: Continue home med. (10) Bronchitis SNOMED Code(s): 36938957 Code(s): J40 - BRONCHITIS, NOT SPECIFIED ACUTE OR CHRONIC Status: Acute Current Visit: Yes (11) Weakness SNOMED Code(s): 45204605 Code(s): R53.1 - WEAKNESS Status: Acute Current Visit: Yes - Problem List Review Problem List Initiated/Reviewed/Updated: Yes - My Orders Last 24 Hours: My Active Orders 07/26/20 09:19 Consult to Occupational Therapy [OT Evaluation and Treatment] [CONS] Routine Consult to Physical Therapy [PT Evaluation and Treatment] [CONS] Routine 07/26/20 09:30 Furosemide [Lasix] 20 mg PO DAILY 07/26/20 Lunch Fluid Restriction [DIET] 07/26/20 22:57 Melatonin 3 mg PO BEDTIME PRN 07/27/20 08:15 levoFLOXacin [Levaquin] 250 mg PO Q24H 07/27/20 21:00 QUEtiapine [SEROqueL] 25 mg PO BEDTIME 07/28/20 08:00 predniSONE 20 mg PO WITHBREAKFAST - Plan Plan:: 1. Change Levaquin from IV to by mouth 2050 mg a day. 2. PT/OT for strengthening and ambulation. 3. Increase Seroquel to 25 mg at at bedtime. 4. Stop sodium tablets.
[2020-07-27] MEDS: busPIRone 15 MG Tab PO SCH ×2 (08:19→17:17)
[2020-07-27] MEDS: Formoterol/Mometasone 200-5 MCG 8.8 GM Inhaler IH SCH ×2 (08:19→15:01)
[2020-07-27] MEDS: Allopurinol 300 MG Tab PO SCH (08:52)
[2020-07-27] MEDS: Furosemide 20 MG Tab PO SCH (08:53)
[2020-07-27] MEDS: predniSONE 20 MG Tab PO SCH ×2 (08:53→08:55)
[2020-07-27] MEDS: Levofloxacin 250 MG Tab PO SCH (08:53)
[2020-07-27] MEDS ORDERED: Sodium Chloride 1 GM Tab PO SCH (09:00)
[2020-07-27] MEDS ORDERED: [UNRECOGNIZED DRUG - OTHER] EYEBOTH PRN (09:15)
[2020-07-27] MEDS: ClonazePAM 0.5 MG Tab PO SCH ×3 (09:59→20:59)
[2020-07-27] MEDS: Tiotropium Bromide 4 GM Inhalation Spray (2.5mcg/1 dose; 10 doses) INH SCH (12:34)
[2020-07-27] MEDS: Multivitamin Tab PO SCH (12:34)
[2020-07-27] MEDS: Calcium Carbonate 500 MG Tablet PO SCH ×2 (12:34→20:59)
[2020-07-27] MEDS: Acetaminophen 325 MG Tab PO PRN ×2 (13:19→20:59)
[2020-07-27 17:21] VITALS: PULSE 99
[2020-07-27] MEDS ORDERED: QUEtiapine 25 MG Tab PO SCH (21:00)
[2020-07-28] MEDS: Melatonin 3 MG Tab PO PRN (00:14)
[2020-07-28] MEDS: busPIRone 15 MG Tab PO SCH (07:42)
[2020-07-28] MEDS: Levofloxacin 250 MG Tab PO SCH (07:42)
[2020-07-28] MEDS: predniSONE 20 MG Tab PO SCH (07:42)
[2020-07-28] MEDS: Formoterol/Mometasone 200-5 MCG 8.8 GM Inhaler IH SCH (07:42)
--- NOTE | 2020-07-28 08:08 | PCM.PN ---
- General Info Date of Service: 07/28/20 Admission Dx/Problem (Free Text): Patient states she didn't sleep last night because of the thundering. Still feels very weak. Denies fevers, chills, cough, dysuria, pyuria, hematuria. - Patient Data Vitals - Most Recent: Last Vital Signs Temp 97.5 F 07/27/20 16:00 Pulse 99 07/27/20 16:00 Resp 18 07/27/20 16:00 BP 138/88 07/27/20 16:00 Pulse Ox 98 07/27/20 16:00 Weight - Most Recent: 137 lb 6.4 oz Wood Results Last 24 Hours: Microbiology 07/24/20 11:40 Aerobic Blood Culture - Preliminary Blood - Venous NO GROWTH AFTER 3 DAYS Anaerobic Blood Culture - Preliminary NO GROWTH AFTER 3 DAYS 07/24/20 11:45 Aerobic Blood Culture - Preliminary Blood - Venous - Lab Draw NO GROWTH AFTER 3 DAYS Anaerobic Blood Culture - Preliminary NO GROWTH AFTER 3 DAYS Med Orders - Current: Current Medications Acetaminophen (Acetaminophen 325 Mg Tab) 650 mg PO Q4H PRN PRN Reason: Pain (Mild 1-3)/fever Last Admin: 07/27/20 20:59 Dose: 650 mg Documented by: Allopurinol (Allopurinol 300 Mg Tab) 150 mg PO DAILY [facility] Last Admin: 07/27/20 08:52 Dose: 150 mg Documented by: Buspirone HCl (Buspirone 15 Mg Tab) 15 mg PO BIDMEALS [facility] Last Admin: 07/28/20 07:42 Dose: 15 mg Documented by: Calcium Carbonate/Glycine (Calcium Carbonate 500 Mg Tablet) 500 mg PO BID@1200,2100 [facility] Last Admin: 07/27/20 20:59 Dose: 500 mg Documented by: Clonazepam (Clonazepam 0.5 Mg Tab) 0.5 mg PO TID@10,15,21 [facility] Last Admin: 07/27/20 20:59 Dose: 0.5 mg Documented by: Furosemide (Furosemide 20 Mg Tab) 20 mg PO DAILY [facility] Last Admin: 07/27/20 08:53 Dose: 20 mg Documented by: Levofloxacin (Levofloxacin 250 Mg Tab) 250 mg PO Q24H [facility] Last Admin: 07/28/20 07:42 Dose: 250 mg Documented by: Magnesium Hydroxide (Magnesium Hydroxide 400 Mg/5 Ml Susp 30 Ml Cup) 30 ml PO Q12H PRN PRN Reason: Constipation Melatonin (Melatonin 3 Mg Tab) 3 mg PO BEDTIME PRN PRN Reason: Insomnia Last Admin: 07/28/20 00:14 Dose: 3 mg Documented by: Mometasone Furoate/Formoterol Fumar (Formoterol/Mometasone 200-5 Mcg 8.8 Gm Inhaler) 0 puff IH 08,16 [facility] Last Admin: 07/28/20 07:42 Dose: 2 puff Documented by: Multivitamins/Minerals/Vitamin C (Multivitamin Tab) 1 tab PO DAILY@1200 [facility] Last Admin: 07/27/20 12:34 Dose: 1 tab Documented by: Refresh Optive Ravinder- (3 Eye Drop) 1 each EYEBOTH BID PRN PRN Reason: Dry Eyes Prednisone (Prednisone 20 Mg Tab) 20 mg PO WITHBREAKFAST [facility] Last Admin: 07/28/20 07:42 Dose: 20 mg Documented by: Quetiapine Fumarate (Quetiapine 25 Mg Tab) 25 mg PO BEDTIME [facility] Last Admin: 07/27/20 20:59 Dose: 25 mg Documented by: Sodium Chloride (Sodium Chloride 0.9% 10 Ml Syringe) 10 ml FLUSH ASDIRECTED PRN PRN Reason: Keep Vein Open Last Admin: 07/24/20 15:08 Dose: 10 ml Documented by: Tiotropium [place] (Tiotropium [place] 4 Gm Inhalation Deshler (2.5mcg/1 Dose; 10 Doses)) 0 gm INH 12 [facility] Last Admin: 07/27/20 12:34 Dose: 2 puff Documented by: Discontinued Medications Acetaminophen (Acetaminophen 325 Mg Tab) 650 mg PO NOW ONE Stop: 07/24/20 13:39 Last Admin: 07/24/20 15:38 Dose: 650 mg Documented by: Artificial Tears (Carboxymethylcellulose Sodium 0.5% Ophth Soln 0.4 Ml Ud Box Of 30) 0 each EYEBOTH BID PRN PRN Reason: Dry Eyes Calcium Carbonate/Glycine (Calcium Carbonate 500 Mg Tablet) 500 mg PO BID [facility] Last Admin: 07/26/20 20:06 Dose: 500 mg Documented by: Enoxaparin Sodium (Enoxaparin 30 Mg/0.3 Ml Syringe) 30 mg SUBCUT Q24H [facility] Last Admin: 07/26/20 16:20 Dose: 30 mg Documented by: Furosemide (Furosemide 20 Mg Tab) 20 mg PO DAILY [facility] Furosemide (Furosemide 40 Mg/4 Ml Vial) 40 mg IVPUSH NOW ONE Stop: 07/25/20 07:35 Last Admin: 07/25/20 08:45 Dose: 40 mg Documented by: Gabapentin (Gabapentin 600 Mg Tab) 600 mg PO BEDTIME [facility] Last Admin: 07/24/20 21:14 Dose: 600 mg Documented by: Ciprofloxacin/Dextrose 400 mg/ (Premix) 200 mls @ 200 mls/hr IV Q12H [facility] Last Admin: 07/24/20 15:20 Dose: 200 mls/hr Documented by: Levofloxacin/Dextrose 500 mg/ (Premix) 100 mls @ 100 mls/hr IV Q24H [facility] Stop: 07/28/20 18:59 Last Admin: 07/24/20 22:51 Dose: Not Given Documented by: Levofloxacin/Dextrose 500 mg/ (Premix) 100 mls @ 100 mls/hr IV ONETIME ONE Stop: 07/25/20 09:59 Last Admin: 07/25/20 08:52 Dose: 100 mls/hr Documented by: Levofloxacin/Dextrose 250 mg/ (Premix) 50 mls @ 50 mls/hr IV Q24H [facility] Stop: 07/31/20 09:59 Last Admin: 07/26/20 08:27 Dose: 50 mls/hr Documented by: Sodium Chloride (Normal Saline) 1,000 mls @ 70 mls/hr IV ASDIRECTED [facility] Last Admin: 07/24/20 20:03 Dose: 70 mls/hr Documented by: Methylprednisolone Sodium Succinate (Methylprednisolone Sodium Succinate 125 Mg/2 Ml Sdv) 80 mg IVPUSH Q8H [facility] Last Admin: 07/25/20 05:50 Dose: 80 mg Documented by: Ondansetron HCl (Ondansetron 4 Mg/2 Ml Sdv) 4 mg IV Q4H PRN PRN Reason: Nausea/Vomiting Paroxetine HCl (Paroxetine 10 Mg Tab) 10 mg PO BEDTIME [facility] Last Admin: 07/24/20 21:14 Dose: 10 mg Documented by: Potassium Chloride (Potassium Chloride 20 Meq Tab.Er) 40 meq PO ONETIME ONE Stop: 07/24/20 14:06 Last Admin: 07/24/20 15:27 Dose: 40 meq Documented by: Prednisone (Prednisone 5 Mg Tab) 5 mg PO DAILY [facility] Prednisone (Prednisone 20 Mg Tab) 40 mg PO WITHBREAKFAST [facility] Last Admin: 07/27/20 08:55 Dose: Not Given Documented by: Quetiapine Fumarate (Quetiapine 25 Mg Tab) 12.5 mg PO BEDTIME [facility] Last Admin: 07/26/20 20:06 Dose: 12.5 mg Documented by: Sodium Chloride (Sodium Chloride 0.9% 10 Ml Syringe) 70 ml IV DAILY [facility] Last Admin: 07/24/20 22:51 Dose: Not Given Documented by: Sodium Chloride (Sodium Chloride 1 Gm Tab) 1 gm PO BID [facility] Last Admin: 07/26/20 08:15 Dose: 1 gm Documented by: Sodium Chloride (Sodium Chloride 1 Gm Tab) 1 gm PO DAILY [facility] - Patient Data Result Diagrams: 07/25/20 06:05 07/27/20 06:20 Wood Results Last 24 hrs: Microbiology 07/24/20 11:40 Aerobic Blood Culture - Preliminary Blood - Venous NO GROWTH AFTER 3 DAYS Anaerobic Blood Culture - Preliminary NO GROWTH AFTER 3 DAYS 07/24/20 11:45 Aerobic Blood Culture - Preliminary Blood - Venous - Lab Draw NO GROWTH AFTER 3 DAYS Anaerobic Blood Culture - Preliminary NO GROWTH AFTER 3 DAYS Sepsis Event Note - Evaluation Sepsis Screening Result: No Definite Risk - Problem List & Annotations (1) Acute exacerbation of CHF (congestive heart failure) SNOMED Code(s): 067787155, 49658073444870 Code(s): I50.9 - HEART FAILURE, UNSPECIFIED Status: Acute Current Visit: Yes (2) COPD exacerbation SNOMED Code(s): 671073200 Code(s): J44.1 - CHRONIC OBSTRUCTIVE PULMONARY DISEASE W (ACUTE) EXACERBATION Status: Acute Current Visit: Yes (3) DNI (do not intubate) SNOMED Code(s): 932141188 Code(s): Z78.9 - OTHER SPECIFIED HEALTH STATUS Status: Acute Current Visit: Yes (4) DNR (do not resuscitate) Status: Acute Current Visit: Yes (5) Elevated brain natriuretic peptide (BNP) level SNOMED Code(s): 031001341, 247136159 Code(s): R79.89 - OTHER SPECIFIED ABNORMAL FINDINGS OF BLOOD CHEMISTRY Status: Acute Current Visit: Yes (6) Hyponatremia SNOMED Code(s): 50345297 Code(s): E87.1 - HYPO-OSMOLALITY AND HYPONATREMIA Status: Acute Current Visit: Yes (7) Palliative care encounter SNOMED Code(s): 680401808, 018035792 Code(s): Z51.5 - ENCOUNTER FOR PALLIATIVE CARE Status: Acute Current Visit: No (8) Insomnia SNOMED Code(s): 148346100 Code(s): G47.00 - INSOMNIA, UNSPECIFIED Status: Chronic Current Visit: No Annotation/Comment:: Continue home med. (9) Bronchitis SNOMED Code(s): 93831944 Code(s): J40 - BRONCHITIS, NOT SPECIFIED ACUTE OR CHRONIC Status: Acute Current Visit: Yes (10) Weakness SNOMED Code(s): 09703430 Code(s): R53.1 - WEAKNESS Status: Acute Current Visit: Yes - Problem List Review Problem List Initiated/Reviewed/Updated: Yes - My Orders Last 24 Hours: My Active Orders 07/27/20 08:00 predniSONE 20 mg PO WITHBREAKFAST 07/27/20 08:15 levoFLOXacin [Levaquin] 250 mg PO Q24H 07/27/20 21:00 QUEtiapine [SEROqueL] 25 mg PO BEDTIME 07/28/20 08:06 Ready for Discharge [RC] PER UNIT ROUTINE - Plan Plan:: Urine was negative so no UTI that was taken off the problem list. Continue the Levaquin because is decreased her cough that the prednisone. Send her [facility] today for rehabilitation and probably back to see in accord after she rehabs.
--- NOTE | 2020-07-28 08:11 | PCM.DCSUM1 ---
Discharge Summary - Hospital Course Free Text/Narrative:: Hospital course-patient was placed on some IV fluids and Lasix. Sodium went up a little bit the next day. The next day start some sodium tablets and her sodium went down again. Zyprexa fluid injection to 1500 mL and her sodium came up nicely. She is on Paxil and that can cause hyponatremia so I stopped it. I stopped her Neurontin and started on Seroquel 12.5 mg at at bedtime. The first night she slept reallygood. The next couple nights there were disturbances including outpatient screaming and under that kept her up and also urinating at night. Her fluid status was real good even though her BNP was high so it went back to her normal Lasix. Prednisone was started by the ER doc and we slowly tapered it down. She had a lot of white cells in her urine better culture grew mixed mireya. She is on Levaquin for that and her cough and her cough is better so we continued the Levaquin. I stopped the Neurontin as assay before because I started the Seroquel hopefully that will help. We'll discharge her to [facility] for rehabilitation with PT/OT for weakness. [id number] was done the patient. She needs rehabilitation with PT/OT for strengthening before she can go home. Also medication management . Brief History: This is an 79-year-old female patient she says the last 3 days she's been feeling weak. She's been having urinary frequency. She states she went to the toilet and could not get up. So the assisted living staff helped her up and took her to the clinic. The doctor the clinic Center the ER. She is found to have hyponatremia, UTI, CHF, COPD exacerbation. Patient's biggest focus which she couldn't sleep and she was in the hospital here swing bed a couple weeks ago and she was complaining that she couldn't sleep a night. She says she doesn't sleep at all. She has little cough when she lays down. She says she is a little leg swelling at times. She denies chest pain, fevers, chills, nasal congestion, dysuria, pyuria, hematuria. Patient is a little shortness breath or she has COPD and is on oxygen. Diagnosis: Stroke: No - Discharge Data Discharge Date: 07/28/20 Discharge Disposition: DC/Tfer to [facility] Condition: Stable - Referral to Home Health Primary Care Physician: PCP None - Discharge Diagnosis/Problem(s) (1) Acute exacerbation of CHF (congestive heart failure) SNOMED Code(s): 473891077, 79578198015506 ICD Code: I50.9 - HEART FAILURE, UNSPECIFIED Status: Acute Current Visit: Yes (2) COPD exacerbation SNOMED Code(s): 443066355 ICD Code: J44.1 - CHRONIC OBSTRUCTIVE PULMONARY DISEASE W (ACUTE) EXACERBATION Status: Acute Current Visit: Yes (3) DNI (do not intubate) SNOMED Code(s): 762090371 ICD Code: Z78.9 - OTHER SPECIFIED HEALTH STATUS Status: Acute Current Visit: Yes (4) DNR (do not resuscitate) Status: Acute Current Visit: Yes (5) Elevated brain natriuretic peptide (BNP) level SNOMED Code(s): 720894780, 725556492 ICD Code: R79.89 - OTHER SPECIFIED ABNORMAL FINDINGS OF BLOOD CHEMISTRY Status: Acute Current Visit: Yes (6) Hyponatremia SNOMED Code(s): 91192641 ICD Code: E87.1 - HYPO-OSMOLALITY AND HYPONATREMIA Status: Acute Current Visit: Yes (7) Palliative care encounter SNOMED Code(s): 956589336, 021817779 ICD Code: Z51.5 - ENCOUNTER FOR PALLIATIVE CARE Status: Acute Current Visit: No (8) Insomnia SNOMED Code(s): 515428295 ICD Code: G47.00 - INSOMNIA, UNSPECIFIED Status: Chronic Current Visit: No Problem Details: Continue home med. (9) Bronchitis SNOMED Code(s): 25389642 ICD Code: J40 - BRONCHITIS, NOT SPECIFIED ACUTE OR CHRONIC Status: Acute Current Visit: Yes (10) Weakness SNOMED Code(s): 13821675 ICD Code: R53.1 - WEAKNESS Status: Acute Current Visit: Yes - Patient Summary/Data Consults: Consultations 07/26/20 09:19 Consult to Occupational Therapy [OT Evaluation and Treatment] [CONS] Routine Please Evaluate and Treat. OT Reason for Consult: Strengthening This query below is only for informational purposes and is not editable. Admission Diagnosis/Problem: COPD, Moderate chronic obstructive pulmonary disease Consult to Physical Therapy [PT Evaluation and Treatment] [CONS] Routine Please Evaluate and Treat. PT Reason for Consult: Strengthening This query below is only for informational purposes and is not editable. Admission Diagnosis/Problem: COPD, Moderate chronic obstructive pulmonary disease - Patient Instructions Diet: Regular Diet as Tolerated Fluid Restriction: 1500 mL (For 2 weeks then discontinue) Activity: As Tolerated Driving: Do Not Drive Showering/Bathing: May Shower Other/Special Instructions: 1. PT/OT. Regarding her weakness, ambulation and ADLs. 2. Transfer to [facility] for rehabilitation. 3. Patient has an appointment upcoming with Dr. Sierra psychiatry on video please ensure that happens. 4. Recheck with Dr. Gaspar in 1 week. - Discharge Plan *PRESCRIPTION DRUG MONITORING PROGRAM REVIEWED*: Not Applicable *COPY OF PRESCRIPTION DRUG MONITORING REPORT IN PATIENT JAYNA: Not Applicable Prescriptions/Med Rec: levoFLOXacin [Levaquin] 250 mg PO Q24H #4 tablet QUEtiapine [SEROquel] 25 mg PO BEDTIME #30 tablet Home Medications: Home Meds Multivitamin [Multi-Vitamin Daily] 1 tab PO DAILY@1200 03/02/16 [History] allopurinoL [Zyloprim] 150 mg PO DAILY 03/02/16 [History] Docusate Sodium [Colace] 100 mg PO DAILY@1500 03/06/17 [History] Budesonide/Formoterol Fumarate [Symbicort 160-4.5 Mcg Inhaler] 2 puff INH 08,16 06/28/20 [History] ClonazePAM [KlonoPIN] 0.5 mg PO TID@,,06/28/20 [History] Furosemide 20 mg PO DAILY 06/28/20 [History] L Gasseri/B Bifidum/B Longum [Small' Colon Health Capsule] 1 cap PO DAILY 06/28/20 [History] Tiotropium [Spiriva HandiHaler] 2 puff INH 12 06/28/20 [History] busPIRone [Buspar] 15 mg PO BIDMEALS 06/28/20 [History] predniSONE [Prednisone] 5 mg PO DAILY 06/28/20 [History] Calcium Citrate/Vitamin D3 [Calcium Citrate - Vit D3 Tab] 1 tab PO BID 06/29/20 [History] Dextran 70/Hypromellose [Artificial Tears] 1 drop EYEBOTH BID PRN 06/29/20 [History] Acetaminophen [Non-Aspirin Extra Strength] 500 mg PO Q4H PRN 07/24/20 [History] Furosemide [Lasix] 20 mg PO DAILY tablet 07/28/20 [Rx] QUEtiapine [SEROquel] 25 mg PO BEDTIME #30 tablet 07/28/20 [Rx] levoFLOXacin [Levaquin] 250 mg PO Q24H #4 tablet 07/28/20 [Rx] Patient Handouts: Fall Prevention in Hospitals, Adult, Venous Thromboembolism Prevention Forms: ED Department Discharge Referrals: PCP,None [Primary Care Provider] - - Discharge Summary/Plan Comment DC Time >30 min.: No - Patient Data Vitals - Most Recent: Last Vital Signs Temp 97.5 F 07/27/20 16:00 Pulse 99 07/27/20 16:00 Resp 18 07/27/20 16:00 BP 138/88 07/27/20 16:00 Pulse Ox 98 07/27/20 16:00 Weight - Most Recent: 137 lb 6.4 oz EDGARDO Results - Last 24 hrs: Microbiology 07/24/20 11:40 Aerobic Blood Culture - Preliminary Blood - Venous NO GROWTH AFTER 3 DAYS Anaerobic Blood Culture - Preliminary NO GROWTH AFTER 3 DAYS 07/24/20 11:45 Aerobic Blood Culture - Preliminary Blood - Venous - Lab Draw NO GROWTH AFTER 3 DAYS Anaerobic Blood Culture - Preliminary NO GROWTH AFTER 3 DAYS Med Orders - Current: Current Medications Acetaminophen (Acetaminophen 325 Mg Tab) 650 mg PO Q4H PRN PRN Reason: Pain (Mild 1-3)/fever Last Admin: 07/27/20 20:59 Dose: 650 mg Documented by: Allopurinol (Allopurinol 300 Mg Tab) 150 mg PO DAILY [facility] Last Admin: 07/27/20 08:52 Dose: 150 mg Documented by: Buspirone HCl (Buspirone 15 Mg Tab) 15 mg PO BIDMEALS [facility] Last Admin: 07/28/20 07:42 Dose: 15 mg Documented by: Calcium Carbonate/Glycine (Calcium Carbonate 500 Mg Tablet) 500 mg PO BID@1200,2100 [facility] Last Admin: 07/27/20 20:59 Dose: 500 mg Documented by: Clonazepam (Clonazepam 0.5 Mg Tab) 0.5 mg PO TID@10,15,21 [facility] Last Admin: 07/27/20 20:59 Dose: 0.5 mg Documented by: Furosemide (Furosemide 20 Mg Tab) 20 mg PO DAILY [facility] Last Admin: 07/27/20 08:53 Dose: 20 mg Documented by: Levofloxacin (Levofloxacin 250 Mg Tab) 250 mg PO Q24H [facility] Last Admin: 07/28/20 07:42 Dose: 250 mg Documented by: Magnesium Hydroxide (Magnesium Hydroxide 400 Mg/5 Ml Susp 30 Ml Cup) 30 ml PO Q12H PRN PRN Reason: Constipation Melatonin (Melatonin 3 Mg Tab) 3 mg PO BEDTIME PRN PRN Reason: Insomnia Last Admin: 07/28/20 00:14 Dose: 3 mg Documented by: Mometasone Furoate/Formoterol Fumar (Formoterol/Mometasone 200-5 Mcg 8.8 Gm Inhaler) 0 puff IH 08,16 [facility] Last Admin: 07/28/20 07:42 Dose: 2 puff Documented by: Multivitamins/Minerals/Vitamin C (Multivitamin Tab) 1 tab PO DAILY@1200 [facility] Last Admin: 07/27/20 12:34 Dose: 1 tab Documented by: Refresh Optive Ravinder- (3 Eye Drop) 1 each EYEBOTH BID PRN PRN Reason: Dry Eyes Prednisone (Prednisone 20 Mg Tab) 20 mg PO WITHBREAKFAST [facility] Last Admin: 07/28/20 07:42 Dose: 20 mg Documented by: Quetiapine Fumarate (Quetiapine 25 Mg Tab) 25 mg PO BEDTIME [facility] Last Admin: 07/27/20 20:59 Dose: 25 mg Documented by: Sodium Chloride (Sodium Chloride 0.9% 10 Ml Syringe) 10 ml FLUSH ASDIRECTED PRN PRN Reason: Keep Vein Open Last Admin: 07/24/20 15:08 Dose: 10 ml Documented by: Tiotropium [place] (Tiotropium [place] 4 Gm Inhalation Wallace (2.5mcg/1 Dose; 10 Doses)) 0 gm INH 12 [facility] Last Admin: 07/27/20 12:34 Dose: 2 puff Documented by: Discontinued Medications Acetaminophen (Acetaminophen 325 Mg Tab) 650 mg PO NOW ONE Stop: 07/24/20 13:39 Last Admin: 07/24/20 15:38 Dose: 650 mg Documented by: Artificial Tears (Carboxymethylcellulose Sodium 0.5% Ophth Soln 0.4 Ml Ud Box Of 30) 0 each EYEBOTH BID PRN PRN Reason: Dry Eyes Calcium Carbonate/Glycine (Calcium Carbonate 500 Mg Tablet) 500 mg PO BID [facility] Last Admin: 07/26/20 20:06 Dose: 500 mg Documented by: Enoxaparin Sodium (Enoxaparin 30 Mg/0.3 Ml Syringe) 30 mg SUBCUT Q24H [facility] Last Admin: 07/26/20 16:20 Dose: 30 mg Documented by: Furosemide (Furosemide 20 Mg Tab) 20 mg PO DAILY [facility] Furosemide (Furosemide 40 Mg/4 Ml Vial) 40 mg IVPUSH NOW ONE Stop: 07/25/20 07:35 Last Admin: 07/25/20 08:45 Dose: 40 mg Documented by: Gabapentin (Gabapentin 600 Mg Tab) 600 mg PO BEDTIME [facility] Last Admin: 07/24/20 21:14 Dose: 600 mg Documented by: Ciprofloxacin/Dextrose 400 mg/ (Premix) 200 mls @ 200 mls/hr IV Q12H [facility] Last Admin: 07/24/20 15:20 Dose: 200 mls/hr Documented by: Levofloxacin/Dextrose 500 mg/ (Premix) 100 mls @ 100 mls/hr IV Q24H [facility] Stop: 07/28/20 18:59 Last Admin: 07/24/20 22:51 Dose: Not Given Documented by: Levofloxacin/Dextrose 500 mg/ (Premix) 100 mls @ 100 mls/hr IV ONETIME ONE Stop: 07/25/20 09:59 Last Admin: 07/25/20 08:52 Dose: 100 mls/hr Documented by: Levofloxacin/Dextrose 250 mg/ (Premix) 50 mls @ 50 mls/hr IV Q24H [facility] Stop: 07/31/20 09:59 Last Admin: 07/26/20 08:27 Dose: 50 mls/hr Documented by: Sodium Chloride (Normal Saline) 1,000 mls @ 70 mls/hr IV ASDIRECTED [facility] Last Admin: 07/24/20 20:03 Dose: 70 mls/hr Documented by: Methylprednisolone Sodium Succinate (Methylprednisolone Sodium Succinate 125 Mg/2 Ml Sdv) 80 mg IVPUSH Q8H [facility] Last Admin: 07/25/20 05:50 Dose: 80 mg Documented by: Ondansetron HCl (Ondansetron 4 Mg/2 Ml Sdv) 4 mg IV Q4H PRN PRN Reason: Nausea/Vomiting Paroxetine HCl (Paroxetine 10 Mg Tab) 10 mg PO BEDTIME [facility] Last Admin: 07/24/20 21:14 Dose: 10 mg Documented by: Potassium Chloride (Potassium Chloride 20 Meq Tab.Er) 40 meq PO ONETIME ONE Stop: 07/24/20 14:06 Last Admin: 07/24/20 15:27 Dose: 40 meq Documented by: Prednisone (Prednisone 5 Mg Tab) 5 mg PO DAILY [facility] Prednisone (Prednisone 20 Mg Tab) 40 mg PO WITHBREAKFAST [facility] Last Admin: 07/27/20 08:55 Dose: Not Given Documented by: Quetiapine Fumarate (Quetiapine 25 Mg Tab) 12.5 mg PO BEDTIME [facility] Last Admin: 07/26/20 20:06 Dose: 12.5 mg Documented by: Sodium Chloride (Sodium Chloride 0.9% 10 Ml Syringe) 70 ml IV DAILY [facility] Last Admin: 07/24/20 22:51 Dose: Not Given Documented by: Sodium Chloride (Sodium Chloride 1 Gm Tab) 1 gm PO BID [facility] Last Admin: 07/26/20 08:15 Dose: 1 gm Documented by: Sodium Chloride (Sodium Chloride 1 Gm Tab) 1 gm PO DAILY [facility]
[2020-07-28] MEDS: Furosemide 20 MG Tab PO SCH (08:32)
[2020-07-28] MEDS: Allopurinol 300 MG Tab PO SCH (08:33)
[2020-07-28 08:35] VITALS: BP 116/74
[2020-07-28] MEDS: ClonazePAM 0.5 MG Tab PO SCH (09:14)
[2020-07-28] MEDS: Acetaminophen 325 MG Tab PO PRN (09:29)
== END 2020-07-28 09:55 | DRG 292 ==
LOC: FB.ED 10:38 → FB.MS 13:10
PROVIDERS: ADMIT Emergency Medicine; ATTEND Family Medicine
DX: I11.0 Hypertensive heart disease with heart failure (principal); E87.1 Hypo-osmolality and hyponatremia; R79.82 Elevated C-reactive protein (CRP); N30.01 Acute cystitis with hematuria; E87.2 Acidosis; J44.1 Chronic obstructive pulmonary disease with (acute) exacerbation; J44.0 Chronic obstructive pulmonary disease with (acute) lower respiratory infection; I50.9 Heart failure, unspecified; Z66 Do not resuscitate; Z51.5 Encounter for palliative care; J20.9 Acute bronchitis, unspecified; H54.7 Unspecified visual loss; K21.9 Gastro-esophageal reflux disease without esophagitis; M19.90 Unspecified osteoarthritis, unspecified site; G89.29 Other chronic pain; Z88.6 Allergy status to analgesic agent; M54.9 Dorsalgia, unspecified; G62.9 Polyneuropathy, unspecified; Z79.51 Long term (current) use of inhaled steroids; M54.2 Cervicalgia; G43.909 Migraine, unspecified, not intractable, without status migrainosus; G47.00 Insomnia, unspecified; Z96.653 Presence of artificial knee joint, bilateral; Z96.642 Presence of left artificial hip joint; Z85.828 Personal history of other malignant neoplasm of skin; Z98.49 Cataract extraction status, unspecified eye; Z87.01 Personal history of pneumonia (recurrent); Z87.440 Personal history of urinary (tract) infections; Z90.89 Acquired absence of other organs; Z91.048 Other nonmedicinal substance allergy status; Z79.899 Other long term (current) drug therapy; Z88.8 Allergy status to other drugs, medicaments and biological substances; Z88.5 Allergy status to narcotic agent; Z79.52 Long term (current) use of systemic steroids; Z90.49 Acquired absence of other specified parts of digestive tract
CPT/HCPCS: 36415; 71045; 80048; 80053; 81001; 83605; 83880; 84484; 85025; 86140; 87040; 87086; 93005; 97166-GO; A9270-GY; J0744; J1650; J1940; J1956; J2930; J7030; J7512

== ENCOUNTER 2020-10-20 16:14 | Inpatient (IN) | payer MEDICARE, BC ==
[2020-10-20] MEDS ORDERED: Non-Formulary Medication 1 Each (Dextran 70/Hypromellose [Artificial Tears] 1 EACH Dropere EYEBOTH PRN (17:18)
[2020-10-20] MEDS ORDERED: Polyethylene Glycol 3350 Powder 17 GM Packet PO PRN (17:18)
[2020-10-20] MEDS ORDERED: Furosemide 40 MG/4 ML VIAL IVPUSH ONE (17:20)
[2020-10-20] MEDS: Sodium Chloride 0.9% 10 ML Syringe FLUSH PRN ×2 (17:20→17:39)
[2020-10-20] MEDS ORDERED: guaiFENesin 100 MG/5 ML Soln 5 ML UD Cup PO PRN (17:34)
[2020-10-20] MEDS ORDERED: Formoterol/Mometasone 200-5 MCG 8.8 GM Inhaler IH SCH (17:35)
[2020-10-20] MEDS ORDERED: Tiotropium Bromide 4 GM Inhalation Spray (2.5mcg/1 dose; 10 doses) INH ONE (17:57)
[2020-10-20] MEDS ORDERED: Sodium Chloride 3% 500 ML IV SCH (18:00)
[2020-10-20] MEDS: Acetaminophen 650 MG Tab.ER PO SCH (18:18)
[2020-10-20] MEDS ORDERED: Non-Formulary Medication 1 Each (Melatonin [Melatonin] 10 MG Tablet) PO SCH (20:00)
[2020-10-20] MEDS ORDERED: Acetaminophen 650 MG Tab.ER PO SCH (20:00)
[2020-10-20] MEDS: Melatonin 3 MG Tab PO SCH (20:17)
[2020-10-20] MEDS: Gabapentin 600 MG Tab PO SCH (20:18)
[2020-10-20] MEDS: Enoxaparin 40 MG/0.4 ML Syringe SUBCUT SCH (20:19)
[2020-10-20] MEDS: ClonazePAM 0.5 MG Tab PO SCH (20:19)
[2020-10-20] MEDS: Docusate Sodium 100 MG Cap PO SCH (20:19)
[2020-10-21] MEDS: Acetaminophen/Codeine 300-30 MG Tab PO SCH ×2 (02:14→20:57)
[2020-10-21] MEDS: Acetaminophen 650 MG Tab.ER PO SCH ×3 (03:19→18:01)
--- NOTE | 2020-10-21 06:16 | HP ---
ADMISSION DATE: 10/20/2020 CHIEF COMPLAINT: Shortness of breath with congestive heart failure. HISTORY OF PRESENT ILLNESS: Ms. Fernandez is an 80-year-old resident of [facility] with a history of chronic control compensated congestive heart failure, COPD, anxiety, and hyperuricemia. The patient had been in her normal state of health until last couple of days when she began to get more short of breath. She found that she had an episode yesterday where she was walking and felt like her knees were suddenly going to give out and fall. She did not actually fall or hurt herself, but has had significant shortness of breath since that time. She is not having fever, chills, sweats. She has a cough productive mainly of a small amount of clear phlegm. No chest pain, palpitations, abdominal pain, nausea, diarrhea. She reports, however, she is having severe swelling that extends up to her mid thighs. PAST MEDICAL HISTORY: Chronic pulmonary fibrosis with COPD - on oxygen, chronic congestive heart failure, chronic essential hypertension, history of gout, low back pain, history of hip fracture with prosthesis and pubic fracture, history of lumbar compression fracture, CKD stage 3, type 2 diabetes. She is status post cataract surgery. 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 She has a history of fibromyalgia, glaucoma. She is status post appendectomy, back surgery, carpal tunnel surgery, bilateral cataract surgeries, cholecystectomy, colonoscopy, bilateral knee arthroplasties, neck surgery, left total hip arthroplasty, T and A, and skin biopsies. ADDENDUM (JOB [id number]): MEDICATIONS: 1. Spiriva 1 inhalation daily. 2. Prednisone 5 mg daily. 3. MiraLAX 17 g daily. 4. Melatonin 10 mg at bedtime. 5. Guaifenesin 10 mL q.4 hours p.r.n. cough. 6. Gabapentin 600 mg daily. 7. Docusate 100 mg b.i.d. 8. Artificial Tears, both eyes, b.i.d. 9. Clonazepam 0.5 mg t.i.d. 10.Refresh Optive Ravinder-3 drops 1 drop, both eyes, b.i.d. 11.BuSpar 15 mg b.i.d. 12.Symbicort 160 two puffs b.i.d. 13.Allopurinol 150 mg daily. 14.Tylenol No. 3 p.r.n. 15.Tylenol p.r.n. 16.Multivitamin 1 daily. 17.[employer] 1 daily. 18.Furosemide 20 mg daily. 19.Calcium 1 daily. ALLERGIES: Diclofenac causes pain; Savella, reaction unknown; morphine caused confusion; albuterol caused tachycardia; and adhesive tape caused a rash. HABITS: Nonsmoker and nondrinker. FAMILY AND SOCIAL HISTORY: The patient lives at [facility] in [place]. She is and next of kin listed as Melyssa Fernandez, daughter, in [place], [place]. REVIEW OF SYSTEMS: No seizures. No syncope. She does not know her normal weight, but obviously has gained weight with the amount of fluid she has. No headaches. She does have a slight cough. She has dyspnea with activity. No chest pain or palpitations. No abdominal pain, nausea, or diarrhea. No hematochezia or melena. No hematuria. She has a decreased urinary output. No joint inflammation. She does have swelling and has a chronic back pain. PHYSICAL EXAMINATION: GENERAL: She is alert and a good historian. VITAL SIGNS: Blood pressure 138/88, pulse 92, respirations normal, O2 saturation 92% on 4 L of nasal cannula oxygen, temperature 97.8. SKIN: Anicteric, warm, dry, without rash. HEENT: Shows pupils to be equal and reactive with evidence of previous cataract surgery. Mouth is clear. LUNGS: Have rales from upper to lower lung albert bilaterally. HEART: Regular without murmur or gallop. ABDOMEN: Obese, soft, nontender. EXTREMITIES: Show 3+ pitting edema to the mid thighs bilaterally. LABORATORY DATA: White count 9500, hemoglobin 12.6, MCV 100.7. Sodium 127, potassium 4.4, BUN 30, creatinine 1.2. Urinalysis shows proteinuria. ASSESSMENT: 1. An 80-year-old woman with massive edema consistent with acute congestive heart failure superimposed on chronic congestive heart failure. 2. Chronic obstructive pulmonary disease with pulmonary fibrosis. 3. History of hip fracture with open reduction and internal fixation, pelvis fracture, lumbar spine fracture. 4. Fibromyalgia. 5. History of gout. 6. Anxiety. PLAN: We will diurese her. Plan to replace her sodium and follow electrolytes closely. I anticipate a 72-hour plus hospitalization followed by return to [facility] when able. /[id number] RADHA/KILO
[2020-10-21] MEDS ORDERED: GLY EYEBOTH SCH (08:00)
[2020-10-21] MEDS ORDERED: [UNRECOGNIZED DRUG - OTHER] EYEBOTH SCH (08:00)
[2020-10-21] MEDS ORDERED: CARBOXYMETHYL EYEBOTH SCH (08:00)
[2020-10-21] MEDS ORDERED: Polyvinyl Alcohol 1.4%/Povidone 0.6% Ophth Soln 0.4 ML Box of 30 EYEBOTH SCH (08:00)
[2020-10-21] MEDS ORDERED: Non-Formulary Medication 1 Each (Budesonide/Formoterol Fumarate [Symbicort 160-4.5 Mcg Inh INH SCH (08:00)
[2020-10-21] MEDS ORDERED: POLY80 EYEBOTH SCH (08:00)
[2020-10-21] MEDS: Tiotropium Bromide 4 GM Inhalation Spray (2.5mcg/1 dose; 10 doses) INH SCH (08:40)
[2020-10-21] MEDS: busPIRone 15 MG Tab PO SCH ×2 (08:40→15:44)
[2020-10-21] MEDS: Docusate Sodium 100 MG Cap PO SCH ×2 (08:40→20:47)
[2020-10-21] MEDS: Allopurinol 300 MG Tab PO SCH (08:43)
[2020-10-21] MEDS: predniSONE 5 MG Tab PO SCH (08:43)
[2020-10-21] MEDS: Furosemide 80 MG Tab PO SCH ×2 (08:43→13:26)
[2020-10-21] MEDS ORDERED: Metolazone 5 MG Tab PO ONE (09:14)
[2020-10-21] MEDS: Formoterol/Mometasone 200-5 MCG 8.8 GM Inhaler IH SCH ×2 (09:37→15:44)
[2020-10-21] MEDS: ClonazePAM 0.5 MG Tab PO SCH ×3 (09:37→20:48)
--- NOTE | 2020-10-21 10:17 | CR ---
INDICATION: CHF. CHEST, TWO VIEWS: AP sitting view of the chest was obtained 10/21/20 and compared with 07/24/20 and 07/01/20. Elevated right hemidiaphragm is again noted likely on the basis of anatomic variant. Colonic interposition is again noted at the right hemidiaphragm. The heart did not appear grossly enlarged. However, pulmonary vasculature appears somewhat congested raising question of mild or early CHF. The aorta is tortuous with calcification in the arch and descending portion. No gross consolidating pneumonia or significant effusion was identified. IMPRESSION: Findings suggest pulmonary vascular congestion and possibly CHF due to acute myocardial event, but should be correlated clinically as other cause of pulmonary vascular congestion could be present. Additionally, the possibility of interstitial disease of infectious nature versus edema should be considered. MTDD
[2020-10-21] MEDS: Diltiazem 120 MG Cap.CD PO SCH (10:46)
--- NOTE | 2020-10-21 11:06 | PN ---
DATE SEEN: 10/21/2020 HISTORY: Ladan is an 80-year-old woman with a history of severe pulmonary artery hypertension with right and left-sided heart failure. She was admitted through the clinic because of increasing shortness of breath. She was found to have massive lower body edema. The patient denies chest pain, palpitations, but reports her shortness of breath has increased over the past several days. She was admitted and started on IV Lasix because of hyponatremia. Her sodium was replaced with 3% saline yesterday. She is examined in her bed this morning. She is comfortable, but states her breathing is not much better. PHYSICAL EXAMINATION: VITAL SIGNS: Blood pressure 141/82, pulse 110 and regular, respirations 18, O2 saturation 100% on 3 L nasal cannula, temperature 97.8. Weight 159 pounds, this is unchanged from admission. SKIN: Shows no rash. MOUTH: Dry. LUNGS: Have clear air movement in the upper lung albert bilaterally, but she has rales starting at mid lung bilaterally and absent breath sounds at the left base. HEART: Regular without murmur or gallop. ABDOMEN: Soft and nontender. No specific ascites is noted and no masses are felt. EXTREMITIES: Lower extremity shows 4+ edema to the mid thighs bilaterally. ASSESSMENT: 1. Acute right and left heart failure. 2. Pulmonary artery hypertension. 3. Long-term elevated right hemidiaphragm creating restrictive airways disease. 4. Chronic fibromyalgia. 5. History of gout. PLAN: We will increase her diuresis. Continue to monitor her sodium. We will also check an echocardiogram and because of her significant lower extremity preponderance of edema, plan CT of the abdomen and pelvis. I will place a De La Cruz catheter because of her expected large diuresis. We will continue to provide palliative care measures, and plans are for discharge to return to her home at [facility] when she is strong enough. She may need swing bed rehabilitation additionally before discharge. /[id number] RADHA/KILO
[2020-10-21] MEDS ORDERED: Non-Formulary Medication 1 Each (Tiotropium [Spiriva Handihaler] 18 MCG Cap) INH SCH (12:00)
[2020-10-21] MEDS ORDERED: Iopamidol 755 Mg/ML 75 ML Bottle IV ONE (12:05)
[2020-10-21] MEDS ORDERED: Diatrizoate Meglumine/Diatrizoate Sodium 37% 30 ML Bottle PO ONE (12:05)
--- NOTE | 2020-10-21 18:10 | CT ---
INDICATION: Lower extremity edema. Question obstructive process. CT ABDOMEN AND PELVIS WITH CONTRAST: Spiral 3.75 mm axial sections were obtained through the abdomen and pelvis with 75 mL Isovue-370 at 2 cc/second with sagittal and coronal reconstructions 10/21/20, and compared with 05/03/12. TOTAL EXAM DLP: 992.84 mGy/cm. Progressive lower lung field pulmonary markings are noted, which likely are on the basis of chronic bronchitis with bronchiectasis - chronic inflammatory disease and fibrosis. No gross consolidating pneumonia or definite acute effusion was seen. Calcifications are noted in aortic and mitral valve areas and coronary arteries. The heart appears enlarged. No pericardial effusion was seen. Colonic interposition is noted on the right. The stomach is again somewhat distended, raising question of gastroparesis, etc. No definite mechanically obstructive process was identified. There was noted oral contrast utilized in this examination. The oral contrast extended into the small bowel fairly distally. No free air was noted. There is a small periumbilical hernia, including only fat, present previously. No inguinal hernia was noted. There is increased density in the subcutaneous fat with a decrease in subcutaneous fat overall, compared with the previous study. The possibility of a process, such as anasarca, would be a consideration with this appearance - correlate clinically. Calcifications are noted in the abdominal aorta, splenic artery, origin of the left renal artery, iliac and femoral arteries. Calcifications are noted without aneurysmic dilatation. The liver appears somewhat prominent in size and decreased in density, suggesting a significant degree of fatty liver. The gallbladder is absent, compatible with a history of its removal, with the common bile duct felt to be normal in caliber, allowing for post cholecystectomy status. The adrenal glands and spleen appeared normal. The pancreas appears to be decreased in size with increased prominence of the pancreatic duct. It has increased from barely visible on the previous study to approximately 5 mm in the proximal body of the pancreas and approximately 5 mm near the head of the pancreas. The common bile duct was felt to be normal in caliber for postcholecystectomy status, as mentioned before, measuring 13 mm. No retroperitoneal mass was identified. The presence of multiple cystic changes in both kidneys is again noted, with the largest cyst at the upper pole of the right kidney, measuring approximately 37 mm, which actually is slightly smaller than on the previous examination. There is a moderate increase in size in right lower pole cystic structures with one new cyst in the right lower pole. No definite obstructive uropathy was seen. The gallbladder is absent, compatible with history of its removal. The appendix is absent, compatible with history of its removal. No other mass lesions, organomegaly or significant-appearing free fluid collections were identified in the abdomen or pelvis. There may be a trace amount of fluid in the lower left pelvis adjacent to the uterus. Arcuate artery calcifications are noted in the uterus. The urinary bladder showed evidence of a De La Cruz catheter in place with some gas in the bladder, likely on that basis. Detail is limited in that area due to hard beam artifact from a total left hip prosthesis. Hypertrophic degenerative changes and disc disease are noted throughout the thoracolumbosacral spine visualized. IMPRESSION: 1. Somewhat distended-appearing stomach, which raises question of a process, such as gastroparesis of mild degree. 2. Relatively attenuated pancreas with increased size of the pancreatic duct - no definite mass was seen. Findings should be correlated clinically. Additional work up, such as MRCP may be necessary for further examination. 3. Multicystic changes in the kidneys with slight changes. 4. Prominent liver with decreased density, compatible with fatty liver. 5. Postcholecystectomy and postappendectomy. 6. Small periumbilical hernia, including only fat. 7. ASD/ASHD. 8. Hypertrophic degenerative changes and disc disease thoracolumbosacral spine. 9. Parenchymal changes in the lung bases, which may be on the basis of interval fibrosis and chronic inflammatory disease with bronchiectasis, definitely progressive compared with the previous examination. A degree of pulmonary edema would also be a consideration, but should be correlated clinically. There is suggestion of increased density in the subcutaneous tissues throughout the abdomen raising question of anasarca. The heart did not appear grossly enlarged, however. It did appear to be at the upper limits of normal or slightly enlarged in size. 10. A De La Cruz catheter is noted in place in the urinary bladder with probable air bubbles secondary to its placement. This should be correlated clinically, as gas-forming organism infection would also be a consideration. 11. Total hip prosthesis on the left, producing hard beam artifact, which limits detail in the pelvis. MTDD
[2020-10-21] MEDS: Gabapentin 600 MG Tab PO SCH (20:49)
[2020-10-21] MEDS: Melatonin 3 MG Tab PO SCH (20:49)
[2020-10-21] MEDS: Enoxaparin 40 MG/0.4 ML Syringe SUBCUT SCH (21:02)
[2020-10-22] MEDS: Acetaminophen 650 MG Tab.ER PO SCH (01:35)
[2020-10-22] MEDS ORDERED: Acetaminophen/Codeine 300-30 MG Tab PO PRN (08:27)
[2020-10-22] MEDS: busPIRone 15 MG Tab PO SCH ×2 (09:33→15:51)
[2020-10-22] MEDS: Allopurinol 300 MG Tab PO SCH (09:33)
[2020-10-22] MEDS: Docusate Sodium 100 MG Cap PO SCH ×2 (09:34→21:34)
[2020-10-22] MEDS: Diltiazem 120 MG Cap.CD PO SCH (09:34)
[2020-10-22] MEDS: predniSONE 5 MG Tab PO SCH (09:34)
[2020-10-22] MEDS: Formoterol/Mometasone 200-5 MCG 8.8 GM Inhaler IH SCH ×2 (09:34→15:57)
[2020-10-22] MEDS: Tiotropium Bromide 4 GM Inhalation Spray (2.5mcg/1 dose; 10 doses) INH SCH (09:35)
[2020-10-22] MEDS: ClonazePAM 0.5 MG Tab PO SCH ×3 (09:37→21:35)
[2020-10-22] MEDS: Metolazone 5 MG Tab PO SCH (09:37)
[2020-10-22] MEDS: Acetaminophen 650 MG Tab.ER PO PRN (10:42)
[2020-10-22] MEDS: Furosemide 80 MG Tab PO SCH ×2 (10:42→13:32)
--- NOTE | 2020-10-22 11:02 | PN ---
DATE SEEN: 10/22/2020 HISTORY: Ms. Fernandez is an 80-year-old woman with severe pulmonary fibrosis with pulmonary hypertension and pulmonary artery hypertension. She was admitted from the clinic because of increasing shortness of breath and swelling. On admission, her weight was 159 pounds 9 ounces, and she had marked edema of the lower extremities up to the mid thighs. The patient was started on IV Lasix. A De La Cruz catheter was placed for the anticipated diuresis and she began losing fluid and a small amount of weight. She is examined this morning, sitting in a chair after eating her breakfast. PHYSICAL EXAMINATION: VITAL SIGNS: Blood pressure 142/87, pulse 86, respirations normal, O2 sat 98% on 4 L nasal cannula. Weight 158 pounds 12 ounces. SKIN: Shows no rash. HEENT: Mouth is dry. LUNGS: Have rales from group home down on each side to the base. HEART: Slightly irregular. No murmurs heard. ABDOMEN: Soft. EXTREMITIES: Have Walker wraps in place, but tops of her feet have 3+ edema with still some edema visible above the wraps as well. LABORATORY: Hemoglobin 11.5, sodium 131, potassium 3.8, BUN 33, creatinine 1.3. BNP 20,500, down from 27,000. ASSESSMENT: 1. Right heart failure with cor pulmonale and massive edema. 2. Left heart failure secondary to right heart failure with mild pulmonary edema. 3. Severe pulmonary fibrosis with pulmonary and pulmonary artery hypertension. 4. Chronic obstructive pulmonary disease. 5. Anxiety. PLAN: I will increase her diuresis by adding additional metolazone and Lasix twice a day. I started her on diltiazem yesterday for the pulmonary artery hypertension. CT of the abdomen and pelvis was done showing no sign of obstructive process, but worsening of her basilar pulmonary fibrosis. We will continue diuresis. She may need additional IV Lasix. We will plan to slowly increase her diltiazem dose as tolerated for her pulmonary artery hypertension. We will continue her DNR/DNI status and provide palliative care measures. Anticipate discharge back to [facility] when able. /[id number] RO/MODL
[2020-10-22] MEDS: Melatonin 3 MG Tab PO SCH (21:35)
[2020-10-22] MEDS: Gabapentin 600 MG Tab PO SCH (21:35)
[2020-10-22] MEDS: Enoxaparin 40 MG/0.4 ML Syringe SUBCUT SCH (21:36)
[2020-10-23] MEDS: Acetaminophen 650 MG Tab.ER PO PRN (02:57)
[2020-10-23] MEDS: Metolazone 5 MG Tab PO SCH (06:42)
[2020-10-23] MEDS: ClonazePAM 0.5 MG Tab PO SCH (08:17)
[2020-10-23] MEDS: Docusate Sodium 100 MG Cap PO SCH (08:17)
[2020-10-23] MEDS: Furosemide 80 MG Tab PO SCH (08:17)
[2020-10-23] MEDS: Allopurinol 300 MG Tab PO SCH (08:17)
[2020-10-23] MEDS: busPIRone 15 MG Tab PO SCH (08:17)
[2020-10-23] MEDS: Formoterol/Mometasone 200-5 MCG 8.8 GM Inhaler IH SCH (08:18)
[2020-10-23] MEDS: predniSONE 5 MG Tab PO SCH (08:18)
[2020-10-23] MEDS: Tiotropium Bromide 4 GM Inhalation Spray (2.5mcg/1 dose; 10 doses) INH SCH (08:18)
[2020-10-23] MEDS: Diltiazem 120 MG Cap.CD PO SCH (08:19)
[2020-10-23 08:20] VITALS: BP 123/69
[2020-10-23 15:35] VITALS: PULSE 87
--- NOTE | 2020-10-23 16:12 | CR ---
INDICATION: CHF. CHEST, TWO VIEWS: AP and lateral views of the chest 10/23/20 were compared with 10/21/20 and 07/24/20. Poor inspiration is noted emphasizing markings. Heart size is difficult to evaluate due to the poor inspiration and AP positioning, however, it appears to be somewhat enlarged. Mitral annular calcification is prominent. The aorta is tortuous to a mild degree with calcifications in the arch and descending portion. Pulmonary vascular congestion is suggested similar to the previous examination raising question of CHF and interstitial lung edema. The possibility of superimposed pneumonia and/or fibrosis should also be considered. MTDD
[2020-10-23] MEDS ORDERED: Enoxaparin 30 MG/0.3 ML Syringe SUBCUT SCH (21:00)
--- NOTE | 2020-10-27 10:52 | DISCH ---
DISCHARGE DATE: 10/23/2020 Congestive heart failure with complicated shortness of breath. Ladan Fernandez is an 80-year-old female, resident of [facility], was admitted with acute exacerbation for congestive heart failure, underlying COPD. Had been feeling well until a couple of days prior to admission. She presented with shortness of breath, dyspnea, increasing weakness, and a sense of reduced well-being. On admission, she was found to be in acute congestive heart failure. Please see Dr. Garza's note. Initial radiograph, 10/23/2020, revealed vascular congestion, CHF, and cardiomegaly. During her hospital stay, she was diuresed accordingly. Weight reduced, symptoms improved, oxygenation was improved, and good clinical response was present. De La Cruz catheter was in place. She had an appropriate weight loss during her hospital stay. LABORATORY STUDIES: CBC unremarkable, electrolytes remained satisfactory. Sodium was a little bit low at 130, chloride . BNP 2700, 27,170, 20,539, 12,584. Urinalysis was unremarkable. Due to weakness, general inability to care and admission to swing bed appropriate. Med recon list, see attached. PT/OT will be involved. At the time of discharge, stable, but unable to return to home. /[id number] JUAN/KILO
== END 2020-10-23 11:07 | disposition swing bed (61) | DRG 292 ==
LOC: FB.MS 16:34
PROVIDERS: ADMIT Family Medicine; ATTEND Family Medicine
DX: I13.0 Hypertensive heart and chronic kidney disease with heart failure and stage 1 through stage 4 chronic kidney disease, or unspecified chronic kidney disease (principal); I50.1 Left ventricular failure, unspecified; I50.813 Acute on chronic right heart failure; J44.9 Chronic obstructive pulmonary disease, unspecified; F41.9 Anxiety disorder, unspecified; E79.0 Hyperuricemia without signs of inflammatory arthritis and tophaceous disease; J84.10 Pulmonary fibrosis, unspecified; M10.9 Gout, unspecified; M54.5 Low back pain; N18.30 Chronic kidney disease, stage 3 unspecified; E11.22 Type 2 diabetes mellitus with diabetic chronic kidney disease; Z20.822 Contact with and (suspected) exposure to COVID-19; M79.7 Fibromyalgia; H40.9 Unspecified glaucoma; Z96.642 Presence of left artificial hip joint; Z96.653 Presence of artificial knee joint, bilateral; Z90.49 Acquired absence of other specified parts of digestive tract; Z98.890 Other specified postprocedural states; Z98.41 Cataract extraction status, right eye; Z99.81 Dependence on supplemental oxygen; Z98.49 Cataract extraction status, unspecified eye; Z98.42 Cataract extraction status, left eye; Z88.8 Allergy status to other drugs, medicaments and biological substances; Z79.899 Other long term (current) drug therapy; I27.20 Pulmonary hypertension, unspecified; I27.81 Cor pulmonale (chronic)
CPT/HCPCS: 36415; 71046; 74177; 80048; 80053; 80069; 81001; 83735; 83880; 84443; 84484; 85018; 85025; 93306; 97110-GO; 97161-GP; 97165-GO; 97530-GP; A9270-GY; J1650; J1940; J7131; J7512; Q9963; Q9967; U0002

== ENCOUNTER 2020-10-23 11:07 | Inpatient (IN) | payer MEDICARE, BC ==
[2020-10-23] MEDS ORDERED: Polyethylene Glycol 3350 Powder 17 GM Packet PO PRN (11:29)
[2020-10-23] MEDS ORDERED: Polyvinyl Alcohol 1.4% Ophth Soln 15 ML Bottle EYEBOTH PRN (12:12)
[2020-10-23] MEDS: Furosemide 80 MG Tab PO SCH (14:12)
[2020-10-23] MEDS: busPIRone 15 MG Tab PO SCH (15:35)
[2020-10-23] MEDS: ClonazePAM 0.5 MG Tab PO SCH ×2 (15:35→20:05)
[2020-10-23] MEDS: Calcium Carbonate 500 MG Tablet PO SCH (15:35)
[2020-10-23] MEDS: [UNRECOGNIZED DRUG - OTHER] EYEBOTH SCH (15:36)
[2020-10-23] MEDS: Formoterol/Mometasone 200-5 MCG 8.8 GM Inhaler IH SCH (15:36)
[2020-10-23] MEDS: Docusate Sodium 100 MG Cap PO SCH (20:04)
[2020-10-23] MEDS: Gabapentin 600 MG Tab PO SCH (20:05)
[2020-10-23] MEDS: Melatonin 3 MG Tab PO SCH (20:05)
[2020-10-23] MEDS: Acetaminophen/Codeine 300-30 MG Tab PO PRN (20:45)
[2020-10-23] MEDS: Enoxaparin 30 MG/0.3 ML Syringe SUBCUT SCH (20:46)
[2020-10-23] MEDS: Acetaminophen 650 MG Tab.ER PO SCH (21:00)
[2020-10-24] MEDS: Metolazone 5 MG Tab PO SCH (07:46)
[2020-10-24] MEDS: [UNRECOGNIZED DRUG - OTHER] EYEBOTH SCH ×2 (09:10→15:43)
[2020-10-24] MEDS: Tiotropium Bromide 4 GM Inhalation Spray (2.5mcg/1 dose; 10 doses) INH SCH (09:11)
[2020-10-24] MEDS: Allopurinol 300 MG Tab PO SCH (09:11)
[2020-10-24] MEDS: Formoterol/Mometasone 200-5 MCG 8.8 GM Inhaler IH SCH ×2 (09:11→15:43)
[2020-10-24] MEDS: Docusate Sodium 100 MG Cap PO SCH ×2 (09:11→21:01)
[2020-10-24] MEDS: busPIRone 15 MG Tab PO SCH ×2 (09:11→15:43)
[2020-10-24] MEDS: Acetaminophen 650 MG Tab.ER PO SCH ×2 (09:12→21:01)
[2020-10-24] MEDS: predniSONE 5 MG Tab PO SCH (09:12)
[2020-10-24] MEDS: Diltiazem 120 MG Cap.CD PO SCH (09:12)
[2020-10-24] MEDS: Calcium Carbonate 500 MG Tablet PO SCH ×2 (09:12→15:43)
[2020-10-24] MEDS: Furosemide 80 MG Tab PO SCH ×2 (09:13→13:06)
[2020-10-24] MEDS: ClonazePAM 0.5 MG Tab PO SCH ×3 (09:14→21:01)
[2020-10-24] MEDS: Melatonin 3 MG Tab PO SCH (21:01)
[2020-10-24] MEDS: Enoxaparin 30 MG/0.3 ML Syringe SUBCUT SCH (21:02)
[2020-10-24] MEDS: Gabapentin 600 MG Tab PO SCH (21:05)
[2020-10-25] MEDS: Metolazone 5 MG Tab PO SCH (07:58)
[2020-10-25] MEDS: ClonazePAM 0.5 MG Tab PO SCH ×3 (08:01→19:47)
[2020-10-25] MEDS: Calcium Carbonate 500 MG Tablet PO SCH ×2 (08:01→17:31)
[2020-10-25] MEDS: busPIRone 15 MG Tab PO SCH ×2 (08:01→15:30)
[2020-10-25] MEDS: Docusate Sodium 100 MG Cap PO SCH ×2 (08:01→19:47)
[2020-10-25] MEDS: Allopurinol 300 MG Tab PO SCH (08:01)
[2020-10-25] MEDS: Diltiazem 120 MG Cap.CD PO SCH (08:01)
[2020-10-25] MEDS: Acetaminophen 650 MG Tab.ER PO SCH ×2 (08:01→20:22)
[2020-10-25] MEDS: [UNRECOGNIZED DRUG - OTHER] EYEBOTH SCH ×2 (08:02→15:30)
[2020-10-25] MEDS: Formoterol/Mometasone 200-5 MCG 8.8 GM Inhaler IH SCH ×2 (08:02→15:30)
[2020-10-25] MEDS: Tiotropium Bromide 4 GM Inhalation Spray (2.5mcg/1 dose; 10 doses) INH SCH (08:02)
[2020-10-25] MEDS: predniSONE 5 MG Tab PO SCH (08:02)
[2020-10-25] MEDS: Furosemide 80 MG Tab PO SCH ×2 (09:24→13:23)
[2020-10-25] MEDS: Melatonin 3 MG Tab PO SCH (19:47)
[2020-10-25] MEDS: Gabapentin 600 MG Tab PO SCH (19:47)
[2020-10-25] MEDS: guaiFENesin 100 MG/5 ML Soln 5 ML UD Cup PO PRN (19:47)
[2020-10-25] MEDS: Enoxaparin 30 MG/0.3 ML Syringe SUBCUT SCH (20:22)
[2020-10-26] MEDS: Acetaminophen/Codeine 300-30 MG Tab PO PRN (02:11)
[2020-10-26] MEDS: Metolazone 5 MG Tab PO SCH (08:30)
[2020-10-26] MEDS: busPIRone 15 MG Tab PO SCH ×2 (08:32→15:45)
[2020-10-26] MEDS: [UNRECOGNIZED DRUG - OTHER] EYEBOTH SCH ×2 (08:32→15:45)
[2020-10-26] MEDS: Docusate Sodium 100 MG Cap PO SCH ×2 (08:33→21:42)
[2020-10-26] MEDS: Formoterol/Mometasone 200-5 MCG 8.8 GM Inhaler IH SCH ×2 (08:33→15:45)
[2020-10-26] MEDS: Calcium Carbonate 500 MG Tablet PO SCH ×2 (08:34→15:45)
[2020-10-26] MEDS: predniSONE 5 MG Tab PO SCH (08:34)
[2020-10-26] MEDS: Allopurinol 300 MG Tab PO SCH (08:40)
[2020-10-26] MEDS: Furosemide 80 MG Tab PO SCH (08:40)
[2020-10-26] MEDS: ClonazePAM 0.5 MG Tab PO SCH ×3 (08:43→21:00)
[2020-10-26] MEDS: Diltiazem 120 MG Cap.CD PO SCH (08:46)
[2020-10-26] MEDS: Acetaminophen 650 MG Tab.ER PO SCH ×3 (08:47→21:00)
[2020-10-26] MEDS: Tiotropium Bromide 4 GM Inhalation Spray (2.5mcg/1 dose; 10 doses) INH SCH (08:47)
[2020-10-26] MEDS: Furosemide 40 MG Tab PO SCH (13:54)
[2020-10-26] MEDS: guaiFENesin 100 MG/5 ML Soln 5 ML UD Cup PO PRN (21:00)
[2020-10-26] MEDS: Gabapentin 600 MG Tab PO SCH (21:00)
[2020-10-26] MEDS: Melatonin 3 MG Tab PO SCH (21:00)
[2020-10-26] MEDS: Enoxaparin 30 MG/0.3 ML Syringe SUBCUT SCH (21:00)
[2020-10-27] MEDS: Acetaminophen/Codeine 300-30 MG Tab PO PRN (01:03)
[2020-10-27] MEDS: predniSONE 5 MG Tab PO SCH (08:54)
[2020-10-27] MEDS: Calcium Carbonate 500 MG Tablet PO SCH ×2 (08:54→15:08)
[2020-10-27] MEDS: busPIRone 15 MG Tab PO SCH ×2 (08:55→15:14)
[2020-10-27] MEDS: [UNRECOGNIZED DRUG - OTHER] EYEBOTH SCH ×2 (08:55→15:09)
[2020-10-27] MEDS: Diltiazem 120 MG Cap.CD PO SCH (08:56)
[2020-10-27] MEDS: Docusate Sodium 100 MG Cap PO SCH ×2 (09:00→20:38)
[2020-10-27] MEDS: Formoterol/Mometasone 200-5 MCG 8.8 GM Inhaler IH SCH ×2 (09:00→15:10)
[2020-10-27] MEDS: Tiotropium Bromide 4 GM Inhalation Spray (2.5mcg/1 dose; 10 doses) INH SCH (09:00)
[2020-10-27] MEDS: Allopurinol 300 MG Tab PO SCH (09:01)
[2020-10-27] MEDS: Furosemide 40 MG Tab PO SCH ×2 (09:10→13:19)
[2020-10-27] MEDS: ClonazePAM 0.5 MG Tab PO SCH ×3 (09:10→20:38)
[2020-10-27] MEDS: Acetaminophen 500 MG Tab PO SCH ×3 (09:10→20:38)
--- NOTE | 2020-10-27 10:52 | PN ---
DATE SEEN: 10/26/2020 Ladan Fernandez is an 80-year-old female in swing bed. Comfortable. Tylenol doses under consideration. PT therapy and intervention as appropriate. Medications reviewed and all appropriate. LABORATORY STUDIES: None recent. OBJECTIVE: VITAL SIGNS: 68 kg, 92 is the pulse, 115/68, and 99% on 3 L. GENERAL: Appears comfortable. Speech is fluent. NECK: Benign. No JVD. CHEST: Clear in all lung albert. HEART: No ectopy or murmur. ABDOMEN: Benign. Respiratory, cardiovascular, rehab. PLAN: Medications, care, and treatment. Appropriate therapy in place. /[id number] JUAN/KILO
--- NOTE | 2020-10-27 10:52 | PN ---
DATE SEEN: 10/25/2020 SUBJECTIVE: Ladan Fernandez is an 80-year-old female in rehab care and intervention. Doing well. Therapy is actively involved. Medications reviewed and appropriate. All appear to be appropriate and comfortable. OBJECTIVE: VITAL SIGNS: 69 kg, 75 is the pulse, 138/68, 97%. GENERAL: Cooperative, conversant. Gives a good history. NECK: Benign. Thyroid small. CHEST: Clear in all lung albert. HEART: No ectopy or murmur. ABDOMEN: Benign. ASSESSMENT: 1. Rehab. 2. Congestive heart failure. 3. Medications and care. PLAN: Treatment in place, medications appropriate, no changes required. /[id number] JUAN/KILO
--- NOTE | 2020-10-27 10:52 | HP ---
ADMISSION DATE: 10/23/2020 CHIEF COMPLAINT: Respiratory difficulty, needing continued care. HISTORY OF PRESENT ILLNESS: Ladan Fernandez is an 80-year-old female, resides at [facility], had a recent acute care stay from 10/20/2020 to 10/23/2020. Presented with acute complicated shortness of breath, evidence of edema, suspicion for right heart failure. She underwent an appropriate acute care stay, return to [facility] deemed difficult, and swing bed stay timely and appropriate. MEDICATIONS: Please see med recon list. PAST MEDICAL HISTORY: Significant for chronic pulmonary fibrosis, COPD, congestive heart failure, essential hypertension, hyperuricemia, complicated low back pain, hip fractures, lumbar compression fracture, stage 3 kidney disease, type 2 diabetes mellitus. She has a history of right diaphragmatic paralysis, history of fibromyalgia and glaucoma. SURGICAL HISTORY: She has had bilateral cataract surgery, appendectomy, lumbar back surgery, carpal tunnel, cholecystectomy, bilateral total knee arthroplasties, cervical spine surgery, left total hip arthroplasty, and tonsillectomy. ALLERGIES: Allergic to Diflucan with pain; Savella, reaction unknown; morphine, confusion; albuterol, tachycardia; adhesive tape causing rash. SOCIAL HISTORY: Lives in [facility]. She is . Daughter, next of kin. Nonsmoker. No drinking. REVIEW OF SYSTEMS: CONSTITUTIONAL: Feeling a little better. Denies seizures, syncope. Diuresed appropriately, does have a mild cough and shortness of breath with exertion. Denies chest pain or palpitations. Bowels have been fine. No blood in urine. No blood in stool. PHYSICAL EXAMINATION: VITAL SIGNS: Stable. CONSTITUTIONAL: Appears comfortable. Speech was fluent. Conduct appropriate. HEENT: Funduscopic benign. Bright tympanic membranes. Clean nasal discharge. Mouth and oropharynx clear. NECK: Benign. Thyroid small. CHEST: On auscultation, clear in all lung albert. HEART: Decreased breath sounds at both bases. HEART: Distant heart sounds. Soft murmur. ABDOMEN: Benign. Surgical scar is well healed. No hepatosplenomegaly. : Declined. RECTAL: Declined. EXTREMITIES: Well perfused. Surgical scars both knees, hip, and back. Cervical spine noted. Venous stasis changes, lower extremity. Good peripheral pulses. NEUROLOGIC: Cranial nerves 2 through 12 are intact. Reflex symmetric. Sensation normal. Swing bed stay for rehab purposes. PLAN: Meds, care, and treatment appropriate. PT/OT involve. Complementary care and well being. /[id number] JUAN/KILO
--- NOTE | 2020-10-27 11:24 | PN ---
DATE SEEN: 10/27/2020 SUBJECTIVE: Ladan Fernandez is an 80-year-old female, presently under rehab care. Diuresis appears to be complete. She has gone from 70.5 kg to 66.7 kg. 4 kg, 8.8-pound drop. Of consequence, sodium has dropped to 128, repeated today 129; chloride 84 and 84, carbon dioxide 46 and 48, GFR 39 and 36. Pain control is a primary issue. We will make adjustments accordingly. OBJECTIVE: VITAL SIGNS: 66.7, 36, 90, O2 of 97% on 3 L. GENERAL: Appears comfortable. HEENT: Mouth and oropharynx clear. NECK: Benign. No JVD. CHEST: Decreased breath sounds, but good air exchange. HEART: Distant heart sounds. Soft murmur. ASSESSMENT: Cardiopulmonary disease. PLAN: We will decrease diuresis. Discontinue Zaroxolyn. We will decrease furosemide to 40 b.i.d. Complementary care and well being. Therapy in place. /[id number] JUAN/KILO
[2020-10-27] MEDS: Gabapentin 600 MG Tab PO SCH (20:38)
[2020-10-27] MEDS: Melatonin 3 MG Tab PO SCH (20:38)
[2020-10-27] MEDS: Enoxaparin 30 MG/0.3 ML Syringe SUBCUT SCH (20:38)
[2020-10-28] MEDS: Acetaminophen/Codeine 300-30 MG Tab PO PRN (01:49)
[2020-10-28] MEDS: Tiotropium Bromide 4 GM Inhalation Spray (2.5mcg/1 dose; 10 doses) INH SCH (08:06)
[2020-10-28] MEDS: busPIRone 15 MG Tab PO SCH ×2 (08:06→15:29)
[2020-10-28] MEDS: Formoterol/Mometasone 200-5 MCG 8.8 GM Inhaler IH SCH ×2 (08:06→15:29)
[2020-10-28] MEDS: [UNRECOGNIZED DRUG - OTHER] EYEBOTH SCH ×2 (08:06→15:30)
[2020-10-28] MEDS: Acetaminophen 500 MG Tab PO SCH ×3 (08:07→20:04)
[2020-10-28] MEDS: Calcium Carbonate 500 MG Tablet PO SCH ×2 (08:07→15:29)
[2020-10-28] MEDS: ClonazePAM 0.5 MG Tab PO SCH ×3 (08:08→20:09)
[2020-10-28] MEDS: Docusate Sodium 100 MG Cap PO SCH ×2 (08:08→20:03)
[2020-10-28] MEDS: Furosemide 40 MG Tab PO SCH ×2 (08:09→13:42)
[2020-10-28] MEDS: Diltiazem 120 MG Cap.CD PO SCH (08:09)
[2020-10-28] MEDS: predniSONE 5 MG Tab PO SCH (08:10)
[2020-10-28] MEDS: Allopurinol 300 MG Tab PO SCH (08:10)
[2020-10-28] MEDS: guaiFENesin 100 MG/5 ML Soln 5 ML UD Cup PO PRN (16:48)
[2020-10-28] MEDS: Enoxaparin 30 MG/0.3 ML Syringe SUBCUT SCH (20:04)
[2020-10-28] MEDS: Melatonin 3 MG Tab PO SCH (20:04)
[2020-10-28] MEDS: Gabapentin 600 MG Tab PO SCH (20:04)
[2020-10-29] MEDS: Acetaminophen/Codeine 300-30 MG Tab PO PRN (03:05)
[2020-10-29] MEDS: [UNRECOGNIZED DRUG - OTHER] EYEBOTH SCH ×2 (08:05→15:36)
[2020-10-29] MEDS: busPIRone 15 MG Tab PO SCH ×2 (08:05→15:36)
[2020-10-29] MEDS: Docusate Sodium 100 MG Cap PO SCH ×2 (08:06→20:09)
[2020-10-29] MEDS: Formoterol/Mometasone 200-5 MCG 8.8 GM Inhaler IH SCH ×2 (08:06→15:37)
[2020-10-29] MEDS: Calcium Carbonate 500 MG Tablet PO SCH ×2 (08:07→15:36)
[2020-10-29] MEDS: predniSONE 5 MG Tab PO SCH (08:07)
[2020-10-29] MEDS: Furosemide 40 MG Tab PO SCH ×2 (08:07→14:03)
[2020-10-29] MEDS: Diltiazem 120 MG Cap.CD PO SCH (08:08)
[2020-10-29] MEDS: Allopurinol 300 MG Tab PO SCH (08:08)
[2020-10-29] MEDS: Tiotropium Bromide 4 GM Inhalation Spray (2.5mcg/1 dose; 10 doses) INH SCH (08:09)
[2020-10-29] MEDS: Acetaminophen 500 MG Tab PO SCH (08:09)
[2020-10-29] MEDS: ClonazePAM 0.5 MG Tab PO SCH ×3 (08:17→20:09)
[2020-10-29] MEDS: Acetaminophen 325 MG Tab PO SCH ×2 (14:03→20:09)
--- NOTE | 2020-10-29 14:30 | PN ---
DATE SEEN: 10/28/2020 SUBJECTIVE: Ladan Fernandez is a young lady, 80 years of age, seen today for review. She is in rehab for post-pneumonia compensated congestive heart failure, declining renal function, and severe pulmonary hypertension. We finally found her echocardiogram, which revealed evidence of ejection fraction of 65%, both pulmonary and tricuspid regurgitation, and severe pulmonary hypertension. LABORATORY STUDIES: Of significance diuresis, likely overdiuresed. Sodium 128, 129; chloride 84 and 84; carbon dioxide 46 and 48; GFR 39, 36; creatinine 1.3 and 1.4. MEDICATIONS: Reviewed. OBJECTIVE: VITAL SIGNS: 65.9 kg, 124/69, 18, 93% on 3 L. GENERAL: Cooperative, conversant. Speech was gated due to respiratory issues. HEENT: Mouth and oropharynx clear. NECK: No adenopathy. CHEST: Decreased breath sounds. HEART: Distant heart sounds. Soft murmur. ABDOMEN: Benign. Complicated cardiorespiratory disease. PLAN: Continue therapy in place, medications on board appropriate, diuresis appears to be . Requests Dorothy to be continued. /[id number] JUAN/KILO
--- NOTE | 2020-10-29 14:31 | PN ---
DATE SEEN: 10/29/2020 SUBJECTIVE: Ladan Fernandez is an 80-year-old female. Had been living in [facility]. In today for cardiac rehab. Severe problematic pulmonary hypertension. Diuresis has been successful, reduced doses of furosemide from 80 b.i.d. with zaroxolyn 2.5 daily, now down to 40 mg b.i.d. Appears to be comfortable. Catheter will be removed today. Culture will be obtained. OBJECTIVE: VITAL SIGNS: Stable. CONSTITUTIONAL: Soft spoken. NECK: Benign. No JVD. CHEST: Clear in all lung albert, but distant lung sounds. HEART: Distant heart sounds. Soft murmur. ASSESSMENT: Severe pulmonary hypertension, clinical decline. PLAN: Continue therapy. Discharge back to [facility] probably and likely. /[id number] JUAN/KILO
[2020-10-29] MEDS: guaiFENesin 100 MG/5 ML Soln 5 ML UD Cup PO PRN (19:50)
[2020-10-29] MEDS: Melatonin 3 MG Tab PO SCH (20:09)
[2020-10-29] MEDS: Gabapentin 600 MG Tab PO SCH (20:09)
[2020-10-29] MEDS: Enoxaparin 30 MG/0.3 ML Syringe SUBCUT SCH (20:11)
[2020-10-30] MEDS: Acetaminophen/Codeine 300-30 MG Tab PO PRN ×2 (02:30→23:40)
[2020-10-30] MEDS: [UNRECOGNIZED DRUG - OTHER] EYEBOTH SCH ×2 (07:52→15:04)
[2020-10-30] MEDS: busPIRone 15 MG Tab PO SCH ×2 (07:52→15:04)
[2020-10-30] MEDS: Docusate Sodium 100 MG Cap PO SCH ×2 (07:52→20:08)
[2020-10-30] MEDS: Formoterol/Mometasone 200-5 MCG 8.8 GM Inhaler IH SCH ×2 (07:52→15:03)
[2020-10-30] MEDS: Allopurinol 300 MG Tab PO SCH (07:53)
[2020-10-30] MEDS: Furosemide 40 MG Tab PO SCH (07:53)
[2020-10-30] MEDS: predniSONE 5 MG Tab PO SCH (07:53)
[2020-10-30] MEDS: Calcium Carbonate 500 MG Tablet PO SCH ×2 (07:53→15:04)
[2020-10-30] MEDS: ClonazePAM 0.5 MG Tab PO SCH ×3 (07:56→20:08)
[2020-10-30] MEDS: Tiotropium Bromide 4 GM Inhalation Spray (2.5mcg/1 dose; 10 doses) INH SCH (08:00)
[2020-10-30] MEDS: Acetaminophen 325 MG Tab PO SCH ×3 (08:00→20:08)
[2020-10-30] MEDS: Diltiazem 120 MG Cap.CD PO SCH (08:00)
[2020-10-30] MEDS: Furosemide 20 MG Tab PO SCH (13:23)
[2020-10-30] MEDS ORDERED: Ondansetron 4 MG Tab.DIS PO PRN (13:46)
--- NOTE | 2020-10-30 16:54 | PCM.PN ---
- General Info Date of Service: 10/30/20 Subjective Update: Ladan complaining of more fatigue today, was up more last night urinating after De La Cruz was discontinued, not urinating as much today. She also did a lot of walking yesterday. She feels her breathing is same, at her baseline. She was nauseous early today and that's improved now after Zofran. This morning with PT her blood pressure dropped about 20 points with standing so Lasix decreased to 20 mg bid. She has only drank about 800 ml of water all day, she thought she was supposed to decrease her intake so her sodium would go up but advised her she is on diuretic and she can get dehydrated easily if she is not having adequate intake. She denies any fevers, chills, dysuria or frequency. She has had UTIs before and states she doesn't feel she has one. She was wondering about her sodium as she states she felt like this when sodium was low. Also discussed with her that Lasix makes her lose Sodium. - Patient Data Vitals - Most Recent: Last Vital Signs Temp 97.8 F 10/30/20 06:50 Pulse 92 10/30/20 10:28 Resp 20 10/30/20 06:50 BP 98/68 10/30/20 10:28 Pulse Ox 87 L 10/30/20 10:28 Orthostatic Blood Pressure [ 98/68 Following Ambulation] Orthostatic Blood Pressure [ 114/58 Standing] Orthostatic Blood Pressure [ 104/55 Sitting] Weight - Most Recent: 141 lb 6 oz Wood Results Last 24 Hours: Microbiology 10/29/20 09:05 Urine Culture - Preliminary Urine, Catheterized Gram Negative Rods Med Orders - Current: Current Medications Acetaminophen (Acetaminophen 325 Mg Tab) 650 mg PO TID [facility] Last Admin: 10/30/20 13:24 Dose: 650 mg Documented by: Acetaminophen/Codeine Phosphate (Acetaminophen/Codeine 300-30 Mg Tab) 1 tab PO Q4H PRN PRN Reason: Pain Last Admin: 10/30/20 02:30 Dose: 1 tab Documented by: Allopurinol (Allopurinol 300 Mg Tab) 150 mg PO DAILY@08 [facility] Last Admin: 10/30/20 07:53 Dose: 150 mg Documented by: Artificial Tears (Polyvinyl Alcohol 1.4% Ophth Soln 15 Ml Bottle) 0 ml EYEBOTH BID PRN PRN Reason: Dry Eyes Buspirone HCl (Buspirone 15 Mg Tab) 15 mg PO BID@ [facility] Last Admin: 10/30/20 15:04 Dose: 15 mg Documented by: Calcium Carbonate/Glycine (Calcium Carbonate 500 Mg Tablet) 500 mg PO BID@ [facility] Last Admin: 10/30/20 15:04 Dose: 500 mg Documented by: Clonazepam (Clonazepam 0.5 Mg Tab) 0.5 mg PO TID@ [facility] Last Admin: 10/30/20 15:03 Dose: 0.5 mg Documented by: Diltiazem HCl (Diltiazem 120 Mg Cap.Cd) 120 mg PO DAILY [facility] Last Admin: 10/30/20 08:00 Dose: 120 mg Documented by: Docusate Sodium (Docusate Sodium 100 Mg Cap) 100 mg PO BID@ [facility] Last Admin: 10/30/20 07:52 Dose: 100 mg Documented by: Enoxaparin Sodium (Enoxaparin 30 Mg/0.3 Ml Syringe) 30 mg SUBCUT Q24H [facility] Last Admin: 10/29/20 20:11 Dose: 30 mg Documented by: Furosemide (Furosemide 20 Mg Tab) 20 mg PO BIDDIURETIC [facility] Last Admin: 10/30/20 13:23 Dose: 20 mg Documented by: Gabapentin (Gabapentin 600 Mg Tab) 600 mg PO DAILY@1999 [facility] Last Admin: 10/29/20 20:09 Dose: 600 mg Documented by: Guaifenesin (Guaifenesin 100 Mg/5 Ml Soln 5 Ml Ud Cup) 200 mg PO Q4H PRN PRN Reason: Cough Last Admin: 10/29/20 19:50 Dose: 200 mg Documented by: Melatonin (Melatonin 3 Mg Tab) 9 mg PO DAILY@1999 [facility] Last Admin: 10/29/20 20:09 Dose: 9 mg Documented by: Mometasone Furoate/Formoterol Fumar (Formoterol/Mometasone 200-5 Mcg 8.8 Gm Inhaler) 2 puff IH [facility] Last Admin: 10/30/20 15:03 Dose: 2 puff Documented by: Refresh Optive Ravinder- (3 Drops *Ptom*) 1 drop EYEBOTH BID@ [facility] Last Admin: 10/30/20 15:04 Dose: 1 drop Documented by: Ondansetron HCl (Ondansetron 4 Mg Tab.Dis) 4 mg PO Q6H PRN PRN Reason: Nausea/Vomiting Last Admin: 10/30/20 14:08 Dose: 4 mg Documented by: Polyethylene Glycol (Polyethylene Glycol 3350 Powder 17 Gm Packet) 17 gm PO DAILY PRN PRN Reason: Constipation Prednisone (Prednisone 5 Mg Tab) 5 mg PO DAILY@0800 [facility] Last Admin: 10/30/20 07:53 Dose: 5 mg Documented by: Tiotropium Datto (Tiotropium Datto 4 Gm Inhalation [place] (2.5mcg/1 Dose; 10 Doses)) 0 gm INH DAILY [facility] Last Admin: 10/30/20 08:00 Dose: 2 puff Documented by: Discontinued Medications Acetaminophen (Acetaminophen 650 Mg Tab.Er) 1,300 mg PO BID [facility] Last Admin: 10/26/20 21:00 Dose: 1,300 mg Documented by: Acetaminophen (Acetaminophen 500 Mg Tab) 500 mg PO TID [facility] Last Admin: 10/29/20 08:09 Dose: 500 mg Documented by: Furosemide (Furosemide 80 Mg Tab) 80 mg PO BIDDIURETIC [facility] Last Admin: 10/26/20 08:40 Dose: 80 mg Documented by: Furosemide (Furosemide 40 Mg Tab) 40 mg PO BIDDIURETIC [facility] Last Admin: 10/30/20 07:53 Dose: 40 mg Documented by: Metolazone (Metolazone 5 Mg Tab) 5 mg PO DAILY@0730 [facility] Last Admin: 10/26/20 08:30 Dose: 5 mg Documented by: - Exam Quality Assessment: Supplemental Oxygen General: Alert, Oriented, Cooperative Lungs: Normal Respiratory Effort, Decreased Breath Sounds, Crackles (bibasilar). No: Wheezing Cardiovascular: Regular Rate, Irregular Rhythm GI/Abdominal Exam: Normal Bowel Sounds, Soft, Non-Tender, No Distention (Female) Exam: Deferred Extremities: No Pedal Edema, Normal Capillary Refill Peripheral Pulses: 2+: Radial (L), Radial (R) - Patient Data Result Diagrams: 10/26/20 11:05 10/27/20 06:12 Wood Results Last 24 hrs: Microbiology 10/29/20 09:05 Urine Culture - Preliminary Urine, Catheterized Gram Negative Rods Sepsis Event Note - Evaluation Sepsis Screening Result: No Definite Risk - Focused Exam Vital Signs: Vital Signs Temp Pulse Pulse Resp BP BP Pulse Ox 10/30/20 10:28 92 98/68 87 L 10/30/20 08:00 86 131/79 10/30/20 06:54 10/30/20 06:50 97.8 F 86 20 131/79 95 Pulse Ox 10/30/20 10:28 10/30/20 08:00 10/30/20 06:54 95 10/30/20 06:50 - Problem List & Annotations (1) Weakness SNOMED Code(s): 27294306 Code(s): R53.1 - WEAKNESS Status: Acute Current Visit: No (2) Acute exacerbation of CHF (congestive heart failure) SNOMED Code(s): 326528587, 45101164448375 Code(s): I50.9 - HEART FAILURE, UNSPECIFIED Status: Acute Current Visit: No (3) Asymptomatic bacteriuria SNOMED Code(s): 297651252 Code(s): R82.71 - BACTERIURIA Status: Acute Current Visit: Yes (4) Hyponatremia SNOMED Code(s): 00122977 Code(s): E87.1 - HYPO-OSMOLALITY AND HYPONATREMIA Status: Chronic Current Visit: No (5) HTN (hypertension) SNOMED Code(s): 36802152 Code(s): I10 - ESSENTIAL (PRIMARY) HYPERTENSION Status: Chronic Current Visit: No Annotation/Comment:: Monitor. Continue home meds. (6) Peripheral edema SNOMED Code(s): 997927382 Code(s): R60.9 - EDEMA, UNSPECIFIED Status: Chronic Current Visit: No (7) Pulmonary fibrosis SNOMED Code(s): 59407916 Code(s): J84.10 - PULMONARY FIBROSIS, UNSPECIFIED Status: Acute Current Visit: No (8) COPD with hypoxia SNOMED Code(s): 54870068 Code(s): J44.9 - CHRONIC OBSTRUCTIVE PULMONARY DISEASE, UNSPECIFIED; R09.02 - HYPOXEMIA Status: Chronic Current Visit: No Annotation/Comment:: home oxygen, CO2 was 48 on 10/28, will recheck today. (9) Chronic fibrosis of lung SNOMED Code(s): 24411620 Code(s): J84.10 - PULMONARY FIBROSIS, UNSPECIFIED Status: Chronic Current Visit: No (10) Chronic kidney disease SNOMED Code(s): 490271643 Code(s): N18.9 - CHRONIC KIDNEY DISEASE, UNSPECIFIED Status: Chronic Current Visit: No (11) GERD (gastroesophageal reflux disease) SNOMED Code(s): 151024221 Code(s): K21.9 - GASTRO-ESOPHAGEAL REFLUX DISEASE WITHOUT ESOPHAGITIS Status: Chronic Current Visit: No Qualifiers: (12) Gout SNOMED Code(s): 47500599 Code(s): M10.9 - GOUT, UNSPECIFIED Status: Chronic Current Visit: No Annotation/Comment:: Continue home med. (13) Insomnia SNOMED Code(s): 657590274 Code(s): G47.00 - INSOMNIA, UNSPECIFIED Status: Chronic Current Visit: No Annotation/Comment:: Continue home med. (14) Neck pain, chronic SNOMED Code(s): 1238589308577 Code(s): M54.2 - CERVICALGIA; G89.29 - OTHER CHRONIC PAIN Status: Chronic Current Visit: No (15) DNR (do not resuscitate) Status: Chronic Current Visit: No (16) DNI (do not intubate) SNOMED Code(s): 266405481 Code(s): Z78.9 - OTHER SPECIFIED HEALTH STATUS Status: Chronic Current Visit: No (17) Palliative care encounter SNOMED Code(s): 124041106, 445798785 Code(s): Z51.5 - ENCOUNTER FOR PALLIATIVE CARE Status: Acute Current Visit: No - Problem List Review Problem List Initiated/Reviewed/Updated: Yes - My Orders Last 24 Hours: My Active Orders 10/30/20 13:46 Ondansetron [Zofran ODT] 4 mg PO Q6H PRN 10/30/20 14:00 Furosemide [Lasix] 20 mg PO BIDDIURETIC 10/30/20 16:48 BASIC METABOLIC PANEL,BMP [CHEM] Routine - Plan Plan:: 1. CHF: Decreased Lasix 20 mg bid, repeat BMP. Encourage 6442-3452 ml/day of water. 2. Hyponatremia: chronic, repeat BMP. 3. Asymptomatic bacteruria: Urine was obtained after De La Cruz catheter removed though she had no symptoms of infection, and still has not symptoms of infection. Urine reflexed to culture: gram negative rods. Will monitor and if she develops symptoms would treat but at this time she does not require treatment. 4. COPD with hypoxia: Home O2, CO2 was 48 on 10/28, repeat BMP. 5. Weakness: Continue PT/OT.
[2020-10-30 18:48] LABS: PO2 ARTERIAL,POC 86 mmHg (83-108)
[2020-10-30] MEDS: Gabapentin 600 MG Tab PO SCH (20:08)
[2020-10-30] MEDS: Melatonin 3 MG Tab PO SCH (20:08)
[2020-10-30] MEDS: Enoxaparin 30 MG/0.3 ML Syringe SUBCUT SCH (20:09)
[2020-10-31] MEDS: Docusate Sodium 100 MG Cap PO SCH ×2 (08:51→20:16)
[2020-10-31] MEDS: busPIRone 15 MG Tab PO SCH ×2 (08:51→15:26)
[2020-10-31] MEDS: Allopurinol 300 MG Tab PO SCH (08:52)
[2020-10-31] MEDS: Acetaminophen 325 MG Tab PO SCH ×3 (08:55→20:16)
[2020-10-31] MEDS: Calcium Carbonate 500 MG Tablet PO SCH ×2 (08:57→15:28)
[2020-10-31] MEDS: predniSONE 5 MG Tab PO SCH (08:57)
[2020-10-31] MEDS: [UNRECOGNIZED DRUG - OTHER] EYEBOTH SCH ×2 (08:58→15:26)
[2020-10-31] MEDS: Tiotropium Bromide 4 GM Inhalation Spray (2.5mcg/1 dose; 10 doses) INH SCH (08:59)
[2020-10-31] MEDS: Formoterol/Mometasone 200-5 MCG 8.8 GM Inhaler IH SCH ×2 (09:01→15:27)
[2020-10-31] MEDS: ClonazePAM 0.5 MG Tab PO SCH ×3 (09:05→20:16)
[2020-10-31] MEDS: Diltiazem 120 MG Cap.CD PO SCH (09:06)
[2020-10-31] MEDS: acetaZOLAMIDE 250 MG Tab PO SCH ×2 (09:33→20:16)
--- NOTE | 2020-10-31 10:19 | PCM.PN ---
- General Info Date of Service: 10/31/20 Subjective Update: Ladan had CO2 retention on her ABG and BMP yesterday afternoon, trial of BiPap for couple hours last night, started having headache. Her ABG showed O2 saturation was at 97%, pulse ox prior to that showed 93%. She states her breathing is at her baseline, and feels better today. No edema in her legs. Weight is down to 141 lbs, she does not remember what her baseline weight is. NO fevers, frequency, hematuria, or dysuria. - Patient Data Vitals - Most Recent: Last Vital Signs Temp 98.4 F 10/31/20 09:00 Pulse 93 10/31/20 09:06 Resp 19 10/31/20 09:00 BP 104/59 L 10/31/20 09:06 Pulse Ox 90 L 10/31/20 09:00 Orthostatic Blood Pressure [ 98/68 Following Ambulation] Orthostatic Blood Pressure [ 114/58 Standing] Orthostatic Blood Pressure [ 104/55 Sitting] Weight - Most Recent: 141 lb 2 oz Lab Results Last 24 Hours: Laboratory Results - last 24 hr 10/30/20 10/30/20 10/31/20 Range/Units 17:02 18:38 09:15 POC ABG pH 7.53 H (7.35-7.45) pH POC ABG pCO2 61 H* (35-48) mmHg POC ABG pO2 86 (83-108) mmHg POC ABG HCO3 51 H (21-28) mmol/L POC ABG O2 Sat 97.1 (94-98) % POC ABG Base Excess 24 H (-2 - 3+) mmol/L Oscar Test Pass (PASS) O2 Delivery Device Nasal cannula Oxygen Flow Rate 3 LPM Sodium 124 L 124 L (135-145) mmol/L Potassium 3.8 3.4 L (3.5-5.3) mmol/L Chloride 77 L* D 78 L* (100-110) mmol/L Carbon Dioxide 50 H* 47 H* (21-32) mmol/L BUN 64 H D 59 H (7-18) mg/dL Creatinine 1.4 H 1.5 H (0.55-1.02) mg/dL Est Cr Clr Drug Dosing 27.88 26.02 mL/min Estimated GFR (MDRD) 36 L 33 L (>60) BUN/Creatinine Ratio 45.7 H 39.3 H (9-20) Glucose 170 H 200 H (80-116) mg/dL Calcium 8.8 8.8 (8.6-10.2) mg/dL Wood Results Last 24 Hours: Microbiology 10/29/20 09:05 Urine Culture - Final Urine, Catheterized Proteus Mirabilis Med Orders - Current: Current Medications Acetaminophen (Acetaminophen 325 Mg Tab) 650 mg PO TID [facility] Last Admin: 10/31/20 08:55 Dose: 650 mg Documented by: Acetaminophen/Codeine Phosphate (Acetaminophen/Codeine 300-30 Mg Tab) 1 tab PO Q4H PRN PRN Reason: Pain Last Admin: 10/30/20 23:40 Dose: 1 tab Documented by: Acetazolamide (Acetazolamide 250 Mg Tab) 250 mg PO BID [facility] Last Admin: 10/31/20 09:33 Dose: 250 mg Documented by: Allopurinol (Allopurinol 300 Mg Tab) 150 mg PO DAILY@08 [facility] Last Admin: 10/31/20 08:52 Dose: 150 mg Documented by: Artificial Tears (Polyvinyl Alcohol 1.4% Ophth Soln 15 Ml Bottle) 0 ml EYEBOTH BID PRN PRN Reason: Dry Eyes Buspirone HCl (Buspirone 15 Mg Tab) 15 mg PO BID@ [facility] Last Admin: 10/31/20 08:51 Dose: 15 mg Documented by: Calcium Carbonate/Glycine (Calcium Carbonate 500 Mg Tablet) 500 mg PO BID@ [facility] Last Admin: 10/31/20 08:57 Dose: 500 mg Documented by: Clonazepam (Clonazepam 0.5 Mg Tab) 0.5 mg PO TID@,, [facility] Last Admin: 10/31/20 09:05 Dose: 0.5 mg Documented by: Diltiazem HCl (Diltiazem 120 Mg Cap.Cd) 120 mg PO DAILY [facility] Last Admin: 10/31/20 09:06 Dose: 120 mg Documented by: Docusate Sodium (Docusate Sodium 100 Mg Cap) 100 mg PO BID@ [facility] Last Admin: 10/31/20 08:51 Dose: 100 mg Documented by: Enoxaparin Sodium (Enoxaparin 30 Mg/0.3 Ml Syringe) 30 mg SUBCUT Q24H [facility] Last Admin: 10/30/20 20:09 Dose: 30 mg Documented by: Furosemide (Furosemide 20 Mg Tab) 20 mg PO BIDDIURETIC [facility] Last Admin: 10/30/20 13:23 Dose: 20 mg Documented by: Gabapentin (Gabapentin 600 Mg Tab) 600 mg PO DAILY@1999 [facility] Last Admin: 10/30/20 20:08 Dose: 600 mg Documented by: Guaifenesin (Guaifenesin 100 Mg/5 Ml Soln 5 Ml Ud Cup) 200 mg PO Q4H PRN PRN Reason: Cough Last Admin: 10/29/20 19:50 Dose: 200 mg Documented by: Melatonin (Melatonin 3 Mg Tab) 9 mg PO DAILY@1999 [facility] Last Admin: 10/30/20 20:08 Dose: 9 mg Documented by: Mometasone Furoate/Formoterol Fumar (Formoterol/Mometasone 200-5 Mcg 8.8 Gm Inhaler) 2 puff IH [facility] Last Admin: 10/31/20 09:01 Dose: 2 puff Documented by: Refresh Optive Ravinder- (3 Drops *Ptom*) 1 drop EYEBOTH BID@ [facility] Last Admin: 10/31/20 08:58 Dose: 1 drop Documented by: Ondansetron HCl (Ondansetron 4 Mg Tab.Dis) 4 mg PO Q6H PRN PRN Reason: Nausea/Vomiting Last Admin: 10/30/20 14:08 Dose: 4 mg Documented by: Polyethylene Glycol (Polyethylene Glycol 3350 Powder 17 Gm Packet) 17 gm PO DAILY PRN PRN Reason: Constipation Prednisone (Prednisone 5 Mg Tab) 5 mg PO DAILY@0800 [facility] Last Admin: 10/31/20 08:57 Dose: 5 mg Documented by: Tiotropium [place]on (Tiotropium [place] 4 Gm Inhalation [place] (2.5mcg/1 Dose; 10 Doses)) 0 gm INH DAILY [facility] Last Admin: 10/31/20 08:59 Dose: 2 puff Documented by: Discontinued Medications Acetaminophen (Acetaminophen 650 Mg Tab.Er) 1,300 mg PO BID [facility] Last Admin: 10/26/20 21:00 Dose: 1,300 mg Documented by: Acetaminophen (Acetaminophen 500 Mg Tab) 500 mg PO TID [facility] Last Admin: 10/29/20 08:09 Dose: 500 mg Documented by: Furosemide (Furosemide 80 Mg Tab) 80 mg PO BIDDIURETIC [facility] Last Admin: 10/26/20 08:40 Dose: 80 mg Documented by: Furosemide (Furosemide 40 Mg Tab) 40 mg PO BIDDIURETIC [facility] Last Admin: 10/30/20 07:53 Dose: 40 mg Documented by: Metolazone (Metolazone 5 Mg Tab) 5 mg PO DAILY@0730 [facility] Last Admin: 10/26/20 08:30 Dose: 5 mg Documented by: - Exam Quality Assessment: Supplemental Oxygen (94% on 2L) General: Alert, Oriented, Cooperative Lungs: Normal Respiratory Effort, Decreased Breath Sounds, Crackles (bibasilar). No: Wheezing Cardiovascular: Regular Rate, Irregular Rhythm GI/Abdominal Exam: Normal Bowel Sounds, Soft, Non-Tender, No Distention Extremities: No Pedal Edema, Normal Capillary Refill Peripheral Pulses: 2+: Radial (L), Radial (R) - Patient Data Lab Results Last 24 hrs: Laboratory Results - last 24 hr 10/30/20 10/30/20 10/31/20 Range/Units 17:02 18:38 09:15 POC ABG pH 7.53 H (7.35-7.45) pH POC ABG pCO2 61 H* (35-48) mmHg POC ABG pO2 86 (83-108) mmHg POC ABG HCO3 51 H (21-28) mmol/L POC ABG O2 Sat 97.1 (94-98) % POC ABG Base Excess 24 H (-2 - 3+) mmol/L Oscar Test Pass (PASS) O2 Delivery Device Nasal cannula Oxygen Flow Rate 3 LPM Sodium 124 L 124 L (135-145) mmol/L Potassium 3.8 3.4 L (3.5-5.3) mmol/L Chloride 77 L* D 78 L* (100-110) mmol/L Carbon Dioxide 50 H* 47 H* (21-32) mmol/L BUN 64 H D 59 H (7-18) mg/dL Creatinine 1.4 H 1.5 H (0.55-1.02) mg/dL Est Cr Clr Drug Dosing 27.88 26.02 mL/min Estimated GFR (MDRD) 36 L 33 L (>60) BUN/Creatinine Ratio 45.7 H 39.3 H (9-20) Glucose 170 H 200 H (80-116) mg/dL Calcium 8.8 8.8 (8.6-10.2) mg/dL Result Diagrams: 10/26/20 11:05 10/31/20 09:15 Wood Results Last 24 hrs: Microbiology 10/29/20 09:05 Urine Culture - Final Urine, Catheterized Proteus Mirabilis Sepsis Event Note - Evaluation Sepsis Screening Result: No Definite Risk - Focused Exam Vital Signs: Vital Signs Temp Pulse Pulse Resp BP BP Pulse Ox 10/31/20 09:06 93 104/59 L 10/31/20 09:00 98.4 F 93 19 104/59 L 90 L 10/31/20 00:00 Pulse Ox 10/31/20 09:06 10/31/20 09:00 10/31/20 00:00 94 L - Problem List & Annotations (1) Weakness SNOMED Code(s): 51670312 Code(s): R53.1 - WEAKNESS Status: Acute Current Visit: No (2) Acute exacerbation of CHF (congestive heart failure) SNOMED Code(s): 036624272, 39292953921984 Code(s): I50.9 - HEART FAILURE, UNSPECIFIED Status: Acute Current Visit: No (3) Asymptomatic bacteriuria SNOMED Code(s): 674675167 Code(s): R82.71 - BACTERIURIA Status: Acute Current Visit: Yes (4) Hyponatremia SNOMED Code(s): 56775104 Code(s): E87.1 - HYPO-OSMOLALITY AND HYPONATREMIA Status: Chronic Current Visit: No (5) HTN (hypertension) SNOMED Code(s): 83677672 Code(s): I10 - ESSENTIAL (PRIMARY) HYPERTENSION Status: Chronic Current Visit: No Annotation/Comment:: Monitor. Continue home meds. (6) Peripheral edema SNOMED Code(s): 669217256 Code(s): R60.9 - EDEMA, UNSPECIFIED Status: Chronic Current Visit: No (7) Pulmonary fibrosis SNOMED Code(s): 43764369 Code(s): J84.10 - PULMONARY FIBROSIS, UNSPECIFIED Status: Acute Current Visit: No (8) COPD with hypoxia SNOMED Code(s): 49679952 Code(s): J44.9 - CHRONIC OBSTRUCTIVE PULMONARY DISEASE, UNSPECIFIED; R09.02 - HYPOXEMIA Status: Chronic Current Visit: No Annotation/Comment:: home oxygen, CO2 was 50 on 10/30, 51 on ABG, BiPap for couple hours last night. (9) Chronic fibrosis of lung SNOMED Code(s): 34668268 Code(s): J84.10 - PULMONARY FIBROSIS, UNSPECIFIED Status: Chronic Current Visit: No (10) Chronic kidney disease SNOMED Code(s): 322193596 Code(s): N18.9 - CHRONIC KIDNEY DISEASE, UNSPECIFIED Status: Chronic Current Visit: No (11) GERD (gastroesophageal reflux disease) SNOMED Code(s): 597988154 Code(s): K21.9 - GASTRO-ESOPHAGEAL REFLUX DISEASE WITHOUT ESOPHAGITIS Status: Chronic Current Visit: No Qualifiers: (12) Gout SNOMED Code(s): 71169018 Code(s): M10.9 - GOUT, UNSPECIFIED Status: Chronic Current Visit: No Annotation/Comment:: Continue home med. (13) Insomnia SNOMED Code(s): 564933633 Code(s): G47.00 - INSOMNIA, UNSPECIFIED Status: Chronic Current Visit: No Annotation/Comment:: Continue home med. (14) Neck pain, chronic SNOMED Code(s): 6007506977103 Code(s): M54.2 - CERVICALGIA; G89.29 - OTHER CHRONIC PAIN Status: Chronic Current Visit: No (15) DNR (do not resuscitate) Status: Chronic Current Visit: No (16) DNI (do not intubate) SNOMED Code(s): 170264486 Code(s): Z78.9 - OTHER SPECIFIED HEALTH STATUS Status: Chronic Current Visit: No (17) Palliative care encounter SNOMED Code(s): 005275286, 541834787 Code(s): Z51.5 - ENCOUNTER FOR PALLIATIVE CARE Status: Acute Current Visit: No - Problem List Review Problem List Initiated/Reviewed/Updated: Yes - My Orders Last 24 Hours: My Active Orders 10/30/20 13:46 Ondansetron [Zofran ODT] 4 mg PO Q6H PRN 10/30/20 14:00 Furosemide [Lasix] 20 mg PO BIDDIURETIC 10/30/20 19:00 BIPAP Adult [RT BiPAP/CPAP] [RC] ASDIRECTED 10/31/20 09:00 acetaZOLAMIDE [Diamox] 250 mg PO BID 11/01/20 06:00 BASIC METABOLIC PANEL,BMP [CHEM] Routine - Plan Plan:: 1. CHF: Hold Lasix 20 mg bid, acetazolamide 250 mg bid, CO2 47 this morning a fter trial of BiPap overnight. Repeat BMP. Encourage 2312-9705 ml/day of water. NO edema in her legs currently, may hold MORRIS wraps and use only as needed. 2. Hyponatremia: chronic, repeat BMP tomorrow. May add salt to her diet, most likely secondary to overdiuresis. 3. Asymptomatic bacteruria: no symptoms of infection. Urine reflexed to culture: proteus, multiresistance. Will monitor and if she develops symptoms would treat but at this time she does not require treatment especially in light of multiple resistance. 4. COPD with hypoxia: Home O2, CO2 was 51 on 10/30, today down to 47 after BiPap last night, Acetazolamide 250 mg bid today, repeat BMP. 5. Weakness: Continue PT/OT.
[2020-10-31] MEDS: Furosemide 20 MG Tab PO SCH (14:27)
[2020-10-31] MEDS: Enoxaparin 30 MG/0.3 ML Syringe SUBCUT SCH (20:16)
[2020-10-31] MEDS: Gabapentin 600 MG Tab PO SCH (20:16)
[2020-10-31] MEDS: Melatonin 3 MG Tab PO SCH (20:16)
[2020-10-31] MEDS: Acetaminophen/Codeine 300-30 MG Tab PO PRN (23:09)
[2020-11-01] MEDS: busPIRone 15 MG Tab PO SCH ×2 (08:40→15:10)
[2020-11-01] MEDS: Docusate Sodium 100 MG Cap PO SCH ×2 (08:40→19:49)
[2020-11-01] MEDS: Allopurinol 300 MG Tab PO SCH (08:40)
[2020-11-01] MEDS: Formoterol/Mometasone 200-5 MCG 8.8 GM Inhaler IH SCH ×2 (08:41→15:11)
[2020-11-01] MEDS: Acetaminophen 325 MG Tab PO SCH ×3 (08:41→20:18)
[2020-11-01] MEDS: [UNRECOGNIZED DRUG - OTHER] EYEBOTH SCH ×2 (08:43→15:09)
[2020-11-01] MEDS: Tiotropium Bromide 4 GM Inhalation Spray (2.5mcg/1 dose; 10 doses) INH SCH (08:44)
[2020-11-01] MEDS: acetaZOLAMIDE 250 MG Tab PO SCH (08:45)
[2020-11-01] MEDS: Furosemide 20 MG Tab PO SCH ×2 (08:45→14:08)
[2020-11-01] MEDS: Diltiazem 120 MG Cap.CD PO SCH (08:46)
[2020-11-01] MEDS: Calcium Carbonate 500 MG Tablet PO SCH ×2 (08:47→15:11)
[2020-11-01] MEDS: predniSONE 5 MG Tab PO SCH (08:47)
[2020-11-01] MEDS: ClonazePAM 0.5 MG Tab PO SCH ×3 (08:50→19:49)
[2020-11-01] MEDS: Potassium Chloride 20 MEQ Tab.ER PO SCH ×2 (10:04→20:18)
[2020-11-01] MEDS: Melatonin 3 MG Tab PO SCH (19:49)
[2020-11-01] MEDS: Gabapentin 600 MG Tab PO SCH (19:49)
[2020-11-01] MEDS: Enoxaparin 30 MG/0.3 ML Syringe SUBCUT SCH (20:18)
[2020-11-01] MEDS: Acetaminophen/Codeine 300-30 MG Tab PO PRN (23:31)
[2020-11-02] MEDS: Diltiazem 120 MG Cap.CD PO SCH (08:55)
[2020-11-02] MEDS: Calcium Carbonate 500 MG Tablet PO SCH ×2 (08:55→15:29)
[2020-11-02] MEDS: Docusate Sodium 100 MG Cap PO SCH ×2 (08:55→20:00)
[2020-11-02] MEDS: Acetaminophen 325 MG Tab PO SCH ×3 (08:55→20:00)
[2020-11-02] MEDS: Potassium Chloride 20 MEQ Tab.ER PO SCH ×2 (08:55→19:59)
[2020-11-02] MEDS: busPIRone 15 MG Tab PO SCH ×2 (08:55→15:29)
[2020-11-02] MEDS: Allopurinol 300 MG Tab PO SCH (08:55)
[2020-11-02] MEDS: Tiotropium Bromide 4 GM Inhalation Spray (2.5mcg/1 dose; 10 doses) INH SCH (08:56)
[2020-11-02] MEDS: [UNRECOGNIZED DRUG - OTHER] EYEBOTH SCH ×2 (08:56→15:28)
[2020-11-02] MEDS: Furosemide 20 MG Tab PO SCH ×2 (08:56→14:06)
[2020-11-02] MEDS: ClonazePAM 0.5 MG Tab PO SCH ×3 (08:56→19:59)
[2020-11-02] MEDS: Formoterol/Mometasone 200-5 MCG 8.8 GM Inhaler IH SCH ×2 (08:56→15:29)
[2020-11-02] MEDS: predniSONE 5 MG Tab PO SCH (08:56)
[2020-11-02] MEDS: Melatonin 3 MG Tab PO SCH (19:59)
[2020-11-02] MEDS: Gabapentin 600 MG Tab PO SCH (19:59)
[2020-11-02] MEDS: Enoxaparin 30 MG/0.3 ML Syringe SUBCUT SCH (20:00)
[2020-11-02] MEDS: Acetaminophen/Codeine 300-30 MG Tab PO PRN (23:22)
[2020-11-03] MEDS: Formoterol/Mometasone 200-5 MCG 8.8 GM Inhaler IH SCH ×2 (09:00→15:10)
[2020-11-03] MEDS: Docusate Sodium 100 MG Cap PO SCH ×2 (09:00→20:09)
[2020-11-03] MEDS: Potassium Chloride 20 MEQ Tab.ER PO SCH ×2 (09:00→20:11)
[2020-11-03] MEDS: busPIRone 15 MG Tab PO SCH ×2 (09:00→15:09)
[2020-11-03] MEDS: [UNRECOGNIZED DRUG - OTHER] EYEBOTH SCH ×2 (09:00→15:09)
[2020-11-03] MEDS: Acetaminophen 325 MG Tab PO SCH ×3 (09:01→20:24)
[2020-11-03] MEDS: Tiotropium Bromide 4 GM Inhalation Spray (2.5mcg/1 dose; 10 doses) INH SCH (09:01)
[2020-11-03] MEDS: predniSONE 5 MG Tab PO SCH (09:02)
[2020-11-03] MEDS: Furosemide 20 MG Tab PO SCH ×2 (09:02→14:36)
[2020-11-03] MEDS: Allopurinol 300 MG Tab PO SCH (09:02)
[2020-11-03] MEDS: Calcium Carbonate 500 MG Tablet PO SCH ×2 (09:02→15:09)
[2020-11-03] MEDS: Diltiazem 120 MG Cap.CD PO SCH (09:02)
[2020-11-03] MEDS: ClonazePAM 0.5 MG Tab PO SCH ×3 (09:13→20:09)
[2020-11-03] MEDS: Sodium Chloride 1 GM Tab PO SCH ×2 (11:30→20:10)
[2020-11-03] MEDS: Gabapentin 600 MG Tab PO SCH (20:09)
[2020-11-03] MEDS: Melatonin 3 MG Tab PO SCH (20:09)
[2020-11-03] MEDS: Enoxaparin 30 MG/0.3 ML Syringe SUBCUT SCH (21:06)
[2020-11-04] MEDS: Acetaminophen/Codeine 300-30 MG Tab PO PRN (00:22)
[2020-11-04] MEDS: Docusate Sodium 100 MG Cap PO SCH ×2 (07:49→20:06)
[2020-11-04] MEDS: busPIRone 15 MG Tab PO SCH ×2 (07:49→15:36)
[2020-11-04] MEDS: [UNRECOGNIZED DRUG - OTHER] EYEBOTH SCH ×2 (07:50→15:17)
[2020-11-04] MEDS: Allopurinol 300 MG Tab PO SCH (07:50)
[2020-11-04] MEDS: predniSONE 5 MG Tab PO SCH (07:50)
[2020-11-04] MEDS: Furosemide 20 MG Tab PO SCH ×2 (07:50→13:27)
[2020-11-04] MEDS: Calcium Carbonate 500 MG Tablet PO SCH ×2 (07:50→15:36)
[2020-11-04] MEDS: Formoterol/Mometasone 200-5 MCG 8.8 GM Inhaler IH SCH ×2 (07:50→15:17)
[2020-11-04] MEDS: ClonazePAM 0.5 MG Tab PO SCH ×3 (07:57→20:06)
[2020-11-04] MEDS: Diltiazem 120 MG Cap.CD PO SCH (07:59)
[2020-11-04] MEDS: Sodium Chloride 1 GM Tab PO SCH ×2 (07:59→20:07)
[2020-11-04] MEDS: Potassium Chloride 20 MEQ Tab.ER PO SCH ×2 (07:59→20:06)
[2020-11-04] MEDS: Acetaminophen 325 MG Tab PO SCH ×3 (07:59→20:07)
[2020-11-04] MEDS: Tiotropium Bromide 4 GM Inhalation Spray (2.5mcg/1 dose; 10 doses) INH SCH (09:02)
[2020-11-04] MEDS: Gabapentin 600 MG Tab PO SCH (20:06)
[2020-11-04] MEDS: Melatonin 3 MG Tab PO SCH (20:06)
[2020-11-05] MEDS: Acetaminophen/Codeine 300-30 MG Tab PO PRN (03:07)
[2020-11-05] MEDS: busPIRone 15 MG Tab PO SCH ×2 (08:47→15:29)
[2020-11-05] MEDS: [UNRECOGNIZED DRUG - OTHER] EYEBOTH SCH ×2 (08:48→15:30)
[2020-11-05] MEDS: Formoterol/Mometasone 200-5 MCG 8.8 GM Inhaler IH SCH ×2 (08:49→15:29)
[2020-11-05] MEDS: Tiotropium Bromide 4 GM Inhalation Spray (2.5mcg/1 dose; 10 doses) INH SCH (08:49)
[2020-11-05] MEDS: Docusate Sodium 100 MG Cap PO SCH ×2 (08:49→20:36)
[2020-11-05] MEDS: Calcium Carbonate 500 MG Tablet PO SCH ×2 (08:52→15:30)
[2020-11-05] MEDS: Furosemide 20 MG Tab PO SCH ×2 (08:52→13:24)
[2020-11-05] MEDS: ClonazePAM 0.5 MG Tab PO SCH ×3 (08:54→20:36)
[2020-11-05] MEDS: Allopurinol 300 MG Tab PO SCH (08:54)
[2020-11-05] MEDS: predniSONE 5 MG Tab PO SCH (08:54)
[2020-11-05] MEDS: Potassium Chloride 20 MEQ Tab.ER PO SCH ×2 (08:55→20:37)
[2020-11-05] MEDS: Diltiazem 120 MG Cap.CD PO SCH (08:55)
[2020-11-05] MEDS: Acetaminophen 325 MG Tab PO SCH ×3 (08:56→20:37)
[2020-11-05] MEDS: Sodium Chloride 1 GM Tab PO SCH ×2 (08:56→20:37)
[2020-11-05] MEDS: Gabapentin 600 MG Tab PO SCH (20:36)
[2020-11-05] MEDS: Melatonin 3 MG Tab PO SCH (20:36)
[2020-11-06] MEDS: Formoterol/Mometasone 200-5 MCG 8.8 GM Inhaler IH SCH ×2 (08:57→15:11)
[2020-11-06] MEDS: Potassium Chloride 20 MEQ Tab.ER PO SCH (09:00)
[2020-11-06] MEDS: Allopurinol 300 MG Tab PO SCH (09:00)
[2020-11-06] MEDS: Furosemide 20 MG Tab PO SCH ×2 (09:00→15:10)
[2020-11-06] MEDS: Tiotropium Bromide 4 GM Inhalation Spray (2.5mcg/1 dose; 10 doses) INH SCH (09:00)
[2020-11-06] MEDS: Docusate Sodium 100 MG Cap PO SCH ×2 (09:00→20:47)
[2020-11-06] MEDS: Calcium Carbonate 500 MG Tablet PO SCH ×2 (09:00→16:04)
[2020-11-06] MEDS: Diltiazem 120 MG Cap.CD PO SCH (09:00)
[2020-11-06] MEDS: predniSONE 5 MG Tab PO SCH (09:00)
[2020-11-06] MEDS: ClonazePAM 0.5 MG Tab PO SCH ×3 (09:00→20:47)
[2020-11-06] MEDS: [UNRECOGNIZED DRUG - OTHER] EYEBOTH SCH ×2 (09:00→15:11)
[2020-11-06] MEDS: Sodium Chloride 1 GM Tab PO SCH ×2 (09:00→20:50)
[2020-11-06] MEDS: busPIRone 15 MG Tab PO SCH ×2 (09:00→16:04)
[2020-11-06] MEDS: Acetaminophen 325 MG Tab PO SCH ×3 (09:01→20:48)
[2020-11-06] MEDS: Gabapentin 600 MG Tab PO SCH (20:47)
[2020-11-06] MEDS: Melatonin 3 MG Tab PO SCH (20:47)
[2020-11-06] MEDS ORDERED: Potassium Chloride 20 MEQ Packet PO SCH (21:00)
[2020-11-06] MEDS: Acetaminophen/Codeine 300-30 MG Tab PO PRN (23:25)
[2020-11-07] MEDS: guaiFENesin 100 MG/5 ML Soln 5 ML UD Cup PO PRN (01:23)
[2020-11-07] MEDS: Allopurinol 300 MG Tab PO SCH (08:57)
[2020-11-07] MEDS: predniSONE 5 MG Tab PO SCH (08:58)
[2020-11-07] MEDS: Sodium Chloride 1 GM Tab PO SCH ×2 (08:58→20:09)
[2020-11-07] MEDS: Diltiazem 120 MG Cap.CD PO SCH (08:58)
[2020-11-07] MEDS: [UNRECOGNIZED DRUG - OTHER] EYEBOTH SCH ×2 (08:58→15:57)
[2020-11-07] MEDS: Docusate Sodium 100 MG Cap PO SCH ×2 (08:58→20:09)
[2020-11-07] MEDS: busPIRone 15 MG Tab PO SCH ×2 (08:58→15:56)
[2020-11-07] MEDS: Calcium Carbonate 500 MG Tablet PO SCH ×2 (08:58→15:56)
[2020-11-07] MEDS: Formoterol/Mometasone 200-5 MCG 8.8 GM Inhaler IH SCH ×2 (08:59→15:57)
[2020-11-07] MEDS: ClonazePAM 0.5 MG Tab PO SCH ×3 (09:00→20:09)
[2020-11-07] MEDS: Furosemide 20 MG Tab PO SCH ×3 (09:01→18:24)
[2020-11-07] MEDS: Potassium Chloride 10 MEQ Tab.ER PO SCH ×2 (09:02→20:09)
[2020-11-07] MEDS: Tiotropium Bromide 4 GM Inhalation Spray (2.5mcg/1 dose; 10 doses) INH SCH (09:02)
[2020-11-07] MEDS: Acetaminophen 325 MG Tab PO SCH ×3 (09:03→20:09)
--- NOTE | 2020-11-07 11:10 | PCM.PN ---
- General Info Date of Service: 11/07/20 Subjective Update: She states she can't do 1L when she is walking, she does drop with PT/OT and they turn her up to 2-3L; advised her she is not restricted to any particular set liter, that she is restricted to oxygen level between 88-92% so she does not retain carbon dioxide. She does not need to be at 96-97%. Her carbon dioxide on serum is down to 29 which is normal range. She does have morphine as needed dyspnea if her saturations are between 88-92% and still short of breath. Her weight is good at 138 lbs, she has been stable at this weight for past 3 days. Her blood pressures are lower today. No peripheral edema today. Sleeping well at night. - Patient Data Vitals - Most Recent: Last Vital Signs Temp 98.0 F 11/06/20 09:00 Pulse 91 11/07/20 08:58 Resp 18 11/06/20 09:00 BP 129/80 11/07/20 08:58 Pulse Ox 92 L 11/07/20 03:47 Orthostatic Blood Pressure [ 98/68 Following Ambulation] Orthostatic Blood Pressure [ 114/58 Standing] Orthostatic Blood Pressure [ 104/55 Sitting] Weight - Most Recent: 138 lb 8 oz Lab Results Last 24 Hours: Laboratory Results - last 24 hr 11/07/20 Range/Units 06:45 Sodium 131 L (135-145) mmol/L Potassium 5.0 (3.5-5.3) mmol/L Chloride 95 L D (100-110) mmol/L Carbon Dioxide 29 (21-32) mmol/L BUN 48 H (7-18) mg/dL Creatinine 1.2 H (0.55-1.02) mg/dL Est Cr Clr Drug Dosing 32.52 mL/min Estimated GFR (MDRD) 43 L (>60) BUN/Creatinine Ratio 40.0 H (9-20) Glucose 147 H (80-116) mg/dL Calcium 9.5 (8.6-10.2) mg/dL Med Orders - Current: Current Medications Acetaminophen (Acetaminophen 325 Mg Tab) 650 mg PO TID [facility] Last Admin: 11/07/20 09:03 Dose: 650 mg Documented by: Acetaminophen/Codeine Phosphate (Acetaminophen/Codeine 300-30 Mg Tab) 1 tab PO Q4H PRN PRN Reason: Pain Last Admin: 11/06/20 23:25 Dose: 1 tab Documented by: Allopurinol (Allopurinol 300 Mg Tab) 150 mg PO DAILY@ [facility] Last Admin: 11/07/20 08:57 Dose: 150 mg Documented by: Artificial Tears (Polyvinyl Alcohol 1.4% Ophth Soln 15 Ml Bottle) 0 ml EYEBOTH BID PRN PRN Reason: Dry Eyes Buspirone HCl (Buspirone 15 Mg Tab) 15 mg PO BID@ [facility] Last Admin: 11/07/20 08:58 Dose: 15 mg Documented by: Calcium Carbonate/Glycine (Calcium Carbonate 500 Mg Tablet) 500 mg PO BID@ [facility] Last Admin: 11/07/20 08:58 Dose: 500 mg Documented by: Clonazepam (Clonazepam 0.5 Mg Tab) 0.5 mg PO TID@,, [facility] Last Admin: 11/07/20 09:00 Dose: 0.5 mg Documented by: Diltiazem HCl (Diltiazem 120 Mg Cap.Cd) 120 mg PO DAILY [facility] Last Admin: 11/07/20 08:58 Dose: 120 mg Documented by: Docusate Sodium (Docusate Sodium 100 Mg Cap) 100 mg PO BID@ [facility] Last Admin: 11/07/20 08:58 Dose: 100 mg Documented by: Furosemide (Furosemide 20 Mg Tab) 10 mg PO BIDDIURETIC [facility] Last Admin: 11/07/20 09:01 Dose: 10 mg Documented by: Gabapentin (Gabapentin 600 Mg Tab) 600 mg PO DAILY@1999 [facility] Last Admin: 11/06/20 20:47 Dose: 600 mg Documented by: Guaifenesin (Guaifenesin 100 Mg/5 Ml Soln 5 Ml Ud Cup) 200 mg PO Q4H PRN PRN Reason: Cough Last Admin: 11/07/20 01:23 Dose: 200 mg Documented by: Melatonin (Melatonin 3 Mg Tab) 9 mg PO DAILY@1999 [facility] Last Admin: 11/06/20 20:47 Dose: 9 mg Documented by: Mometasone Furoate/Formoterol Fumar (Formoterol/Mometasone 200-5 Mcg 8.8 Gm Inhaler) 2 puff IH [facility] Last Admin: 11/07/20 08:59 Dose: 2 puff Documented by: Morphine Sulfate (Morphine 10 Mg/0.5 Ml Oral Syringe) 5 mg SL Q4H PRN PRN Reason: Dyspnea Refresh Optive Ravinder- (3 Drops *Ptom*) 1 drop EYEBOTH BID@,16 [facility] Last Admin: 11/07/20 08:58 Dose: 1 drop Documented by: Ondansetron HCl (Ondansetron 4 Mg Tab.Dis) 4 mg PO Q6H PRN PRN Reason: Nausea/Vomiting Last Admin: 10/30/20 14:08 Dose: 4 mg Documented by: Polyethylene Glycol (Polyethylene Glycol 3350 Powder 17 Gm Packet) 17 gm PO DAILY PRN PRN Reason: Constipation Potassium Chloride (Potassium Chloride 10 Meq Tab.Er) 10 meq PO BID [facility] Last Admin: 11/07/20 09:02 Dose: 10 meq Documented by: Prednisone (Prednisone 5 Mg Tab) 5 mg PO DAILY@0800 [facility] Last Admin: 11/07/20 08:58 Dose: 5 mg Documented by: Sodium Chloride (Sodium Chloride 1 Gm Tab) 1 gm PO BID [facility] Last Admin: 11/07/20 08:58 Dose: 1 gm Documented by: Tiotropium Nettleton (Tiotropium Nettleton 4 Gm Inhalation Powell (2.5mcg/1 Dose; 10 Doses)) 0 gm INH DAILY [facility] Last Admin: 11/07/20 09:02 Dose: 2 puff Documented by: Discontinued Medications Acetaminophen (Acetaminophen 650 Mg Tab.Er) 1,300 mg PO BID [facility] Last Admin: 10/26/20 21:00 Dose: 1,300 mg Documented by: Acetaminophen (Acetaminophen 500 Mg Tab) 500 mg PO TID [facility] Last Admin: 10/29/20 08:09 Dose: 500 mg Documented by: Acetazolamide (Acetazolamide 250 Mg Tab) 250 mg PO BID [facility] Last Admin: 11/01/20 08:45 Dose: 250 mg Documented by: Enoxaparin Sodium (Enoxaparin 30 Mg/0.3 Ml Syringe) 30 mg SUBCUT Q24H [facility] Last Admin: 11/03/20 21:06 Dose: 30 mg Documented by: Furosemide (Furosemide 80 Mg Tab) 80 mg PO BIDDIURETIC [facility] Last Admin: 10/26/20 08:40 Dose: 80 mg Documented by: Furosemide (Furosemide 40 Mg Tab) 40 mg PO BIDDIURETIC [facility] Last Admin: 10/30/20 07:53 Dose: 40 mg Documented by: Furosemide (Furosemide 20 Mg Tab) 20 mg PO BIDDIURETIC [facility] Last Admin: 11/06/20 15:10 Dose: 20 mg Documented by: Metolazone (Metolazone 5 Mg Tab) 5 mg PO DAILY@0730 [facility] Last Admin: 10/26/20 08:30 Dose: 5 mg Documented by: Potassium Chloride (Potassium Chloride 20 Meq Tab.Er) 20 meq PO BID [facility] Last Admin: 11/06/20 09:00 Dose: 20 meq Documented by: Potassium Chloride (Potassium Chloride 20 Meq Packet) 20 meq PO BID [facility] Last Admin: 11/06/20 20:49 Dose: 20 meq Documented by: - Exam Quality Assessment: Supplemental Oxygen General: Alert, Oriented, Cooperative Lungs: Clear to Auscultation, Normal Respiratory Effort, Decreased Breath Sounds (bibasilar, stable), Crackles (rare, bibasilar). No: Wheezing Cardiovascular: Regular Rate, Regular Rhythm GI/Abdominal Exam: Normal Bowel Sounds, Soft, Non-Tender, No Distention Extremities: No Pedal Edema, Normal Capillary Refill Peripheral Pulses: 2+: Radial (L), Radial (R) Skin: Warm, Dry, Intact Psy/Mental Status: Anxious - Patient Data Lab Results Last 24 hrs: Laboratory Results - last 24 hr 11/07/20 Range/Units 06:45 Sodium 131 L (135-145) mmol/L Potassium 5.0 (3.5-5.3) mmol/L Chloride 95 L D (100-110) mmol/L Carbon Dioxide 29 (21-32) mmol/L BUN 48 H (7-18) mg/dL Creatinine 1.2 H (0.55-1.02) mg/dL Est Cr Clr Drug Dosing 32.52 mL/min Estimated GFR (MDRD) 43 L (>60) BUN/Creatinine Ratio 40.0 H (9-20) Glucose 147 H (80-116) mg/dL Calcium 9.5 (8.6-10.2) mg/dL Result Diagrams: 10/26/20 11:05 11/07/20 06:45 Sepsis Event Note - Evaluation Sepsis Screening Result: No Definite Risk - Focused Exam Vital Signs: Vital Signs Pulse BP Pulse Ox 11/07/20 08:58 91 129/80 11/07/20 03:47 92 L - Problem List & Annotations (1) Weakness SNOMED Code(s): 52803501 Code(s): R53.1 - WEAKNESS Status: Acute Current Visit: No (2) Acute exacerbation of CHF (congestive heart failure) SNOMED Code(s): 413316520, 54698603800233 Code(s): I50.9 - HEART FAILURE, UNSPECIFIED Status: Acute Current Visit: No Annotation/Comment:: well controlled, weight stable at 138 lbs. Down 21 lbs since acute admission. (3) Asymptomatic bacteriuria SNOMED Code(s): 881409416 Code(s): R82.71 - BACTERIURIA Status: Acute Current Visit: Yes (4) Hyponatremia SNOMED Code(s): 36741822 Code(s): E87.1 - HYPO-OSMOLALITY AND HYPONATREMIA Status: Chronic Current Visit: No Annotation/Comment:: improving, continue NaCL tablets bid, recheck on Monday. Remove fluid restriction. (5) HTN (hypertension) SNOMED Code(s): 49729302 Code(s): I10 - ESSENTIAL (PRIMARY) HYPERTENSION Status: Chronic Current Visit: No Annotation/Comment:: Monitor. Continue home meds. (6) Peripheral edema SNOMED Code(s): 109658056 Code(s): R60.9 - EDEMA, UNSPECIFIED Status: Chronic Current Visit: No (7) Pulmonary fibrosis SNOMED Code(s): 69403361 Code(s): J84.10 - PULMONARY FIBROSIS, UNSPECIFIED Status: Acute Current Visit: No (8) COPD with hypoxia SNOMED Code(s): 87011609 Code(s): J44.9 - CHRONIC OBSTRUCTIVE PULMONARY DISEASE, UNSPECIFIED; R09.02 - HYPOXEMIA Status: Chronic Current Visit: No Annotation/Comment:: CO2 now 29, normal range. O2 saturations between 88-92%, titrate to keep within range, increase with activity. (9) Chronic fibrosis of lung SNOMED Code(s): 32461406 Code(s): J84.10 - PULMONARY FIBROSIS, UNSPECIFIED Status: Chronic Current Visit: No (10) Chronic kidney disease SNOMED Code(s): 364302546 Code(s): N18.9 - CHRONIC KIDNEY DISEASE, UNSPECIFIED Status: Chronic Current Visit: No Qualifiers: Chronic kidney disease stage 3 subtype: stage 3b (GFR 30-44) (11) GERD (gastroesophageal reflux disease) SNOMED Code(s): 864794895 Code(s): K21.9 - GASTRO-ESOPHAGEAL REFLUX DISEASE WITHOUT ESOPHAGITIS Status: Chronic Current Visit: No Qualifiers: (12) Gout SNOMED Code(s): 29953774 Code(s): M10.9 - GOUT, UNSPECIFIED Status: Chronic Current Visit: No Annotation/Comment:: Continue home med. (13) Insomnia SNOMED Code(s): 161767290 Code(s): G47.00 - INSOMNIA, UNSPECIFIED Status: Chronic Current Visit: No Annotation/Comment:: Continue home med. (14) Neck pain, chronic SNOMED Code(s): 3570810241494 Code(s): M54.2 - CERVICALGIA; G89.29 - OTHER CHRONIC PAIN Status: Chronic Current Visit: No (15) DNR (do not resuscitate) Status: Chronic Current Visit: No (16) DNI (do not intubate) SNOMED Code(s): 864461235 Code(s): Z78.9 - OTHER SPECIFIED HEALTH STATUS Status: Chronic Current Visit: No (17) Palliative care encounter SNOMED Code(s): 662454897, 142205637 Code(s): Z51.5 - ENCOUNTER FOR PALLIATIVE CARE Status: Acute Current Visit: No - Problem List Review Problem List Initiated/Reviewed/Updated: Yes - My Orders Last 24 Hours: My Active Orders 11/07/20 08:30 Furosemide [Lasix] 10 mg PO BIDDIURETIC 11/07/20 09:00 Potassium Chloride [Klor-Con 10] 10 meq PO BID - Plan Plan:: 1. CHF: Decrease Lasix 10 mg bid, Decrease potassium to 10 mEq bid. Repeat BMP on Monday. NO edema in her legs currently, may hold MORRIS wraps and use only as needed. 2. 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 NaCl 1 gm bid, repeat BMP on Monday. 3. COPD with hypoxia: Home O2, CO2 at 29 today. Titrate to keep saturations between 88-92%, increase with ambulation/activity. PT/OT note states she has been requiring 2L with activity to maintain above 88% but below 92%. 4. Hypertension: well controlled: may be having fatigue due to lower blood pressure, her blood pressure before medications is 129/80, will decrease her Lasix 10 mg bid, may need to further adjust her medications, goal 130/80 so she is not orthostatic with activity. 5. Weakness: Continue PT/OT.
[2020-11-07] MEDS: Gabapentin 600 MG Tab PO SCH (20:09)
[2020-11-07] MEDS: Melatonin 3 MG Tab PO SCH (20:09)
[2020-11-08] MEDS: Acetaminophen/Codeine 300-30 MG Tab PO PRN ×2 (03:30→20:01)
[2020-11-08] MEDS: ClonazePAM 0.5 MG Tab PO SCH ×3 (09:11→20:01)
[2020-11-08] MEDS: Potassium Chloride 10 MEQ Tab.ER PO SCH ×2 (09:11→20:00)
[2020-11-08] MEDS: Docusate Sodium 100 MG Cap PO SCH ×2 (09:11→20:01)
[2020-11-08] MEDS: Allopurinol 300 MG Tab PO SCH (09:11)
[2020-11-08] MEDS: Diltiazem 120 MG Cap.CD PO SCH (09:12)
[2020-11-08] MEDS: Acetaminophen 325 MG Tab PO SCH ×3 (09:12→20:01)
[2020-11-08] MEDS: Sodium Chloride 1 GM Tab PO SCH ×2 (09:12→20:01)
[2020-11-08] MEDS: Calcium Carbonate 500 MG Tablet PO SCH ×2 (09:12→15:31)
[2020-11-08] MEDS: Furosemide 20 MG Tab PO SCH ×2 (09:13→15:34)
[2020-11-08] MEDS: predniSONE 5 MG Tab PO SCH (09:13)
[2020-11-08] MEDS: busPIRone 15 MG Tab PO SCH ×2 (09:13→15:29)
[2020-11-08] MEDS: [UNRECOGNIZED DRUG - OTHER] EYEBOTH SCH ×2 (09:14→15:29)
[2020-11-08] MEDS: Tiotropium Bromide 4 GM Inhalation Spray (2.5mcg/1 dose; 10 doses) INH SCH (09:14)
[2020-11-08] MEDS: Formoterol/Mometasone 200-5 MCG 8.8 GM Inhaler IH SCH ×2 (09:15→15:29)
[2020-11-08] MEDS: Amoxicillin/Clavulanate K 875-125 MG Tab PO SCH ×2 (11:40→22:33)
[2020-11-08] MEDS: Melatonin 3 MG Tab PO SCH (20:01)
[2020-11-08] MEDS: Gabapentin 600 MG Tab PO SCH (20:01)
[2020-11-08] MEDS: hydrOXYzine HCl 25 MG Tab PO PRN (22:33)
[2020-11-09] MEDS: Acetaminophen/Codeine 300-30 MG Tab PO PRN (00:45)
[2020-11-09] MEDS: busPIRone 15 MG Tab PO SCH ×2 (08:39→15:55)
[2020-11-09] MEDS: [UNRECOGNIZED DRUG - OTHER] EYEBOTH SCH ×2 (08:39→15:56)
[2020-11-09] MEDS: Docusate Sodium 100 MG Cap PO SCH ×2 (08:40→20:26)
[2020-11-09] MEDS: Formoterol/Mometasone 200-5 MCG 8.8 GM Inhaler IH SCH ×2 (08:40→15:56)
[2020-11-09] MEDS: Furosemide 20 MG Tab PO SCH ×2 (08:41→14:39)
[2020-11-09] MEDS: Calcium Carbonate 500 MG Tablet PO SCH ×2 (08:41→16:01)
[2020-11-09] MEDS: Allopurinol 300 MG Tab PO SCH (08:42)
[2020-11-09] MEDS: predniSONE 5 MG Tab PO SCH (08:42)
[2020-11-09] MEDS: Diltiazem 120 MG Cap.CD PO SCH (08:42)
[2020-11-09] MEDS: Tiotropium Bromide 4 GM Inhalation Spray (2.5mcg/1 dose; 10 doses) INH SCH (08:43)
[2020-11-09] MEDS: Sodium Chloride 1 GM Tab PO SCH ×2 (08:43→20:29)
[2020-11-09] MEDS: Acetaminophen 325 MG Tab PO SCH ×3 (08:45→20:30)
[2020-11-09] MEDS: Morphine 10 MG/0.5 ML Oral Syringe SL PRN (08:51)
[2020-11-09] MEDS: Potassium Chloride 10 MEQ Tab.ER PO SCH ×2 (08:52→20:29)
[2020-11-09] MEDS: ClonazePAM 0.5 MG Tab PO SCH ×3 (08:52→20:27)
[2020-11-09] MEDS: Amoxicillin/Clavulanate K 875-125 MG Tab PO SCH ×2 (14:39→20:29)
[2020-11-09] MEDS: Melatonin 3 MG Tab PO SCH (20:28)
[2020-11-09] MEDS: Gabapentin 600 MG Tab PO SCH (20:28)
[2020-11-10] MEDS: Acetaminophen/Codeine 300-30 MG Tab PO PRN ×2 (00:08→06:09)
[2020-11-10] MEDS: hydrOXYzine HCl 25 MG Tab PO PRN (00:08)
[2020-11-10] MEDS: busPIRone 15 MG Tab PO SCH ×2 (08:27→16:35)
[2020-11-10] MEDS: [UNRECOGNIZED DRUG - OTHER] EYEBOTH SCH ×2 (08:27→16:36)
[2020-11-10] MEDS: Docusate Sodium 100 MG Cap PO SCH ×2 (08:27→19:59)
[2020-11-10] MEDS: Formoterol/Mometasone 200-5 MCG 8.8 GM Inhaler IH SCH (08:27)
[2020-11-10] MEDS: Calcium Carbonate 500 MG Tablet PO SCH (08:28)
[2020-11-10] MEDS: ClonazePAM 0.5 MG Tab PO SCH ×3 (08:28→19:59)
[2020-11-10] MEDS: predniSONE 5 MG Tab PO SCH (08:28)
[2020-11-10] MEDS: Furosemide 20 MG Tab PO SCH ×2 (08:28→16:33)
[2020-11-10] MEDS: Amoxicillin/Clavulanate K 875-125 MG Tab PO SCH ×2 (08:29→19:59)
[2020-11-10] MEDS: Potassium Chloride 10 MEQ Tab.ER PO SCH (08:29)
[2020-11-10] MEDS: Diltiazem 120 MG Cap.CD PO SCH (08:29)
[2020-11-10] MEDS: Allopurinol 300 MG Tab PO SCH (08:29)
[2020-11-10] MEDS: Acetaminophen 325 MG Tab PO SCH ×3 (08:30→19:59)
[2020-11-10] MEDS: Tiotropium Bromide 4 GM Inhalation Spray (2.5mcg/1 dose; 10 doses) INH SCH (08:30)
[2020-11-10] MEDS: Sodium Chloride 1 GM Tab PO SCH ×2 (08:30→19:59)
[2020-11-10] MEDS ORDERED: Ipratropium 0.02% 0.5 MG/2.5 ML Neb Soln INH PRN (13:39)
[2020-11-10] MEDS: Morphine 10 MG/0.5 ML Oral Syringe SL PRN (13:58)
[2020-11-10] MEDS: Budesonide 0.5 MG/2 ML Neb Susp INH SCH (16:39)
[2020-11-10] MEDS: Gabapentin 600 MG Tab PO SCH (19:59)
[2020-11-10] MEDS: Melatonin 3 MG Tab PO SCH (19:59)
[2020-11-11] MEDS: Acetaminophen/Codeine 300-30 MG Tab PO PRN (01:59)
[2020-11-11] MEDS: busPIRone 15 MG Tab PO SCH ×2 (08:29→15:44)
[2020-11-11] MEDS: [UNRECOGNIZED DRUG - OTHER] EYEBOTH SCH ×2 (08:29→15:45)
[2020-11-11] MEDS: predniSONE 5 MG Tab PO SCH (08:30)
[2020-11-11] MEDS: Docusate Sodium 100 MG Cap PO SCH ×2 (08:30→19:50)
[2020-11-11] MEDS: Furosemide 20 MG Tab PO SCH ×2 (08:30→13:07)
[2020-11-11] MEDS: Amoxicillin/Clavulanate K 875-125 MG Tab PO SCH ×2 (08:31→20:01)
[2020-11-11] MEDS: Sodium Chloride 1 GM Tab PO SCH ×2 (08:31→20:01)
[2020-11-11] MEDS: Allopurinol 300 MG Tab PO SCH (08:31)
[2020-11-11] MEDS: Budesonide 0.5 MG/2 ML Neb Susp INH SCH ×2 (08:31→15:46)
[2020-11-11] MEDS: Acetaminophen 325 MG Tab PO SCH ×3 (08:32→20:01)
[2020-11-11] MEDS: Diltiazem 120 MG Cap.CD PO SCH (08:32)
[2020-11-11] MEDS: ClonazePAM 0.5 MG Tab PO SCH ×3 (08:34→19:50)
[2020-11-11] MEDS: Gabapentin 600 MG Tab PO SCH (19:50)
[2020-11-11] MEDS: Melatonin 3 MG Tab PO SCH (19:50)
[2020-11-12] MEDS: Acetaminophen/Codeine 300-30 MG Tab PO PRN (02:18)
[2020-11-12] MEDS: Diltiazem 120 MG Cap.CD PO SCH (08:28)
[2020-11-12] MEDS: Budesonide 0.5 MG/2 ML Neb Susp INH SCH ×2 (08:28→15:35)
[2020-11-12] MEDS: busPIRone 15 MG Tab PO SCH ×2 (08:28→15:35)
[2020-11-12] MEDS: Sodium Chloride 1 GM Tab PO SCH ×2 (08:28→20:06)
[2020-11-12] MEDS: Docusate Sodium 100 MG Cap PO SCH ×2 (08:28→20:02)
[2020-11-12] MEDS: Amoxicillin/Clavulanate K 875-125 MG Tab PO SCH ×2 (08:28→20:03)
[2020-11-12] MEDS: Allopurinol 300 MG Tab PO SCH (08:28)
[2020-11-12] MEDS: Furosemide 20 MG Tab PO SCH ×2 (08:29→13:01)
[2020-11-12] MEDS: [UNRECOGNIZED DRUG - OTHER] EYEBOTH SCH ×2 (08:29→15:35)
[2020-11-12] MEDS: Acetaminophen 325 MG Tab PO SCH ×3 (08:30→20:04)
[2020-11-12] MEDS: predniSONE 5 MG Tab PO SCH (08:30)
[2020-11-12] MEDS: ClonazePAM 0.5 MG Tab PO SCH ×3 (08:33→20:10)
--- NOTE | 2020-11-12 15:10 | PCM.DCSUM1 ---
Discharge Summary - Hospital Course HPI Initial Comments: She was in acute care of acute on chronic congestive heart failure from 10/20- 10/23 then transferred to swing bed for further diuresis and PT/OT. She was on home oxygen at 4L, lives in [facility]. History of COPD, Chronic pulmonary fibrosis, CHF. She stated she didn't realize she was to be taking two diuretics and she was only taking one. Diagnosis: Stroke: No - Discharge Data Discharge Date: 11/13/20 Discharge Disposition: DC/Tfer to Hospice - Home 48 Condition: Good - Referral to Home Health Date of Face to Face Encounter: 11/10/20 Reason for Homebound Status: limited mobility Primary Care Physician: Swapnil Gaspar MD Skilled Need: hospice end stage lung disease - Discharge Diagnosis/Problem(s) (1) Weakness SNOMED Code(s): 30345835 ICD Code: R53.1 - WEAKNESS Status: Acute Current Visit: No (2) Acute exacerbation of CHF (congestive heart failure) SNOMED Code(s): 234790852, 72542014995312 ICD Code: I50.9 - HEART FAILURE, UNSPECIFIED Status: Acute Current Visit: No Problem Details: well controlled, weight stable at 138 lbs. Down 21 lbs since acute admission. (3) Asymptomatic bacteriuria SNOMED Code(s): 180974523 ICD Code: R82.71 - BACTERIURIA Status: Acute Current Visit: Yes (4) Hyponatremia SNOMED Code(s): 72369480 ICD Code: E87.1 - HYPO-OSMOLALITY AND HYPONATREMIA Status: Chronic Cu rrent Visit: No Problem Details: improving, continue NaCL tablets bid, recheck on Monday. Remove fluid restriction. (5) HTN (hypertension) SNOMED Code(s): 63216087 ICD Code: I10 - ESSENTIAL (PRIMARY) HYPERTENSION Status: Chronic Current Visit: No Problem Details: Monitor. Continue home meds. (6) Peripheral edema SNOMED Code(s): 836009504 ICD Code: R60.9 - EDEMA, UNSPECIFIED Status: Chronic Current Visit: No (7) Pulmonary fibrosis SNOMED Code(s): 77247578 ICD Code: J84.10 - PULMONARY FIBROSIS, UNSPECIFIED Status: Acute Current Visit: No (8) COPD with hypoxia SNOMED Code(s): 75612985 ICD Code: J44.9 - CHRONIC OBSTRUCTIVE PULMONARY DISEASE, UNSPECIFIED; R09.02 - HYPOXEMIA Status: Chronic Current Visit: No Problem Details: CO2 now 29, normal range. O2 saturations between 88-92%, titrate to keep within range, increase with activity. (9) Chronic fibrosis of lung SNOMED Code(s): 83400386 ICD Code: J84.10 - PULMONARY FIBROSIS, UNSPECIFIED Status: Chronic Current Visit: No (10) Chronic kidney disease SNOMED Code(s): 115018465 ICD Code: N18.9 - CHRONIC KIDNEY DISEASE, UNSPECIFIED Status: Chronic Current Visit: No Qualifiers: Chronic kidney disease stage 3 subtype: stage 3b (GFR 30-44) (11) GERD (gastroesophageal reflux disease) SNOMED Code(s): 925754174 ICD Code: K21.9 - GASTRO-ESOPHAGEAL REFLUX DISEASE WITHOUT ESOPHAGITIS Status: Chronic Current Visit: No Qualifiers: (12) Gout SNOMED Code(s): 11777413 ICD Code: M10.9 - GOUT, UNSPECIFIED Status: Chronic Current Visit: No Problem Details: Continue home med. (13) Insomnia SNOMED Code(s): 537857982 ICD Code: G47.00 - INSOMNIA, UNSPECIFIED Status: Chronic Current Visit: No Problem Details: Continue home med. (14) Neck pain, chronic SNOMED Code(s): 9439189622121 ICD Code: M54.2 - CERVICALGIA; G89.29 - OTHER CHRONIC PAIN Status: Chronic Current Visit: No (15) DNR (do not resuscitate) Status: Chronic Current Visit: No (16) DNI (do not intubate) SNOMED Code(s): 688705397 ICD Code: Z78.9 - OTHER SPECIFIED HEALTH STATUS Status: Chronic Current Visit: No (17) Palliative care encounter SNOMED Code(s): 725389871, 403417089 ICD Code: Z51.5 - ENCOUNTER FOR PALLIATIVE CARE Status: Acute Current Visit: No - Patient Summary/Data Consults: Consultations 10/23/20 11:25 OT Evaluation and Treatment [CONS] Routine Please Evaluate and Treat. OT Reason for Consult: Strengthening This query below is only for informational purposes and is not editable. PT Evaluation and Treatment [CONS] Routine Please Evaluate and Treat. PT Reason for Consult: Strengthening This query below is only for informational purposes and is not editable. 09/21/21 10:14 Consult to Hospice [CONS] Routine Comment: Physician Instructions: Hospital Course: She was diuresis with Lasix initially 80 mg bid then decreased to 40 mg bid down to 20 mg bid and now 10 mg bid. Her weight from acute admission was 159, she came down to 138 lbs and has been stable at this. Her CO2 was progressively climbing and on 10/30 AGB was checked and her pCO2 was 60. Did nightly BiPAP for 2 hours which was all she could tolerate and her CO2 came down into normal range. Changed her oxygen parameters to 88-92%, titrate to keep in the range, she required 2L with activity and 1L at rest. She had fluid restriction for hyponatremia secondary loop diuretics/SIADH but only brought her sodium up to 125, started NaCl 1 gm po bid and her sodium trended up until she was at 133. She had bacteruria when De [place] was removed on 10/29, did not treat as she had no symptoms. She started having dysuria on 11/08 with frequency so UA done and was positive, grew Proteus sensitive to Augmentin, received 5 day course which was completed 11/12. Her creatinine trended down to 1.0. She was started on Hydroxyzine 25 mg at bedtime for insomnia as needed. Started on Morphine 5 mg SL as needed air hunger/dyspnea, she stated she only had reactions to high doses so she did try it and felt it did help with her breathing. She plateaued with PT/OT and they recommended long-term as she was not progressing. Referral made to Hospice for end stage lung disease, at care conference on 11/10 she met with Hospice and her and her family elected to go [facility] on Hospice. She will be discharged on Monday, covid test for morning of discharge. - Patient Instructions Diet: Usual Diet as Tolerated Activity: As Tolerated Driving: Do Not Drive Showering/Bathing: May Shower Other/Special Instructions: admit to hospice 11/13 - Discharge Plan *PRESCRIPTION DRUG MONITORING PROGRAM REVIEWED*: Yes *COPY OF PRESCRIPTION DRUG MONITORING REPORT IN PATIENT JAYNA: Not Applicable Prescriptions/Med Rec: hydrOXYzine HCL [hydrOXYzine] 25 mg PO BEDTIME PRN #10 tablet PRN Reason: Insomnia Furosemide [Lasix] 10 mg PO BIDDIURETIC #15 tablet Budesonide [Pulmicort] 0.5 mg INH BID@0800,1600 #30 neb Sodium Chloride 1 gm PO BID #60 tablet Home Medications: Home Meds allopurinoL [Zyloprim] 150 mg PO DAILY@03/02/16 [History] Docusate Sodium [Colace] 100 mg PO BID@,03/06/17 [History] ClonazePAM [KlonoPIN] 0.5 mg PO TID@,,06/28/20 [History] busPIRone [Buspar] 15 mg PO BID@,06/28/20 [History] predniSONE [Prednisone] 5 mg PO DAILY@0800 06/28/20 [History] Dextran 70/Hypromellose [Artificial Tears] 1 drop EYEBOTH BID PRN 06/29/20 [History] Acetaminophen [Tylenol Arthritis] 650 mg PO QID@08,,,10/20/20 [History] Acetaminophen/Codeine [Tylenol with Codeine No.3 300MG/30MG] 1 tab PO DAILY@199910/20/20 [History] Carboxymethyl/Gly/Poly80/Pf [Refresh Optive Ravinder-3 Drops] 1 drop EYEBOTH BID@,10/20/20 [History] Gabapentin [Neurontin] 600 mg PO DAILY@199910/20/20 [History] Melatonin 10 mg PO DAILY@199910/20/20 [History] guaiFENesin 10 ml PO Q4H PRN 10/20/20 [History] polyethylene glycoL 3350 [MiraLAX] 17 gm PO DAILY PRN 10/20/20 [History] Diltiazem [Cardizem CD] 120 mg PO DAILY cap.cd 10/23/20 [Rx] Budesonide [Pulmicort] 0.5 mg INH BID@0800,1600 #30 neb 11/12/20 [Rx] Furosemide [Lasix] 10 mg PO BIDDIURETIC #15 tablet 11/12/20 [Rx] Morphine [Morphine 10 MG/0.5 ML Oral Syringe] 5 mg SL Q4H PRN syringe 11/12/20 [Rx] Sodium Chloride 1 gm PO BID #60 tablet 11/12/20 [Rx] hydrOXYzine HCL [hydrOXYzine] 25 mg PO BEDTIME PRN #10 tablet 11/12/20 [Rx] Oxygen Therapy Mode: Nasal Cannula Maintain SPO2% less than: 92 Maintain SpO2% greater than: 88 - Discharge Summary/Plan Comment DC Time >30 min.: No Total # of Minutes for Discharge Time: 22 min - Patient Data Vitals - Most Recent: Last Vital Signs Temp 96.5 F L 11/12/20 09:00 Pulse 82 11/12/20 09:00 Resp 20 11/12/20 09:00 BP 103/68 11/12/20 09:00 Pulse Ox 98 11/12/20 09:00 Orthostatic Blood Pressure [ 98/68 Following Ambulation] Orthostatic Blood Pressure [ 114/58 Standing] Orthostatic Blood Pressure [ 104/55 Sitting] Weight - Most Recent: 145 lb 11.2 oz Med Orders - Current: Current Medications Acetaminophen (Acetaminophen 325 Mg Tab) 650 mg PO TID [facility] Last Admin: 11/12/20 13:01 Dose: 650 mg Documented by: Acetaminophen/Codeine Phosphate (Acetaminophen/Codeine 300-30 Mg Tab) 1 tab PO Q4H PRN PRN Reason: Pain Last Admin: 11/12/20 02:18 Dose: 1 tab Documented by: Allopurinol (Allopurinol 300 Mg Tab) 150 mg PO DAILY@08 [facility] Last Admin: 11/12/20 08:28 Dose: 150 mg Documented by: Amoxicillin/Clavulanate Potassium (Amoxicillin/Clavulanate K 875-125 Mg Tab) 1 tab PO BID [facility] Stop: 11/12/20 21:01 Last Admin: 11/12/20 08:28 Dose: 1 tab Documented by: Artificial Tears (Polyvinyl Alcohol 1.4% Ophth Soln 15 Ml Bottle) 0 ml EYEBOTH BID PRN PRN Reason: Dry Eyes Budesonide (Budesonide 0.5 Mg/2 Ml Neb Susp) 0.5 mg INH BID@0800,1600 [facility] Last Admin: 11/12/20 08:28 Dose: 0.5 mg Documented by: Buspirone HCl (Buspirone 15 Mg Tab) 15 mg PO BID@08,16 [facility] Last Admin: 11/12/20 08:28 Dose: 15 mg Documented by: Clonazepam (Clonazepam 0.5 Mg Tab) 0.5 mg PO TID@,16,20 [facility] Last Admin: 11/12/20 08:33 Dose: 0.5 mg Documented by: Diltiazem HCl (Diltiazem 120 Mg Cap.Cd) 120 mg PO DAILY [facility] Last Admin: 11/12/20 08:28 Dose: 120 mg Documented by: Docusate Sodium (Docusate Sodium 100 Mg Cap) 100 mg PO BID@ [facility] Last Admin: 11/12/20 08:28 Dose: 100 mg Documented by: Furosemide (Furosemide 20 Mg Tab) 10 mg PO BIDDIURETIC [facility] Last Admin: 11/12/20 13:01 Dose: 10 mg Documented by: Gabapentin (Gabapentin 600 Mg Tab) 600 mg PO DAILY@1999 [facility] Last Admin: 11/11/20 19:50 Dose: 600 mg Documented by: Guaifenesin (Guaifenesin 100 Mg/5 Ml Soln 5 Ml Ud Cup) 200 mg PO Q4H PRN PRN Reason: Cough Last Admin: 11/07/20 01:23 Dose: 200 mg Documented by: Hydroxyzine HCl (Hydroxyzine Hcl 25 Mg Tab) 25 mg PO BEDTIME PRN PRN Reason: Insomnia Last Admin: 11/10/20 00:08 Dose: 25 mg Documented by: Ipratropium [place] (Ipratropium 0.02% 0.5 Mg/2.5 Ml Neb Soln) 0.5 mg INH Q6H PRN PRN Reason: SHORTNESS OF BREATH Melatonin (Melatonin 3 Mg Tab) 9 mg PO DAILY@1999 [facility] Last Admin: 11/11/20 19:50 Dose: 9 mg Documented by: Morphine Sulfate (Morphine 10 Mg/0.5 Ml Oral Syringe) 5 mg SL Q4H PRN PRN Reason: Dyspnea Last Admin: 11/10/20 13:58 Dose: 5 mg Documented by: Refresh Optive Ravinder- (3 Drops *Ptom*) 1 drop EYEBOTH BID@ [facility] Last Admin: 11/12/20 08:29 Dose: 1 drop Documented by: Polyethylene Glycol (Polyethylene Glycol 3350 Powder 17 Gm Packet) 17 gm PO DAILY PRN PRN Reason: Constipation Prednisone (Prednisone 5 Mg Tab) 5 mg PO DAILY@0800 [facility] Last Admin: 11/12/20 08:30 Dose: 5 mg Documented by: Sodium Chloride (Sodium Chloride 1 Gm Tab) 1 gm PO BID [facility] Last Admin: 11/12/20 08:28 Dose: 1 gm Documented by: Discontinued Medications Acetaminophen (Acetaminophen 650 Mg Tab.Er) 1,300 mg PO BID [facility] Last Admin: 10/26/20 21:00 Dose: 1,300 mg Documented by: Acetaminophen (Acetaminophen 500 Mg Tab) 500 mg PO TID [facility] Last Admin: 10/29/20 08:09 Dose: 500 mg Documented by: Acetazolamide (Acetazolamide 250 Mg Tab) 250 mg PO BID [facility] Last Admin: 11/01/20 08:45 Dose: 250 mg Documented by: Amoxicillin/Clavulanate Potassium (Amoxicillin/Clavulanate K 875-125 Mg Tab) 1 tab PO Q12H [facility] Stop: 11/13/20 11:31 Last Admin: 11/08/20 22:33 Dose: 1 tab Documented by: Calcium Carbonate/Glycine (Calcium Carbonate 500 Mg Tablet) 500 mg PO BID@ [facility] Last Admin: 11/10/20 08:28 Dose: 500 mg Documented by: Enoxaparin Sodium (Enoxaparin 30 Mg/0.3 Ml Syringe) 30 mg SUBCUT Q24H [facility] Last Admin: 11/03/20 21:06 Dose: 30 mg Documented by: Furosemide (Furosemide 80 Mg Tab) 80 mg PO BIDDIURETIC [facility] Last Admin: 10/26/20 08:40 Dose: 80 mg Documented by: Furosemide (Furosemide 40 Mg Tab) 40 mg PO BIDDIURETIC [facility] Last Admin: 10/30/20 07:53 Dose: 40 mg Documented by: Furosemide (Furosemide 20 Mg Tab) 20 mg PO BIDDIURETIC [facility] Last Admin: 11/07/20 18:24 Dose: Not Given Documented by: Metolazone (Metolazone 5 Mg Tab) 5 mg PO DAILY@0730 [facility] Last Admin: 10/26/20 08:30 Dose: 5 mg Documented by: Mometasone Furoate/Formoterol Fumar (Formoterol/Mometasone 200-5 Mcg 8.8 Gm Inhaler) 2 puff IH [facility] Last Admin: 11/10/20 08:27 Dose: 2 puff Documented by: Ondansetron HCl (Ondansetron 4 Mg Tab.Dis) 4 mg PO Q6H PRN PRN Reason: Nausea/Vomiting Last Admin: 10/30/20 14:08 Dose: 4 mg Documented by: Potassium Chloride (Potassium Chloride 20 Meq Tab.Er) 20 meq PO BID [facility] Last Admin: 11/06/20 09:00 Dose: 20 meq Documented by: Potassium Chloride (Potassium Chloride 20 Meq Packet) 20 meq PO BID [facility] Last Admin: 11/06/20 20:49 Dose: 20 meq Documented by: Potassium Chloride (Potassium Chloride 10 Meq Tab.Er) 10 meq PO BID [facility] Last Admin: 11/10/20 08:29 Dose: 10 meq Documented by: Tiotropium [place] (Tiotropium [place] 4 Gm Inhalation [place] (2.5mcg/1 Dose; 10 Doses)) 0 gm INH DAILY [facility] Last Admin: 11/10/20 08:30 Dose: 2 puff Documented by:
[2020-11-12] MEDS: Melatonin 3 MG Tab PO SCH (20:03)
[2020-11-12] MEDS: Gabapentin 600 MG Tab PO SCH (20:10)
[2020-11-13] MEDS: Docusate Sodium 100 MG Cap PO SCH (08:21)
[2020-11-13] MEDS: busPIRone 15 MG Tab PO SCH (08:21)
[2020-11-13] MEDS: Diltiazem 120 MG Cap.CD PO SCH (08:22)
[2020-11-13] MEDS: ClonazePAM 0.5 MG Tab PO SCH (08:22)
[2020-11-13] MEDS: predniSONE 5 MG Tab PO SCH (08:22)
[2020-11-13] MEDS: Allopurinol 300 MG Tab PO SCH (08:22)
[2020-11-13] MEDS: Furosemide 20 MG Tab PO SCH (08:22)
[2020-11-13] MEDS: Acetaminophen 325 MG Tab PO SCH (08:23)
[2020-11-13] MEDS: Sodium Chloride 1 GM Tab PO SCH (08:23)
[2020-11-13] MEDS: [UNRECOGNIZED DRUG - OTHER] EYEBOTH SCH (08:23)
[2020-11-13 08:24] VITALS: BP 133/74; PULSE 94
[2020-11-13] MEDS: Budesonide 0.5 MG/2 ML Neb Susp INH SCH (08:51)
== END 2020-11-13 11:30 | disposition hospice, home (50) | DRG 292 ==
LOC: FB.MS 11:07
PROVIDERS: ADMIT Family Medicine; ATTEND Student in an Organized Health Care Education/Training Program
DX: I13.0 Hypertensive heart and chronic kidney disease with heart failure and stage 1 through stage 4 chronic kidney disease, or unspecified chronic kidney disease (principal); E22.2 Syndrome of inappropriate secretion of antidiuretic hormone; R53.1 Weakness; J84.10 Pulmonary fibrosis, unspecified; J44.9 Chronic obstructive pulmonary disease, unspecified; N18.32 Chronic kidney disease, stage 3b; K21.9 Gastro-esophageal reflux disease without esophagitis; Z20.822 Contact with and (suspected) exposure to COVID-19; Z66 Do not resuscitate; Z51.5 Encounter for palliative care; G47.00 Insomnia, unspecified; M54.2 Cervicalgia; G89.29 Other chronic pain; M10.9 Gout, unspecified; E11.22 Type 2 diabetes mellitus with diabetic chronic kidney disease; I27.20 Pulmonary hypertension, unspecified; I07.1 Rheumatic tricuspid insufficiency; Z98.41 Cataract extraction status, right eye; Z98.42 Cataract extraction status, left eye; Z90.49 Acquired absence of other specified parts of digestive tract; Z98.890 Other specified postprocedural states; Z88.8 Allergy status to other drugs, medicaments and biological substances
CPT/HCPCS: 36415; 51798; 80048; 81001; 82803; 84100; 85027; 87086; 87088; 87186; 94660; 97110-GO; 97116-GP; 97530-GO; 97530-GP; 97535-GO; A9270-GY; J1650; J7512; U0002